=== PATIENT | male | born 1950 | race Caucasian/White ===

== ENCOUNTER 2016-11-29 13:26 | Emergency (ER) | payer MEDICAID, OTHER ==
[~2016-11-29] VITALS: Ht 190.5 cm; Wt 90.7 kg
[~2016-11-29 13:26] MED LIST: ASPI-231 PO; CYCL-181 PO; HYDR-2595 PO; IBUP40DR2; LABE100T PO; LORANTIDINE; LOSA100T27 PO; SIMV-8 PO; TRAM50TA2 PO; ZOLP10TA6 PO
[2016-11-29 13:32] VITALS: BP 162/102
[2016-11-29 14:23] LABS: Basophils # (auto) 0 uL; Basophils % (auto) 0.6 % (0.0-2.0); CONDITION Y; Eosinophils # (auto) 0 uL; Eosinophils % (auto) 0.2 % (0.0-7.0); Hematocrit 38.4 % (41.0-53.0); Hemoglobin 13.1 g/dL (13.5-17.5); Lymphocytes % (auto) 26.2 % (10.0-50.0); Mean Corpuscular Hemoglobin 33.4 pg (28.0-32.0); Mean Corpuscular Volume 98.1 fL (80.0-100.0); Mean Platelet Volume 7.2 fL (7.4-10.4); Monocytes # (auto) 0.5 uL; Monocytes % (auto) 7.3 % (0.0-12.0); Neutrophils # (auto) 4.9 uL; Neutrophils % (auto) 65.7 % (37.0-80.0); Platelet Count (auto) 340 10^3/uL (140-450); Red Cell Distribution Width 14.6 % (11.6-16.0); White Blood Cell 7.5 10^3/uL (4.4-10.8)
[2016-11-29 14:38] LABS: INR 0.97 (0.9-1.15); Partial Thromboplastin Time 30.5 sec (22.64-33.71); Prothrombin Time 10.6 sec (9.37-12.3)
[2016-11-29 14:56] LABS: Potassium 3.7 mmol/L (3.5-5.1); Sodium 136 mmol/L (136-145)
[2016-11-29 14:57] LABS: Alkaline Phosphatase 69 U/L (45-117); Anion Gap 12 (5-15); BUN/Creatinine Ratio 16.4; Blood Urea Nitrogen 19 mg/dL (7-18); Carbon Dioxide 24 mmol/L (21-32); Chloride 100 mmol/L (98-107); GFR African American 81 mL/min; GFR Non-African American 67 mL/min; Glucose 80 mg/dL (74-106)
[2016-11-29 14:58] LABS: Albumin 4.3 g/dL (3.4-5.0); Aspartate Aminotransferase 32 U/L (15-37); Bilirubin, Total 1.1 mg/dL (0.2-1.0); Total Protein 8.2 g/dL (6.4-8.2)
== END 2016-11-29 21:50 | disposition left against medical advice (07) ==
LOC: ER 13:29
DX: R07.89 Other chest pain (principal); R11.10 Vomiting, unspecified; Z53.21 Procedure and treatment not carried out due to patient leaving prior to being seen by health care provider
CPT/HCPCS: 36415; 71020; 80053; 84484; 85025; 85610; 85730; 93005

== ENCOUNTER → 2017-04-06 | Outpatient (CLI) | payer OTHER, MEDICAID ==
[~2017-04-06] VITALS: Ht 190.5 cm; Wt 87.1 kg
== END | disposition home or self-care (01) ==
LOC: Rad HDHVI 08:33
PROVIDERS: ATTEND Internal Medicine Cardiovascular Disease
DX: I34.0 Nonrheumatic mitral (valve) insufficiency (principal); I10 Essential (primary) hypertension; R00.2 Palpitations; R06.02 Shortness of breath; I49.5 Sick sinus syndrome; I95.9 Hypotension, unspecified; Z95.0 Presence of cardiac pacemaker
CPT/HCPCS: 78452; 93017; 93306; 96374; A9500

== ENCOUNTER 2017-07-06 09:52 | Emergency (ER) | payer OTHER, MEDICAID ==
[~2017-07-06] VITALS: Ht 190.5 cm; Wt 88.5 kg
[2017-07-06 10:51] VITALS: BP 121/88
[2017-07-06] MEDS ORDERED: KETOROLAC TROMETH 60MG/2ML VIAL IM ONE (11:30)
== END 2017-07-06 12:39 | disposition home or self-care (01) ==
LOC: ER 09:52
DX: S29.011A Strain of muscle and tendon of front wall of thorax, initial encounter (principal); G89.29 Other chronic pain; M54.5 Low back pain; I12.9 Hypertensive chronic kidney disease with stage 1 through stage 4 chronic kidney disease, or unspecified chronic kidney disease; N18.9 Chronic kidney disease, unspecified; E78.5 Hyperlipidemia, unspecified; X50.9XXA Other and unspecified overexertion or strenuous movements or postures, initial encounter; Y93.89 Activity, other specified; Y92.89 Other specified places as the place of occurrence of the external cause; Y99.8 Other external cause status; Z79.899 Other long term (current) drug therapy; Z79.82 Long term (current) use of aspirin; Z95.0 Presence of cardiac pacemaker
CPT/HCPCS: 71101; 93005; 96372; 99284; J1885

== ENCOUNTER → 2019-09-10 | Outpatient (CLI) | payer OTHER, MEDICAID ==
[~2019-09-10] MED LIST changes: -LABE100T PO; +LABE100T4 PO; +LOSA-39 PO; -LOSA100T27 PO
== END | disposition home or self-care (01) ==
LOC: Rad HDHVI 11:00
PROVIDERS: ATTEND Internal Medicine Cardiovascular Disease
DX: I49.5 Sick sinus syndrome (principal); R00.2 Palpitations; R07.89 Other chest pain; R06.02 Shortness of breath
CPT/HCPCS: 93306

== ENCOUNTER → 2019-09-11 | Outpatient (CLI) | payer OTHER, MEDICAID ==
[~2019-09-11] VITALS: Ht 190.5 cm; Wt 89.4 kg
== END | disposition home or self-care (01) ==
LOC: Rad HDHVI 12:57
PROVIDERS: ATTEND Internal Medicine Cardiovascular Disease
DX: I10 Essential (primary) hypertension (principal); R07.89 Other chest pain; Z95.0 Presence of cardiac pacemaker; E78.00 Pure hypercholesterolemia, unspecified
CPT/HCPCS: 78452; 93017; 96374; A9500

== ENCOUNTER → 2019-09-24 | Outpatient (CLI) | payer OTHER, MEDICAID ==
[~2019-09-24] MED LIST changes: +BENA20TA14 PO; -CYCL-181 PO; -HYDR-2595 PO; -IBUP40DR2; -LABE100T4 PO; +LORA-622 PO; -LORANTIDINE; -LOSA-39 PO; +METH500T22 PO; +METO25TA93 PO; -SIMV-8 PO; -TRAM50TA2 PO
[2019-09-24 09:00] VITALS: BP 112/79
--- NOTE | 2019-09-24 09:00 | NUR ---
CHF PT ARRIVED TO THE [facility] FOR PRE OP EKG, CXR, LABS FOR PMK GEN CHANGE ON 09/27/19. A/O X4
[2019-09-24 09:30] VITALS: BP 108/74
--- NOTE | 2019-09-24 09:30 | NUR ---
Pre-Op Discharge Summary: See e-MAR for any medications given for this visit. Pre-op orders received and carried out per MD of EKG, LABS and chest xrays. Patient given a copy of EKG. HOSPITAL REGISTRATION COMPLETED VIA PHONE. NOTE EKG DONE BY ANGELINA CHURCH
[2019-09-24 11:58] LABS: Eosinophils # (auto) 0.1 10 ^3/uL (0-0.8); Hemoglobin 14.9 g/dL (13.5-17.5); Monocytes # (auto) 0.7 10 ^3/uL (0-1.3); White Blood Cell 6.1 10^3/uL (4.4-10.8)
[2019-09-24 12:00] LABS: Basophils # (auto) 0 10 ^3/uL (0-0.2); Basophils % (auto) 0.7 % (0.0-2.0); Eosinophils % (auto) 2.1 % (0.0-7.0); Hematocrit 44.1 % (41.0-53.0); Lymphocytes # (auto) 1.8 10 ^3/uL (0.4-5.4); Lymphocytes % (auto) 28.9 % (10.0-50.0); Mean Corpuscular Hemoglobin 34.7 pg (28.0-32.0); Mean Corpuscular Hgb Conc. 33.8 g/dL (32.0-36.0); Mean Corpuscular Volume 102.8 fL (80.0-100.0); Monocytes % (auto) 11.7 % (0.0-12.0); Neutrophils # (auto) 3.4 10 ^3/uL (1.6-8.6); Neutrophils % (auto) 56.6 % (37.0-80.0); Nucleated Red Blood Cells % 0.1 %; Platelet Count (auto) 199 10^3/uL (140-450); Red Blood Cells 4.29 10^6/uL (4.5-5.90); Red Cell Distribution Width 14.1 % (11.8-14.3)
[2019-09-24 12:10] LABS: BUN/Creatinine Ratio 14.9; Calcium 8.8 mg/dL (8.5-10.1); INR 1.01 (0.9-1.15); Partial Thromboplastin Time 26.9 sec (23.64-32.05); Potassium 4.9 mmol/L (3.5-5.1)
== END | disposition home or self-care (01) ==
LOC: Rad HDHVI 08:49
PROVIDERS: ATTEND Internal Medicine Cardiovascular Disease
DX: Z01.812 Encounter for preprocedural laboratory examination (principal); I70.0 Atherosclerosis of aorta; I10 Essential (primary) hypertension; I49.5 Sick sinus syndrome; I42.0 Dilated cardiomyopathy; R07.89 Other chest pain; R06.02 Shortness of breath
CPT/HCPCS: 36415; 71046; 80048; 85025; 85610; 85730; 93005; G0463

== ENCOUNTER 2019-09-27 08:03 | Day surgery (SDC) | payer OTHER, MEDICAID ==
[~2019-09-27] VITALS: Ht 188 cm; Wt 90.7 kg
[2019-09-27] MEDS ORDERED: VANCOMYCIN 1GM/250ML 250 ML IV ONE ×2 (09:15→11:05)
[2019-09-27] MEDS ORDERED: fentaNYL CITRATE 100 MCG/2 ML VL ONE (10:49)
[2019-09-27] MEDS ORDERED: MIDAZOLAM HCL 1MG/1ML-2 ML VIAL ONE (10:49)
[2019-09-27] MEDS ORDERED: VANCOMYCIN HCL 1000 MG VL ONE (10:49)
[2019-09-27] MEDS ORDERED: LIDOCAINE 2%HCL (LOCAL ANESTH.) INJ 20ML MDV ONE (11:12)
[2019-09-27] MEDS ORDERED: HYDROcodone-ACET 5/325MG TAB PO PRN (12:30)
== END 2019-09-27 14:09 | disposition home or self-care (01) ==
LOC: CATH 08:03
PROVIDERS: ATTEND Internal Medicine Cardiovascular Disease
DX: Z45.010 Encounter for checking and testing of cardiac pacemaker pulse generator [battery] (principal); I49.5 Sick sinus syndrome; I11.0 Hypertensive heart disease with heart failure; I50.9 Heart failure, unspecified; Z79.82 Long term (current) use of aspirin; Z79.899 Other long term (current) drug therapy
CPT/HCPCS: 33228; C1785; J2250; J3010; J3370; 99152; 99153

== ENCOUNTER → 2020-07-18 | Outpatient (CLI) | payer OTHER, MEDICAID | END | disposition home or self-care (01) | LOC: Rad HDHVI 14:01 | PROVIDERS: ATTEND Internal Medicine Cardiovascular Disease | DX: I49.5 Sick sinus syndrome (principal) | CPT/HCPCS: 93306 ==

== ENCOUNTER → 2020-07-30 | Outpatient (CLI) | payer OTHER, MEDICAID ==
[~2020-07-30] VITALS: Ht 188 cm; Wt 90.7 kg
== END | disposition home or self-care (01) ==
LOC: Rad HDHVI 08:25
PROVIDERS: ATTEND Internal Medicine Cardiovascular Disease
DX: I49.5 Sick sinus syndrome (principal); I10 Essential (primary) hypertension; E78.5 Hyperlipidemia, unspecified; R55 Syncope and collapse; R06.02 Shortness of breath; Z95.0 Presence of cardiac pacemaker
CPT/HCPCS: 78452; 93017; 96374; A9500

== ENCOUNTER → 2021-09-30 | Outpatient (CLI) | payer OTHER, MEDICAID ==
[~2021-09-30] VITALS: Ht 190.5 cm; Wt 87.5 kg
[~2021-09-30] MED LIST changes: -ASPI-231 PO; +ASPI1TAB20 PO
== END | disposition home or self-care (01) ==
LOC: Rad HDHVI 08:16
PROVIDERS: ATTEND Internal Medicine Cardiovascular Disease
DX: I10 Essential (primary) hypertension (principal); R07.9 Chest pain, unspecified; Z95.0 Presence of cardiac pacemaker
CPT/HCPCS: 78452; 93017; 96374; A9500

== ENCOUNTER 2022-03-17 06:50 | Emergency (ER) | payer OTHER, MEDICAID ==
[~2022-03-17] VITALS: Ht 185.4 cm; Wt 91.0 kg
[2022-03-17] MEDS ORDERED: CEFD300C2 PO (08:40)
[2022-03-17] MEDS ORDERED: BACIOIN15 OP (08:40)
[2022-03-17 09:29] VITALS: BP 132/70
== END 2022-03-17 10:12 | disposition home or self-care (01) ==
LOC: ER 06:50
DX: L97.421 Non-pressure chronic ulcer of left heel and midfoot limited to breakdown of skin (principal); G89.4 Chronic pain syndrome; I12.9 Hypertensive chronic kidney disease with stage 1 through stage 4 chronic kidney disease, or unspecified chronic kidney disease; N18.9 Chronic kidney disease, unspecified; E78.5 Hyperlipidemia, unspecified; F12.10 Cannabis abuse, uncomplicated

== ENCOUNTER 2022-04-05 12:16 | Inpatient (IN) | payer OTHER, MEDICAID ==
[~2022-04-05] VITALS: Ht 185.4 cm; Wt 89.7 kg
[~2022-04-05 12:16] MED LIST changes: +BACIOIN15 OP; +CEFD300C2 PO
[2022-04-05] MEDS ORDERED: ASPirin 81 mg TAB PO ONE (12:45)
[2022-04-05 13:05] LABS: Basophils # (auto) 0 10 ^3/uL (0-0.2); Basophils % (auto) 0.3 % (0.0-2.0); Lymphocytes # (auto) 2.4 10 ^3/uL (0.4-5.4); Mean Corpuscular Hgb Conc. 33.7 g/dL (32.0-36.0); Neutrophils # (auto) 2.8 10 ^3/uL (1.6-8.6); Nucleated Red Blood Cells % 0.1 %; White Blood Cell 6.6 10^3/uL (4.4-10.8)
[2022-04-05 13:06] LABS: Eosinophils # (auto) 0.4 10 ^3/uL (0-0.8); Eosinophils % (auto) 6.3 % (0.0-7.0); Hemoglobin 14.5 g/dL (13.5-17.5); Lymphocytes % (auto) 36.1 % (10.0-50.0); Mean Corpuscular Hemoglobin 34.8 pg (28.0-32.0); Mean Corpuscular Volume 103.1 fL (80.0-100.0); Monocytes % (auto) 14.9 % (0.0-12.0); Neutrophils % (auto) 42.4 % (37.0-80.0); Red Blood Cells 4.17 10^6/uL (4.5-5.90); Red Cell Distribution Width 13.2 % (11.8-14.3)
[2022-04-05 13:18] LABS: INR 1.08 (0.9-1.15); Partial Thromboplastin Time 30.5 sec (24.6-33.4)
[2022-04-05 13:23] LABS: Albumin 3.3 g/dL (3.4-5.0); Calcium 9.4 mg/dL (8.5-10.1); Magnesium 2.2 mg/dL (1.6-2.6); Potassium 5.4 mmol/L (3.5-5.1)
[2022-04-05 13:26] LABS: Total Protein 7.9 g/dL (6.4-8.2)
[2022-04-05] MEDS ORDERED: CLINDAMYCIN 600MG IV 50 ML IV ONE (13:30)
[2022-04-05] MEDS ORDERED: PANTOPRAZOLE 40 MG/10 ML VIAL INJ IV ONE (18:00)
[2022-04-05] MEDS ORDERED: HYDROcodone-ACET 5/325MG TAB PO PRN (18:45)
[2022-04-05] MEDS ORDERED: ONDANSETRON HCL 4 MG/2 ML VIAL IV PRN (18:45)
[2022-04-05] MEDS ORDERED: DOCUSATE SOD 100 MG CAP PO PRN (18:45)
[2022-04-05] MEDS ORDERED: NITROGLYCERIN 0.4 MG SL TAB SL PRN (18:45)
[2022-04-05] MEDS ORDERED: MORPHINE SULFATE INJ 2 MG/ml SYRG IV PRN (18:45)
[2022-04-05] MEDS ORDERED: ACETAMINOPHEN 325 MG TAB PO PRN (18:45)
[2022-04-05 19:33] LABS: Cholesterol 168 mg/dL (< 200); Triglycerides 220 mg/dL (< 150)
[2022-04-05 19:36] LABS: HDL Cholesterol 30 mg/dL (40-59); LDL Cholesterol 119 mg/dL (< 100)
[2022-04-06] MEDS: ASCORBIC ACID 500 MG TAB PO SCH ×3 (00:05→21:53)
[2022-04-06] MEDS: CLINDAMYCIN 600MG IV 50 ML IV SCH ×4 (00:05→21:53)
[2022-04-06] MEDS: SODIUM CHLORIDE 0.9% 1,000 ML IV SCH ×3 (00:46→16:31)
[2022-04-06 01:20] LABS: Urine Bacteria FEW /hpf (None Seen); Urine Blood Negative /uL (Negative); Urine Hyaline Cast MANY /lpf (0 - 2); Urine Mucus FEW (None Seen); Urine Specific Gravity 1.022 (1.001-1.035); Urine WBC 3 /hpf (0 - 3)
[2022-04-06 01:27] LABS: Amphetamine Screen, Urine NEGATIVE (NEGATIVE); Barbiturate Scree,Urine NEGATIVE (NEGATIVE); Benzodiazephine Screen, Urine NEGATIVE (NEGATIVE); Cannabinoid Screen, Urine NEGATIVE (NEGATIVE); Cocaine Screen, Urine NEGATIVE (NEGATIVE); Opiate Scree,Urine NEGATIVE (NEGATIVE); Phencyclidine Screen, Urine NEGATIVE (NEGATIVE)
[2022-04-06 06:15] LABS: Basophils # (auto) 0.1 10 ^3/uL (0-0.2); Basophils % (auto) 1.2 % (0.0-2.0); Eosinophils # (auto) 0.3 10 ^3/uL (0-0.8); Eosinophils % (auto) 5.5 % (0.0-7.0); Hematocrit 38.1 % (41.0-53.0); Hemoglobin 12.8 g/dL (13.5-17.5); Lymphocytes # (auto) 2.5 10 ^3/uL (0.4-5.4); Lymphocytes % (auto) 41.3 % (10.0-50.0); Mean Corpuscular Hemoglobin 34.7 pg (28.0-32.0); Mean Corpuscular Hgb Conc. 33.6 g/dL (32.0-36.0); Mean Corpuscular Volume 103.1 fL (80.0-100.0); Monocytes # (auto) 1.1 10 ^3/uL (0-1.3); Monocytes % (auto) 17.9 % (0.0-12.0); Neutrophils # (auto) 2.1 10 ^3/uL (1.6-8.6); Neutrophils % (auto) 34.1 % (37.0-80.0); Nucleated Red Blood Cells % 0.1 %; Red Cell Distribution Width 12.7 % (11.8-14.3); White Blood Cell 6.2 10^3/uL (4.4-10.8)
[2022-04-06 06:31] LABS: Albumin 2.5 g/dL (3.4-5.0); Calcium 8.5 mg/dL (8.5-10.1)
[2022-04-06 06:34] LABS: BUN/Creatinine Ratio 17.1; Total Protein 6.6 g/dL (6.4-8.2)
[2022-04-06 06:59] LABS: Potassium 5.8 mmol/L (3.5-5.1)
[2022-04-06] MEDS ORDERED: SODIUM ZIRCONIUM CYCL 10 GM PAK PO ONE (07:15)
[2022-04-06] MEDS: ASPirin 81 mg TAB PO SCH (09:55)
[2022-04-06] MEDS: ZINC SULFATE 220mg CAP or TAB PO SCH (09:55)
[2022-04-06] MEDS: MULTIPLE VITAMIN TAB PO SCH (09:55)
[2022-04-06] MEDS: PANTOPRAZOLE 40 MG/10 ML VIAL INJ IV SCH (09:56)
[2022-04-06] MEDS ORDERED: ENOXAPARIN SOD 40 MG/0.4 ML SYRINGE SC SCH (10:00)
[2022-04-06] MEDS ORDERED: ALBUTEROL SULF 2.5 MG/0.5ML(0.5%) NEB SOLN NEB ONE (10:45)
[2022-04-06 11:50] LABS: Salicylate < 1.7 mg/dL (2.8-20.0)
[2022-04-06 11:52] LABS: Acetaminophen < 2.0 ug/mL (10-30)
[2022-04-06] MEDS ORDERED: TRIATAB3 PO (12:03)
[2022-04-06] MEDS ORDERED: PERCOT PO (12:03)
[2022-04-06] MEDS ORDERED: ZOLP10TA PO (12:07)
[2022-04-06] MEDS ORDERED: ZINC100T5 PO (12:07)
[2022-04-06 12:39] VITALS: BP 140/76
[2022-04-06 16:46] VITALS: BP 135/91
[2022-04-06] MEDS: ENOXAPARIN SOD 100 MG/1 ML SYRINGE SC SCH (21:55)
[2022-04-06] MEDS ORDERED: ZOLPIDEM TARTRATE 5 MG TAB PO PRN (22:00)
[2022-04-06 22:29] VITALS: BP 130/79
[2022-04-06] MEDS: oxyCODONE ER 10 MG TAB PO SCH (23:25)
[2022-04-07] MEDS: SODIUM CHLORIDE 0.9% 1,000 ML IV SCH ×3 (04:15→17:31)
[2022-04-07 04:45] VITALS: BP 101/69
[2022-04-07] MEDS: CLINDAMYCIN 600MG IV 50 ML IV SCH ×3 (06:03→22:22)
[2022-04-07 06:49] LABS: Basophils # (auto) 0 10 ^3/uL (0-0.2); Basophils % (auto) 0.6 % (0.0-2.0); Eosinophils # (auto) 0.4 10 ^3/uL (0-0.8); Eosinophils % (auto) 5.8 % (0.0-7.0); Hematocrit 35.9 % (41.0-53.0); Hemoglobin 12.3 g/dL (13.5-17.5); Lymphocytes # (auto) 1.9 10 ^3/uL (0.4-5.4); Lymphocytes % (auto) 31.1 % (10.0-50.0); Mean Corpuscular Hemoglobin 34.9 pg (28.0-32.0); Mean Corpuscular Hgb Conc. 34.2 g/dL (32.0-36.0); Mean Corpuscular Volume 101.9 fL (80.0-100.0); Monocytes # (auto) 0.9 10 ^3/uL (0-1.3); Neutrophils % (auto) 48.5 % (37.0-80.0); Nucleated Red Blood Cells % 0.2 %; Red Blood Cells 3.52 10^6/uL (4.5-5.90); Red Cell Distribution Width 12.9 % (11.8-14.3); White Blood Cell 6.3 10^3/uL (4.4-10.8)
[2022-04-07 07:04] LABS: Potassium 4.8 mmol/L (3.5-5.1)
[2022-04-07 07:12] LABS: Albumin 2.4 g/dL (3.4-5.0); BUN/Creatinine Ratio 15.7; Bilirubin, Total 1.9 mg/dL (0.2-1.0); Calcium 8.1 mg/dL (8.5-10.1)
[2022-04-07] MEDS: METOPROLOL SUCCINATE XL 50 MG TAB PO SCH (08:13)
[2022-04-07] MEDS: TRIAMTERENE/HCTZ 37.5/25 MG CAP/TAB PO SCH (08:13)
[2022-04-07] MEDS: MULTIPLE VITAMIN TAB PO SCH (08:42)
[2022-04-07] MEDS: ASCORBIC ACID 500 MG TAB PO SCH ×2 (08:42→22:22)
[2022-04-07] MEDS: ZINC SULFATE 220mg CAP or TAB PO SCH (08:42)
[2022-04-07 08:43] VITALS: BP 93/60
[2022-04-07] MEDS: ASPirin 81 mg TAB PO SCH (08:43)
[2022-04-07] MEDS: PANTOPRAZOLE 40 MG/10 ML VIAL INJ IV SCH (08:43)
[2022-04-07] MEDS: ENOXAPARIN SOD 100 MG/1 ML SYRINGE SC SCH ×2 (08:43→22:24)
[2022-04-07] MEDS: oxyCODONE ER 10 MG TAB PO SCH (08:43)
[2022-04-07] MEDS: DICLOFENAC 1% GEL TOP SCH ×3 (12:05→22:30)
[2022-04-07 12:38] VITALS: BP 101/64
[2022-04-07] MEDS: OXYCODONE W/ ACETAMINOPHEN 5/325MG TABLET PO PRN ×2 (15:24→22:23)
[2022-04-07 16:34] VITALS: BP 106/70
[2022-04-07] MEDS ORDERED: POLYETHYLENE GLYCOL 17 GM PWDR PO ONE (18:00)
[2022-04-07 19:04] LABS: Hepatitis A Ab IgM Negative; Hepatitis B Core IgM Negative; Hepatitis C Antibody Negative (Negative)
[2022-04-07 22:00] VITALS: BP_SYST 109; BP_SYST 113; BP_DIAS 69; BP_DIAS 72
[2022-04-08] MEDS: SODIUM CHLORIDE 0.9% 1,000 ML IV SCH (05:48)
[2022-04-08 06:00] VITALS: BP_SYST 116; BP_SYST 89; BP_DIAS 49; BP_DIAS 74
[2022-04-08] MEDS: CLINDAMYCIN 600MG IV 50 ML IV SCH ×2 (06:16→14:00)
[2022-04-08] MEDS: DICLOFENAC 1% GEL TOP SCH ×2 (06:16→11:42)
[2022-04-08 06:19] VITALS: BP 99/71
[2022-04-08 08:56] VITALS: BP_SYST 100; BP_SYST 116; BP_DIAS 70
[2022-04-08] MEDS: TRIAMTERENE/HCTZ 37.5/25 MG CAP/TAB PO SCH (10:00)
[2022-04-08] MEDS: ZINC SULFATE 220mg CAP or TAB PO SCH (10:01)
[2022-04-08] MEDS: ASCORBIC ACID 500 MG TAB PO SCH (10:01)
[2022-04-08] MEDS: ASPirin 81 mg TAB PO SCH (10:01)
[2022-04-08] MEDS: PANTOPRAZOLE 40 MG/10 ML VIAL INJ IV SCH (10:01)
[2022-04-08] MEDS: MULTIPLE VITAMIN TAB PO SCH (10:01)
[2022-04-08] MEDS: ENOXAPARIN SOD 100 MG/1 ML SYRINGE SC SCH (10:02)
[2022-04-08] MEDS: METOPROLOL SUCCINATE XL 50 MG TAB PO SCH (10:02)
[2022-04-08 12:18] LABS: Potassium 5.1 mmol/L (3.5-5.1)
[2022-04-08 12:19] LABS: Albumin 2.4 g/dL (3.4-5.0); BUN/Creatinine Ratio 13.6; Calcium 8.1 mg/dL (8.5-10.1)
[2022-04-08 12:22] LABS: Bilirubin, Total 0.6 mg/dL (0.2-1.0); Total Protein 6.5 g/dL (6.4-8.2)
[2022-04-08 13:00] VITALS: BP 129/85
[2022-04-08] MEDS ORDERED: APIX5TAB PO (13:21)
[2022-04-08] MEDS ORDERED: APIX5TAB4 PO (13:21)
[2022-04-08] MEDS ORDERED: CEPH-510 PO (13:25)
== END 2022-04-08 16:30 | disposition home or self-care (01) | DRG 603 ==
LOC: ER 12:16 → TELE 18:42 → CENTRAL 04-06 09:22 → TELE-CENTR 04-06 09:27 → CENTRAL 04-07 12:09
PROVIDERS: ADMIT Nurse Practitioner Family; ATTEND Internal Medicine
DX: L03.317 Cellulitis of buttock (principal); E46 Unspecified protein-calorie malnutrition; I82.411 Acute embolism and thrombosis of right femoral vein; L02.31 Cutaneous abscess of buttock; E78.5 Hyperlipidemia, unspecified; E87.5 Hyperkalemia; F17.200 Nicotine dependence, unspecified, uncomplicated; G89.29 Other chronic pain; E87.8 Other disorders of electrolyte and fluid balance, not elsewhere classified; I12.9 Hypertensive chronic kidney disease with stage 1 through stage 4 chronic kidney disease, or unspecified chronic kidney disease; N18.30 Chronic kidney disease, stage 3 unspecified; Z20.822 Contact with and (suspected) exposure to COVID-19; Z95.0 Presence of cardiac pacemaker; Z82.49 Family history of ischemic heart disease and other diseases of the circulatory system; Z68.26 Body mass index [BMI] 26.0-26.9, adult
CPT/HCPCS: 36415; 71046; 76705; 76881; 80053; 80061; 80074; 80307; 80329; 81001; 82140; 83036; 83735; 84132; 84443; 84484; 85025; 85379; 85610; 85730; 87040; 87205; 87426; 93005; 93970; 94640; 96365; 96375; C9113; G0378; J3490

== ENCOUNTER → 2023-02-21 | Outpatient (CLI) | payer OTHER, MEDICAID ==
[~2023-02-21] MED LIST changes: +APIX5TAB PO; +APIX5TAB4 PO; +BENA-36 PO; -BENA20TA14 PO; -CEFD300C2 PO; +CEPH-510 PO; +CLON0.1T PO; +CLOP75TA28 PO; +HYDR-4798 PO; +LIDO5CRE14 EX; -LORA-622 PO; +MELO-335 PO; +METH-1181 PO; -METH500T22 PO; +MULT1TAB82 PO; +TRIATAB3 PO; +ZOLP10TA PO; -ZOLP10TA6 PO
[2023-02-21 11:15] VITALS: BP 102/66; PULSE 80; RESP 18; O2SAT 93
[2023-02-21 11:35] VITALS: BP 100/63; PULSE 73; RESP 18; O2SAT 93
== END | disposition home or self-care (01) ==
LOC: CHF HDHVI 11:06
PROVIDERS: ATTEND Internal Medicine Cardiovascular Disease
DX: I50.43 Acute on chronic combined systolic (congestive) and diastolic (congestive) heart failure (principal); R06.02 Shortness of breath; I20.0 Unstable angina; R09.89 Other specified symptoms and signs involving the circulatory and respiratory systems
CPT/HCPCS: 93005; G0463

== ENCOUNTER 2023-02-24 07:31 | Day surgery (SDC) | payer OTHER, MEDICAID ==
[2023-02-21 14:19] LABS: Basophils # (auto) 0.1 10 ^3/uL (0-0.2); Basophils % (auto) 0.4 % (0.0-2.0); Eosinophils # (auto) 0.1 10 ^3/uL (0-0.8); Lymphocytes # (auto) 1.9 10 ^3/uL (0.4-5.4); Lymphocytes % (auto) 15.9 % (10.0-50.0); Mean Corpuscular Hemoglobin 35.8 pg (28.0-32.0); Mean Corpuscular Hgb Conc. 34.2 g/dL (32.0-36.0); Mean Corpuscular Volume 104.7 fL (80.0-100.0); Monocytes # (auto) 1.5 10 ^3/uL (0-1.3); Neutrophils # (auto) 8.7 10 ^3/uL (1.6-8.6); Neutrophils % (auto) 70.7 % (37.0-80.0); Nucleated Red Blood Cells % 0.1 %; Red Blood Cells 3.92 10^6/uL (4.5-5.90); Red Cell Distribution Width 13.2 % (11.8-14.3); White Blood Cell 12.3 10^3/uL (4.4-10.8)
[2023-02-21 14:27] LABS: INR 1.03 (0.9-1.15); Partial Thromboplastin Time 34.7 SEC (24.5-34.5); Prothrombin Time 10.8 sec (9.3-11.8)
[2023-02-21 14:41] LABS: Chloride 101 mmol/L (98-107); Potassium 4.5 mmol/L (3.5-5.1); Sodium 133 mmol/L (136-145)
[2023-02-21 14:42] LABS: Anion Gap 10 (5-15); Carbon Dioxide 22 mmol/L (20-30)
[2023-02-21 14:43] LABS: Calcium 9.6 mg/dL (8.7-10.4)
[2023-02-21 14:47] LABS: BUN/Creatinine Ratio 14.8 (10.0-20.0); Blood Urea Nitrogen 20 mg/dL (9-23); Glucose 108 mg/dL (74-106)
[~2023-02-24] VITALS: Ht 185.4 cm; Wt 92.5 kg
[2023-02-24] VITALS (8 sets, daily range): BP systolic 123–138; BP diastolic 73–96; PULSE 65–73; RESP 12–20; TEMP 98.1; O2SAT 93–94
[~2023-02-24 07:31] MED LIST changes: -APIX5TAB PO; -APIX5TAB4 PO; -BACIOIN15 OP; -BENA-36 PO; -METO25TA93 PO; -TRIATAB3 PO
[2023-02-24] MEDS ORDERED: IOHEXOL 350 MG/ML 100ML IJ ONE ×2 (08:09→09:28)
[2023-02-24] MEDS ORDERED: fentaNYL CITRATE 100 MCG/2 ML VL ONE (09:27)
[2023-02-24] MEDS ORDERED: ANGIOMAX 250 MG VIAL IV ONE (09:27)
[2023-02-24] MEDS ORDERED: MIDAZOLAM HCL 2MG/2ML 2ml VIAL (1mg/ml) ONE ×2 (09:28→09:50)
[2023-02-24] MEDS ORDERED: LIDOCAINE 2%HCL (LOCAL ANESTH.) INJ 20ML MDV ONE (09:28)
== END 2023-02-24 12:49 | disposition home or self-care (01) ==
LOC: CATH 07:31
PROVIDERS: ATTEND Internal Medicine Cardiovascular Disease
DX: R07.89 Other chest pain (principal); M94.0 Chondrocostal junction syndrome [Tietze]; R94.31 Abnormal electrocardiogram [ECG] [EKG]; I49.5 Sick sinus syndrome; I10 Essential (primary) hypertension; Z95.0 Presence of cardiac pacemaker; Z79.899 Other long term (current) drug therapy; Z79.01 Long term (current) use of anticoagulants; Z98.890 Other specified postprocedural states; I25.2 Old myocardial infarction; Z86.718 Personal history of other venous thrombosis and embolism; F17.220 Nicotine dependence, chewing tobacco, uncomplicated; N28.9 Disorder of kidney and ureter, unspecified
CPT/HCPCS: 36415; 80048; 85025; 85610; 85730; 93458; C1894; J1644; J2250; J3010; Q9967; 99152; 99153

== ENCOUNTER 2023-10-06 09:30 | Inpatient (IN) | payer OTHER, MEDICAID ==
[~2023-10-06] VITALS: Ht 185.4 cm; Wt 90.1 kg
[~2023-10-06 09:30] MED LIST changes: -MELO-335 PO; +MELO15TA29 PO
[2023-10-06 09:46] LABS: Basophils # (auto) 0.1 10 ^3/uL (0-0.2); Eosinophils # (auto) 0.3 10 ^3/uL (0-0.8); Lymphocytes # (auto) 1.9 10 ^3/uL (0.4-5.4); Monocytes # (auto) 1.1 10 ^3/uL (0-1.3); Neutrophils # (auto) 5.9 10 ^3/uL (1.6-8.6); White Blood Cell 9.3 10^3/uL (4.4-10.8)
[2023-10-06 09:48] LABS: Eosinophils % (auto) 3.3 % (0.0-7.0); Hemoglobin 14.8 g/dL (13.5-17.5); Lymphocytes % (auto) 20.3 % (10.0-50.0); Mean Corpuscular Hemoglobin 36.6 pg (28.0-32.0); Mean Corpuscular Hgb Conc. 34.3 g/dL (32.0-36.0); Mean Corpuscular Volume 106.4 fL (80.0-100.0); Monocytes % (auto) 12.1 % (0.0-12.0); Neutrophils % (auto) 63.3 % (37.0-80.0); Red Blood Cells 4.04 10^6/uL (4.5-5.90)
[2023-10-06 10:01] LABS: Alanine Aminotransferase 14 U/L (7-40); Albumin 4.3 g/dL (3.2-4.8); Alkaline Phosphatase 69 U/L (46-116); Anion Gap 8 (5-15); Aspartate Aminotransferase 28 U/L (13-40); BUN/Creatinine Ratio 14.8 (10.0-20.0); Blood Urea Nitrogen 16 mg/dL (9-23); Calcium 9.7 mg/dL (8.5-10.1); Carbon Dioxide 25 mmol/L (20-30); Chloride 101 mmol/L (98-107); Glucose 102 mg/dL (74-106); Sodium 134 mmol/L (136-145)
[2023-10-06 10:02] LABS: Bilirubin, Total 0.5 mg/dL (0.2-1.0); Total Protein 7.9 g/dL (5.7-8.2)
[2023-10-06 10:04] LABS: INR 1.11 (0.9-1.15); Partial Thromboplastin Time 28.5 SEC (24.5-34.5); Prothrombin Time 11.7 sec (9.3-11.8)
[2023-10-06 11:11] LABS: Magnesium 2.1 mg/dL (1.6-2.6)
[2023-10-06] MEDS ORDERED: HYDROcodone-ACET 5/325MG TAB PO PRN (13:15)
[2023-10-06] MEDS ORDERED: NITROGLYCERIN 0.4 MG SL TAB SL PRN (13:15)
[2023-10-06] MEDS ORDERED: MORPHINE SULFATE INJ 2 MG/ml SYRG IV PRN (13:15)
[2023-10-06] MEDS ORDERED: cloNIDine HCL 0.1 MG TAB PO PRN (13:15)
[2023-10-06] MEDS ORDERED: HYDROcodone-ACET 10/325MG TAB PO PRN (13:15)
[2023-10-06] MEDS ORDERED: ACETAMINOPHEN 325 MG TAB PO PRN (13:15)
[2023-10-06] MEDS: HYDROCORTONE 1% TOPICAL CREAM 30 GM TUBE TOP SCH (14:00)
[2023-10-06 14:18] LABS: LDL Cholesterol 126 mg/dL (< 100); Triglycerides 130 mg/dL (< 150)
[2023-10-06 14:19] LABS: HDL Cholesterol 41 mg/dL (40-59)
[2023-10-06 14:20] LABS: Cholesterol 179 mg/dL (< 200)
[2023-10-06] MEDS: METHOCARBAMOL 500 MG TAB PO SCH (14:46)
[2023-10-06 15:44] VITALS: PULSE 74; RESP 16; O2SAT 96
[2023-10-06 15:59] VITALS: BP 166/112; PULSE 71; RESP 16; TEMP 98.1; O2SAT 96
[2023-10-06 16:54] VITALS: BP 148/87; PULSE 95
[2023-10-06] MEDS ORDERED: PATIENTS OWN MEDICATION (Zolpidem Tartrate (Ambien) 1 TAB) PO SCH (18:00)
[2023-10-06] MEDS: diphenhdrAMINE HCL 50 MG/1 ML VL IV PRN (18:29)
[2023-10-06 19:30] VITALS: PULSE 78; RESP 16; O2SAT 98
[2023-10-06 20:00] VITALS: PULSE 81
[2023-10-06 21:00] VITALS: BP 130/88; PULSE 72; RESP 20; TEMP 98.7; O2SAT 92
[2023-10-06] MEDS: ZOLPIDEM TARTRATE 5 MG TAB PO PRN (21:16)
[2023-10-06] MEDS: predniSONE 20 MG TAB PO ONE (21:16)
[2023-10-06] MEDS: OXYCODONE W/ ACETAMINOPHEN 5/325MG TABLET PO PRN (21:17)
[2023-10-07 05:00] VITALS: BP 133/79; PULSE 65; RESP 20; TEMP 97.5; O2SAT 93
[2023-10-07 06:53] LABS: Basophils # (auto) 0 10 ^3/uL (0-0.2); Eosinophils # (auto) 0 10 ^3/uL (0-0.8); Eosinophils % (auto) 0.1 % (0.0-7.0); Hemoglobin 13.7 g/dL (13.5-17.5); Lymphocytes # (auto) 1.1 10 ^3/uL (0.4-5.4); Monocytes # (auto) 0.2 10 ^3/uL (0-1.3)
[2023-10-07 06:56] LABS: Basophils % (auto) 0.6 % (0.0-2.0); Hematocrit 41.8 % (41.0-53.0); Lymphocytes % (auto) 18.4 % (10.0-50.0); Mean Corpuscular Hemoglobin 35.3 pg (28.0-32.0); Mean Corpuscular Hgb Conc. 32.8 g/dL (32.0-36.0); Mean Corpuscular Volume 107.7 fL (80.0-100.0); Monocytes % (auto) 3.7 % (0.0-12.0); Neutrophils # (auto) 4.6 10 ^3/uL (1.6-8.6); Neutrophils % (auto) 77.2 % (37.0-80.0); Red Blood Cells 3.88 10^6/uL (4.5-5.90)
[2023-10-07 07:05] LABS: Alanine Aminotransferase 16 U/L (7-40); Alkaline Phosphatase 63 U/L (46-116); Anion Gap 8 (5-15); Blood Urea Nitrogen 18 mg/dL (9-23); Calcium 9.6 mg/dL (8.7-10.4); Carbon Dioxide 23 mmol/L (20-30); Chloride 101 mmol/L (98-107); Glucose 134 mg/dL (74-106); Potassium 4.1 mmol/L (3.5-5.1); Sodium 132 mmol/L (136-145)
[2023-10-07 07:07] LABS: Albumin 4.1 g/dL (3.2-4.8); Aspartate Aminotransferase 24 U/L (13-40); Bilirubin, Total 0.6 mg/dL (0.2-1.0); Total Protein 7.4 g/dL (5.7-8.2)
[2023-10-07 07:17] LABS: BUN/Creatinine Ratio 18.2 (10.0-20.0)
[2023-10-07 08:00] VITALS: PULSE 74; PULSE 76; RESP 18; O2SAT 98
[2023-10-07 09:00] VITALS: BP 148/85; PULSE 76; RESP 16; TEMP 97.7; O2SAT 95
[2023-10-07] MEDS: MULTIPLE VITAMINS W/ MINERALS TAB PO SCH (09:04)
[2023-10-07] MEDS: predniSONE 20 MG TAB PO SCH (09:05)
[2023-10-07] MEDS: CLOPIDOGREL BISULFATE 75 MG TAB PO SCH (09:05)
[2023-10-07] MEDS: LIDOCAINE 5% TOP SCH (09:05)
[2023-10-07] MEDS: ASPirin-EC 81 mg tab PO SCH (09:05)
[2023-10-07] MEDS ORDERED: CLOB0.055 TOP (10:42)
[2023-10-07 13:00] VITALS: BP 144/83; PULSE 66; RESP 16; TEMP 98.1; O2SAT 95
== END 2023-10-07 15:00 | disposition home or self-care (01) | DRG 305 ==
LOC: ER 09:30 → TELE 13:13 → TELE-WESTW 13:13 → TELE-E-ADS 15:07 → TELE-WESTW 17:49
PROVIDERS: ADMIT Nurse Practitioner Family; ATTEND Internal Medicine Pulmonary Disease
DX: I16.0 Hypertensive urgency (principal); G89.4 Chronic pain syndrome; J44.9 Chronic obstructive pulmonary disease, unspecified; F17.200 Nicotine dependence, unspecified, uncomplicated; E78.5 Hyperlipidemia, unspecified; R21 Rash and other nonspecific skin eruption; Z95.0 Presence of cardiac pacemaker; Z79.2 Long term (current) use of antibiotics; Z79.899 Other long term (current) drug therapy; Z79.82 Long term (current) use of aspirin; Z79.02 Long term (current) use of antithrombotics/antiplatelets; Z82.49 Family history of ischemic heart disease and other diseases of the circulatory system
CPT/HCPCS: 36415; 71045; 80053; 80061; 83735; 83880; 84443; 84484; 85025; 85610; 85730; 93005; 93306; G0378

== ENCOUNTER → 2024-04-02 | Outpatient (CLI) | payer OTHER ==
[~2024-04-02] MED LIST changes: +CLOB0.055 TOP
== END | disposition home or self-care (01) ==
LOC: Rad HDHVI 08:04
PROVIDERS: ATTEND Internal Medicine Cardiovascular Disease
DX: M79.671 Pain in right foot (principal); I73.9 Peripheral vascular disease, unspecified
CPT/HCPCS: 93925

== ENCOUNTER → 2024-09-11 | Outpatient (CLI) | payer OTHER, MEDICAID ==
--- NOTE | 2024-09-12 15:03 | DVHSR ---
APPROVED REPORT EXAM: Two-dimensional and M-mode echocardiogram with Doppler and color Doppler. DIMENSIONS LVDd4.9 (3.8-5.7cm)LA (2D)3.5 (1.9-4.0cm)Aortic Root3.5 (2.0-3.7cm) LVDs3.7 (2.5-4.0cm)LA (MM) (1.9-4.0cm)Aortic Cusp Exc1.9 (1.5-2.0cm) EF (%) 49.2 (55-70%)Rt. Atrium3.9 (1.9-4.0cm)Asc. Aorta3.9 cm IVSd0.9 (0.7-1.1cm)RV (D)3.6 (1.8-2.4cm) PWd0.9 (0.7-1.1cm) Mitral Valve MitralMitral Stenosis E wave0.81m/sMV Mean GR.mmHg A wave0.93m/sMV Peak GR.126mmHg E/A ratio0.92D MVAcm2 DECEL [id number] 1/2 Timems Aortic Valve Aortic ValveAortic Stenosis V10.75m/Nia Mean GR.mmHg Pulmonic Valve V20.74m/s Tricuspid Valve TR Velocity2.78m/s [id number] LEFT VENTRICLE The Ejection Fraction is 45-50%. ATRIA The left atrial size is normal. The right atrium size is normal. MITRAL VALVE Mitral annular calcification is borderline. Mitral regurgitation is mild. PULMONIC VALVE The pulmonic valve is not well visualized. TRICUSPID VALVE The tricuspid valve is grossly normal. There is mild tricuspid regurgitation. AORTIC VALVE The aortic valve opens well. No aortic regurgitation is present. GREAT VESSELS The aortic root is normal size. PERICARDIAL EFFUSION There is no pericardial effusion. Conclusion EF 50% MILD TR MILD MR
== END | disposition home or self-care (01) ==
LOC: Rad HDHVI 08:06
PROVIDERS: ATTEND Internal Medicine Cardiovascular Disease
DX: I08.1 Rheumatic disorders of both mitral and tricuspid valves (principal); R06.02 Shortness of breath
CPT/HCPCS: 93306

== ENCOUNTER → 2024-09-17 | Outpatient (CLI) | payer OTHER, MEDICAID ==
[~2024-09-17] VITALS: Ht 182.9 cm; Wt 81.6 kg
[~2024-09-17] MED LIST changes: +ADENOSINE 69 MG in GIVE UN-DILUTED 0 ML IV ONE; +ADENOSINE 90 MG/30 ML INJ IV ONE
== END | disposition home or self-care (01) ==
LOC: Rad HDHVI 08:41
PROVIDERS: ATTEND Internal Medicine Cardiovascular Disease
DX: I49.1 Atrial premature depolarization (principal); I49.3 Ventricular premature depolarization; R07.89 Other chest pain; I11.0 Hypertensive heart disease with heart failure; I50.23 Acute on chronic systolic (congestive) heart failure; I49.5 Sick sinus syndrome; I73.9 Peripheral vascular disease, unspecified; F10.20 Alcohol dependence, uncomplicated; E78.00 Pure hypercholesterolemia, unspecified; Y90.9 Presence of alcohol in blood, level not specified; Z95.0 Presence of cardiac pacemaker; Z82.49 Family history of ischemic heart disease and other diseases of the circulatory system
CPT/HCPCS: 78452; 93017; A9500; J0153; 93005; 96374; 96375

== ENCOUNTER 2024-10-06 07:22 | Inpatient (IN) | payer OTHER, MEDICAID ==
[~2024-10-06] VITALS: Ht 185.4 cm; Wt 77.8 kg
[~2024-10-06 07:22] MED LIST changes: -ADENOSINE 69 MG in GIVE UN-DILUTED 0 ML IV ONE; -ADENOSINE 90 MG/30 ML INJ IV ONE
--- NOTE | 2024-10-06 08:20 | ED.PDOC ---
History of Present Illness(SKN HPI Comments A 74 YEAR OLD FEMALE PRESENTS TO THE ED WITH COMPLAINT OF BILATERAL LOWER LEG WOUNDS. PATIENT STATES HE HAS HAD WOUNDS ON HIS BILATERAL LOWER LEGS FOR THE PAST 4 DAYS. PATIENT NOTES THEY INITIALLY STARTED BLOOD BLISTERS, BUT CONTINUED TO GET WORSE OVER TIME. PATIENT IS CONCERNED THESE WOUNDS MAY BE INFE CTED. PATIENT NOTES THAT HE WAS ALREADY PRESCRIBED KEFLEX BY HIS PRIMARY CARE PHYSICIAN, BUT NOTES THERE HAS BEEN NO IMPROVEMENT, AND WAS INSTRUCTED BY HIS PRIMARY CARE PHYSICIAN TO COME TO THE ED FOR FURTHER TREATMENT. PATIENT DENIES FEVER, CHILLS, SHORTNESS OF BREATH, CHEST PAIN, ABDOMINAL PAIN, NAUSEA, VOMITING, HEADACHE, OR OTHER COMPLAINTS. NO OTHER SYMPTOMS OR MODIFYING FACTORS AT THIS TIME. PATIENT IS ALERT, ORIENTED X 4, AND HAS STEADY GAIT. Chief Complaint: Wound Check Time Seen by MD: 07:30 Primary Care Provider: JUAN History of Present Illness: Nurses Notes, Medications, Allergies Allergies: Coded Allergies: NO KNOWN ALLERGIES (Unverified , 09/21/19) Home Meds Active Scripts Clobetasol Propionate (Clobetasol Propionate) 0.05 % Cre, 1 APPLIC TOP BID, #15 GRAMS Prov:LIZA UNGER MD 10/07/23 Cephalexin ( Keflex 500) 500 Mg Cap, 1 CAP PO QID for 7 Days, #40 CAP Prov:ROSIE CHERY MD 04/08/22 Reported Medications Hydrocodone-Acetaminophen (Hydrocodone Bitartrate/AC 10-325 mg) 1 Tab Tab, 1 TAB PO Q4HPRN PRN for PAIN SCALE 7 THRU 10, TAB 02/21/23 Multiple Vitamins W/ Minerals (Centrum Men) 1 Tab Tab, 1 TAB PO DAILY, TAB 02/21/23 Clopidogrel Bisulfate (Plavix) 75 Mg Tab, 1 TAB PO DAILY, #90 TAB 1 Refill 02/21/23 Meloxicam (Meloxicam) 15 Mg Tab, 1 TAB PO DAILY for ARTHRITIS, #30 TAB 2 Refills 02/21/23 Lidocaine (Anorectal) (Lidocaine 5%) 5 % Cre, 5 % EX DAILY, CRE 02/21/23 Clonidine Hydrochloride (Clonidine Hcl) 0.1 Mg Tab, 0.1 MG PO BIDPRN PRN for PER BLOOD PRESSURE PROTOCOL, MG 02/21/23 Zolpidem Tartrate (Ambien) 10 Mg Tab, 1 TAB PO QPM, #30 TAB 5 Refills 04/06/22 Methocarbamol (Methocarbamol) 500 Mg Tab, 500 MG PO Q8HR for MUSCLE SPASMS, TAB 09/21/19 Aspirin (Aspir-81) 81 Mg Tab, 1 TAB PO DAILY, #30 TAB 5 Refills 03/04/14 Information Source: Patient Mode of Arrival: Ambulatory Severity: Moderate Timing: Days Duration: Since onset, Days Prehospital treatment: None Location: Leg (BILATERAL LOWER LEGS) Mechanism: Spontaneous Onset Occurence: Indoors Object: None Condition of Object: None Retained Foreign Body: No Wound Type: Papule, Other (BLISTERS) Immunization Status of Animal: NA Tetanus: UTD, Unknown History of: None Associated Signs and Symptoms: Redness, Swelling, Pain Past Medical History PAST MEDICAL HISTORY: CKF, High Lipids, HTN Surgical History: Pacemaker, Denies all surgeries Family History Family History: Reviewed,noncontributory to illness, No family hx of Heart bear, No family hx ofKidney bear Social History Smoker: Chew Alcohol: Occasionally Drugs: Marijuana Lives In: Home Constitutional: denies: chills, diaphoresis, fatigue, fever, malaise, sweats, weakness, others EENTM: denies: blurred vision, double vision, ear bleeding, ear discharge, ear drainage, ear pain, ear ringing, eye pain, eye redness, hearing loss, mouth pain, mouth swelling, nasal discharge, nose bleeding, nose congestion, nose pain, photophobia, tearing, throat pain, throat swelling, voice changes, others Respiratory: denies: cough, hemoptysis, orthopnea, SOB at rest, shortness of breath, SOB with excertion, stridor, wheezing, others Cardiovascular: denies: chest pain, dizzy spells, diaphoresis, Dyspnea on exertion, edema, irregular heart beat, left arm pain, lightheadedness, p alpitations, PND, syncope, others Gastrointestinal: denies: abdomen distended, abdominal pain, blood streaked bowels, constipated, diarrhea, dysphagia, difficulty swallowing, hematemesis, melena, nausea, poor appetite, poor fluid intake, rectal bleeding, rectal pain, vomiting, others Genitourinary: denies: burning, dysuria, flank pain, frequency, hematuria, incontinence, penile discharge, penile sore, pain, testicle pain, testicle swelling, urgency, others Neurological: denies: dizziness, fainting, headache, left sided numbness, left sided weakness, numbness, paresthesia, pre-existing deficit, right sided numbness, right sided weakness, seizure, speech problems, tingling, tremors, weakness, others Musculoskeletal: denies: back pain, gout, joint pain, joint swelling, muscle pain, muscle stiffness, neck pain, others Integumetry: reports: lesions, wounds (WOUNDS OF BILATERAL LOWER LEGS WITH REDNESS, SWELLING, AND DRAINAGE); denies: bruises, change in color, change in hair/nails, dryness, laceration, lumps, rash, others Allergic/Immunocompromised: denies: Difficulty Healing, Frequent Infections, Hives, Itching, others Hematologic/Lymphatic: denies: anemia, blood clots, easy bleeding, easy bruising, swollen glands, others Endocrine: denies: excessive hunger, excessive sweating, excessive thirst, excessive urination, flushing, intolerance to cold, intolerance to heat, unexplained weight gain, unexplained weight loss, others Psychiatric: denies: anxiety, bipolar disorder, depression, hopeless, panic disorder, schizophrenia, sleepless, suicidal, others All Other Systems: Reviewed and Negative Physical Exam General Appearance: No Apparent Distress, Normal HEENT: Normal ENT Inspection, PERRL/EOMI, Pharynx Normal, TMs Normal Neck: Full Range of Motion, Non-Tender, Normal, Normal Inspection Respiratory: Chest Non-Tender, Lungs Clear, No Accessory Muscle Use, No Respiratory Distress, Normal Breath Sounds Cardiovascular: No Edema, No JVD, No Murmur, No Gallop, Normal Peripheral Pulses, Regular Rate/Rhythm Breast Exam: Deferred Gastrointestinal: No Organomegaly, Non Tender, No Pulsatile Mass, Normal Bowel Sounds, Soft Genitalia: Deferred Pelvic: Deferred Rectal: Deferred Extremities: No calf tenderness, Normal capillary refill, Normal range of motion, No pedal edema, Tender (WITH MULTIPLE OPEN WOUNDS ON BILATERAL LOWER LEGS, NO BONY TENDERNESS AND DEFORMITY. ) Musculoskeletal : Apperance: Normal Neurologic: Alert, manager costing II-XII nml as Tested, No Motor Deficits, Normal Affect, Normal Mood, No Sensory Deficits Cerebellar Function: Normal Reflexes: Normal Skin: Dry, Warm, Wounds (MULTIPLE OPEN WOUNDS WITH LOCALIZED REDNESS, SWELLING, CRUSTED, AND DRAINAGE ON BILATERAL LOWER LEGS. +WOUNDS INFECTION. ) Peripheral Pulses: 2+ carotid (R), 2+ carotid (L), 2+ dorsalis pedis (R), 2+ dorsalis pedis (L) Lymphatic: No Adenopathy Was a procedure done? Was a procedure done?: No Differential Diagnosis (INTG) Differential Diagnosis: N/A Differential Diagnosis: Atopic dermatitis, Cellulitis, Contact Dermatitis, Erysipelas, Impetigo, Intertrigo, Other (VENOUS STASIS DERMATITIS) Differential Diagnosis: N/A Abscess: N/A Differential Diagnosis: N/A X-Ray, Labs, Meds, VS Vital Signs Date Time Temp Pulse Resp B/P (MAP) Pulse Ox O2 Delivery O2 Flow Rate FiO2 10/06/24 10:51 97.7 66 16 90/65 (73) 94 97.7 10/06/24 08:03 87 16 98 Room Air 10/06/24 08:03 97.5 87 16 92/62 (72) 98 97.5 10/06/24 07:44 97.5 87 16 92/62 (72) 98 97.5 Lab Test 10/06/24 08:55 Range/Units White Blood Count 11.8 H 4.4-10.8 10^3/uL Red Blood Count 3.79 L 4.5-5.90 10^6/uL Hemoglobin 12.8 L 13.5-17.5 g/dL Hematocrit 38.1 L 41.0-53.0 % Mean Corpuscular Volume 100.5 H 80.0-100.0 fL Mean Corpuscular Hemoglobin 33.8 H 28.0-32.0 pg Mean Corpuscular Hemoglobin Concent 33.6 32.0-36.0 g/dL Red Cell Distribution Width 14.4 H 11.8-14.3 % Platelet Count 429 140-450 10^3/uL Mean Platelet Volume 6.4 L 6.9-10.8 fL Neutrophils (%) (Auto) 76.7 37.0-80.0 % Lymphocytes (%) (Auto) 12.2 10.0-50.0 % Monocytes (%) (Auto) 9.5 0.0-12.0 % Eosinophils (%) (Auto) 0.9 0.0-7.0 % Basophils (%) (Auto) 0.7 0.0-2.0 % Neutrophils # (Auto) 9.1 H 1.6-8.6 10 ^3/uL Lymphocytes # (Auto) 1.4 0.4-5.4 10 ^3/uL Monocytes # (Auto) 1.1 0-1.3 10 ^3/uL Eosinophils # (Auto) 0.1 0-0.8 10 ^3/uL Basophils # (Auto) 0.1 0-0.2 10 ^3/uL Nucleated Red Blood Cells 0.0 % Sodium Level 134 L 136-145 mmol/L Potassium Level 4.0 3.5-5.1 mmol/L Chloride Level 99 98-107 mmol/L Carbon Dioxide Level 27 20-31 mmol/L Anion Gap 8 5-15 Blood Urea Nitrogen 15 9-23 mg/dL Creatinine 0.85 0.700-1.30 mg/dL Glomerular Filtration Rate Calc 92 >90 mL/min BUN/Creatinine Ratio 17.6 10.0-20.0 Serum Glucose 92 74-106 mg/dL Lactic Acid Level 1.5 0.4-2.0 mmol/L Calcium Level 9.3 8.7-10.4 mg/dL Current Medications Medications (Trade) Dose Ordered Sig/Sherie Route Start Time Stop Time Status Last Admin Clindamycin Phosphate 50 ml @ 50 mls/hr ONCE ONCE IV 10/06/24 08:30 10/06/24 09:29 DC 10/06/24 10:36 X-Ray, Labs, Meds, VS Comment EXTERNAL MEDICAL RECORDS REVIEWED: [NONE] INDEPENDENT HISTORIANS: [NONE] SOCIAL DETERMINANTS OF HEALTH: [NONE] LABS ORDERED: CBC, BMP, LACTIC ACID W/REFLEX, WOUND CULTURE, BLOOD CULTURE REVIEWED AND INTERPRETED RESULTS: IMAGING ORDERED: NONE TREATMENTS ORDERED: ROCEPHIN 1 G IV, CLINDAMYCIN 600 MG IV, 0.9 NS 125ML/HOUR PROCEDURES PERFORMED: NONE CRITICAL CARE TIME: NONE I HAVE DISCUSSED THE PATIENT WITH THE ATTENDING PHYSICIAN DR. MCCORMACK AND HE AGREES WITH THE PATIENT'S PLAN OF CARE. UPON MY PHYSICAL EXAMINATION, THE PATIENT HAD MULTIPLE BLISTER WOUNDS NOTED TO HIS BILATERAL LOWER LEGS WITH REDNESS AND DRAINAGE CONSISTENT WITH WOUND INFECTION. DUE TO THE FACT THAT THE PATIENT APPEARS TO HAVE CELLULITIS HIS BILATERAL LOWER EXTREMITIES AND THE FACT THAT HE HAS FAILED OUTPATIENT ANTIBIOTIC TREATMENT, I HAVE DETERMINED THE PATIENT NEEDS TO BE ADMITTED FOR FURTHER TREATMENT EVALUATION. THE ON-CALL HOSPITALIST WILL BE CONTACTED FOR ADMISSION OF THIS PATIENT. Time of 1ST Reevaluation: 10:00 Reevaluation 1ST: Unchanged Patient Education/Counseling: Diagnosis, Treatment Family Education/Counseling: Diagnosis, Treatment Departure 1 Departure Time of Disposition: 10:00 Impression: Primary Impression: Wound infection Additional Impression: Failure of outpatient treatment Disposition: ADMITTED INPATIENT Condition: Serious Critical Care Note Critical Care Time?: No Stability Stability form required: No Unstable for transfer: Requires medication, ED Physician Assesment, Possible rapid decline I personally scribed for DAHIANA KELLER ([email or web address]) on 10/06/24 at 08:20. Electronically submitted by Rubén Marcus ([email or web address]). I personally scribed for DAHIANA KELLER ([email or web address]) on 10/06/24 at 08:21. Electronically submitted by Rubén Marcus ([email or web address]). DAHIANA KELLER October 06, 2024 08:20
[2024-10-06 09:11] LABS: Basophils # (auto) 0.1 10 ^3/uL (0-0.2); Basophils % (auto) 0.7 % (0.0-2.0); Eosinophils # (auto) 0.1 10 ^3/uL (0-0.8); Eosinophils % (auto) 0.9 % (0.0-7.0); Hematocrit 38.1 % (41.0-53.0); Hemoglobin 12.8 g/dL (13.5-17.5); Lymphocytes # (auto) 1.4 10 ^3/uL (0.4-5.4); Lymphocytes % (auto) 12.2 % (10.0-50.0); Mean Corpuscular Hemoglobin 33.8 pg (28.0-32.0); Mean Corpuscular Hgb Conc. 33.6 g/dL (32.0-36.0); Mean Corpuscular Volume 100.5 fL (80.0-100.0); Monocytes # (auto) 1.1 10 ^3/uL (0-1.3); Monocytes % (auto) 9.5 % (0.0-12.0); Neutrophils # (auto) 9.1 10 ^3/uL (1.6-8.6); Neutrophils % (auto) 76.7 % (37.0-80.0); Platelet Count (auto) 429 10^3/uL (140-450); Red Blood Cells 3.79 10^6/uL (4.5-5.90); Red Cell Distribution Width 14.4 % (11.8-14.3); White Blood Cell 11.8 10^3/uL (4.4-10.8)
[2024-10-06 09:21] LABS: Chloride 99 mmol/L (98-107)
[2024-10-06 09:22] LABS: Anion Gap 8 (5-15); Calcium 9.3 mg/dL (8.7-10.4); Carbon Dioxide 27 mmol/L (20-31)
[2024-10-06 09:23] LABS: Sodium 134 mmol/L (136-145)
[2024-10-06 09:27] LABS: BUN/Creatinine Ratio 17.6 (10.0-20.0); Blood Urea Nitrogen 15 mg/dL (9-23); Glucose 92 mg/dL (74-106)
[2024-10-06] MEDS: cefTRIAXone 1GM/50ML D5W 50 ML IV ONE (09:38)
[2024-10-06 10:31] VITALS: PULSE 71; RESP 18; O2SAT 96
[2024-10-06] MEDS: CLINDAMYCIN 600MG IV 50 ML IV ONE (10:36)
[2024-10-06 10:51] VITALS: BP 90/65; PULSE 66; RESP 16; TEMP 97.7; O2SAT 94
[2024-10-06] MEDS ORDERED: ACETAMINOPHEN 325 MG TAB PO PRN (13:15)
[2024-10-06 13:30] VITALS: BP 93/64; PULSE 70; RESP 20; TEMP 97.9; O2SAT 94
--- NOTE | 2024-10-06 13:47 | DVHHP2 ---
History of Present Illness Reason for Visit: Nonhealing bilateral lower extremity wound History of Present Illness This is a 74-year-old female who presents to ED with chief complaint of nonhealing bilateral lower extremity wounds. Patient states he has had these wounds several weeks ago and for the past four days have been progressively getting worse. Patient notes that he was already prescribed Keflex by his primary care physician and has been compliant on taking his medication. In addition he has been receiving wound care to both of his lower extremities. Due to his concern of infected bilateral lower extremity wounds he is here to be treated. The patient will be admitted under hospitalist care to the medical- surgical unit. The patient denies fever, chills, shortness of breath, chest pain, abdominal pain, nausea, vomiting, headache or other complaints. There are no symptoms or modifying factors at this time patient is alert and oriented x4 and has a steady gait. The plan has been discussed with the patient and primary RN in which all questions concerns have been addressed. Cardiovascular: HTN, hyperipidemia Past Surgical History Pacemaker Smoke: No ALCOHOL: occassional Drugs: Marijuana Lives: Alone Domestic Violence: Neg Review of Systems Skin: Lesions, Other (Bilateral lower leg wound) Allergies: Coded Allergies: NO KNOWN ALLERGIES (Unverified , 09/21/19) Medications Current Medications Medications Dose Ordered Sig/Sherie Route Start Time Stop Time Status Last Admin Dose Admin Clindamycin Phosphate 50 ml @ 50 mls/hr Q8HR IV 10/06/24 14:00 Ceftriaxone Sodium 50 ml @ 100 mls/hr DAILY@09 IV 10/07/24 09:00 Sodium Chloride 1,000 ml @ 60 mls/hr [id number] IV 10/06/24 13:15 Ondansetron HCl 4 mg Q4HP PRN IV 10/06/24 13:15 Enoxaparin Sodium 40 mg DAILY SC 10/07/24 10:00 Zinc Sulfate 220 mg DAILY PO 10/07/24 10:00 Ascorbic Acid 500 mg BID PO 10/06/24 22:00 Multivitamins 1 tab DAILY PO 10/07/24 10:00 Acetaminophen 650 mg Q6HP PRN PO 10/06/24 13:15 Exam Vital Signs Vital Signs Date Time Temp Pulse Resp B/P (MAP) Pulse Ox O2 Delivery O2 Flow Rate FiO2 10/06/24 10:51 97.7 66 16 90/65 (73) 94 97.7 5/3/25 08:03 Room Air General Appearance: Alert, Oriented X3, Cooperative, No acute distress HEENT: Atraumatic, PERRLA, Mucous membr. moist/pink Respiratory: Clear to auscultation, Normal air movement Cardiovascular: Normal S1, Normal S2, No murmurs Abdominal: Normal bowel sounds, Soft, No tenderness, No hepatospenomegaly, No masses Extremities: No clubbing, Normal pulses Neuro: Normal gait, Normal speech, Strength at 5/5 X4 ext, Normal tone, Sensation intact, Cranial nerves 3-12 NL Psych/Mental Status: Mental status NL Labs/Xrays Labs Test 10/06/24 08:55 Range/Units White Blood Count 11.8 H 4.4-10.8 10^3/uL Red Blood Count 3.79 L 4.5-5.90 10^6/uL Hemoglobin 12.8 L 13.5-17.5 g/dL Hematocrit 38.1 L 41.0-53.0 % Mean Corpuscular Volume 100.5 H 80.0-100.0 fL Mean Corpuscular Hemoglobin 33.8 H 28.0-32.0 pg Mean Corpuscular Hemoglobin Concent 33.6 32.0-36.0 g/dL Red Cell Distribution Width 14.4 H 11.8-14.3 % Platelet Count 429 140-450 10^3/uL Mean Platelet Volume 6.4 L 6.9-10.8 fL Neutrophils (%) (Auto) 76.7 37.0-80.0 % Lymphocytes (%) (Auto) 12.2 10.0-50.0 % Monocytes (%) (Auto) 9.5 0.0-12.0 % Eosinophils (%) (Auto) 0.9 0.0-7.0 % Basophils (%) (Auto) 0.7 0.0-2.0 % Neutrophils # (Auto) 9.1 H 1.6-8.6 10 ^3/uL Lymphocytes # (Auto) 1.4 0.4-5.4 10 ^3/uL Monocytes # (Auto) 1.1 0-1.3 10 ^3/uL Eosinophils # (Auto) 0.1 0-0.8 10 ^3/uL Basophils # (Auto) 0.1 0-0.2 10 ^3/uL Nucleated Red Blood Cells 0.0 % Sodium Level 134 L 136-145 mmol/L Potassium Level 4.0 3.5-5.1 mmol/L Chloride Level 99 98-107 mmol/L Carbon Dioxide Level 27 20-31 mmol/L Anion Gap 8 5-15 Blood Urea Nitrogen 15 9-23 mg/dL Creatinine 0.85 0.700-1.30 mg/dL Glomerular Filtration Rate Calc 92 >90 mL/min BUN/Creatinine Ratio 17.6 10.0-20.0 Serum Glucose 92 74-106 mg/dL Lactic Acid Level 1.5 0.4-2.0 mmol/L Calcium Level 9.3 8.7-10.4 mg/dL Assessment/Plan Assessment/Plan Nonhealing bilateral lower extremity wound--chief complaint of nonhealing bilateral lower leg wound progressively worse past four days Bilateral lower leg wound started several weeks ago and unknown as to how it developed per patient The patient has been receiving p.o. Keflex antibiotic and wound care at home Admit to medical-surgical unit Reviewed CBC shows leukocytosis Reviewed BMP which is normal Lactic acid 1.5 Wound GS C&S pending Wound consult appreciated Continue multivitamin IV hydration IV antibiotic clindamycin and ceftriaxone started in the ER and we will continue Dressing change per wound consult recommendation Reconcile home meds DVT prophylaxis not indicated patient ambulatory PUD prophylaxis not indicated no history of GERD Labs in a.m. Discussed plan of care with the patient in which all questions concerns have been addressed Plan discussed with: Patient My Orders Orders - MARCUS ISABEL [facility] Procedure Category Date Status Time Clindamycin 600mg Iv PHA 10/06/24 In Process (Cleocin Iv) 14:00 Ceftriaxone 1gm/50ml PHA 10/07/24 In Process D5w (Rocephin) 09:00 * Wound Consult CONS 10/06/24 Transmitted Admit ADMIT 10/06/24 Transmitted 13:07 2 Gm Sodium Diet DIET 10/06/24 Transmitted Lunch Sodium Chloride 0.9% PHA 10/06/24 In Process 13:15 Ondansetron Hcl PHA 10/06/24 In Process (Zofran) 13:15 Enoxaparin Sodium PHA 10/07/24 In Process (Lovenox) 10:00 Zinc Sulfate PHA 10/07/24 In Process 10:00 Ascorbic Acid Tablet PHA 10/06/24 In Process (Vitamin C Tablet) 22:00 Multiple Vitamin PHA 10/07/24 In Process Tablet (Mvi Tab) 10:00 Complete Blood Count LAB 10/07/24 Verified 04:00 Comprehensive LAB 10/07/24 Verified Metabolic Panel 04:00 Condition: Fair RICKY 10/06/24 In Process 13:07 Acetaminophen Tablet PHA 10/06/24 In Process (Tylenol Tablet) 13:15 Bedrest With Bathroom RICKY 10/06/24 In Process Privileg 13:07 Date of Service: October 06, 2024 Billing Provider: MARCUS ISABEL Common Visit Codes: [id number] INP/OBS CARE (HIGH) MARCUS ISABEL October 06, 2024 13:47
[2024-10-06] MEDS: CLINDAMYCIN 600MG IV 50 ML IV SCH (14:00)
[2024-10-06] MEDS ORDERED: FENT12DI TOP (14:01)
[2024-10-06] MEDS ORDERED: HYDR200T36 PO (15:35)
[2024-10-06] MEDS ORDERED: VERI2.5T PO (15:35)
[2024-10-06] MEDS ORDERED: MAGN400T40 PO (15:35)
[2024-10-06] MEDS ORDERED: ZOLP10TA6 PO (15:35)
[2024-10-06] MEDS ORDERED: CEPH500C PO (15:35)
[2024-10-06] MEDS ORDERED: ESOM40CA39 PO (15:35)
[2024-10-06] MEDS ORDERED: OXYC325T14 PO (15:35)
[2024-10-06] MEDS ORDERED: cloNIDine HCL 0.1 MG TAB PO PRN (15:45)
[2024-10-06] MEDS: ACETAMINOPHEN PO PRN (16:22)
[2024-10-06] MEDS: OXYCODONE PO PRN (16:22)
[2024-10-06] MEDS: SODIUM CHLORIDE 0.9% 1,000 ML IV SCH (16:39)
[2024-10-06 17:00] VITALS: BP 124/80; PULSE 74; RESP 18; TEMP 98.1; O2SAT 93
[2024-10-06 19:00] VITALS: PULSE 71; RESP 18; O2SAT 96
[2024-10-06 21:00] VITALS: BP 98/66; PULSE 75; RESP 17; TEMP 98.1; O2SAT 93
[2024-10-06] MEDS: VERICIGUAT 2.5 MG PO SCH (22:00)
[2024-10-06] MEDS: ZOLPIDEM TARTRATE 10 MG PO SCH (22:00)
[2024-10-06] MEDS ORDERED: MAGNESIUM OXIDE 400 MG TAB PO SCH (22:00)
[2024-10-06] MEDS: ASCORBIC ACID 500 MG TAB PO SCH (22:00)
[2024-10-06] MEDS: METHOCARBAMOL 500 MG TAB PO SCH (23:44)
[2024-10-06] MEDS: MELATONIN 5 MG TAB PO ONE (23:45)
[2024-10-07] VITALS (7 sets, daily range): BP systolic 69–127; BP diastolic 61–87; PULSE 65–85; RESP 16–20; TEMP 97.6–98.3; O2SAT 95–98
[2024-10-07 06:09] LABS: Eosinophils # (auto) 0.2 10 ^3/uL (0-0.8); Hematocrit 32.9 % (41.0-53.0); Lymphocytes # (auto) 1.7 10 ^3/uL (0.4-5.4); Mean Corpuscular Hemoglobin 34.4 pg (28.0-32.0); Monocytes % (auto) 12.7 % (0.0-12.0)
[2024-10-07 06:13] LABS: Basophils # (auto) 0 10 ^3/uL (0-0.2); Basophils % (auto) 0.5 % (0.0-2.0); Eosinophils % (auto) 2.6 % (0.0-7.0); Hemoglobin 11.2 g/dL (13.5-17.5); Lymphocytes % (auto) 18.8 % (10.0-50.0); Mean Corpuscular Hgb Conc. 33.9 g/dL (32.0-36.0); Mean Corpuscular Volume 101.5 fL (80.0-100.0); Monocytes # (auto) 1.2 10 ^3/uL (0-1.3); Neutrophils % (auto) 65.4 % (37.0-80.0); Nucleated Red Blood Cells % 0.2 %; Platelet Count (auto) 349 10^3/uL (140-450); Red Blood Cells 3.24 10^6/uL (4.5-5.90); Red Cell Distribution Width 14.7 % (11.8-14.3); White Blood Cell 9.2 10^3/uL (4.4-10.8)
[2024-10-07 06:21] LABS: Alanine Aminotransferase 10 U/L (7-40); Anion Gap 9 (5-15); Aspartate Aminotransferase 23 U/L (13-40); BUN/Creatinine Ratio 21.6 (10.0-20.0); Bilirubin, Total 0.5 mg/dL (0.2-1.0); Blood Urea Nitrogen 16 mg/dL (9-23); Calcium 8.7 mg/dL (8.7-10.4); Carbon Dioxide 24 mmol/L (20-31); Chloride 100 mmol/L (98-107); Glucose 97 mg/dL (74-106); Potassium 4.3 mmol/L (3.5-5.1); Total Protein 6.3 g/dL (5.7-8.2)
[2024-10-07 06:32] LABS: Albumin 2.8 g/dL (3.2-4.8); Alkaline Phosphatase 122 U/L (46-116); Sodium 133 mmol/L (136-145)
[2024-10-07] MEDS: ENOXAPARIN SOD 40 MG/0.4 ML SYRINGE SC SCH (08:51)
[2024-10-07] MEDS: cefTRIAXone 1GM/50ML D5W 50 ML IV SCH (08:52)
[2024-10-07] MEDS: ESOMEPRAZOLE MAGNESIUM 40 MG PO SCH (10:00)
[2024-10-07] MEDS: MULTIPLE VITAMIN TAB PO SCH (12:10)
[2024-10-07] MEDS: MAGNESIUM OXIDE 400 MG TAB PO SCH (12:10)
[2024-10-07] MEDS: hydrOXYchloroQUINE SULFATE 200 MG TAB PO SCH (12:10)
[2024-10-07] MEDS: ZINC SULFATE 220mg CAP or TAB PO SCH (12:10)
--- NOTE | 2024-10-07 13:32 | DVHPN2 ---
Reviewed: Care Plan, H&P, Labs, Medications, Previous Orders, Radiology Changes from previous H/P or p: No Changes Skin: Lesions, Other (Bilateral lower leg wound) Objective Vitals Vital Signs Date Time Temp Pulse Resp B/P (MAP) Pulse Ox O2 Delivery O2 Flow Rate FiO2 10/07/24 09:00 97.6 65 18 69/ 95 97.6 10/07/24 08:00 Room Air* 0 21 Intake/Output Intake and Output 10/07/24 07:00 Intake Total 1100 ml Output Total 0 ml Balance 1100 ml Intake Oral 1000 ml IV Total 100 ml Output Urine Total 0 ml # Voids 1 Medications Current Medications Medications Dose Ordered Sig/Sherie Route Start Time Stop Time Status Last Admin Dose Admin Clindamycin Phosphate 50 ml @ 50 mls/hr Q8HR IV 10/06/24 14:00 10/07/24 07:09 50 MLS/HR Ceftriaxone Sodium 50 ml @ 100 mls/hr DAILY@09 IV 10/07/24 09:00 10/07/24 08:52 100 MLS/HR Sodium Chloride 1,000 ml @ 60 mls/hr [id number] IV 10/06/24 13:15 10/06/24 16:39 60 MLS/HR Ondansetron HCl 4 mg Q4HP PRN IV 10/06/24 13:15 Enoxaparin Sodium 40 mg DAILY SC 10/07/24 10:00 10/07/24 08:51 40 MG Zinc Sulfate 220 mg DAILY PO 10/07/24 10:00 10/07/24 12:10 220 MG Ascorbic Acid 500 mg BID PO 10/06/24 22:00 10/07/24 12:10 500 MG Multivitamins 1 tab DAILY PO 10/07/24 10:00 10/07/24 12:10 1 TAB Acetaminophen 650 mg Q6HP PRN PO 10/06/24 13:15 Hydroxychloroquine Sulfate 200 mg DAILY PO 10/07/24 10:00 10/07/24 12:10 200 MG Methocarbamol 500 mg Q8HR PO 10/06/24 22:00 10/07/24 07:09 500 MG Patient Own Medication 1 cap DAILY PO 10/07/24 10:00 Patient Own Medication 1 patch Q3D TOP 10/06/24 16:15 Patient Own Medication 1 tab Q4H PRN PO 10/06/24 22:00 10/07/24 08:52 1 TAB Patient Own Medication 2.5 mg BID PO 10/06/24 22:00 Patient Own Medication 1 tab HS PO 10/06/24 22:00 Clonidine HCl 0.1 mg BIDPRN PRN PO 10/06/24 17:15 Magnesium Oxide 400 mg BID PO 10/07/24 10:00 10/07/24 12:10 400 MG Laboratory Results Laboratory Tests 10/07/24 05:44 Chemistry Test 10/07/24 05:44 Albumin 2.8 g/dL (3.2-4.8) L Calcium Level 8.7 mg/dL (8.7-10.4) Total Protein 6.3 g/dL (5.7-8.2) LFT Test 10/07/24 05:44 Alanine Aminotransferase (ALT) 10 U/L (7-40) Alkaline Phosphatase 122 U/L (46-116) H Aspartate Amino Transferase (AST) 23 U/L (13-40) Total Bilirubin 0.5 mg/dL (0.2-1.0) Microbiology Microbiology Date/Time Source Procedure Growth Status 10/06/24 08:55 Blood Blood Culture - Preliminary NO GROWTH AFTER 24 HOURS OF INCUBATION. Resulted 10/06/24 08:16 Leg Right Gram Stain Pending Resulted 10/06/24 08:16 Leg Right Wound Culture - Preliminary Resulted Labs and/or images reviewed: Labs reviewed by me, Image(s) reviewed by me Assessment/Plan Assessment/Plan Nonhealing bilateral lower extremity wounds: Wound consult, consult for podiatric Dr. Centeno. Rocephin clindamycin Hypertension Hypercholesterolemia History of pacemaker Moderate malnutrition Time spent 50 minutes Patient is full code Advanced care planning time 20 minutes Plan discussed with: Patient Date of Service: October 07, 2024 Billing Provider: AGUSTIN HART MD Common Visit Codes: [id number] INP/OBS CARE(HIGH) Secondary Visit Codes: [id number] CARE PLAN 30 MINUTES AGUSTIN HART MD October 07, 2024 13:32
[2024-10-07] MEDS: OXYCODONE PO PRN (16:08)
[2024-10-07] MEDS: ACETAMINOPHEN PO PRN (16:08)
[2024-10-08] VITALS (7 sets, daily range): BP systolic 97–124; BP diastolic 65–85; PULSE 67–74; RESP 16–19; TEMP 97.5–99; O2SAT 93–97
--- NOTE | 2024-10-08 11:02 | DVHPN2 ---
Reviewed: Care Plan, H&P, Labs, Medications, Previous Orders, Radiology Changes from previous H/P or p: No Changes Skin: Lesions, Other (Bilateral lower leg wound) Objective Vitals Vital Signs Date Time Temp Pulse Resp B/P (MAP) Pulse Ox O2 Delivery O2 Flow Rate FiO2 10/08/24 09:00 97.9 68 18 97/65 (76) 93 97.9 10/08/24 08:00 Room Air* 0 21 Intake/Output Intake and Output 10/08/24 07:00 Intake Total 2734 ml Output Total 600 ml Balance 2134 ml Intake Oral 1684 ml IV Total 1050 ml Output Urine Total 600 ml # Voids 3 Medications Current Medications Medications Dose Ordered Sig/Sherie Route Start Time Stop Time Status Last Admin Dose Admin Clindamycin Phosphate 50 ml @ 50 mls/hr Q8HR IV 10/06/24 14:00 10/08/24 06:12 50 MLS/HR Ceftriaxone Sodium 50 ml @ 100 mls/hr DAILY@09 IV 10/07/24 09:00 10/08/24 08:38 100 MLS/HR Sodium Chloride 1,000 ml @ 60 mls/hr [id number] IV 10/06/24 13:15 10/07/24 22:33 60 MLS/HR Ondansetron HCl 4 mg Q4HP PRN IV 10/06/24 13:15 Enoxaparin Sodium 40 mg DAILY SC 10/07/24 10:00 10/08/24 08:39 40 MG Zinc Sulfate 220 mg DAILY PO 10/07/24 10:00 10/08/24 08:39 220 MG Ascorbic Acid 500 mg BID PO 10/06/24 22:00 10/08/24 08:39 500 MG Multivitamins 1 tab DAILY PO 10/07/24 10:00 10/08/24 08:39 1 TAB Acetaminophen 650 mg Q6HP PRN PO 10/06/24 13:15 Hydroxychloroquine Sulfate 200 mg DAILY PO 10/07/24 10:00 10/08/24 08:39 200 MG Methocarbamol 500 mg Q8HR PO 10/06/24 22:00 10/08/24 06:15 500 MG Patient Own Medication 1 cap DAILY PO 10/07/24 10:00 Patient Own Medication 1 patch Q3D TOP 10/06/24 16:15 Patient Own Medication 2.5 mg BID PO 10/06/24 22:00 10/08/24 08:40 2.5 MG Patient Own Medication 1 tab HS PO 10/06/24 22:00 10/07/24 22:00 1 TAB Clonidine HCl 0.1 mg BIDPRN PRN PO 10/06/24 17:15 Magnesium Oxide 400 mg BID PO 10/07/24 10:00 10/08/24 08:39 400 MG Patient Own Medication 1 tab Q4H PRN PO 10/07/24 16:00 10/08/24 08:40 1 TAB Laboratory Results Laboratory Tests 10/07/24 05:44 Microbiology Microbiology Date/Time Source Procedure Growth Status 10/06/24 08:55 Blood Blood Culture - Preliminary NO GROWTH AFTER 48 HOURS OF INCUBATION. Resulted 10/06/24 08:16 Leg Right Gram Stain - Final Resulted 10/06/24 08:16 Leg Right Wound Culture - Preliminary Resulted Labs and/or images reviewed: Labs reviewed by me, Image(s) reviewed by me Assessment/Plan Assessment/Plan Nonhealing bilateral lower extremity open wounds: Wound consult, consult for podiatric Dr. Centeno. Rocephin clindamycin; blood cultures negative, wound cultures negative preliminary Hypertension Hypercholesterolemia History of pacemaker Moderate malnutrition Time spent 50 minutes Patient is full code Plan discussed with: Patient My Orders Orders - AGUSTIN HART MD Procedure Category Date Status Time *Podiatry Consult CONS 10/07/24 Transmitted [facility]) 13:29 Cleanse Wound With RICKY 10/07/24 In Process Wound Clean 10:08 Date of Service: October 08, 2024 Billing Provider: AGUSTIN HART MD Common Visit Codes: [id number] INP/OBS CARE(HIGH) AGUSTIN HART MD October 08, 2024 11:01
--- NOTE | 2024-10-08 12:48 | DVHPN2 ---
Progress Note - Dictate Date Seen: October 08, 2024 Medical Necessity Reason Pt with a Central, PICC or Fol: No Subjective PT WITH BILATERAL LE ULCER/ CELLULITIS HX OF SSS S/P DUAL PPI CORONARY ANGIO 2022 NL CORONARIES vital signs Vital Sign Date Time Temp Pulse Resp B/P (MAP) Pulse Ox O2 Delivery O2 Flow Rate FiO2 10/08/24 09:00 97.9 68 18 97/65 (76) 93 97.9 10/08/24 08:00 Room Air* 0 21 Total Intake and Output 10/07/24 10/07/24 10/08/24 15:00 23:00 07:00 Intake Total 430 ml 1454 ml 850 ml Output Total 600 ml Balance 430 ml 1454 ml 250 ml medications Current Medications Medications Dose Ordered Sig/Sherie Route Start Time Stop Time Status Last Admin Dose Admin Clindamycin Phosphate 50 ml @ 50 mls/hr Q8HR IV 10/06/24 14:00 10/08/24 06:12 50 MLS/HR Ceftriaxone Sodium 50 ml @ 100 mls/hr DAILY@09 IV 10/07/24 09:00 10/08/24 08:38 100 MLS/HR Sodium Chloride 1,000 ml @ 60 mls/hr [id number] IV 10/06/24 13:15 10/07/24 22:33 60 MLS/HR Ondansetron HCl 4 mg Q4HP PRN IV 10/06/24 13:15 Enoxaparin Sodium 40 mg DAILY SC 10/07/24 10:00 10/08/24 08:39 40 MG Zinc Sulfate 220 mg DAILY PO 10/07/24 10:00 10/08/24 08:39 220 MG Ascorbic Acid 500 mg BID PO 10/06/24 22:00 10/08/24 08:39 500 MG Multivitamins 1 tab DAILY PO 10/07/24 10:00 10/08/24 08:39 1 TAB Acetaminophen 650 mg Q6HP PRN PO 10/06/24 13:15 Hydroxychloroquine Sulfate 200 mg DAILY PO 10/07/24 10:00 10/08/24 08:39 200 MG Methocarbamol 500 mg Q8HR PO 10/06/24 22:00 10/08/24 06:15 500 MG Patient Own Medication 1 cap DAILY PO 10/07/24 10:00 Patient Own Medication 1 patch Q3D TOP 10/06/24 16:15 Patient Own Medication 2.5 mg BID PO 10/06/24 22:00 10/08/24 08:40 2.5 MG Patient Own Medication 1 tab HS PO 10/06/24 22:00 10/07/24 22:00 1 TAB Clonidine HCl 0.1 mg BIDPRN PRN PO 10/06/24 17:15 Magnesium Oxide 400 mg BID PO 10/07/24 10:00 10/08/24 08:39 400 MG Patient Own Medication 1 tab Q4H PRN PO 10/07/24 16:00 10/08/24 08:40 1 TAB laboratory and microbiology Laboratory Tests 10/07/24 05:44 Test 10/07/24 05:44 Range/Units Serum Glucose 97 74-106 mg/dL Problem List BILATERAL LE ULCER/ CELLULITIS HX OF SSS S/P DUAL PPI CORONARY ANGIO 2022 NL CORONARIES Assessment/Plan ABX LE ARTERIAL DUPLEX Dietary Evaluation Review Recommendations by RD: Increase Calorie Intake Comments: 1) Initiate Pro-Stat @ 1 30 mL qd 2) Continue micronutrient supplementation 3) Initiate Ensure Enlive bid. Encourage optimal PO intake 4) Follow-up with cardiology 5) Continue to monitor I&O, labs, and skin integrity Expected Outcomes/Goals: 1) appetite and labs to improve 2) wound to improve 3) f/u in 3-5 days Plan discussed with: Patient Critical Care Time(min): 35 MICHELLE GILL MD October 08, 2024 12:48
--- NOTE | 2024-10-08 14:30 | DVH ---
Bilateral Lower Extremity Arterial Duplex Date: 10/08/2024 01:58 PM Clinical History: LE ULCERS Comparison: BILAT LOW EXT ART DUPLEX on DOS: 09/16/21 Findings: There are triphasic waveforms in the right SHOE WORKER, SFA, posterior tibial, dorsalis pedis arteries. Bipha sic/ triphasic waveforms in the left SHOE WORKER, SFA, popliteal, dorsalis pedis artery RIGHT: Peak systolic velocities are as follows: SHOE WORKER 103 cm/s Deep femoral 60 cm/s SFA proximal 83 cm/s SFA mid-portion 77 cm/s SFA distal 88 cm/s Popliteal 61 cm/s Posterior tibial 55 cm/s Dorsalis pedis 102 cm/s LEFT: Peak systolic velocities are as follows: SHOE WORKER 77 cm/s Deep femoral 61 cm/s SFA proximal 77 cm/s SFA mid-portion 76 cm/s SFA distal 75 cm/s Popliteal 64 cm/s Posterior tibial nonvisualizedDorsalis pedis 53 cm/s IMPRESSION: 1. The left posterior tibial 2. artery 3. is not visualized secondary to overlying 4. dressings 5. . Otherwise 6. , 7. no evidence 8. for hemodynamically 9. stenosis 10. of the bilateral 11. lower 12. extremities.
--- NOTE | 2024-10-08 15:09 | DVHINCON2 ---
Date Seen: October 08, 2024 Reason for Consultation Bilateral leg wounds History of Present Illness This is a 74-year-old female who presents to ED with chief complaint of nonhealing bilateral lower extremity wounds. Patient states he has had these wounds several weeks ago and for the past four days have been progressively getting worse. Patient notes that he was already prescribed Keflex by his primary care physician and has been compliant on taking his medication. In addition he has been receiving wound care to both of his lower extremities. Due to his concern of infected bilateral lower extremity wounds he is here to be treated. The patient will be admitted under hospitalist care to the medical- surgical unit. The patient denies fever, chills, shortness of breath, chest pain, abdominal pain, nausea, vomiting, headache or other complaints. There are no symptoms or modifying factors at this time patient is alert and oriented x4 and has a steady gait. The plan has been discussed with the patient and primary RN in which all questions concerns have been addressed. Past Medical History See H&P Past Surgical History See H&P Family History: Family history: Cardiovascular disease MOTHER Renal disease MOTHER Allergies: Coded Allergies: NO KNOWN ALLERGIES (Unverified , 09/21/19) Home Meds Reported Medications Zolpidem Tartrate (Zolpidem Tartrate) 10 Mg Tab, 1 TAB PO QPM, #30 TAB 2 Refills 10/06/24 Hydroxychloroquine Sulfate (Hydroxychloroquine Sulfat) 200 Mg Tab, 200 MG PO DAILY for 30 Days, MG 25 Vericiguat (Verquvo) 2.5 Mg Tab, 2.5 MG PO BID, TAB 25 Cephalexin Monohydrate (Cephalexin) 500 Mg Cap, 500 MG PO Q6HR, MG //25 Oxycodone W/ Acetaminophen (Apap/Oxycodone) 1 Tab Tab, 1 TAB PO TID, #90 TAB 25 Magnesium Oxide (MAGNESIUM OXIDE) 400 Mg Tab, 1 TAB PO BID, #60 TAB 5 Refills 10/06/24 Esomeprazole Magnesium Trihydr (Nexium) 40 Mg Cap, 1 CAP PO DAILY, #30 CAP 5 Refills 10/06/24 Fentanyl (Fentanyl) 12 Mcg/Hr Dis, 1 PATCH TOP Q3D 10/06/24 Clonidine Hydrochloride (Clonidine Hcl) 0.1 Mg Tab, 0.1 MG PO BIDPRN PRN for PER BLOOD PRESSURE PROTOCOL, MG 02/21/23 Methocarbamol (Methocarbamol) 500 Mg Tab, 500 MG PO Q8HR for MUSCLE SPASMS, TAB 09/21/19 Current Medications Current Medications Medications (Trade) Dose Ordered Sig/Sherie Route PRN Reason Start Time Stop Time Status Last Admin Patient Own Medication 1 tab Q4H PRN PO PAIN SCALE (4-6) MODERRATE P 10/07/24 16:00 10/08/24 08:40 Vital Signs Vital Signs Date Time Temp Pulse Resp B/P (MAP) Pulse Ox O2 Delivery O2 Flow Rate FiO2 10/08/24 13:00 97.5 71 18 124/85 (98) 96 97.5 10/08/24 08:00 Room Air* 0 21 Physical Exam Dermatological: Skin is dry with mild erythema and some maceration around the wound site No gross deformities noted Mild non-pitting edema present bilaterally Bilateral lower extremity wounds multiple blisters and eschars with large wound on left calf, fibrotic base Vascular: Dorsalis pedis and posterior tibial pulses are 1+ bilaterally Capillary refill is under 2 seconds Skin temperature is warm bilaterally Neurologic: Protective sensation is absent on the plantar forefoot bilaterally Monofilament testing reveals decreased sensation in multiple plantar sites Musculoskeletal: Range of motion at the ankle and MTP joints is within normal limits. Strength is 5/5 in all tested muscle groups. Gait is antalgic due to offloading of the affected limb. Labs/Diagnostic Data Labs Test 10/07/24 05:44 10/06/24 08:55 Range/Units White Blood Count 9.2 4.4-10.8 10^3/uL Red Blood Count 3.24 L 4.5-5.90 10^6/uL Hemoglobin 11.2 L 13.5-17.5 g/dL Hematocrit 32.9 #L 41.0-53.0 % Mean Corpuscular Volume 101.5 H 80.0-100.0 fL Mean Corpuscular Hemoglobin 34.4 H 28.0-32.0 pg Mean Corpuscular Hemoglobin Concent 33.9 32.0-36.0 g/dL Red Cell Distribution Width 14.7 H 11.8-14.3 % Platelet Count 349 140-450 10^3/uL Mean Platelet Volume 6.5 L 6.9-10.8 fL Neutrophils (%) (Auto) 65.4 37.0-80.0 % Lymphocytes (%) (Auto) 18.8 10.0-50.0 % Monocytes (%) (Auto) 12.7 H 0.0-12.0 % Eosinophils (%) (Auto) 2.6 0.0-7.0 % Basophils (%) (Auto) 0.5 0.0-2.0 % Neutrophils # (Auto) 6.0 1.6-8.6 10 ^3/uL Lymphocytes # (Auto) 1.7 0.4-5.4 10 ^3/uL Monocytes # (Auto) 1.2 0-1.3 10 ^3/uL Eosinophils # (Auto) 0.2 0-0.8 10 ^3/uL Basophils # (Auto) 0 0-0.2 10 ^3/uL Nucleated Red Blood Cells 0.2 % Sodium Level 133 L 136-145 mmol/L Potassium Level 4.3 3.5-5.1 mmol/L Chloride Level 100 98-107 mmol/L Carbon Dioxide Level 24 20-31 mmol/L Anion Gap 9 5-15 Blood Urea Nitrogen 16 9-23 mg/dL Creatinine 0.74 0.700-1.30 mg/dL Glomerular Filtration Rate Calc 96 >90 mL/min BUN/Creatinine Ratio 21.6 H 10.0-20.0 Serum Glucose 97 74-106 mg/dL Calcium Level 8.7 8.7-10.4 mg/dL Total Bilirubin 0.5 0.2-1.0 mg/dL Aspartate Amino Transferase (AST) 23 13-40 U/L Alanine Aminotransferase (ALT) 10 7-40 U/L Alkaline Phosphatase 122 H 46-116 U/L Total Protein 6.3 5.7-8.2 g/dL Albumin 2.8 L 3.2-4.8 g/dL Lactic Acid Level 1.5 0.4-2.0 mmol/L Microbiology Date/Time Source Procedure Growth Status 10/06/24 08:55 Blood Blood Culture - Preliminary NO GROWTH AFTER 48 HOURS OF INCUBATION. Resulted 10/06/24 08:16 Leg Right Gram Stain - Final Resulted 10/06/24 08:16 Leg Right Wound Culture - Preliminary Resulted Problems(with codes): (1) Chronic pain syndrome (2) Ischemic ulcer, limited to breakdown of skin (3) Electrolyte imbalance (4) Abscess of right buttock (5) Encounter for wound care (6) ACS (acute coronary syndrome) (7) Wound infection (8) Failure of outpatient treatment (9) Chronic renal failure, stage 3 (moderate) (10) Hyponatremia (11) Atypical chest pain (12) Vomiting in adult patient (13) Hypertension (14) Hyperlipidemia (15) Other chest pain (16) Unspecified septicemia (17) Elevated d-dimer (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, severely decreased glomerular filtration rate (GFR) between 15-29 mL/min/1.73 square meter and albuminuria creatinineratio less than 30 mg/g (19) Anemia (20) Dysphagia (21) Odynophagia (22) Hypotension, iatrogenic (23) Chest pain (24) CHEST PAIN NOS (25) ESOPHAGEAL STRICTURE Plan/Recommendation ASSESSMENT: Patient is a [age] year old seen on the floor for a worsening ulcer PLAN: - The patients chart was reviewed, clinical findings were discussed with the patient, the etiologies of the conditions were discussed in detail, and a treatment plan was agreed to at this time, with both oral and written instructions provided. - reviewed advanced imaging - discussed as long as blood flow is optimized we will be able to heals an outpatient - patient will need close follow up for outpatient wound care - continue dressings would recommend adding Medihoney - continue antibiotics for the cellulitis - follow up on the wound cultures - patient should follow up with me in 1 week after discharge All questions were answered and concerns addressed to the patient's satisfaction. The patient was given the phone number to the clinic and was told how to make contact with the clinic should any concerns or questions arise. Patient understands that if any questions or concerns arise prior to the next appointment, we should be contacted immediately. FOLLOW-UP: Follow up 1 week after discharge Plan discussed with: Patient Date of Service: October 08, 2024 Billing Provider: CLEMENCIA REYES DPM Common Visit Codes: CONSULT ONLY Consultation Codes: [id number] CONSULT <80MIN CLEMENCIA REYES DPM October 08, 2024 15:08
[2024-10-08] MEDS: ONDANSETRON HCL 4 MG/2 ML VIAL IV PRN (21:16)
[2024-10-09] VITALS (7 sets, daily range): BP systolic 97–137; BP diastolic 62–89; PULSE 67–95; RESP 17–19; TEMP 98.1–98.5; O2SAT 92–95
--- NOTE | 2024-10-09 07:26 | DVHPN2 ---
Progress Note - Dictate Date Seen: October 06, 2025 Medical Necessity Reason Pt with a Central, PICC or Fol: No Subjective PT WITH BILATERAL LE ULCER/ CELLULITIS HX OF SSS S/P DUAL PPI CORONARY ANGIO 2022 NL CORONARIES vital signs Vital Sign Date Time Temp Pulse Resp B/P (MAP) Pulse Ox O2 Delivery O2 Flow Rate FiO2 10/09/24 05:00 98.5 73 19 107/62 (77) 92 98.5 10/08/24 20:00 Room Air* 0 21 Total Intake and Output 10/08/24 10/08/24 10/09/24 15:00 23:00 07:00 Intake Total 100 ml 350 ml 575 ml Balance 100 ml 350 ml 575 ml medications Current Medications Medications Dose Ordered Sig/Sherie Route Start Time Stop Time Status Last Admin Dose Admin Clindamycin Phosphate 50 ml @ 50 mls/hr Q8HR IV 10/06/24 14:00 10/09/24 05:57 50 MLS/HR Ceftriaxone Sodium 50 ml @ 100 mls/hr DAILY@09 IV 10/07/24 09:00 10/08/24 08:38 100 MLS/HR Sodium Chloride 1,000 ml @ 60 mls/hr [id number] IV 10/06/24 13:15 10/08/24 15:15 60 MLS/HR Ondansetron HCl 4 mg Q4HP PRN IV 10/06/24 13:15 10/08/24 21:16 4 MG Enoxaparin Sodium 40 mg DAILY SC 10/07/24 10:00 10/08/24 08:39 40 MG Zinc Sulfate 220 mg DAILY PO 10/07/24 10:00 10/08/24 08:39 220 MG Ascorbic Acid 500 mg BID PO 10/06/24 22:00 10/08/24 21:11 500 MG Multivitamins 1 tab DAILY PO 10/07/24 10:00 10/08/24 08:39 1 TAB Acetaminophen 650 mg Q6HP PRN PO 10/06/24 13:15 Hydroxychloroquine Sulfate 200 mg DAILY PO 10/07/24 10:00 10/08/24 08:39 200 MG Methocarbamol 500 mg Q8HR PO 10/06/24 22:00 10/09/24 05:57 500 MG Patient Own Medication 1 cap DAILY PO 10/07/24 10:00 Patient Own Medication 1 patch Q3D TOP 10/06/24 16:15 Patient Own Medication 2.5 mg BID PO 10/06/24 22:00 10/08/24 21:09 2.5 MG Patient Own Medication 1 tab HS PO 10/06/24 22:00 10/08/24 21:10 1 TAB Clonidine HCl 0.1 mg BIDPRN PRN PO 10/06/24 17:15 Magnesium Oxide 400 mg BID PO 10/07/24 10:00 10/08/24 21:10 400 MG Patient Own Medication 1 tab Q4H PRN PO 10/07/24 16:00 10/08/24 21:11 1 TAB laboratory and microbiology Laboratory Tests 10/07/24 05:44 Test 10/07/24 05:44 Range/Units Serum Glucose 97 74-106 mg/dL Problem List BILATERAL LE ULCER/ CELLULITIS HX OF SSS S/P DUAL PPI CORONARY ANGIO 2022 NL CORONARIES Assessment/Plan ABX LE ARTERIAL DUPLEX no flow restrictive lesions noted PT WITH STAPH COLONIZATION 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 Encourage optimal PO intake 4) Follow-up with cardiology 5) Continue to monitor I&O, labs, and skin integrity Expected Outcomes/Goals: 1) appetite and labs to improve 2) wound to improve 3) f/u in 3-5 days Plan discussed with: Patient MICHELLE GILL MD October 09, 2024 07:26
--- NOTE | 2024-10-09 07:28 | DVHPN2 ---
Progress Note - Dictate Date Seen: October 09, 2024 Medical Necessity Reason Pt with a Central, PICC or Fol: No Subjective PT WITH BILATERAL LE ULCER/ CELLULITIS HX OF SSS S/P DUAL PPI CORONARY ANGIO 2022 NL CORONARIES vital signs Vital Sign Date Time Temp Pulse Resp B/P (MAP) Pulse Ox O2 Delivery O2 Flow Rate FiO2 10/09/24 05:00 98.5 73 19 107/62 (77) 92 98.5 10/08/24 20:00 Room Air* 0 21 Total Intake and Output 10/08/24 10/08/24 10/09/24 15:00 23:00 07:00 Intake Total 100 ml 350 ml 575 ml Balance 100 ml 350 ml 575 ml medications Current Medications Medications Dose Ordered Sig/Sherie Route Start Time Stop Time Status Last Admin Dose Admin Clindamycin Phosphate 50 ml @ 50 mls/hr Q8HR IV 10/06/24 14:00 10/09/24 05:57 50 MLS/HR Ceftriaxone Sodium 50 ml @ 100 mls/hr DAILY@09 IV 10/07/24 09:00 10/08/24 08:38 100 MLS/HR Sodium Chloride 1,000 ml @ 60 mls/hr [id number] IV 10/06/24 13:15 10/08/24 15:15 60 MLS/HR Ondansetron HCl 4 mg Q4HP PRN IV 10/06/24 13:15 10/08/24 21:16 4 MG Enoxaparin Sodium 40 mg DAILY SC 10/07/24 10:00 10/08/24 08:39 40 MG Zinc Sulfate 220 mg DAILY PO 10/07/24 10:00 10/08/24 08:39 220 MG Ascorbic Acid 500 mg BID PO 10/06/24 22:00 10/08/24 21:11 500 MG Multivitamins 1 tab DAILY PO 10/07/24 10:00 10/08/24 08:39 1 TAB Acetaminophen 650 mg Q6HP PRN PO 10/06/24 13:15 Hydroxychloroquine Sulfate 200 mg DAILY PO 10/07/24 10:00 10/08/24 08:39 200 MG Methocarbamol 500 mg Q8HR PO 10/06/24 22:00 10/09/24 05:57 500 MG Patient Own Medication 1 cap DAILY PO 10/07/24 10:00 Patient Own Medication 1 patch Q3D TOP 10/06/24 16:15 Patient Own Medication 2.5 mg BID PO 10/06/24 22:00 10/08/24 21:09 2.5 MG Patient Own Medication 1 tab HS PO 10/06/24 22:00 10/08/24 21:10 1 TAB Clonidine HCl 0.1 mg BIDPRN PRN PO 10/06/24 17:15 Magnesium Oxide 400 mg BID PO 10/07/24 10:00 10/08/24 21:10 400 MG Patient Own Medication 1 tab Q4H PRN PO 10/07/24 16:00 10/08/24 21:11 1 TAB laboratory and microbiology Laboratory Tests 10/07/24 05:44 Test 10/07/24 05:44 Range/Units Serum Glucose 97 74-106 mg/dL Problem List BILATERAL LE ULCER/ CELLULITIS HX OF SSS S/P DUAL PPI CORONARY ANGIO 2022 NL CORONARIES Assessment/Plan ABX LE ARTERIAL DUPLEX no flow restrictive lesions noted PT WITH STAPH COLONIZATION RISK ADVISOR IV ABX PT CX NEGATIVE CONT ABX SHORT COURSE STEROID MAYBE BENEFICIAL CONSIDER BX IF NO IMPROVEMENT WITH ABX IMPETIGO VS PEMPHIGUS Dietary Evaluation Review Recommendations by RD: Increase Calorie Intake Comments: 1) Initiate Pro-Stat @ 1 30 mL qd 2) Continue micronutrient supplementation 3) Initiate Ensure Enlive bid. Encourage optimal PO intake 4) Follow-up with cardiology 5) Continue to monitor I&O, labs, and skin integrity Expected Outcomes/Goals: 1) appetite and labs to improve 2) wound to improve 3) f/u in 3-5 days Plan discussed with: Patient MICHELLE GILL MD October 09, 2024 07:28
--- NOTE | 2024-10-09 10:38 | DVHPN2 ---
Reviewed: Care Plan, H&P, Labs, Medications, Previous Orders, Radiology Changes from previous H/P or p: No Changes Skin: Lesions, Other (Bilateral lower leg wound) Objective Vitals Vital Signs Date Time Temp Pulse Resp B/P (MAP) Pulse Ox O2 Delivery O2 Flow Rate FiO2 10/09/24 09:00 98.3 72 19 97/65 (76) 92 98.3 10/09/24 08:00 Room Air* 0 21 Intake/Output Intake and Output 10/09/24 06:59 Intake Total 1025 ml Balance 1025 ml Intake Oral 825 ml IV Total 200 ml # Voids 1 Medications Current Medications Medications Dose Ordered Sig/Sherie Route Start Time Stop Time Status Last Admin Dose Admin Clindamycin Phosphate 50 ml @ 50 mls/hr Q8HR IV 10/06/24 14:00 10/09/24 05:57 50 MLS/HR Ceftriaxone Sodium 50 ml @ 100 mls/hr DAILY@09 IV 10/07/24 09:00 10/09/24 08:17 100 MLS/HR Sodium Chloride 1,000 ml @ 60 mls/hr [id number] IV 10/06/24 13:15 10/08/24 15:15 60 MLS/HR Ondansetron HCl 4 mg Q4HP PRN IV 10/06/24 13:15 10/08/24 21:16 4 MG Enoxaparin Sodium 40 mg DAILY SC 10/07/24 10:00 10/09/24 08:18 40 MG Zinc Sulfate 220 mg DAILY PO 10/07/24 10:00 10/09/24 08:17 220 MG Ascorbic Acid 500 mg BID PO 10/06/24 22:00 10/09/24 08:17 500 MG Multivitamins 1 tab DAILY PO 10/07/24 10:00 10/09/24 08:17 1 TAB Acetaminophen 650 mg Q6HP PRN PO 10/06/24 13:15 Hydroxychloroquine Sulfate 200 mg DAILY PO 10/07/24 10:00 10/09/24 08:17 200 MG Methocarbamol 500 mg Q8HR PO 10/06/24 22:00 10/09/24 05:57 500 MG Patient Own Medication 1 cap DAILY PO 10/07/24 10:00 Patient Own Medication 1 patch Q3D TOP 10/06/24 16:15 Patient Own Medication 2.5 mg BID PO 10/06/24 22:00 10/09/24 08:17 2.5 MG Patient Own Medication 1 tab HS PO 10/06/24 22:00 10/08/24 21:10 1 TAB Clonidine HCl 0.1 mg BIDPRN PRN PO 10/06/24 17:15 Magnesium Oxide 400 mg BID PO 10/07/24 10:00 10/09/24 08:17 400 MG Patient Own Medication 1 tab Q4H PRN PO 10/07/24 16:00 10/09/24 08:18 1 TAB Laboratory Results Laboratory Tests 10/07/24 05:44 Microbiology Microbiology Date/Time Source Procedure Growth Status 10/06/24 08:55 Blood Blood Culture - Preliminary NO GROWTH AFTER 72 HOURS OF INCUBATION. Resulted 10/06/24 08:16 Leg Right Gram Stain - Final Resulted 10/06/24 08:16 Leg Right Wound Culture - Preliminary Resulted Labs and/or images reviewed: Labs reviewed by me, Image(s) reviewed by me Assessment/Plan Assessment/Plan Nonhealing bilateral lower extremity open wounds: Wound consult, consult for podiatric Dr. Centeno. Rocephin clindamycin; blood cultures negative, wound cultures negative, continue IV antibiotics, added prednisone 20 mg p.o. daily Peripheral arterial disease bilateral lower extremities ruled out Hypertension Hypercholesterolemia History of pacemaker: Consult by Dr. Azevedo appreciated Moderate malnutrition Time spent 45 minutes Patient is full code Plan discussed with: Patient My Orders Orders - AGUSTIN HART MD Procedure Category Date Status Time * Cardiology Consult CONS 10/08/24 Transmitted 10:48 Date of Service: October 09, 2024 Billing Provider: AGUSTIN HART MD Common Visit Codes: [id number] INP/OBS CARE(HIGH) AGUSTIN HART MD October 09, 2024 10:38
[2024-10-09] MEDS: predniSONE 20 MG TAB PO ONE (10:54)
[2024-10-10] VITALS (7 sets, daily range): BP systolic 127–158; BP diastolic 82–96; PULSE 65–80; RESP 16–18; TEMP 97.7–98.2; O2SAT 94–96
[2024-10-10] MEDS: predniSONE 20 MG TAB PO SCH (08:49)
--- NOTE | 2024-10-10 09:37 | DVHPN2 ---
Reviewed: Care Plan, H&P, Labs, Medications, Previous Orders, Radiology Changes from previous H/P or p: No Changes Skin: Lesions, Other (Bilateral lower leg wound) Objective Vitals Vital Signs Date Time Temp Pulse Resp B/P (MAP) Pulse Ox O2 Delivery O2 Flow Rate FiO2 10/10/24 05:00 98.2 65 18 135/89 (104) 96 98.2 10/09/24 20:00 Room Air* 0 21 Intake/Output Intake and Output 10/10/24 07:00 Intake Total 3222 ml Output Total 490 ml Balance 2732 ml Intake Oral 2072 ml IV Total 1150 ml Output Urine Total 490 ml # Voids 5 # Bowel Movements 1 Medications Current Medications Medications Dose Ordered Sig/Sherie Route Start Time Stop Time Status Last Admin Dose Admin Clindamycin Phosphate 50 ml @ 50 mls/hr Q8HR IV 10/06/24 14:00 10/10/24 06:19 50 MLS/HR Ceftriaxone Sodium 50 ml @ 100 mls/hr DAILY@09 IV 10/07/24 09:00 10/10/24 08:49 100 MLS/HR Sodium Chloride 1,000 ml @ 60 mls/hr [id number] IV 10/06/24 13:15 10/10/24 00:57 60 MLS/HR Ondansetron HCl 4 mg Q4HP PRN IV 10/06/24 13:15 10/08/24 21:16 4 MG Enoxaparin Sodium 40 mg DAILY SC 10/07/24 10:00 10/10/24 08:51 40 MG Zinc Sulfate 220 mg DAILY PO 10/07/24 10:00 10/10/24 08:49 220 MG Ascorbic Acid 500 mg BID PO 10/06/24 22:00 10/10/24 08:49 500 MG Multivitamins 1 tab DAILY PO 10/07/24 10:00 10/10/24 08:49 1 TAB Acetaminophen 650 mg Q6HP PRN PO 10/06/24 13:15 Hydroxychloroquine Sulfate 200 mg DAILY PO 10/07/24 10:00 10/10/24 08:50 200 MG Methocarbamol 500 mg Q8HR PO 10/06/24 22:00 10/10/24 06:19 500 MG Patient Own Medication 1 cap DAILY PO 10/07/24 10:00 Patient Own Medication 1 patch Q3D TOP 10/06/24 16:15 Patient Own Medication 2.5 mg BID PO 10/06/24 22:00 10/09/24 08:17 2.5 MG Patient Own Medication 1 tab HS PO 10/06/24 22:00 10/09/24 21:39 1 TAB Clonidine HCl 0.1 mg BIDPRN PRN PO 10/06/24 17:15 Magnesium Oxide 400 mg BID PO 10/07/24 10:00 10/10/24 08:50 400 MG Patient Own Medication 1 tab Q4H PRN PO 10/07/24 16:00 10/10/24 06:19 1 TAB Prednisone 20 mg DAILY PO 10/10/24 10:00 10/10/24 08:49 20 MG Laboratory Results Laboratory Tests 10/07/24 05:44 Microbiology Microbiology Date/Time Source Procedure Growth Status 10/06/24 08:55 Blood Blood Culture - Preliminary NO GROWTH AFTER 72 HOURS OF INCUBATION. Resulted 10/06/24 08:16 Leg Right Gram Stain - Final Resulted 10/06/24 08:16 Leg Right Wound Culture - Preliminary Resulted Labs and/or images reviewed: Labs reviewed by me, Image(s) reviewed by me Assessment/Plan Assessment/Plan Nonhealing bilateral lower extremity open wounds: Wound consult, consult for podiatric Dr. Centeno appreciated. Continue Rocephin clindamycin; blood cultures negative, wound cultures negative, , added prednisone 20 mg p.o. daily Peripheral arterial disease bilateral lower extremities ruled out Hypertension Hypercholesterolemia ? Pacemaker site infection: Patient today says that he fell two months ago, consult for Moderate malnutrition Time spent 45 minutes Patient is full code Plan discussed with: Patient My Orders Orders - AGUSTIN HART MD Procedure Category Date Status Time Prednisone Tablet PHA 10/10/24 In Process 10:00 Date of Service: October 10, 2024 Billing Provider: AGUSTIN HART MD Common Visit Codes: [id number] INP/OBS CARE(HIGH) AGUSTIN HART MD October 10, 2024 09:37
--- NOTE | 2024-10-10 13:35 | DVHPN2 ---
Progress Note - Dictate Date Seen: October 07, 2024 Medical Necessity Reason Pt with a Central, PICC or Fol: No Subjective PT WITH BILATERAL LE ULCER/ CELLULITIS HX OF SSS S/P DUAL PPI CORONARY ANGIO 2022 NL CORONARIES vital signs Vital Sign Date Time Temp Pulse Resp B/P (MAP) Pulse Ox O2 Delivery O2 Flow Rate FiO2 10/10/24 09:00 97.7 78 16 132/83 (99) 95 97.7 10/10/24 08:00 Room Air* 0 21 Total Intake and Output 10/09/24 10/09/24 10/10/24 15:00 23:00 07:00 Intake Total 100 ml 1250 ml 1872 ml Output Total 190 ml 300 ml Balance 100 ml 1060 ml 1572 ml medications Current Medications Medications Dose Ordered Sig/Sherie Route Start Time Stop Time Status Last Admin Dose Admin Clindamycin Phosphate 50 ml @ 50 mls/hr Q8HR IV 10/06/24 14:00 10/10/24 06:19 50 MLS/HR Ceftriaxone Sodium 50 ml @ 100 mls/hr DAILY@09 IV 10/07/24 09:00 10/10/24 08:49 100 MLS/HR Sodium Chloride 1,000 ml @ 60 mls/hr [id number] IV 10/06/24 13:15 10/10/24 00:57 60 MLS/HR Ondansetron HCl 4 mg Q4HP PRN IV 10/06/24 13:15 10/08/24 21:16 4 MG Enoxaparin Sodium 40 mg DAILY SC 10/07/24 10:00 10/10/24 08:51 40 MG Zinc Sulfate 220 mg DAILY PO 10/07/24 10:00 10/10/24 08:49 220 MG Ascorbic Acid 500 mg BID PO 10/06/24 22:00 10/10/24 08:49 500 MG Multivitamins 1 tab DAILY PO 10/07/24 10:00 10/10/24 08:49 1 TAB Acetaminophen 650 mg Q6HP PRN PO 10/06/24 13:15 Hydroxychloroquine Sulfate 200 mg DAILY PO 10/07/24 10:00 10/10/24 08:50 200 MG Methocarbamol 500 mg Q8HR PO 10/06/24 22:00 10/10/24 06:19 500 MG Patient Own Medication 1 cap DAILY PO 10/07/24 10:00 Patient Own Medication 1 patch Q3D TOP 10/06/24 16:15 Patient Own Medication 2.5 mg BID PO 10/06/24 22:00 10/09/24 08:17 2.5 MG Patient Own Medication 1 tab HS PO 10/06/24 22:00 10/09/24 21:39 1 TAB Clonidine HCl 0.1 mg BIDPRN PRN PO 10/06/24 17:15 Magnesium Oxide 400 mg BID PO 10/07/24 10:00 10/10/24 08:50 400 MG Patient Own Medication 1 tab Q4H PRN PO 10/07/24 16:00 10/10/24 06:19 1 TAB Prednisone 20 mg DAILY PO 10/10/24 10:00 10/10/24 08:49 20 MG laboratory and microbiology Laboratory Tests 10/07/24 05:44 Test 10/07/24 05:44 Range/Units Serum Glucose 97 74-106 mg/dL Problem List BILATERAL LE ULCER/ CELLULITIS HX OF SSS S/P DUAL PPI CORONARY ANGIO 2022 NL CORONARIES Assessment/Plan ABX LE ARTERIAL DUPLEX no flow restrictive lesions noted PT WITH STAPH COLONIZATION RESIDENTIAL IV ABX PT CX NEGATIVE CONT ABX SHORT COURSE STEROID MAYBE BENEFICIAL CONSIDER BX IF NO IMPROVEMENT WITH ABX IMPETIGO VS PEMPHIGUS Dietary Evaluation Review Recommendations by RD: Increase Calorie Intake Comments: 1) Initiate Pro-Stat @ 1 30 mL qd 2) Continue micronutrient supplementation 3) Initiate Ensure Enlive bid. Encourage optimal PO intake 4) Follow-up with cardiology 5) Continue to monitor I&O, labs, and skin integrity Expected Outcomes/Goals: 1) appetite and labs to improve 2) wound to improve 3) f/u in 3-5 days Plan discussed with: Patient MICHELLE GILL MD October 10, 2024 13:35
--- NOTE | 2024-10-10 13:37 | DVHPN2 ---
Progress Note - Dictate Date Seen: October 10, 2024 Medical Necessity Reason Pt with a Central, PICC or Fol: No Subjective PT WITH BILATERAL LE ULCER/ CELLULITIS HX OF SSS S/P DUAL PPI CORONARY ANGIO 2022 NL CORONARIES vital signs Vital Sign Date Time Temp Pulse Resp B/P (MAP) Pulse Ox O2 Delivery O2 Flow Rate FiO2 10/10/24 09:00 97.7 78 16 132/83 (99) 95 97.7 10/10/24 08:00 Room Air* 0 21 Total Intake and Output 10/09/24 10/09/24 10/10/24 15:00 23:00 07:00 Intake Total 100 ml 1250 ml 1872 ml Output Total 190 ml 300 ml Balance 100 ml 1060 ml 1572 ml medications Current Medications Medications Dose Ordered Sig/Sherie Route Start Time Stop Time Status Last Admin Dose Admin Clindamycin Phosphate 50 ml @ 50 mls/hr Q8HR IV 10/06/24 14:00 10/10/24 06:19 50 MLS/HR Ceftriaxone Sodium 50 ml @ 100 mls/hr DAILY@09 IV 10/07/24 09:00 10/10/24 08:49 100 MLS/HR Sodium Chloride 1,000 ml @ 60 mls/hr [id number] IV 10/06/24 13:15 10/10/24 00:57 60 MLS/HR Ondansetron HCl 4 mg Q4HP PRN IV 10/06/24 13:15 10/08/24 21:16 4 MG Enoxaparin Sodium 40 mg DAILY SC 10/07/24 10:00 10/10/24 08:51 40 MG Zinc Sulfate 220 mg DAILY PO 10/07/24 10:00 10/10/24 08:49 220 MG Ascorbic Acid 500 mg BID PO 10/06/24 22:00 10/10/24 08:49 500 MG Multivitamins 1 tab DAILY PO 10/07/24 10:00 10/10/24 08:49 1 TAB Acetaminophen 650 mg Q6HP PRN PO 10/06/24 13:15 Hydroxychloroquine Sulfate 200 mg DAILY PO 10/07/24 10:00 10/10/24 08:50 200 MG Methocarbamol 500 mg Q8HR PO 10/06/24 22:00 10/10/24 06:19 500 MG Patient Own Medication 1 cap DAILY PO 10/07/24 10:00 Patient Own Medication 1 patch Q3D TOP 10/06/24 16:15 Patient Own Medication 2.5 mg BID PO 10/06/24 22:00 10/09/24 08:17 2.5 MG Patient Own Medication 1 tab HS PO 10/06/24 22:00 10/09/24 21:39 1 TAB Clonidine HCl 0.1 mg BIDPRN PRN PO 10/06/24 17:15 Magnesium Oxide 400 mg BID PO 10/07/24 10:00 10/10/24 08:50 400 MG Patient Own Medication 1 tab Q4H PRN PO 10/07/24 16:00 10/10/24 06:19 1 TAB Prednisone 20 mg DAILY PO 10/10/24 10:00 10/10/24 08:49 20 MG laboratory and microbiology Laboratory Tests 10/07/24 05:44 Test 10/07/24 05:44 Range/Units Serum Glucose 97 74-106 mg/dL Problem List BILATERAL LE ULCER/ CELLULITIS HX OF SSS S/P DUAL PPI CORONARY ANGIO 2022 NL CORONARIES Assessment/Plan ABX LE ARTERIAL DUPLEX no flow restrictive lesions noted PT WITH STAPH COLONIZATION USP IV ABX PT CX NEGATIVE CONT ABX SHORT COURSE STEROID MAYBE BENEFICIAL CONSIDER BX IF NO IMPROVEMENT WITH ABX IMPETIGO VS PEMPHIGUS ? PACEMAKER EROSION SECONDARY TO TRAUMA/ FALL 2 MONTHS AGO Dietary Evaluation Review Recommendations by RD: Increase Calorie Intake Comments: 1) Initiate Pro-Stat @ 1 30 mL qd 2) Continue micronutrient supplementation 3) Initiate Ensure Enlive bid. Encourage optimal PO intake 4) Follow-up with cardiology 5) Continue to monitor I&O, labs, and skin integrity Expected Outcomes/Goals: 1) appetite and labs to improve 2) wound to improve 3) f/u in 3-5 days Plan discussed with: Patient MICHELLE GILL MD October 10, 2024 13:37
[2024-10-11] VITALS (8 sets, daily range): BP systolic 116–151; BP diastolic 75–92; PULSE 57–80; RESP 16–18; TEMP 97.6–98.3; O2SAT 91–96
--- NOTE | 2024-10-11 10:21 | DVHPN2 ---
Reviewed: Care Plan, H&P, Labs, Medications, Previous Orders, Radiology Changes from previous H/P or p: No Changes Skin: Lesions, Other (Bilateral lower leg wound) Objective Vitals Vital Signs Date Time Temp Pulse Resp B/P (MAP) Pulse Ox O2 Delivery O2 Flow Rate FiO2 10/11/24 09:00 98.2 68 17 116/75 (89) 96 98.2 10/11/24 08:00 Room Air* 0 21 Intake/Output Intake and Output 10/11/24 07:00 Intake Total 2579 ml Output Total 500 ml Balance 2079 ml Intake Oral 2429 ml IV Total 150 ml Output Urine Total 500 ml # Voids 7 Medications Current Medications Medications Dose Ordered Sig/Sherie Route Start Time Stop Time Status Last Admin Dose Admin Clindamycin Phosphate 50 ml @ 50 mls/hr Q8HR IV 10/06/24 14:00 10/11/24 06:06 50 MLS/HR Ceftriaxone Sodium 50 ml @ 100 mls/hr DAILY@09 IV 10/07/24 09:00 10/11/24 08:41 100 MLS/HR Sodium Chloride 1,000 ml @ 60 mls/hr [id number] IV 10/06/24 13:15 10/10/24 21:22 60 MLS/HR Ondansetron HCl 4 mg Q4HP PRN IV 10/06/24 13:15 10/08/24 21:16 4 MG Enoxaparin Sodium 40 mg DAILY SC 10/07/24 10:00 10/11/24 08:38 40 MG Zinc Sulfate 220 mg DAILY PO 10/07/24 10:00 10/11/24 08:38 220 MG Ascorbic Acid 500 mg BID PO 10/06/24 22:00 10/11/24 08:37 500 MG Multivitamins 1 tab DAILY PO 10/07/24 10:00 10/11/24 08:38 1 TAB Acetaminophen 650 mg Q6HP PRN PO 10/06/24 13:15 Hydroxychloroquine Sulfate 200 mg DAILY PO 10/07/24 10:00 10/11/24 08:38 200 MG Methocarbamol 500 mg Q8HR PO 10/06/24 22:00 10/11/24 06:04 500 MG Patient Own Medication 1 cap DAILY PO 10/07/24 10:00 10/11/24 08:41 1 CAP Patient Own Medication 1 patch Q3D TOP 10/06/24 16:15 Patient Own Medication 2.5 mg BID PO 10/06/24 22:00 10/09/24 08:17 2.5 MG Patient Own Medication 1 tab HS PO 10/06/24 22:00 10/11/24 04:29 1 TAB Clonidine HCl 0.1 mg BIDPRN PRN PO 10/06/24 17:15 Magnesium Oxide 400 mg BID PO 10/07/24 10:00 10/11/24 08:38 400 MG Patient Own Medication 1 tab Q4H PRN PO 10/07/24 16:00 10/11/24 06:05 1 TAB Prednisone 20 mg DAILY PO 10/10/24 10:00 10/11/24 08:38 20 MG Laboratory Results Laboratory Tests 10/07/24 05:44 Microbiology Microbiology Date/Time Source Procedure Growth Status 10/06/24 08:55 Blood Blood Culture - Final NO GROWTH AFTER 5 DAYS OF INCUBATION. Complete 10/06/24 08:16 Leg Right Gram Stain - Final Resulted 10/06/24 08:16 Leg Right Wound Culture - Preliminary Resulted Labs and/or images reviewed: Labs reviewed by me, Image(s) reviewed by me Assessment/Plan Assessment/Plan Nonhealing bilateral lower extremity open wounds: Wound consult, consult for podiatric Dr. Centeno appreciated. Continue IV Rocephin clindamycin; blood cultures negative, wound cultures negative, , added prednisone 20 mg p.o. daily Peripheral arterial disease bilateral lower extremities ruled out by negative arterial ultrasound Hypertension Hypercholesterolemia ? Pacemaker site infection: Patient today says that he fell two months ago, consult for Moderate malnutrition Time spent 45 minutes Patient is full code Plan discussed with: Patient Date of Service: October 11, 2024 Billing Provider: AGUSTIN HART MD Common Visit Codes: [id number] INP/OBS CARE(HIGH) AGUSTIN HART MD October 11, 2024 10:20
[2024-10-12 05:20] VITALS: BP 162/94; PULSE 83; RESP 18; TEMP 98.2; O2SAT 97
[2024-10-12] MEDS: cloNIDine HCL 0.1 MG TAB PO PRN (05:25)
[2024-10-12 08:00] VITALS: PULSE 84; RESP 18; O2SAT 96
--- NOTE | 2024-10-12 08:25 | DVHPN2 ---
Progress Note - Dictate Date Seen: October 11, 2024 Medical Necessity Reason Pt with a Central, PICC or Fol: No Subjective PT WITH BILATERAL LE ULCER/ CELLULITIS HX OF SSS S/P DUAL PPI CORONARY ANGIO 2022 NL CORONARIES vital signs Vital Sign Date Time Temp Pulse Resp B/P (MAP) Pulse Ox O2 Delivery O2 Flow Rate FiO2 10/12/24 06:25 100/65 10/12/24 05:20 98.2 83 18 97 98.2 10/11/24 20:00 Room Air* 0 21 Total Intake and Output 10/11/24 10/11/24 10/12/24 15:00 23:00 07:00 Intake Total 800 ml 580 ml Balance 800 ml 580 ml medications Current Medications Medications Dose Ordered Sig/Sherie Route Start Time Stop Time Status Last Admin Dose Admin Clindamycin Phosphate 50 ml @ 50 mls/hr Q8HR IV 10/06/24 14:00 10/12/24 05:25 50 MLS/HR Ceftriaxone Sodium 50 ml @ 100 mls/hr DAILY@09 IV 10/07/24 09:00 10/11/24 08:41 100 MLS/HR Sodium Chloride 1,000 ml @ 60 mls/hr [id number] IV 10/06/24 13:15 10/10/24 21:22 60 MLS/HR Ondansetron HCl 4 mg Q4HP PRN IV 10/06/24 13:15 10/12/24 05:41 4 MG Enoxaparin Sodium 40 mg DAILY SC 10/07/24 10:00 10/11/24 08:38 40 MG Zinc Sulfate 220 mg DAILY PO 10/07/24 10:00 10/11/24 08:38 220 MG Ascorbic Acid 500 mg BID PO 10/06/24 22:00 10/11/24 21:25 500 MG Multivitamins 1 tab DAILY PO 10/07/24 10:00 10/11/24 08:38 1 TAB Acetaminophen 650 mg Q6HP PRN PO 10/06/24 13:15 Hydroxychloroquine Sulfate 200 mg DAILY PO 10/07/24 10:00 10/11/24 08:38 200 MG Methocarbamol 500 mg Q8HR PO 10/06/24 22:00 10/12/24 05:25 500 MG Patient Own Medication 1 cap DAILY PO 10/07/24 10:00 10/11/24 08:41 1 CAP Patient Own Medication 1 patch Q3D TOP 10/06/24 16:15 Patient Own Medication 2.5 mg BID PO 10/06/24 22:00 10/09/24 08:17 2.5 MG Patient Own Medication 1 tab HS PO 10/06/24 22:00 10/11/24 21:26 1 TAB Clonidine HCl 0.1 mg BIDPRN PRN PO 10/06/24 17:15 10/12/24 05:25 0.1 MG Magnesium Oxide 400 mg BID PO 10/07/24 10:00 10/11/24 21:25 400 MG Patient Own Medication 1 tab Q4H PRN PO 10/07/24 16:00 10/11/24 06:05 1 TAB Prednisone 20 mg DAILY PO 10/10/24 10:00 10/11/24 08:38 20 MG laboratory and microbiology Laboratory Tests 10/07/24 05:44 Test 10/07/24 05:44 Range/Units Serum Glucose 97 74-106 mg/dL Problem List BILATERAL LE ULCER/ CELLULITIS HX OF SSS S/P DUAL PPI CORONARY ANGIO 2022 NL CORONARIES Assessment/Plan ABX LE ARTERIAL DUPLEX no flow restrictive lesions noted PT WITH STAPH COLONIZATION RETIREMENT IV ABX PT CX NEGATIVE CONT ABX SHORT COURSE STEROID MAYBE BENEFICIAL CONSIDER BX IF NO IMPROVEMENT WITH ABX IMPETIGO VS PEMPHIGUS ? PACEMAKER EROSION SECONDARY TO TRAUMA/ FALL 2 MONTHS AGO Dietary Evaluation Review Recommendations by RD: Increase Calorie Intake Comments: 1) Initiate Pro-Stat @ 1 30 mL qd 2) Continue micronutrient supplementation 3) Initiate Ensure Enlive bid. Encourage optimal PO intake 4) Follow-up with cardiology 5) Continue to monitor I&O, labs, and skin integrity Expected Outcomes/Goals: 1) appetite and labs to improve 2) wound to improve 3) f/u in 3-5 days Plan discussed with: Patient MICHELLE GILL MD October 12, 2024 08:25
[2024-10-12 08:53] VITALS: BP 134/93; PULSE 84; RESP 18; TEMP 98.1; O2SAT 97
--- NOTE | 2024-10-12 10:33 | DVHPN2 ---
Reviewed: Care Plan, H&P, Labs, Medications, Previous Orders, Radiology Changes from previous H/P or p: No Changes Skin: Lesions, Other (Bilateral lower leg wound) Objective Vitals Vital Signs Date Time Temp Pulse Resp B/P (MAP) Pulse Ox O2 Delivery O2 Flow Rate FiO2 10/12/24 08:53 98.1 84 18 134/93 (107) 97 98.1 10/12/24 08:00 Room Air* 0 21 Intake/Output Intake and Output 10/12/24 07:00 Intake Total 1380 ml Balance 1380 ml Intake Oral 1380 ml # Voids 10 # Bowel Movements 3 Medications Current Medications Medications Dose Ordered Sig/Sherie Route Start Time Stop Time Status Last Admin Dose Admin Clindamycin Phosphate 50 ml @ 50 mls/hr Q8HR IV 10/06/24 14:00 10/12/24 05:25 50 MLS/HR Ceftriaxone Sodium 50 ml @ 100 mls/hr DAILY@09 IV 10/07/24 09:00 10/12/24 09:22 100 MLS/HR Sodium Chloride 1,000 ml @ 60 mls/hr [id number] IV 10/06/24 13:15 10/10/24 21:22 60 MLS/HR Ondansetron HCl 4 mg Q4HP PRN IV 10/06/24 13:15 10/12/24 05:41 4 MG Enoxaparin Sodium 40 mg DAILY SC 10/07/24 10:00 10/12/24 09:22 40 MG Zinc Sulfate 220 mg DAILY PO 10/07/24 10:00 10/12/24 09:21 220 MG Ascorbic Acid 500 mg BID PO 10/06/24 22:00 10/12/24 09:21 500 MG Multivitamins 1 tab DAILY PO 10/07/24 10:00 10/12/24 09:21 1 TAB Acetaminophen 650 mg Q6HP PRN PO 10/06/24 13:15 Hydroxychloroquine Sulfate 200 mg DAILY PO 10/07/24 10:00 10/12/24 09:21 200 MG Methocarbamol 500 mg Q8HR PO 10/06/24 22:00 10/12/24 05:25 500 MG Patient Own Medication 1 cap DAILY PO 10/07/24 10:00 10/12/24 09:21 1 CAP Patient Own Medication 1 patch Q3D TOP 10/06/24 16:15 Patient Own Medication 2.5 mg BID PO 10/06/24 22:00 10/12/24 09:21 2.5 MG Patient Own Medication 1 tab HS PO 10/06/24 22:00 10/11/24 21:26 1 TAB Clonidine HCl 0.1 mg BIDPRN PRN PO 10/06/24 17:15 10/12/24 05:25 0.1 MG Magnesium Oxide 400 mg BID PO 10/07/24 10:00 10/12/24 09:21 400 MG Patient Own Medication 1 tab Q4H PRN PO 10/07/24 16:00 10/11/24 06:05 1 TAB Prednisone 20 mg DAILY PO 10/10/24 10:00 10/12/24 09:21 20 MG Laboratory Results Laboratory Tests 10/07/24 05:44 Microbiology Microbiology Date/Time Source Procedure Growth Status 10/06/24 08:55 Blood Blood Culture - Final NO GROWTH AFTER 5 DAYS OF INCUBATION. Complete 10/06/24 08:16 Leg Right Gram Stain - Final Complete 10/06/24 08:16 Leg Right Wound Culture - Final Complete Labs and/or images reviewed: Labs reviewed by me, Image(s) reviewed by me Assessment/Plan Assessment/Plan Nonhealing bilateral lower extremity open wounds: Wound consult, consult for podiatric Dr. Centeno appreciated. Continue IV Rocephin clindamycin; blood cultures negative, wound cultures negative, , added prednisone 20 mg p.o. daily Peripheral arterial disease ruled out Hypertension Hypercholesterolemia Pacemaker site infection: Dr. Azevedo advised four weeks IV antibiotics before changing the pacemaker Moderate malnutrition Time spent 45 minutes Patient is full code [facility] for 4 weeks of IV clindamycin and IV Rocephin Plan is acceptable to the patient Midline ordered Plan discussed with: Patient My Orders Orders - AGUSTIN HART MD Procedure Category Date Status Time Covid19 Antigen [facility] 10/12/24 Logged Date of Service: October 12, 2024 Billing Provider: AGUSTIN HART MD Common Visit Codes: [id number] INP/OBS CARE(HIGH) AGUSTIN HART MD October 12, 2024 10:33
--- NOTE | 2024-10-12 10:42 | DVHDS2 ---
Discharge Summary Date of Admission October 06, 2024 at 12:07 Date of Discharge: October 12, 2024 Admitting Diagnosis Chronic nonhealing bilateral leg wounds Wounds: Chronic nonhealing bilateral leg wound Labs/Diagnostic Data: Laboratory Results Test 10/07/24 05:44 10/06/24 08:55 White Blood Count 9.2 10^3/uL (4.4-10.8) Red Blood Count 3.24 10^6/uL (4.5-5.90) Hemoglobin 11.2 g/dL (13.5-17.5) Hematocrit 32.9 % (41.0-53.0) Mean Corpuscular Volume 101.5 fL (80.0-100.0) Mean Corpuscular Hemoglobin 34.4 pg (28.0-32.0) Mean Corpuscular Hemoglobin Concent 33.9 g/dL (32.0-36.0) Red Cell Distribution Width 14.7 % (11.8-14.3) Platelet Count 349 10^3/uL (140-450) Mean Platelet Volume 6.5 fL (6.9-10.8) Neutrophils (%) (Auto) 65.4 % (37.0-80.0) Lymphocytes (%) (Auto) 18.8 % (10.0-50.0) Monocytes (%) (Auto) 12.7 % (0.0-12.0) Eosinophils (%) (Auto) 2.6 % (0.0-7.0) Basophils (%) (Auto) 0.5 % (0.0-2.0) Neutrophils # (Auto) 6.0 10 ^3/uL (1.6-8.6) Lymphocytes # (Auto) 1.7 10 ^3/uL (0.4-5.4) Monocytes # (Auto) 1.2 10 ^3/uL (0-1.3) Eosinophils # (Auto) 0.2 10 ^3/uL (0-0.8) Basophils # (Auto) 0 10 ^3/uL (0-0.2) Nucleated Red Blood Cells 0.2 % Sodium Level 133 mmol/L (136-145) Potassium Level 4.3 mmol/L (3.5-5.1) Chloride Level 100 mmol/L (98-107) Carbon Dioxide Level 24 mmol/L (20-31) Anion Gap 9 (5-15) Blood Urea Nitrogen 16 mg/dL (9-23) Creatinine 0.74 mg/dL (0.700-1.30) Glomerular Filtration Rate Calc 96 mL/min (>90) BUN/Creatinine Ratio 21.6 (10.0-20.0) Serum Glucose 97 mg/dL (74-106) Calcium Level 8.7 mg/dL (8.7-10.4) Total Bilirubin 0.5 mg/dL (0.2-1.0) Aspartate Amino Transferase (AST) 23 U/L (13-40) Alanine Aminotransferase (ALT) 10 U/L (7-40) Alkaline Phosphatase 122 U/L (46-116) Total Protein 6.3 g/dL (5.7-8.2) Albumin 2.8 g/dL (3.2-4.8) Lactic Acid Level 1.5 mmol/L (0.4-2.0) Other Laboratory Tests 10/07/24 05:44 Brief Hx & Hospital Course: 74-year-old male with a history of hypertension hypercholesterolemia status post pacemaker came in for chronic nonhealing bilateral leg wounds for the last two months. Patient has open wounds on bilateral lower leg started on Rocephin and clindamycin blood cultures came negative wound cultures came negative patient also fell two months ago and possibly infected pacemaker site seen by Cardiology Dr. Cornelius advised IV antibiotics for four weeks prior to reinsertion of the new pacemaker. [facility] for 4 weeks for his open nonhealing bilateral leg wounds. Consults/Reason for consult Consult by Cardiology Dr. Azevedo Podiatric Dr. Centeno Operations or Procedures Arterial ultrasound Condition at Discharge: Fair Final Diagnosis/Problems List Nonhealing bilateral lower extremity open wounds: Wound consult, consult for podiatric Dr. Centeno appreciated. Continue IV Rocephin clindamycin; blood cultures negative, wound cultures negative, , added prednisone 20 mg p.o. daily Peripheral arterial disease ruled out Hypertension Hypercholesterolemia Pacemaker site infection: Dr. Azevedo advised four weeks IV antibiotics before changing the pacemaker Moderate malnutrition Discharge Disposition: [facility] Facility Discharge Instruct/Medications Diet: Cardiac 2g Na,low cholest Activity: Light activity Follow Up/Referral: [facility] Medications: Rocephin 1 g IV daily for four weeks Clindamycin 300 mg IV q.8 hours for four weeks Both for open leg wounds and for infected pacemaker site 35 (Time taken for discharge summary 35 minutes) Discharge Statement: "Patient was advised to return to the ER or call 911 if any headaches, dizziness, shortness of breath, chest pain, abdominal pain, bleeding, fevers, or worsening of medical condition. Patient was counseled about treatment plan, medications, possible side effects, patientverbalized understanding. All questions were answered to the best of my ability. This discharge took greater then 30 minutes in planning, reviewing documentation, counseling the patient, and discussing with other team members." ASSESSMENT ASSESSMENT Hospital Course Minimal improvement Assessment Nonhealing bilateral lower extremity open wounds: Wound consult, consult for podiatric Dr. Centeno appreciated. Continue IV Rocephin clindamycin; blood cultures negative, wound cultures negative, , added prednisone 20 mg p.o. daily Peripheral arterial disease ruled out Hypertension Hypercholesterolemia Pacemaker site infection: Dr. Azevedo advised four weeks IV antibiotics before changing the pacemaker Moderate malnutrition Date of Service: October 12, 2024 Billing Provider: AGUSTIN HART MD Common Visit Codes: [id number] DISCH DAY >30min AGUSTIN HART MD October 12, 2024 10:42
[2024-10-12 13:00] VITALS: BP 123/83; PULSE 77; RESP 17; TEMP 98.2; O2SAT 96
[2024-10-12 17:04] VITALS: BP 122/84; PULSE 66; RESP 16; TEMP 98; O2SAT 95
[2024-10-12 21:00] VITALS: BP 128/69; PULSE 65; RESP 18; TEMP 97.8; O2SAT 94
[2024-10-13 05:00] VITALS: BP 118/85; PULSE 70; RESP 17; TEMP 97.8; O2SAT 93
[2024-10-13 07:27] LABS: COVID19 ANTIGEN SOFIA FIA NEGATIVE (NEGATIVE)
--- NOTE | 2024-10-13 08:27 | DVHPN2 ---
Reviewed: Care Plan, H&P, Labs, Medications, Previous Orders, Radiology Changes from previous H/P or p: No Changes Skin: Lesions, Other (Bilateral lower leg wound) Objective Vitals Vital Signs Date Time Temp Pulse Resp B/P (MAP) Pulse Ox O2 Delivery O2 Flow Rate FiO2 10/13/24 05:00 97.8 70 17 118/85 (96) 93 97.8 10/12/24 20:00 Room Air* 0 21 Intake/Output Intake and Output 10/13/24 07:00 Intake Total 2700 ml Output Total 600 ml Balance 2100 ml Intake Oral 1550 ml IV Total 1150 ml Output Urine Total 600 ml # Voids 9 # Bowel Movements 2 Medications Current Medications Medications Dose Ordered Sig/Sherie Route Start Time Stop Time Status Last Admin Dose Admin Clindamycin Phosphate 50 ml @ 50 mls/hr Q8HR IV 10/06/24 14:00 10/13/24 06:26 50 MLS/HR Ceftriaxone Sodium 50 ml @ 100 mls/hr DAILY@09 IV 10/07/24 09:00 10/12/24 09:22 100 MLS/HR Sodium Chloride 1,000 ml @ 60 mls/hr [id number] IV 10/06/24 13:15 10/13/24 06:58 60 MLS/HR Ondansetron HCl 4 mg Q4HP PRN IV 10/06/24 13:15 10/12/24 05:41 4 MG Enoxaparin Sodium 40 mg DAILY SC 10/07/24 10:00 10/12/24 09:22 40 MG Zinc Sulfate 220 mg DAILY PO 10/07/24 10:00 10/12/24 09:21 220 MG Ascorbic Acid 500 mg BID PO 10/06/24 22:00 10/12/24 21:31 500 MG Multivitamins 1 tab DAILY PO 10/07/24 10:00 10/12/24 09:21 1 TAB Acetaminophen 650 mg Q6HP PRN PO 10/06/24 13:15 Hydroxychloroquine Sulfate 200 mg DAILY PO 10/07/24 10:00 10/12/24 09:21 200 MG Methocarbamol 500 mg Q8HR PO 10/06/24 22:00 10/13/24 06:24 500 MG Patient Own Medication 1 cap DAILY PO 10/07/24 10:00 10/12/24 09:21 1 CAP Patient Own Medication 1 patch Q3D TOP 10/06/24 16:15 Patient Own Medication 2.5 mg BID PO 10/06/24 22:00 10/12/24 21:32 2.5 MG Patient Own Medication 1 tab HS PO 10/06/24 22:00 10/12/24 21:48 1 TAB Clonidine HCl 0.1 mg BIDPRN PRN PO 10/06/24 17:15 10/12/24 05:25 0.1 MG Magnesium Oxide 400 mg BID PO 10/07/24 10:00 10/12/24 21:31 400 MG Patient Own Medication 1 tab Q4H PRN PO 10/07/24 16:00 10/11/24 06:05 1 TAB Prednisone 20 mg DAILY PO 10/10/24 10:00 10/12/24 09:21 20 MG Laboratory Results Laboratory Tests 10/07/24 05:44 Microbiology Microbiology Date/Time Source Procedure Growth Status 10/06/24 08:55 Blood Blood Culture - Final NO GROWTH AFTER 5 DAYS OF INCUBATION. Complete 10/06/24 08:16 Leg Right Gram Stain - Final Complete 10/06/24 08:16 Leg Right Wound Culture - Final Complete Labs and/or images reviewed: Labs reviewed by me, Image(s) reviewed by me Assessment/Plan Assessment/Plan Nonhealing bilateral lower extremity open wounds: Wound consult, consult for podiatric Dr. Centeno appreciated. Continue IV Rocephin clindamycin; blood cultures negative, wound cultures negative, , added prednisone 20 mg p.o. daily Peripheral arterial disease ruled out Hypertension Hypercholesterolemia Pacemaker site infection: Dr. Azevedo advised four weeks IV antibiotics before changing the pacemaker Moderate malnutrition Patient awaiting transfer to [facility] Plan discussed with: Patient My Orders Orders - AGUSTIN HART MD Procedure Category Date Status Time * Cdl Instructor CONS 10/12/24 Transmitted Consult Discharge DISCHARGE 10/12/24 Transmitted 10:34 Insert Midline ORDERS 10/12/24 Transmitted 10:36 Pt Request For Service PT 10/12/24 Logged 10:37 Date of Service: October 13, 2024 Billing Provider: AGUSTIN HART MD Common Visit Codes: [id number] INP/OBS CARE(HIGH) AGUSTIN HART MD October 13, 2024 08:27
[2024-10-13 08:37] VITALS: BP 111/87; PULSE 75; RESP 17; TEMP 97.9; O2SAT 95
[2024-10-13 13:00] VITALS: BP 132/84; PULSE 68; RESP 17; TEMP 98.2; O2SAT 96
[2024-10-13] MEDS ORDERED: FOLIC ACID 1 MG, MULTIPLE VITAMIN 10 ML, MAGNESIUM SULF SDV 50% 8 MEQ, THIAMINE INJ 100... INJ SCH (18:00)
== END 2024-10-13 14:30 | DRG 605 ==
LOC: ER 07:22 → OVERFLOW 12:07 → EAST 18:14
PROVIDERS: ADMIT Family Medicine; ATTEND Family Medicine
PROC: 05HB33Z Insertion of Infusion Device into Right Basilic Vein, Percutaneous Approach (ICD-10-PCS; principal; 2024-10-12)
PROC: B54MZZA Ultrasonography of Right Upper Extremity Veins, Guidance (ICD-10-PCS; 2024-10-12)
DX: S81.802A Unspecified open wound, left lower leg, initial encounter (principal); L97.919 Non-pressure chronic ulcer of unspecified part of right lower leg with unspecified severity; E44.0 Moderate protein-calorie malnutrition; L10.9 Pemphigus, unspecified; L97.929 Non-pressure chronic ulcer of unspecified part of left lower leg with unspecified severity; T82.7XXA Infection and inflammatory reaction due to other cardiac and vascular devices, implants and grafts, initial encounter; E78.00 Pure hypercholesterolemia, unspecified; I10 Essential (primary) hypertension; Z95.0 Presence of cardiac pacemaker; L01.00 Impetigo, unspecified; Z20.822 Contact with and (suspected) exposure to COVID-19; F17.200 Nicotine dependence, unspecified, uncomplicated; Y83.8 Other surgical procedures as the cause of abnormal reaction of the patient, or of later complication, without mention of misadventure at the time of the procedure; S81.801A Unspecified open wound, right lower leg, initial encounter; W18.39XA Other fall on same level, initial encounter; Z79.2 Long term (current) use of antibiotics; Z79.891 Long term (current) use of opiate analgesic; Z79.1 Long term (current) use of non-steroidal anti-inflammatories (NSAID); Z79.899 Other long term (current) drug therapy; Z82.49 Family history of ischemic heart disease and other diseases of the circulatory system; Z68.22 Body mass index [BMI] 22.0-22.9, adult; Y92.89 Other specified places as the place of occurrence of the external cause; Y93.89 Activity, other specified; Y99.8 Other external cause status; Z79.82 Long term (current) use of aspirin
CPT/HCPCS: 36415; 80048; 80053; 83605; 85025; 87040; 87205; 87426; 93925; 97110; 97116; 97530; G0378; J2405; J3490

== ENCOUNTER 2024-11-03 11:56 | Inpatient (IN) | payer OTHER, MEDICAID ==
[~2024-11-03] VITALS: Ht 188 cm; Wt 78.6 kg
[~2024-11-03 11:56] MED LIST changes: -ASPI1TAB20 PO; -CEPH-510 PO; +CEPH500C PO; -CLOB0.055 TOP; -CLOP75TA28 PO; +ESOM40CA39 PO; +FENT12DI TOP; -HYDR-4798 PO; +HYDR200T36 PO; -LIDO5CRE14 EX; +MAGN400T40 PO; -MELO15TA29 PO; -MULT1TAB82 PO; +OXYC325T14 PO; +VERI2.5T PO; -ZOLP10TA PO; +ZOLP10TA6 PO
--- NOTE | 2024-11-03 13:08 | ED.PDOC ---
Foreign Body HPI Comments 74y M who presents to the ED for chief complaint of foreign body. EMS states pt is from [facility] and has noted pacemaker out of chest for the past 2 days. Pt otherwise has noted dressing applied with bleeding controlled. Pt has noted R arm PICC in place for tx of bilateral cellulitis to lower extremities. Pt otherwise denies any other symptoms. Pt is followed by Dr. Ding for pacemaker. 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 Allergies: Coded Allergies: NO KNOWN ALLERGIES (Unverified , 09/21/19) Home Meds Reported Medications Zolpidem Tartrate (Zolpidem Tartrate) 10 Mg Tab, 1 TAB PO QPM, #30 TAB 2 Refills 10/06/24 Hydroxychloroquine Sulfate (Hydroxychloroquine Sulfat) 200 Mg Tab, 200 MG PO DAILY for 30 Days, MG 10/06/24 Vericiguat (Verquvo) 2.5 Mg Tab, 2.5 MG PO BID, TAB 10/06/24 Cephalexin Monohydrate (Cephalexin) 500 Mg Cap, 500 MG PO Q6HR, MG 10/06/24 Oxycodone W/ Acetaminophen (Apap/Oxycodone) 1 Tab Tab, 1 TAB PO TID, #90 TAB 10/06/24 Magnesium Oxide (MAGNESIUM OXIDE) 400 Mg Tab, 1 TAB PO BID, #60 TAB 5 Refills 10/06/24 Esomeprazole Magnesium Trihydr (Nexium) 40 Mg Cap, 1 CAP PO DAILY, #30 CAP 5 Refills 10/06/24 Fentanyl (Fentanyl) 12 Mcg/Hr Dis, 1 PATCH TOP Q3D 10/06/24 Clonidine Hydrochloride (Clonidine Hcl) 0.1 Mg Tab, 0.1 MG PO BIDPRN PRN for PER BLOOD PRESSURE PROTOCOL, MG 02/21/23 Methocarbamol (Methocarbamol) 500 Mg Tab, 500 MG PO Q8HR for MUSCLE SPASMS, TAB 09/21/19 Information Source: Patient, Emergency Med Personnel Mode of Arrival: EMS Brought in by: EMS Past Medical History PAST MEDICAL HISTORY: CKF, High Lipids, HTN Surgical History: Pacemaker, Denies all surgeries Family History Family History: Reviewed,noncontributory to illness, No family hx of Heart bear, No family hx ofKidney bear Social History Smoker: Chew Alcohol: Occasionally Drugs: Marijuana Lives In: Home Constitutional: denies: chills, diaphoresis, fatigue, fever, malaise, sweats, weakness, others EENTM: denies: blurred vision, double vision, ear bleeding, ear discharge, ear drainage, ear pain, ear ringing, eye pain, eye redness, hearing loss, mouth pain, mouth swelling, nasal discharge, nose bleeding, nose congestion, nose pain, photophobia, tearing, throat pain, throat swelling, voice changes, others Respiratory: denies: cough, hemoptysis, orthopnea, SOB at rest, shortness of breath, SOB with excertion, stridor, wheezing, others Cardiovascular: denies: chest pain, dizzy spells, diaphoresis, Dyspnea on exertion, edema, irregular heart beat, left arm pain, lightheadedness, palpitations, PND, syncope, others Gastrointestinal: denies: abdomen distended, abdominal pain, blood streaked bowels, constipated, diarrhea, dysphagia, difficulty swallowing, hematemesis, melena, nausea, poor appetite, poor fluid intake, rectal bleeding, rectal pain, vomiting, others Genitourinary: denies: burning, dysuria, flank pain, frequency, hematuria, incontinence, penile discharge, penile sore, pain, testicle pain, testicle swelling, urgency, others Neurological: denies: dizziness, fainting, headache, left sided numbness, left sided weakness, numbness, paresthesia, pre-existing deficit, right sided numbness, right sided weakness, seizure, speech problems, tingling, tremors, weakness, others Musculoskeletal: denies: back pain, gout, joint pain, joint swelling, muscle pain, muscle stiffness, neck pain, others Integumetry: denies: bruises, change in color, change in hair/nails, dryness, laceration, lesions, lumps, rash, wounds, others Allergic/Immunocompromised: denies: Difficulty Healing, Frequent Infections, Hi ves, Itching, others Hematologic/Lymphatic: denies: anemia, blood clots, easy bleeding, easy bruising, swollen glands, others Endocrine: denies: excessive hunger, excessive sweating, excessive thirst, excessive urination, flushing, intolerance to cold, intolerance to heat, unexplained weight gain, unexplained weight loss, others Psychiatric: denies: anxiety, bipolar disorder, depression, hopeless, panic disorder, schizophrenia, sleepless, suicidal, others All Other Systems: Reviewed and Negative Physical Exam General Appearance: No Apparent Distress, Normal HEENT: Normal ENT Inspection, Pharynx Normal, TMs Normal Neck: Full Range of Motion, Non-Tender, Normal, Normal Inspection Respiratory: Chest Non-Tender, Lungs Clear, No Accessory Muscle Use, No Respiratory Distress, Normal Breath Sounds Cardiovascular: Other (pacemaker protruding out of chest wall) Breast Exam: Deferred Gastrointestinal: No Organomegaly, Non Tender, No Pulsatile Mass, Normal Bowel Sounds, Soft Genitalia: Deferred Pelvic: Deferred Rectal: Deferred Extremities: No calf tenderness, Normal capillary refill, Normal inspection, Normal range of motion, Non-tender, No pedal edema Musculoskeletal : Apperance: Normal Neurologic: Alert, 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 Was a procedure done?: No FB Differential Dx Differential Diagnosis: Foreign Body Other Differential Diagnosis cellulitis, pacer malfunction, pacer enucleated, pacer dislodge, pacer infection X-Ray, Labs, Meds, VS Vital Signs Date Time Temp Pulse Resp B/P (MAP) Pulse Ox O2 Delivery O2 Flow Rate FiO2 11/03/24 16:40 65 14 114/67 (83) 95 11/03/24 15:00 65 21 106/67 (80) 94 11/03/24 14:41 98.7 65 13 113/76 (88) 98 98.7 11/03/24 13:44 Room Air* 0 21 11/03/24 12:46 98.8 84 18 118/74 (89) 98 98.8 Lab Test 11/03/24 13:49 Range/Units White Blood Count 9.0 4.4-10.8 10^3/uL Red Blood Count 3.62 L 4.5-5.90 10^6/uL Hemoglobin 11.9 L 13.5-17.5 g/dL Hematocrit 35.4 L 41.0-53.0 % Mean Corpuscular Volume 98.0 80.0-100.0 fL Mean Corpuscular Hemoglobin 33.0 H 28.0-32.0 pg Mean Corpuscular Hemoglobin Concent 33.7 32.0-36.0 g/dL Red Cell Distribution Width 13.7 11.8-14.3 % Platelet Count 313 140-450 10^3/uL Mean Platelet Volume 6.5 L 6.9-10.8 fL Neutrophils (%) (Auto) 85.5 H 37.0-80.0 % Lymphocytes (%) (Auto) 8.2 L 10.0-50.0 % Monocytes (%) (Auto) 5.7 0.0-12.0 % Eosinophils (%) (Auto) 0.2 0.0-7.0 % Basophils (%) (Auto) 0.4 0.0-2.0 % Neutrophils # (Auto) 7.7 1.6-8.6 10 ^3/uL Lymphocytes # (Auto) 0.7 0.4-5.4 10 ^3/uL Monocytes # (Auto) 0.5 0-1.3 10 ^3/uL Eosinophils # (Auto) 0 0-0.8 10 ^3/uL Basophils # (Auto) 0 0-0.2 10 ^3/uL Nucleated Red Blood Cells 0.0 % Sodium Level 131 L 136-145 mmol/L Potassium Level 4.1 3.5-5.1 mmol/L Chloride Level 99 98-107 mmol/L Carbon Dioxide Level 26 20-31 mmol/L Anion Gap 6 5-15 Blood Urea Nitrogen 16 9-23 mg/dL Creatinine 0.87 0.700-1.30 mg/dL Glomerular Filtration Rate Calc 91 >90 mL/min BUN/Creatinine Ratio 18.4 10.0-20.0 Serum Glucose 116 H 74-106 mg/dL Calcium Level 9.5 8.7-10.4 mg/dL Current Medications Medications (Trade) Dose Ordered Sig/Sherie Route Start Time Stop Time Status Last Admin Clindamycin Phosphate 50 ml @ 50 mls/hr Q8HR IV 11/03/24 15:15 11/03/24 15:[address] [address] Ph: [phone] DIAGNOSTIC IMAGING Diagnostic Imaging Report : [id number] Signed PATIENT: POWER GUERRERO ACCT: [id number] UNIT: [id number] : 1950 LOC: ER ROOM / BED: / AGE / SEX: 74 / M ADM STATUS: REG ER SERVICE 1341 ORDERING PHYSICIAN: SELINA MCCORMACK MD PROCEDURE(s): CXRP - CHEST PORTABLE REASON: pacer dislodged ORDER NUMBER(s): [id number], ACCESSION NUMBER(s): [id number] CHEST RADIOGRAPH Indication: pacer dislodged Technique: Single frontal view of the chest was obtained Comparison: XY CHEST PORTABLE on DOS: 10/06/23, EKG on DOS: 04/06/22, EKG on DOS: 04/05/22 FINDINGS: Lines and Tubes: Dual-chamber pacemaker in place with pulse generator over the left chest. Lungs: No focal consolidation. Pleura: No effusion. No pneumothorax. Cardiomediastinal contours: Unremarkable Bones: No acute osseous abnormality. IMPRESSION: 1. No acute cardiopulmonary disease. 2. No change from 10/06/2023. ATED BY: JAYSHREE LINARES Jr., DO DICTATED DATE/TIME: 11/03/24 141 SIGNED BY: JAYSHREE LINARES Jr., SIGNED DATE/TIME: 11/03/241409 CC: Time of 1ST Reevaluation: 13:30 Reevaluation 1ST: Unchanged Patient Education/Counseling: Diagnosis, Treatment Family Education/Counseling: No Family Present Additional Information pt's pacer is completely outside the pocket, but so far, leads appear intact and there are no infections. pt will need to be admitted to have thew pacer reinserted by cardiology Departure 1 Departure Time of Disposition: 18:07 Impression: Primary Impression: Dislodgement of ventricular electrode lead of cardiac pacemaker Disposition: ADMITTED INPATIENT Admit to: Tele Condition: Serious Discharged With: Self Critical Care Note Critical Care Time?: Yes (55 min-critical care time only) Critical care comment: Due to concerns for patients condition deteriorating, the care required my highest level of attention and readiness to intervene. I assessed the patient, reviewed the medical records, ordered the appropriate tests and treatments, then reassessed for results and responsiveness. I communicated with medical personnel and consultants and formulated a plan of care. Total critical care time excludes any procedures Stability Stability form required: No Heart Score Heart Score: Heart Score Response (Comments) Value History N/A 0 EKG N/A 0 Age N/A 0 Risk Factors N/A 0 Troponin N/A 0 Total 0 I personally scribed for SELINA MCCORMACK MD ([facility]) on 11/03/24 at 13:08. Electronically submitted by Tamara Powell ([facility] I personally scribed for SELINA MCCORMACK MD ([facility]) on 11/03/24 at 13:11. Electronically submitted by Tamara Powell ([facility]). I personally scribed for SELINA MCCORMACK MD ([facility]) on 11/03/24 at 16:34. Electronically submitted by Tamara Powell ([facility]). SELINA MCCORMACK MD November 03, 2024 13:08
[2024-11-03 14:09] LABS: Basophils # (auto) 0 10 ^3/uL (0-0.2); Basophils % (auto) 0.4 % (0.0-2.0); Eosinophils # (auto) 0 10 ^3/uL (0-0.8); Eosinophils % (auto) 0.2 % (0.0-7.0); Hematocrit 35.4 % (41.0-53.0); Hemoglobin 11.9 g/dL (13.5-17.5); Lymphocytes # (auto) 0.7 10 ^3/uL (0.4-5.4); Lymphocytes % (auto) 8.2 % (10.0-50.0); Mean Corpuscular Hgb Conc. 33.7 g/dL (32.0-36.0); Monocytes # (auto) 0.5 10 ^3/uL (0-1.3); Monocytes % (auto) 5.7 % (0.0-12.0); Neutrophils # (auto) 7.7 10 ^3/uL (1.6-8.6); Neutrophils % (auto) 85.5 % (37.0-80.0); Platelet Count (auto) 313 10^3/uL (140-450); Red Blood Cells 3.62 10^6/uL (4.5-5.90); Red Cell Distribution Width 13.7 % (11.8-14.3)
--- NOTE | 2024-11-03 14:13 | DVH ---
CHEST RADIOGRAPH Indication: pacer dislodged Technique: Single frontal view of the chest was obtained Comparison: XY CHEST PORTABLE on DOS: 10/06/23, EKG on DOS: 04/06/22, EKG on DOS: 04/05/22 FINDINGS: Lines and Tubes: Dual-chamber pacemaker in place with pulse generator over the left chest. Lungs: No focal consolidation. Pleura: No effusion. No pneumothorax. Cardiomediastinal contours: Unremarkable Bones: No acute osseous abnormality. IMPRESSION: 1. No acute cardiopulmonary disease. 2. No change from 10/06/2023.
[2024-11-03 14:19] LABS: Chloride 99 mmol/L (98-107); Potassium 4.1 mmol/L (3.5-5.1)
[2024-11-03 14:20] LABS: Anion Gap 6 (5-15); Calcium 9.5 mg/dL (8.7-10.4); Carbon Dioxide 26 mmol/L (20-31)
[2024-11-03 14:22] LABS: Sodium 131 mmol/L (136-145)
[2024-11-03 14:25] LABS: BUN/Creatinine Ratio 18.4 (10.0-20.0); Blood Urea Nitrogen 16 mg/dL (9-23)
[2024-11-03 14:30] LABS: Glucose 116 mg/dL (74-106)
[2024-11-03] MEDS: CLINDAMYCIN 600MG IV 50 ML IV SCH (15:40)
[2024-11-03] MEDS: cefTRIAXone 1GM/50ML D5W 50 ML IV ONE (18:40)
[2024-11-03 19:20] VITALS: PULSE 65; RESP 20; O2SAT 98
[2024-11-03] MEDS ORDERED: DOCUSATE SOD 100 MG CAP PO PRN (19:45)
[2024-11-03] MEDS ORDERED: ACETAMINOPHEN 325 MG TAB PO PRN (19:45)
[2024-11-03] MEDS ORDERED: hydrALAZINE HCL 20 MG/ML VL IV PRN (19:45)
[2024-11-03] MEDS: SODIUM CHLORIDE 0.9% 1,000 ML IV SCH (19:59)
[2024-11-03] MEDS: ATORVASTATIN 20 MG TAB PO SCH (21:40)
[2024-11-03] MEDS ORDERED: MORPHINE SULFATE INJ 2 MG/ml SYRG IV PRN (22:00)
[2024-11-03] MEDS ORDERED: NITROGLYCERIN 0.4 MG SL TAB SL PRN (22:00)
--- NOTE | 2024-11-03 22:23 | DVHHP2 ---
History of Present Illness Reason for Visit: Pacemaker dislodged History of Present Illness The patient is a 74-year-old male with past medical history of CKF, hyperlipidemia, and hypertension who presented to [facility] ED with complaint of dislodged pacemaker. [facility] and has noted pacemaker out of chest for the past 2 days. Patient is followed by Dr. Azevedo for pacemaker. Patient was seen and evaluated in the ED, laboratory data shows WBC 9.0, hemoglobin 11.9, hematocrit 35.4, platelets 313, sodium 131, potassium 4.1, BUN 16, creatinine 0.87, glucose 116, blood pressure 148/86, heart rate 65, temperature 99.0 F, O2 saturation 98% on room air. Chest x-ray show no acute cardiopulmonary disease. On my assessment, patient denied chest pain, no headache, no dizziness, no diaphoresis, no shortness of breaths, no nausea, no vomiting, no fever, no chills. Patient was admitted for further evaluation and medical management. Past Medical History CKF, High Lipids, HTN Past Surgical History Pacemaker Family History Reviewed, noncontributory to the management of this case. Past Social History The patient lives at home, chew tobacco, drinks alcohol occasionally, uses marijuana. Review of Systems Constitutional: Yes: Weakness; No: Fever, Chills, Sweats, Malaise, Other Eyes: No: Pain, Vision change, Conjunctivae inflammation, Eyelid inflammation, Other, Redness ENT: No: Ear pain, Ear discharge, Nose pain, Nose discharge, Nose congestion, Mouth pain, Mouth swelling, Throat pain, Throat swelling, Other Respiratory: No: Cough, Dry, Shortness of breath, SOB with excertion, Wheezing, Hemoptysis, Pleuritic Pain, Sputum, Wheezing, Other Cardiovascular: No: Chest Pain, Palpitations, Orthopnea, Paroxysmal Noc. Dyspnea, Edema, Lt Headedness, Other Gastrointestinal: No: Nausea, Vomiting, Abdominal Pain, Diarrhea, Constipation, Melena, Hematochezia, Other Genitourinary: No Dysuria, No Frequency, No Incontinence, No Hematuria, No Retention, No Other Musculoskeletal: other (R arm PICC); No: neck pain, shoulder pain, arm pain, back pain, hand pain, leg pain, foot pain Skin: Other (Cellulitis of bilateral lower extremity); No: Rash, Lesions, Jaundice, Bruising Neurological: No: Weakness, Numbness, Incoordination, Change in speech, Confusion, Seizures, Other Allergies: Coded Allergies: NO KNOWN ALLERGIES (Unverified , 09/21/19) Medications Current Medications Medications Dose Ordered Sig/Sherie Route Start Time Stop Time Status Last Admin Dose Admin Clindamycin Phosphate 50 ml @ 50 mls/hr Q8HR IV 11/03/24 15:15 11/03/24 21:40 50 MLS/HR Sodium Chloride 1,000 ml @ 60 mls/hr [id number] IV 11/03/24 19:45 11/03/24 19:59 60 MLS/HR Acetaminophen/ Hydrocodone Bitart 1 tab Q4HP PRN PO 11/03/24 19:45 Ondansetron HCl 4 mg Q4HP PRN IV 11/03/24 19:45 Docusate Sodium 100 mg BIDPRN PRN PO 11/03/24 19:45 Acetaminophen 650 mg Q6HP PRN PO 11/03/24 19:45 Hydralazine HCl 10 mg Q6HP PRN IV 11/03/24 19:45 Atorvastatin Calcium 20 mg HS PO 11/03/24 22:00 11/03/24 21:40 20 MG Exam Vital Signs Vital Signs Date Time Temp Pulse Resp B/P (MAP) Pulse Ox O2 Delivery O2 Flow Rate FiO2 11/03/24 22:00 98.3 65 16 110/88 (95) 95 98.3 11/03/24 19:20 Room Air* 0 21 General Appearance: Alert, Oriented X3, Cooperative, No acute distress HEENT: Atraumatic, PERRLA, EOMI, Mucous membr. moist/pink Respiratory: Clear to auscultation, Normal air movement Cardiovascular: Regular rate, Normal S1, Normal S2, No murmurs Abdominal: Normal bowel sounds, Soft, No tenderness, No hepatospenomegaly, No masses Extremities: No clubbing, No cyanosis, No edema, Normal pulses, No tenderness/swelling Skin: No rashes, No breakdown, No significant lesion Neuro: Normal speech, Normal tone, Sensation intact, Cranial nerves 3-12 NL, Reflexes 2+, Other (Generalized weakness) Psych/Mental Status: Mental status NL, Mood NL Labs/Xrays Labs Test 11/03/24 13:49 Range/Units White Blood Count 9.0 4.4-10.8 10^3/uL Red Blood Count 3.62 L 4.5-5.90 10^6/uL Hemoglobin 11.9 L 13.5-17.5 g/dL Hematocrit 35.4 L 41.0-53.0 % Mean Corpuscular Volume 98.0 80.0-100.0 fL Mean Corpuscular Hemoglobin 33.0 H 28.0-32.0 pg Mean Corpuscular Hemoglobin Concent 33.7 32.0-36.0 g/dL Red Cell Distribution Width 13.7 11.8-14.3 % Platelet Count 313 140-450 10^3/uL Mean Platelet Volume 6.5 L 6.9-10.8 fL Neutrophils (%) (Auto) 85.5 H 37.0-80.0 % Lymphocytes (%) (Auto) 8.2 L 10.0-50.0 % Monocytes (%) (Auto) 5.7 0.0-12.0 % Eosinophils (%) (Auto) 0.2 0.0-7.0 % Basophils (%) (Auto) 0.4 0.0-2.0 % Neutrophils # (Auto) 7.7 1.6-8.6 10 ^3/uL Lymphocytes # (Auto) 0.7 0.4-5.4 10 ^3/uL Monocytes # (Auto) 0.5 0-1.3 10 ^3/uL Eosinophils # (Auto) 0 0-0.8 10 ^3/uL Basophils # (Auto) 0 0-0.2 10 ^3/uL Nucleated Red Blood Cells 0.0 % Sodium Level 131 L 136-145 mmol/L Potassium Level 4.1 3.5-5.1 mmol/L Chloride Level 99 98-107 mmol/L Carbon Dioxide Level 26 20-31 mmol/L Anion Gap 6 5-15 Blood Urea Nitrogen 16 9-23 mg/dL Creatinine 0.87 0.700-1.30 mg/dL Glomerular Filtration Rate Calc 91 >90 mL/min BUN/Creatinine Ratio 18.4 10.0-20.0 Serum Glucose 116 H 74-106 mg/dL Calcium Level 9.5 8.7-10.4 mg/dL PATIENT: JUAN CARLOSNAIPOWER Marrufo ACCT: [id number] UNIT: [id number] : 1950 LOC: ER ROOM / BED: / AGE / SEX: 74 / M ADM STATUS: REG ER SERVICE 1341 ORDERING PHYSICIAN: SELINA MCCORMACK MD PROCEDURE(s): CXRP - CHEST PORTABLE REASON: pacer dislodged ORDER NUMBER(s): [id number], ACCESSION NUMBER(s): [id number] CHEST RADIOGRAPH Indication: pacer dislodged Technique: Single frontal view of the chest was obtained Comparison: XY CHEST PORTABLE on DOS: 10/06/23, EKG on DOS: 04/06/22, EKG on DOS: 04/05/22 FINDINGS: Lines and Tubes: Dual-chamber pacemaker in place with pulse generator over the left chest. Lungs: No focal consolidation. Pleura: No effusion. No pneumothorax. Cardiomediastinal contours: Unremarkable Bones: No acute osseous abnormality. IMPRESSION: 1. No acute cardiopulmonary disease. 2. No change from 10/06/2023. Assessment/Plan Assessment/Plan Generalized weakness Hyponatremia Dislodgement of ventricular electrode lead of cardiac pacemaker Plan 1. Admit to telemetry unit 2. Breathing treatment 3. Pain control management 4. Management of fluids and electrolytes 5. Consultation for cardiology 6. Diagnostic tests chest x-ray 7. DVT prophylaxis-on aspirin 8. Repeat labs CBC, CMP in a.m. 9. Continue with current medical management 10. Treatment plan discussed with patient and RN. Patient verbalized understanding. Plan discussed with: Patient, Other (RN) My Orders Orders - JUDITH MCDANIELS DNP Procedure Category Date Status Time Allergies RICKY 11/03/24 In Process 19:44 Code Status CODE 11/03/24 Transmitted 19:44 Sodium Chloride 0.9% PHA 11/03/24 In Process 19:45 Oxygen Per Hour RT 11/03/24 Transmitted 19:44 Hydrocodone-Acet PHA 11/03/24 In Process 5/325mg Tab ([place] 19:45 Ondansetron Hcl PHA 11/03/24 In Process (Zofran) 19:45 Docusate Sodium PHA 11/03/24 In Process Capsule (Colace 19:45 Complete Blood Count LAB 11/04/24 Verified 04:00 Comprehensive LAB 11/04/24 Verified Metabolic Panel 04:00 Cardiac DIET 11/04/24 Transmitted Diet-2gna,Lofat,Lochol Breakfast Condition: Serious RICKY 11/03/24 In Process 19:44 Acetaminophen Tablet [facility] 11/03/24 In Process (Tylenol Tablet) 19:45 Bedrest With Bathroom [facility] 11/03/24 In Process Privileg 19:44 Sequential [facility] 11/03/24 In Process Compression Device Hydralazine Injection [facility] 11/03/24 In Process (Apresoline Inject 19:45 Atorvastatin (Lipitor) [facility] 11/03/24 In Process 22:00 Problem List: (1) Generalized weakness (2) Hyponatremia (3) Dislodgement of ventricular electrode lead of cardiac pacemaker Date of Service: November 03, 2024 Billing Provider: JUDITH MCDANIELS DNP Common Visit Codes: [id number] INP/OBS CARE (HIGH) JUDITH MCDANIELS DNP November 03, 2024 22:23
[2024-11-04] VITALS (9 sets, daily range): BP systolic 104–130; BP diastolic 75–91; PULSE 65–91; RESP 18; TEMP 97.4–98.5; O2SAT 94–97
[2024-11-04 07:19] LABS: Basophils # (auto) 0 10 ^3/uL (0-0.2); Basophils % (auto) 0.3 % (0.0-2.0); Eosinophils # (auto) 0.1 10 ^3/uL (0-0.8); Eosinophils % (auto) 1.2 % (0.0-7.0); Hematocrit 34.2 % (41.0-53.0); Hemoglobin 11.8 g/dL (13.5-17.5); Lymphocytes # (auto) 2.8 10 ^3/uL (0.4-5.4); Lymphocytes % (auto) 26.9 % (10.0-50.0); Mean Corpuscular Hemoglobin 33.7 pg (28.0-32.0); Mean Corpuscular Hgb Conc. 34.6 g/dL (32.0-36.0); Mean Corpuscular Volume 97.4 fL (80.0-100.0); Monocytes % (auto) 9.8 % (0.0-12.0); Neutrophils # (auto) 6.4 10 ^3/uL (1.6-8.6); Neutrophils % (auto) 61.8 % (37.0-80.0); Nucleated Red Blood Cells % 0.1 %; Platelet Count (auto) 289 10^3/uL (140-450); Red Blood Cells 3.51 10^6/uL (4.5-5.90); Red Cell Distribution Width 13.9 % (11.8-14.3); White Blood Cell 10.4 10^3/uL (4.4-10.8)
[2024-11-04 07:31] LABS: Alanine Aminotransferase 21 U/L (7-40); Alkaline Phosphatase 52 U/L (46-116); Anion Gap 6 (5-15); BUN/Creatinine Ratio 18.5 (10.0-20.0); Blood Urea Nitrogen 15 mg/dL (9-23); Calcium 9.4 mg/dL (8.7-10.4); Carbon Dioxide 26 mmol/L (20-31); Chloride 103 mmol/L (98-107); Glucose 82 mg/dL (74-106); Potassium 4.1 mmol/L (3.5-5.1)
[2024-11-04 07:32] LABS: Total Protein 6.5 g/dL (5.7-8.2)
[2024-11-04 07:33] LABS: Albumin 3.4 g/dL (3.2-4.8); Aspartate Aminotransferase 18 U/L (13-40)
[2024-11-04 07:39] LABS: Bilirubin, Total 0.3 mg/dL (0.2-1.0); Sodium 135 mmol/L (136-145)
[2024-11-04] MEDS: HYDROcodone-ACET 5/325MG TAB PO PRN (11:18)
--- NOTE | 2024-11-04 13:58 | DVHPN2 ---
Reviewed: Care Plan, H&P, Labs, Medications, Previous Orders, Radiology Changes from previous H/P or p: No Changes Eyes: No Pain, No Vision change, No Conjunctivae inflammation, No Eyelid inflammation, No Other, No Redness ENT: No Ear pain, No Ear discharge, No Nose pain, No Nose discharge, No Nose congestion, No Mouth pain, No Mouth swelling, No Throat pain, No Throat swelling, No Other Cardiovascular: No Chest Pain, No Palpitations, No Orthopnea, No Paroxysmal Noc. Dyspnea, No Edema, No Lt Headedness, No Other Respiratory: No Cough, No Dry, No Shortness of breath, No SOB with excertion, No Wheezing, No Hemoptysis, No Pleuritic Pain, No Sputum, No Other Gastrointestinal: No Nausea, No Vomiting, No Abdominal Pain, No Diarrhea, No Constipation, No Melena, No Hematochezia, No Other Genitourinary: No Dysuria, No Frequency, No Incontinence, No Hematuria, No Retention, No Other Musculoskeletal: other (R arm PICC); No neck pain, No shoulder pain, No arm pain, No back pain, No hand pain, No leg pain, No foot pain Skin: No Rash, No Lesions, No Jaundice, No Bruising; Other (Cellulitis of bilateral lower extremity) Objective Vitals Vital Signs Date Time Temp Pulse Resp B/P (MAP) Pulse Ox O2 Delivery O2 Flow Rate FiO2 11/04/24 09:14 97.4 65 18 130/91 (104) 95 97.4 11/04/24 01:33 Room Air* 0 21 Intake/Output Intake and Output 11/04/24 07:00 Intake Total 340 ml Balance 340 ml Intake Oral 0 ml IV Total 340 ml Medications Current Medications Medications Dose Ordered Sig/Sherie Route Start Time Stop Time Status Last Admin Dose Admin Clindamycin Phosphate 50 ml @ 50 mls/hr Q8HR IV 11/03/24 15:15 11/04/24 06:23 50 MLS/HR Sodium Chloride 1,000 ml @ 60 mls/hr [id number] IV 11/03/24 19:45 11/03/24 19:59 60 MLS/HR Ondansetron HCl 4 mg Q4HP PRN IV 11/03/24 19:45 Docusate Sodium 100 mg BIDPRN PRN PO 11/03/24 19:45 Acetaminophen 650 mg Q6HP PRN PO 11/03/24 19:45 Hydralazine HCl 10 mg Q6HP PRN IV 11/03/24 19:45 Atorvastatin Calcium 20 mg HS PO 11/03/24 22:00 11/03/24 21:40 20 MG Nitroglycerin 0.4 mg Q5MINP PRN SL 11/03/24 22:00 Morphine Sulfate 2 mg Q30M PRN IV 11/03/24 22:00 Oxycodone/ Acetaminophen 2 tab Q8HPRN PRN PO 11/04/24 13:45 UNV Laboratory Results Laboratory Tests 11/04/24 06:14 Chemistry Test 11/04/24 06:14 Albumin 3.4 g/dL (3.2-4.8) Calcium Level 9.4 mg/dL (8.7-10.4) Total Protein 6.5 g/dL (5.7-8.2) LFT Test 11/04/24 06:14 Alanine Aminotransferase (ALT) 21 U/L (7-40) Alkaline Phosphatase 52 U/L (46-116) Aspartate Amino Transferase (AST) 18 U/L (13-40) Total Bilirubin 0.3 mg/dL (0.2-1.0) Labs and/or images reviewed: Labs reviewed by me, Image(s) reviewed by me Assessment/Plan Assessment/Plan Discharged pacemaker: Consult for Pacemaker site infection: Continue IV antibiotics Nonhealing bilateral lower extremity open wounds: Continue Rocephin and clindamycin oxycodone Hypertension Hypercholesterolemia Peripheral arterial disease ruled out Plan discussed with: Patient My Orders Orders - AGUSTIN HART MD Procedure Category Date Status Time Oxycodone W/ Acet PHA 11/04/24 Logged 5/325mg Tab (Percocet 13:45 Date of Service: Nov 04, 2024 Billing Provider: AGUSTIN HART MD Common Visit Codes: [id number] INP/OBS CARE(HIGH) AGUSTIN HART MD Nov 04, 2024 13:58
[2024-11-04] MEDS: cefTRIAXone 1GM/50ML D5W 50 ML IV ONE (16:58)
[2024-11-04] MEDS: OXYCODONE W/ ACETAMINOPHEN 5/325MG TABLET PO PRN (16:59)
[2024-11-04] MEDS: ZOLPIDEM TARTRATE 5 MG TAB PO ONE (22:06)
[2024-11-05] VITALS (7 sets, daily range): BP systolic 100–126; BP diastolic 64–84; PULSE 61–74; RESP 14–18; TEMP 97–99; O2SAT 95–96
[2024-11-05] MEDS: cefTRIAXone 1GM/50ML D5W 50 ML IV SCH (08:43)
--- NOTE | 2024-11-05 11:24 | DVHPN2 ---
Reviewed: Care Plan, H&P, Labs, Medications, Previous Orders, Radiology Changes from previous H/P or p: No Changes Eyes: No Pain, No Vision change, No Conjunctivae inflammation, No Eyelid inflammation, No Other, No Redness ENT: No Ear pain, No Ear discharge, No Nose pain, No Nose discharge, No Nose congestion, No Mouth pain, No Mouth swelling, No Throat pain, No Throat swelling, No Other Cardiovascular: No Chest Pain, No Palpitations, No Orthopnea, No Paroxysmal Noc. Dyspnea, No Edema, No Lt Headedness, No Other Respiratory: No Cough, No Dry, No Shortness of breath, No SOB with excertion, No Wheezing, No Hemoptysis, No Pleuritic Pain, No Sputum, No Other Gastrointestinal: No Nausea, No Vomiting, No Abdominal Pain, No Diarrhea, No Constipation, No Melena, No Hematochezia, No Other Genitourinary: No Dysuria, No Frequency, No Incontinence, No Hematuria, No Retention, No Other Musculoskeletal: other (R arm PICC); No neck pain, No shoulder pain, No arm pain, No back pain, No hand pain, No leg pain, No foot pain Skin: No Rash, No Lesions, No Jaundice, No Bruising; Other (Cellulitis of bilateral lower extremity) Objective Vitals Vital Signs Date Time Temp Pulse Resp B/P (MAP) Pulse Ox O2 Delivery O2 Flow Rate FiO2 11/05/24 08:30 97.0 65 16 100/64 (76) 96 97.0 11/04/24 20:00 Room Air* 0 21 Intake/Output Intake and Output 11/05/24 07:00 Intake Total 1200 ml Output Total 290 ml Balance 910 ml Intake Oral 100 ml IV Total 1100 ml Output Urine Total 290 ml # Voids 5 # Bowel Movements 1 Medications Current Medications Medications Dose Ordered Sig/Sherie Route Start Time Stop Time Status Last Admin Dose Admin Clindamycin Phosphate 50 ml @ 50 mls/hr Q8HR IV 11/03/24 15:15 11/05/24 05:26 50 MLS/HR Sodium Chloride 1,000 ml @ 60 mls/hr [id number] IV 11/03/24 19:45 11/05/24 05:05 60 MLS/HR Ondansetron HCl 4 mg Q4HP PRN IV 11/03/24 19:45 Docusate Sodium 100 mg BIDPRN PRN PO 11/03/24 19:45 Acetaminophen 650 mg Q6HP PRN PO 11/03/24 19:45 Hydralazine HCl 10 mg Q6HP PRN IV 11/03/24 19:45 Atorvastatin Calcium 20 mg HS PO 11/03/24 22:00 11/04/24 22:06 20 MG Nitroglycerin 0.4 mg Q5MINP PRN SL 11/03/24 22:00 Morphine Sulfate 2 mg Q30M PRN IV 11/03/24 22:00 Oxycodone/ Acetaminophen 2 tab Q8HPRN PRN PO 11/04/24 13:45 11/05/24 05:25 2 TAB Ceftriaxone Sodium 50 ml @ 100 mls/hr DAILY@09 IV 11/05/24 09:00 11/05/24 08:43 100 MLS/HR Laboratory Results Laboratory Tests 11/04/24 06:14 Microbiology Microbiology Date/Time Source Procedure Growth Status 11/04/24 06:00 Nose MRSA Screen - Final Complete Labs and/or images reviewed: Labs reviewed by me, Image(s) reviewed by me Assessment/Plan Assessment/Plan Dislodged pacemaker: Consult for appreciated Pacemaker site infection: Continue IV antibiotics Nonhealing bilateral lower extremity open wounds: Continue Rocephin and clindamycin oxycodone Hypertension Hypercholesterolemia Peripheral arterial disease ruled out Plan discussed with: Patient My Orders Orders - AGUSTIN HART MD Procedure Category Date Status Time Oxycodone W/ Acet PHA 11/04/24 In Process 5/325mg Tab (Percocet 13:45 Ceftriaxone 1gm/50ml PHA 11/05/24 In Process D5w (Rocephin) 09:00 * Cardiology Consult CONS 11/04/24 Transmitted 13:59 Date of Service: Nov 05, 2024 Billing Provider: AGUSTIN HART MD Common Visit Codes: [id number] INP/OBS CARE(HIGH) AGUSTIN HART MD Nov 05, 2024 11:23
[2024-11-05] MEDS: ONDANSETRON HCL 4 MG/2 ML VIAL IV PRN (13:41)
--- NOTE | 2024-11-05 14:06 | DVHPN2 ---
Progress Note - Dictate Date Seen: Nov 04, 2024 Medical Necessity Reason Pt with a Central, PICC or Fol: No Subjective PT WITH SICK SINUS S/P PPI 5 YEARS AGO NOW WITH EROSION OF PACEMAKER SITE vital signs Vital Sign Date Time Temp Pulse Resp B/P (MAP) Pulse Ox O2 Delivery O2 Flow Rate FiO2 11/05/24 08:30 97.0 65 16 100/64 (76) 96 97.0 11/04/24 20:00 Room Air* 0 21 Total Intake and Output 11/04/24 11/04/24 11/05/24 15:00 23:00 07:00 Intake Total 1200 ml Output Total 290 ml Balance 910 ml medications Current Medications Medications Dose Ordered Sig/Sherie Route Start Time Stop Time Status Last Admin Dose Admin Clindamycin Phosphate 50 ml @ 50 mls/hr Q8HR IV 11/03/24 15:15 11/05/24 13:42 50 MLS/HR Sodium Chloride 1,000 ml @ 60 mls/hr [id number] IV 11/03/24 19:45 11/05/24 05:05 60 MLS/HR Ondansetron HCl 4 mg Q4HP PRN IV 11/03/24 19:45 11/05/24 13:41 4 MG Docusate Sodium 100 mg BIDPRN PRN PO 11/03/24 19:45 Acetaminophen 650 mg Q6HP PRN PO 11/03/24 19:45 Hydralazine HCl 10 mg Q6HP PRN IV 11/03/24 19:45 Atorvastatin Calcium 20 mg HS PO 11/03/24 22:00 11/04/24 22:06 20 MG Nitroglycerin 0.4 mg Q5MINP PRN SL 11/03/24 22:00 Morphine Sulfate 2 mg Q30M PRN IV 11/03/24 22:00 Oxycodone/ Acetaminophen 2 tab Q8HPRN PRN PO 11/04/24 13:45 11/05/24 13:41 2 TAB Ceftriaxone Sodium 50 ml @ 100 mls/hr DAILY@09 IV 11/05/24 09:00 11/05/24 08:43 100 MLS/HR laboratory and microbiology Laboratory Tests 11/04/24 06:14 Test 11/04/24 06:14 Range/Units Serum Glucose 82 74-106 mg/dL Problem List SICK SINUS S/P PPI 5 YEARS AGO NOW WITH EROSION OF PACEMAKER SITE Assessment/Plan EXPLANTPPI ABX Plan discussed with: Patient MICHELLE GILL MD Nov 05, 2024 14:06
[2024-11-05 23:35] LABS: INR 1.08 (0.9-1.15); Partial Thromboplastin Time 26.2 SEC (24.5-34.5); Prothrombin Time 11.4 sec (9.3-11.8)
[2024-11-06] VITALS (11 sets, daily range): BP systolic 94–126; BP diastolic 64–82; PULSE 55–73; RESP 17–20; TEMP 97.6–99.5; O2SAT 92–97
--- NOTE | 2024-11-06 07:04 | DVH ---
INDICATION: procedure TECHNIQUE: Frontal view of the chest. COMPARISON: XY CHEST PORTABLE on DOS: 11/03/24, XY CHEST PORTABLE on DOS: 10/06/23, EKG on DOS: 04/06/22, EKG on DOS: 04/05/22, EKG on DOS: 04/05/22 FINDINGS: . The heart and mediastinal contours are grossly unremarkable. There is no evidence of pleural disea se. The lungs are clear. The bony structures of the chest are intact without fracture. IMPRESSION: 1. No evidence of acute disease.
--- NOTE | 2024-11-06 08:10 | ECG ---
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
[2024-11-06] MEDS: fentaNYL CITRATE 100 MCG/2 ML VL ONE (08:27)
[2024-11-06] MEDS: VANCOMYCIN 1GM/200ML PM 200 ML IV ONE (08:27)
[2024-11-06] MEDS: MIDAZOLAM HCL 2MG/2ML 2ml VIAL (1mg/ml) ONE (08:27)
[2024-11-06] MEDS: VANCOMYCIN HCL 1000 MG VL ONE (08:27)
[2024-11-06] MEDS: LIDOCAINE 2%HCL (LOCAL ANESTH.) INJ 20ML MDV ONE (08:27)
[2024-11-06] MEDS: ceFAZolin 1GM VL ONE (10:28)
--- NOTE | 2024-11-06 10:49 | DVHPN2 ---
Reviewed: Care Plan, H&P, Labs, Medications, Previous Orders, Radiology Changes from previous H/P or p: No Changes Eyes: No Pain, No Vision change, No Conjunctivae inflammation, No Eyelid inflammation, No Other, No Redness ENT: No Ear pain, No Ear discharge, No Nose pain, No Nose discharge, No Nose congestion, No Mouth pain, No Mouth swelling, No Throat pain, No Throat swelling, No Other Cardiovascular: No Chest Pain, No Palpitations, No Orthopnea, No Paroxysmal Noc. Dyspnea, No Edema, No Lt Headedness, No Other Respiratory: No Cough, No Dry, No Shortness of breath, No SOB with excertion, No Wheezing, No Hemoptysis, No Pleuritic Pain, No Sputum, No Other Gastrointestinal: No Nausea, No Vomiting, No Abdominal Pain, No Diarrhea, No Constipation, No Melena, No Hematochezia, No Other Genitourinary: No Dysuria, No Frequency, No Incontinence, No Hematuria, No Retention, No Other Musculoskeletal: other (R arm PICC); No neck pain, No shoulder pain, No arm pain, No back pain, No hand pain, No leg pain, No foot pain Skin: No Rash, No Lesions, No Jaundice, No Bruising; Other (Cellulitis of bilateral lower extremity) Objective Vitals Vital Signs Date Time Temp Pulse Resp B/P (MAP) Pulse Ox O2 Delivery O2 Flow Rate FiO2 11/06/24 08:27 116/70 11/06/24 05:00 97.6 65 18 94 97.6 11/05/24 20:00 Room Air* 0 21 Intake/Output Intake and Output 11/06/24 07:00 Intake Total 1700 ml Output Total 350 ml Balance 1350 ml Intake Oral 900 ml IV Total 800 ml Output Urine Total 350 ml # Voids 6 Medications Current Medications Medications Dose Ordered Sig/Sherie Route Start Time Stop Time Status Last Admin Dose Admin Clindamycin Phosphate 50 ml @ 50 mls/hr Q8HR IV 11/03/24 15:15 11/06/24 05:51 50 MLS/HR Sodium Chloride 1,000 ml @ 60 mls/hr [id number] IV 11/03/24 19:45 11/05/24 05:05 60 MLS/HR Ondansetron HCl 4 mg Q4HP PRN IV 11/03/24 19:45 11/05/24 21:37 4 MG Docusate Sodium 100 mg BIDPRN PRN PO 11/03/24 19:45 Acetaminophen 650 mg Q6HP PRN PO 11/03/24 19:45 Hydralazine HCl 10 mg Q6HP PRN IV 11/03/24 19:45 Atorvastatin Calcium 20 mg HS PO 11/03/24 22:00 11/05/24 21:41 20 MG Nitroglycerin 0.4 mg Q5MINP PRN SL 11/03/24 22:00 Morphine Sulfate 2 mg Q30M PRN IV 11/03/24 22:00 Oxycodone/ Acetaminophen 2 tab Q8HPRN PRN PO 11/04/24 13:45 11/05/24 21:42 2 TAB Ceftriaxone Sodium 50 ml @ 100 mls/hr DAILY@09 IV 11/05/24 09:00 11/05/24 08:43 100 MLS/HR Laboratory Results Laboratory Tests 11/04/24 06:14 Coagulation Test 11/05/24 23:07 Prothrombin Time 11.4 sec (9.3-11.8) Prothrombin Time INR 1.08 (0.9-1.15) Activated Partial Thromboplast Time 26.2 SEC (24.5-34.5) Microbiology Microbiology Date/Time Source Procedure Growth Status 11/04/24 06:00 Nose MRSA Screen - Final Complete Assessment/Plan Assessment/Plan Dislodged pacemaker: Patient getting replacement of pacemaker by Dr. Azevedo today Pacemaker site infection: Continue IV antibiotics Nonhealing bilateral lower extremity open wounds: Continue Rocephin and clindamycin oxycodone Hypertension Hypercholesterolemia Peripheral arterial disease ruled out Plan discussed with: Patient My Orders Orders - AGUSTIN HART MD Procedure Category Date Status Time Wound Culture W/ Gs POP 11/05/24 In Process 15:33 Wound Culture W/ Gs POP 11/05/24 In Process 15:33 Cleanse Wound With RICKY 11/05/24 In Process Wound Clean 10:44 * Dietary Consult CONS 11/05/24 Transmitted 15:33 Date of Service: Nov 06, 2024 Billing Provider: AGUSTIN HART MD Common Visit Codes: [id number] INP/OBS CARE(HIGH) AGUSTIN HART MD Nov 06, 2024 10:49
[2024-11-07 05:00] VITALS: BP 104/71; PULSE 74; RESP 18; TEMP 98.6; O2SAT 98
[2024-11-07 08:00] VITALS: PULSE 75
[2024-11-07 08:46] VITALS: BP 106/73; PULSE 76; RESP 19; TEMP 97.9; O2SAT 96
--- NOTE | 2024-11-07 09:41 | DVHPN2 ---
Reviewed: Care Plan, H&P, Labs, Medications, Previous Orders, Radiology Changes from previous H/P or p: No Changes Eyes: No Pain, No Vision change, No Conjunctivae inflammation, No Eyelid inflammation, No Other, No Redness ENT: No Ear pain, No Ear discharge, No Nose pain, No Nose discharge, No Nose congestion, No Mouth pain, No Mouth swelling, No Throat pain, No Throat swelling, No Other Cardiovascular: No Chest Pain, No Palpitations, No Orthopnea, No Paroxysmal Noc. Dyspnea, No Edema, No Lt Headedness, No Other Respiratory: No Cough, No Dry, No Shortness of breath, No SOB with excertion, No Wheezing, No Hemoptysis, No Pleuritic Pain, No Sputum, No Other Gastrointestinal: No Nausea, No Vomiting, No Abdominal Pain, No Diarrhea, No Constipation, No Melena, No Hematochezia, No Other Genitourinary: No Dysuria, No Frequency, No Incontinence, No Hematuria, No Retention, No Other Musculoskeletal: other (R arm PICC); No neck pain, No shoulder pain, No arm pain, No back pain, No hand pain, No leg pain, No foot pain Skin: No Rash, No Lesions, No Jaundice, No Bruising; Other (Cellulitis of bilateral lower extremity) Objective Vitals Vital Signs Date Time Temp Pulse Resp B/P (MAP) Pulse Ox O2 Delivery O2 Flow Rate FiO2 11/07/24 08:46 97.9 76 19 106/73 (84) 96 97.9 11/07/24 08:18 Room Air* 0 21 Intake/Output Intake and Output 11/07/24 07:00 Intake Total 1300 ml Balance 1300 ml Intake Oral 1150 ml IV Total 150 ml # Voids 6 Medications Current Medications Medications Dose Ordered Sig/Sherie Route Start Time Stop Time Status Last Admin Dose Admin Clindamycin Phosphate 50 ml @ 50 mls/hr Q8HR IV 11/03/24 15:15 11/07/24 05:25 50 MLS/HR Sodium Chloride 1,000 ml @ 60 mls/hr [id number] IV 11/03/24 19:45 11/07/24 08:54 60 MLS/HR Ondansetron HCl 4 mg Q4HP PRN IV 11/03/24 19:45 11/06/24 20:29 4 MG Docusate Sodium 100 mg BIDPRN PRN PO 11/03/24 19:45 Acetaminophen 650 mg Q6HP PRN PO 11/03/24 19:45 Hydralazine HCl 10 mg Q6HP PRN IV 11/03/24 19:45 Atorvastatin Calcium 20 mg HS PO 11/03/24 22:00 11/06/24 21:23 20 MG Nitroglycerin 0.4 mg Q5MINP PRN SL 11/03/24 22:00 Morphine Sulfate 2 mg Q30M PRN IV 11/03/24 22:00 Oxycodone/ Acetaminophen 2 tab Q8HPRN PRN PO 11/04/24 13:45 11/07/24 05:25 2 TAB Ceftriaxone Sodium 50 ml @ 100 mls/hr DAILY@09 IV 11/05/24 09:00 11/07/24 08:54 100 MLS/HR Laboratory Results Laboratory Tests 11/04/24 06:14 Microbiology Microbiology Date/Time Source Procedure Growth Status 11/05/24 18:00 Leg Right Gram Stain - Final Resulted 11/05/24 18:00 Leg Right Wound Culture - Preliminary Resulted Labs and/or images reviewed: Labs reviewed by me, Image(s) reviewed by me Assessment/Plan Assessment/Plan Dislodged pacemaker: Status post removal of pacemaker by with stapling of the wound, advised two more weeks of IV antibiotics and then new pacemaker will be inserted Pacemaker site infection: Continue IV antibiotics Nonhealing bilateral lower extremity open wounds: Continue Rocephin and clindamycin oxycodone Hypertension Hypercholesterolemia Peripheral arterial disease ruled out Plan discussed with: Patient Date of Service: Nov 07, 2024 Billing Provider: AGUSTIN HART MD Common Visit Codes: [id number] INP/OBS CARE(HIGH) AGUSTIN HART MD Nov 07, 2024 09:41
--- NOTE | 2024-11-07 09:45 | DVHDS2 ---
Discharge Summary Date of Admission November 03, 2024 at 21:59 Date of Discharge: Nov 07, 2024 Admitting Diagnosis Dislodgement of pacemaker Wounds: Pacemaker site infection Labs/Diagnostic Data: Laboratory Results Test 11/05/24 23:07 11/04/24 06:14 Prothrombin Time 11.4 sec (9.3-11.8) Prothrombin Time INR 1.08 (0.9-1.15) Activated Partial Thromboplast Time 26.2 SEC (24.5-34.5) White Blood Count 10.4 10^3/uL (4.4-10.8) Red Blood Count 3.51 10^6/uL (4.5-5.90) Hemoglobin 11.8 g/dL (13.5-17.5) Hematocrit 34.2 % (41.0-53.0) Mean Corpuscular Volume 97.4 fL (80.0-100.0) Mean Corpuscular Hemoglobin 33.7 pg (28.0-32.0) Mean Corpuscular Hemoglobin Concent 34.6 g/dL (32.0-36.0) Red Cell Distribution Width 13.9 % (11.8-14.3) Platelet Count 289 10^3/uL (140-450) Mean Platelet Volume 6.7 fL (6.9-10.8) Neutrophils (%) (Auto) 61.8 % (37.0-80.0) Lymphocytes (%) (Auto) 26.9 % (10.0-50.0) Monocytes (%) (Auto) 9.8 % (0.0-12.0) Eosinophils (%) (Auto) 1.2 % (0.0-7.0) Basophils (%) (Auto) 0.3 % (0.0-2.0) Neutrophils # (Auto) 6.4 10 ^3/uL (1.6-8.6) Lymphocytes # (Auto) 2.8 10 ^3/uL (0.4-5.4) Monocytes # (Auto) 1.0 10 ^3/uL (0-1.3) Eosinophils # (Auto) 0.1 10 ^3/uL (0-0.8) Basophils # (Auto) 0 10 ^3/uL (0-0.2) Nucleated Red Blood Cells 0.1 % Sodium Level 135 mmol/L (136-145) Potassium Level 4.1 mmol/L (3.5-5.1) Chloride Level 103 mmol/L (98-107) Carbon Dioxide Level 26 mmol/L (20-31) Anion Gap 6 (5-15) Blood Urea Nitrogen 15 mg/dL (9-23) Creatinine 0.81 mg/dL (0.700-1.30) Glomerular Filtration Rate Calc 93 mL/min (>90) BUN/Creatinine Ratio 18.5 (10.0-20.0) Serum Glucose 82 mg/dL (74-106) Calcium Level 9.4 mg/dL (8.7-10.4) Total Bilirubin 0.3 mg/dL (0.2-1.0) Aspartate Amino Transferase (AST) 18 U/L (13-40) Alanine Aminotransferase (ALT) 21 U/L (7-40) Alkaline Phosphatase 52 U/L (46-116) Total Protein 6.5 g/dL (5.7-8.2) Albumin 3.4 g/dL (3.2-4.8) Other Laboratory Tests 11/04/24 06:14 Brief Hx & Hospital Course: 64-year-old male with a IV Rocephin clindamycin in [place] [facility] acute for bilateral leg cellulitis admitted to the hospital as the pacemaker got dislodged and the pacemaker site got infected. Seen by Dr. Azevedo who removed the pacemaker and advised to more weeks of IV antibiotics at the half-way [place] and returned to the hospital for placement of new pacemaker. Discharged . Consults/Reason for consult Cardiology Dr. Azevedo Operations or Procedures Removal of pacemaker Condition at Discharge: Fair Final Diagnosis/Problems List Dislodged pacemaker: Status post removal of pacemaker by with stapling of the wound, advised two more weeks of IV antibiotics and then new pacemaker will be inserted Pacemaker site infection: Continue IV antibiotics Nonhealing bilateral lower extremity open wounds: Continue Rocephin and clindamycin oxycodone Hypertension Hypercholesterolemia Peripheral arterial disease ruled out Discharge Disposition: Senior Living Facility Discharge Instruct/Medications Diet: Cardiac 2g Na,low cholest Activity: Light activity Medications: Rocephin 1 g IV daily for two weeks Clindamycin 300 mg IV q.8 hours for two weeks 35 (Time taken for discharge summary 35 minutes) Discharge Statement: "Patient was advised to return to the ER or call 911 if any headaches, dizziness, shortness of breath, chest pain, abdominal pain, bleeding, fevers, or worsening of medical condition. Patient was counseled about treatment plan, medications, possible side effects, patientverbalized understanding. All questions were answered to the best of my ability. This discharge took greater then 30 minutes in planning, reviewing documentation, counseling the patient, and discussing with other team members." ASSESSMENT ASSESSMENT Hospital Course Uneventful Assessment Dislodged pacemaker: Status post removal of pacemaker by with stapling of the wound, advised two more weeks of IV antibiotics and then new pacemaker will be inserted Pacemaker site infection: Continue IV antibiotics Nonhealing bilateral lower extremity open wounds: Continue Rocephin and clindamycin oxycodone Hypertension Hypercholesterolemia Peripheral arterial disease ruled out Date of Service: Nov 07, 2024 Billing Provider: AGUSTIN HART MD Common Visit Codes: [id number] DISCH DAY >30min AGUSTIN HART MD Nov 07, 2024 09:45
--- NOTE | 2024-11-07 12:47 | DVHPN2 ---
Progress Note - Dictate Date Seen: Nov 06, 2024 Medical Necessity Reason Pt with a Central, PICC or Fol: No Subjective PT WITH SICK SINUS S/P PPI 5 YEARS AGO NOW WITH EROSION OF PACEMAKER SITE vital signs Vital Sign Date Time Temp Pulse Resp B/P (MAP) Pulse Ox O2 Delivery O2 Flow Rate FiO2 11/07/24 08:46 97.9 76 19 106/73 (84) 96 97.9 11/07/24 08:18 Room Air* 0 21 Total Intake and Output 11/06/24 11/06/24 11/07/24 15:00 23:00 07:00 Intake Total 50 ml 750 ml 500 ml Balance 50 ml 750 ml 500 ml medications Current Medications Medications Dose Ordered Sig/Sherie Route Start Time Stop Time Status Last Admin Dose Admin Clindamycin Phosphate 50 ml @ 50 mls/hr Q8HR IV 11/03/24 15:15 11/07/24 05:25 50 MLS/HR Sodium Chloride 1,000 ml @ 60 mls/hr [id number] IV 11/03/24 19:45 11/07/24 08:54 60 MLS/HR Ondansetron HCl 4 mg Q4HP PRN IV 11/03/24 19:45 11/06/24 20:29 4 MG Docusate Sodium 100 mg BIDPRN PRN PO 11/03/24 19:45 Acetaminophen 650 mg Q6HP PRN PO 11/03/24 19:45 Hydralazine HCl 10 mg Q6HP PRN IV 11/03/24 19:45 Atorvastatin Calcium 20 mg HS PO 11/03/24 22:00 11/06/24 21:23 20 MG Nitroglycerin 0.4 mg Q5MINP PRN SL 11/03/24 22:00 Morphine Sulfate 2 mg Q30M PRN IV 11/03/24 22:00 Oxycodone/ Acetaminophen 2 tab Q8HPRN PRN PO 11/04/24 13:45 11/07/24 05:25 2 TAB Ceftriaxone Sodium 50 ml @ 100 mls/hr DAILY@09 IV 11/05/24 09:00 11/07/24 08:54 100 MLS/HR laboratory and microbiology Laboratory Tests 11/04/24 06:14 Test 11/04/24 06:14 Range/Units Serum Glucose 82 74-106 mg/dL Problem List SICK SINUS S/P PPI 5 YEARS AGO NOW WITH EROSION OF PACEMAKER SITE Assessment/Plan EXPLANTPPI ABX S/P EXPLANTATION OF PPI BUT LEADS STILL EMBEDDED NEEDS EXTRACTION AT A LATER DATE CONT ABX X 14DAYS CAN BE CHANGED TO [facility] IN AM AND DC TO [facility] IN 1 WEEK Dietary Evaluation Review Comments: 1. Increase dietary protein, 2. Check Lipid profile, consider weaning-off lipitor. 3. Try Ethan BID for promote healing Expected Outcomes/Goals: Controlled blood sugar, healed wounds, maintain body weight Plan discussed with: Patient MICHELLE GILL MD Nov 07, 2024 12:47
--- NOTE | 2024-11-07 12:48 | DVHPN2 ---
Progress Note - Dictate Date Seen: Nov 07, 2024 Medical Necessity Reason Pt with a Central, PICC or Fol: No Subjective PT WITH SICK SINUS S/P PPI 5 YEARS AGO NOW WITH EROSION OF PACEMAKER SITE vital signs Vital Sign Date Time Temp Pulse Resp B/P (MAP) Pulse Ox O2 Delivery O2 Flow Rate FiO2 11/07/24 08:46 97.9 76 19 106/73 (84) 96 97.9 11/07/24 08:18 Room Air* 0 21 Total Intake and Output 11/06/24 11/06/24 11/07/24 15:00 23:00 07:00 Intake Total 50 ml 750 ml 500 ml Balance 50 ml 750 ml 500 ml medications Current Medications Medications Dose Ordered Sig/Sherie Route Start Time Stop Time Status Last Admin Dose Admin Clindamycin Phosphate 50 ml @ 50 mls/hr Q8HR IV 11/03/24 15:15 11/07/24 05:25 50 MLS/HR Sodium Chloride 1,000 ml @ 60 mls/hr [id number] IV 11/03/24 19:45 11/07/24 08:54 60 MLS/HR Ondansetron HCl 4 mg Q4HP PRN IV 11/03/24 19:45 11/06/24 20:29 4 MG Docusate Sodium 100 mg BIDPRN PRN PO 11/03/24 19:45 Acetaminophen 650 mg Q6HP PRN PO 11/03/24 19:45 Hydralazine HCl 10 mg Q6HP PRN IV 11/03/24 19:45 Atorvastatin Calcium 20 mg HS PO 11/03/24 22:00 11/06/24 21:23 20 MG Nitroglycerin 0.4 mg Q5MINP PRN SL 11/03/24 22:00 Morphine Sulfate 2 mg Q30M PRN IV 11/03/24 22:00 Oxycodone/ Acetaminophen 2 tab Q8HPRN PRN PO 11/04/24 13:45 11/07/24 05:25 2 TAB Ceftriaxone Sodium 50 ml @ 100 mls/hr DAILY@09 IV 11/05/24 09:00 11/07/24 08:54 100 MLS/HR laboratory and microbiology Laboratory Tests 11/04/24 06:14 Test 11/04/24 06:14 Range/Units Serum Glucose 82 74-106 mg/dL Problem List SICK SINUS S/P PPI 5 YEARS AGO NOW WITH EROSION OF PACEMAKER SITE Assessment/Plan EXPLANTPPI ABX S/P EXPLANTATION OF PPI BUT LEADS STILL EMBEDDED NEEDS EXTRACTION AT A LATER DATE CONT ABX X 14DAYS CAN BE CHANGED TO ORAL AUGMENTIN IN AM AND DC TO LONG-TERM FOLLOWUP IN 1 WEEK Dietary Evaluation Review Comments: 1. Increase dietary protein, 2. Check Lipid profile, consider weaning-off lipitor. 3. Try Ethan BID for promote healing Expected Outcomes/Goals: Controlled blood sugar, healed wounds, maintain body weight Plan discussed with: Patient MICHELLE GILL MD Nov 07, 2024 12:47
[2024-11-07 13:00] VITALS: BP 82/56; PULSE 65; RESP 19; TEMP 98.1; O2SAT 94
--- NOTE | 2024-11-08 07:03 | ECG ---
[facility] Test Date: 2024-11-03 Test Time: 12:02:13 Pat Name: POWER GUERRERO Department: ED Room: 0245T B Gender: M Social Director: ANDERSON : 1950 Requested By: SELINA MCCORMACK Order Number: [id number] Reading MD: Hardik Joel Measurements Intervals [place] Rate: 74 P: 13 CA: 159 QRS: -18 QRSD: 96 T: 54 QT: 375 QTc: 416 Interpretive Statements Sinus rhythm Borderline left axis deviation Low voltage, precordial leads Electronically Signed On 11-08-2024 9:33:19 PDT by Hardik Joel Please click the below link to view image of tracing.
--- NOTE | 2024-11-16 12:34 | DVHOP ---
DATE OF SURGERY: 11/07/2024 PROCEDURE TO BE PERFORMED: Extraction of dual chamber permanent pacemaker. INDICATIONS: The patient with history of sick sinus syndrome status post permanent pacemaker implantation. Now, with erosion of his pacemaker. The pacemaker was implanted some 5 years ago. Now, all of a sudden, there is an erosion of his pacemaker. Recent check on the pacemaker did not show any erosion. Now, it appears also there is an erosion through the skin tissue, not at the incision site, even though the patient denies playing with the pacemaker site. At this time, it appears to be infected. Therefore, IV antibiotics have been initiated and we will maintain him on IV antibiotics for a duration of 2 weeks. We will not be able to extract the pacemaker leads because of the chronicity of the leads. We will remove the pacemaker device and will debride the wound. Antibiotic solution will be initiated. Antibiotics will be implanted into the wound site and the leads will be capped and the pocket will be closed with surgical clips and most likely needs extraction of the lead at a tertiary care facility. DESCRIPTION OF PROCEDURE: The patient was prepped and draped in sterile condition. 1% Xylocaine used to anesthetize the pacemaker site. The patient was given conscious sedation prior to the initiation of procedure. Then, using a 10-blade, linear incision was made. Using blunt dissection and electrocautery, the entire pacemaker was then dissected. Pacemaker site was then dissected, debrided, removing all scar tissue as well as necrotic tissue. The device was removed. The leads were capped with antibiotic solution in the cap and they were secured to the chest wall. The pocket was then irrigated with vancomycin saline solution. The pacemaker site was also cleaned with ChloraPrep as well as powder Ancef antibiotics was installed into the pocket site. The pocket was then closed loosely with surgical clips. CONCLUSION: The patient had successful extraction of dual chamber permanent pacemaker. We were not able to extract the leads because of chronicity of the implant. We will schedule the patient to be having a laser guided extraction of the lead at a later date at a tertiary care facility. Clinically, the patient is stable following the procedure. The patient will be maintained on IV antibiotics. Roberto Carlos Arizmendi MD SA/JER/DARIO TID: [id number] RECEIPT: [id number]
== END 2024-11-07 15:48 | DRG 260 ==
LOC: EDBD 11:56 → ER 12:02 → OVERFLOW 21:59 → TELE-EAST 23:54
PROVIDERS: ADMIT Family Medicine; ATTEND Family Medicine
PROC: 0JPT0PZ Removal of Cardiac Rhythm Related Device from Trunk Subcutaneous Tissue and Fascia, Open Approach (ICD-10-PCS; principal; 2024-11-07)
DX: T82.120A Displacement of cardiac electrode, initial encounter (principal); L89.893 Pressure ulcer of other site, stage 3; E87.1 Hypo-osmolality and hyponatremia; L03.115 Cellulitis of right lower limb; L03.116 Cellulitis of left lower limb; T82.7XXA Infection and inflammatory reaction due to other cardiac and vascular devices, implants and grafts, initial encounter; E78.00 Pure hypercholesterolemia, unspecified; F17.200 Nicotine dependence, unspecified, uncomplicated; I10 Essential (primary) hypertension; S81.802A Unspecified open wound, left lower leg, initial encounter; S81.801A Unspecified open wound, right lower leg, initial encounter; Z95.0 Presence of cardiac pacemaker; Z79.899 Other long term (current) drug therapy; X58.XXXA Exposure to other specified factors, initial encounter; Y93.89 Activity, other specified; Y92.89 Other specified places as the place of occurrence of the external cause; Y99.8 Other external cause status; Y84.8 Other medical procedures as the cause of abnormal reaction of the patient, or of later complication, without mention of misadventure at the time of the procedure
CPT/HCPCS: 33233; 36415; 71045; 80048; 80053; 85025; 85610; 85730; 86850; 86900; 86901; 87077; 87081; 87186; 87205; 93005; 99153; 99291; G0378; J0690; J2250; J2405; J3490

== ENCOUNTER 2025-01-04 06:35 | Inpatient (IN) | payer OTHER, MEDICAID ==
[~2025-01-04] VITALS: Ht 185.4 cm; Wt 81.8 kg
--- NOTE | 2025-01-04 07:06 | ED.PDOC ---
History of Present Illness HPI Comments A 74 YEAR OLD MALE PRESENTS TO THE ED WITH COMPLAINT OF WOUND RECHECK. PATIENT STATES HIS PACEMAKER FELL OUT OF HIS LEFT UPPER CHEST WALL 1.5 MONTHS AGO AND WILL HAVE SURGERY SCHEDULED TO REPLACE THIS PACEMAKER BY DR. MARTINEZ WITHIN THE NEXT 1 MONTH. PATIENT REPORTS HIS LEFT UPPER CHEST WALL WOUND REGION IS NOW RED AND HAS PUS DRAINING FROM THE PACEMAKER SITE FOR THE PAST 2 WEEKS. PATIENT NOTES HE WAS INSTRUCTED TO COME TO THE ED BY DR. MARTINEZ TO HAVE THIS INFECTION CLEARED UP BEFORE THEY CAN SCHEDULE HIS SURGERY TO REPLACE HIS PACEMAKER. PATIENT DENIES FEVER, CHILLS, SHORTNESS OF BREATH, CHEST PAIN, ABDOMINAL PAIN, NAUSEA, VOMITING, HEADACHE, OR OTHER COMPLAINTS. NO OTHER SYMPTOMS OR MODIFYING FACTORS AT THIS TIME. PATIENT IS ALERT, ORIENTED X 4, AND HAS STEADY GAIT. Chief Complaint: Wound Check Time Seen by MD: 06:44 Primary Care Provider: JUAN Reviewed Notes: Nurses Notes, Medications, Allergies Allergies: Coded Allergies: NO KNOWN ALLERGIES (Unverified , 09/21/19) Home Meds Reported Medications Zolpidem Tartrate (Zolpidem Tartrate) 10 Mg Tab, 1 TAB PO QPM, #30 TAB 2 Refills 10/06/24 Hydroxychloroquine Sulfate (Hydroxychloroquine Sulfat) 200 Mg Tab, 200 MG PO SHEFALI LY for 30 Days, MG 25 Vericiguat (Verquvo) 2.5 Mg Tab, 2.5 MG PO BID, TAB 10/06/24 Cephalexin Monohydrate (Cephalexin) 500 Mg Cap, 500 MG PO Q6HR, MG 25 Oxycodone W/ Acetaminophen (Apap/Oxycodone) 1 Tab Tab, 1 TAB PO TID, #90 TAB 10/06/24 Magnesium Oxide (MAGNESIUM OXIDE) 400 Mg Tab, 1 TAB PO BID, #60 TAB 5 Refills 10/06/24 Esomeprazole Magnesium Trihydr (Nexium) 40 Mg Cap, 1 CAP PO DAILY, #30 CAP 5 Refills 10/06/24 Fentanyl (Fentanyl) 12 Mcg/Hr Dis, 1 PATCH TOP Q3D 10/06/24 Clonidine Hydrochloride (Clonidine Hcl) 0.1 Mg Tab, 0.1 MG PO BIDPRN PRN for PER BLOOD PRESSURE PROTOCOL, MG 02/21/23 Methocarbamol (Methocarbamol) 500 Mg Tab, 500 MG PO Q8HR for MUSCLE SPASMS, TAB 4/17/20 Information Source: Patient Mode of Arrival: Ambulatory Severity: Moderate Timing: Weeks Duration: Since onset Prehospital treatment: None Medication Refill: For: Other (WOUND RECHECK) Past Medical History PAST MEDICAL HISTORY: CKF, High Lipids, HTN Surgical History: Pacemaker Family History Family History: Reviewed,noncontributory to illness, No family hx of Heart bear, No family hx ofKidney bear Social History Smoker: Chew Alcohol: Occasionally Drugs: Marijuana Lives In: Home Constitutional: denies: chills, diaphoresis, fatigue, fever, malaise, sweats, weakness, others EENTM: denies: blurred vision, double vision, ear bleeding, ear discharge, ear drainage, ear pain, ear ringing, eye pain, eye redness, hearing loss, mouth pain, mouth swelling, nasal discharge, nose bleeding, nose congestion, nose pain, photophobia, tearing, throat pain, throat swelling, voice changes, others Respiratory: denies: cough, hemoptysis, orthopnea, SOB at rest, shortness of breath, SOB with excertion, stridor, wheezing, others Cardiovascular: denies: chest pain, dizzy spells, diaphoresis, Dyspnea on exertion, edema, irregular heart beat, left arm pain, lightheadedness, palpitations, PND, syncope, others Gastrointestinal: denies: abdomen distended, abdominal pain, blood streaked bowels, constipated, diarrhea, dysphagia, difficulty swallowing, hematemesis, melena, nausea, poor appetite, poor fluid intake, rectal bleeding, rectal pain, vomiting, others Genitourinary: denies: burning, dysuria, flank pain, frequency, hematuria, incontinence, penile discharge, penile sore, pain, testicle pain, testicle swelling, urgency, others Neurological: denies: dizziness, fainting, headache, left sided numbness, left sided weakness, numbness, paresthesia, pre-existing deficit, right sided numbness, right sided weakness, seizure, speech problems, tingling, tremors, weakness, others Musculoskeletal: denies: back pain, gout, joint pain, joint swelling, muscle pain, muscle stiffness, neck pain, others Integumetry: reports: lesions, wounds (PACEMAKER WOUND OF LEFT UPPER CHEST WALL WITH REDNESS AND PUS DRAINAGE.); denies: bruises, change in color, change in hair/nails, dryness, laceration, lumps, rash, others Allergic/Immunocompromised: denies: Difficulty Healing, Frequent Infections, Hives, Itching, others Hematologic/Lymphatic: denies: anemia, blood clots, easy bleeding, easy bruising, swollen glands, others Endocrine: denies: excessive hunger, excessive sweating, excessive thirst, excessive urination, flushing, intolerance to cold, intolerance to heat, unexplained weight gain, unexplained weight loss, others Psychiatric: denies: anxiety, bipolar disorder, depression, hopeless, panic disorder, schizophrenia, sleepless, suicidal, others All Other Systems: Reviewed and Negative Physical Exam General Appearance: No Apparent Distress, Normal HEENT: Normal ENT Inspection, PERRL/EOMI, Pharynx Normal, TMs Normal Neck: Full Range of Motion, Non-Tender, Normal, Normal Inspection Respiratory: Chest Non-Tender, Lungs Clear, No Accessory Muscle Use, No Respiratory Distress, Normal Breath Sounds Cardiovascular: No Edema, No JVD, No Murmur, No Gallop, Normal Peripheral Pulses, Regular Rate/Rhythm Breast Exam: Deferred Gastrointestinal: No Organomegaly, Non Tender, No Pulsatile Mass, Normal Bowel Sounds, Soft Genitalia: Deferred Pelvic: Deferred Rectal: Deferred Extremities: No calf tenderness, Normal capillary refill, Normal inspection, Normal range of motion, Non-tender, No pedal edema Musculoskeletal : Apperance: Normal 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 ) Peripheral Pulses: 2+ carotid (R), 2+ carotid (L) Lymphatic: No Adenopathy Was a procedure done? Was a procedure done?: No Differential Dx Considerations may include: WOUND RECHECKED, WOUND INFECTION, CELLULITIS, PACEMAKER WOUND INFECTION X-Ray, Labs, Meds, VS Vital Signs Date Time Temp Pulse Resp B/P (MAP) Pulse Ox O2 Delivery O2 Flow Rate FiO2 01/04/25 07:26 98.1 77 15 113/75 (88) 94 98.1 01/04/25 07:26 77 15 94 Room Air 01/04/25 06:37 97.7 82 16 128/91 96 97.7 Lab Test 01/04/25 07:23 Range/Units White Blood Count 11.8 H 4.4-10.8 10^3/uL Red Blood Count 4.13 L 4.5-5.90 10^6/uL Hemoglobin 13.7 13.5-17.5 g/dL Hematocrit 40.5 L 41.0-53.0 % Mean Corpuscular Volume 98.0 80.0-100.0 fL Mean Corpuscular Hemoglobin 33.1 H 28.0-32.0 pg Mean Corpuscular Hemoglobin Concent 33.7 32.0-36.0 g/dL Red Cell Distribution Width 17.0 H 11.8-14.3 % Platelet Count 383 140-450 10^3/uL Mean Platelet Volume 6.6 L 6.9-10.8 fL Neutrophils (%) (Auto) 63.3 37.0-80.0 % Lymphocytes (%) (Auto) 27.8 10.0-50.0 % Monocytes (%) (Auto) 7.9 0.0-12.0 % Eosinophils (%) (Auto) 0.4 0.0-7.0 % Basophils (%) (Auto) 0.6 0.0-2.0 % Neutrophils # (Auto) 7.5 1.6-8.6 10 ^3/uL Lymphocytes # (Auto) 3.3 0.4-5.4 10 ^3/uL Monocytes # (Auto) 0.9 0-1.3 10 ^3/uL Eosinophils # (Auto) 0 0-0.8 10 ^3/uL Basophils # (Auto) 0.1 0-0.2 10 ^3/uL Nucleated Red Blood Cells 0.0 % Sodium Level 142 136-145 mmol/L Potassium Level 3.7 3.5-5.1 mmol/L Chloride Level 104 98-107 mmol/L Carbon Dioxide Level 25 20-31 mmol/L Anion Gap 13 5-15 Blood Urea Nitrogen 11 9-23 mg/dL Creatinine 1.05 0.700-1.30 mg/dL Glomerular Filtration Rate Calc 75 >90 mL/min BUN/Creatinine Ratio 10.5 10.0-20.0 Serum Glucose 76 74-106 mg/dL Lactic Acid Level 3.6 *H 0.4-2.0 mmol/L Calcium Level 10.0 8.7-10.4 mg/dL XY CHEST TWO VIEWS ROUTINE CLINICAL HISTORY: LEFT UPPER CHEST WALL INFECTION, PACEMAKER REGION COMPARISON: XY CHEST PORTABLE on DOS: 11/06/24, XY CHEST PORTABLE on DOS: 11/03/24, XY CHEST PORTABLE on DOS: 10/06/23, CHEST TWO VIEWS ROUTINE on DOS: 04/05/22, CXR2 on DOS: 04/05/22 TECHNIQUE: Frontal and lateral view of the chest was obtained FINDINGS: Lines and Tubes: None Lungs: No focal consolidation. Pleura: No effusion. No pneumothorax. Cardiomediastinal contours: Unremarkable Bones: No acute osseous abnormality. IMPRESSION: No acute cardiopulmonary disease. ATED BY: ANUJ AGUILAR MD DICTATED DATE/TIME: 01/04/25815 SIGNED BY: ANUJ AGUILAR MD SIGNED DATE/TIME: 01/04/25815 CC: X-Ray, Labs, Meds, VS Comment EXTERNAL MEDICAL RECORDS REVIEWED: [NONE] INDEPENDENT HISTORIANS: [NONE] SOCIAL DETERMINANTS OF HEALTH: [NONE] LABS ORDERED: CBC, BMP, LACTIC ACID W/REFLEX, WOUND CULTURE, BLOOD CULTURE REVIEWED AND INTERPRETED RESULTS: LACTIC ACID 3.6 IMAGING ORDERED: XR CHEST: NO ACUTE FINDING. TREATMENTS ORDERED: NS 1L IV, VANCOMYCIN 1G IV, ROCEPHIN 1G IV, PATIENT'S WOUND ON HIS LEFT UPPER CHEST WALL WAS CLEANED WITH NORMAL SALINE AND THEN NIMA ON THE AREA WERE REMOVED. WOUND CULTURE WAS OBTAINED. PATIENT TOLERATED WELL. PROCEDURES PERFORMED: NONE CRITICAL CARE TIME: NONE I HAVE DISCUSSED THE PATIENT WITH THE ATTENDING PHYSICIAN DR. LEON AND HE AGR EES WITH THE PATIENT'S PLAN OF CARE. UPON MY PHYSICAL EXAMINATION, THE PATIENT HAD REDNESS AND ACTIVE PUS DRAINAGE TO HIS PACEMAKER WOUND SITE, NIMA WERE NOTED TO THE AREA, FINDINGS ARE CONSISTENT WITH WOUND INFECTION. DUE TO THE PATIENT HAVING AN ELEVATED LACTIC ACID OF 3.6 AND HIS PACEMAKER WOUND SITE BEING INFECTED, I HAVE DETERMINED THE PATIENT NEEDS TO BE ADMITTED FOR FURTHER TREATMENT AND EVALUATION. THE ON-CALL HOSPITALIST WILL BE CONTACTED FOR ADMISSION OF THIS PATIENT. Images Reviewed?: Images reviewed and evaluated by me Time of 1ST Reevaluation: 08:50 Reevaluation 1ST: Unchanged Patient Education/Counseling: Diagnosis, Treatment Family Education/Counseling: Diagnosis, Treatment SEPSIS Sepsis Screen Date sepsis recognized/suspect: Jan 04, 2025 Time Sepsis recognized/suspect: 0640 Recent Procedure: No On Antibiotic Therapy: Yes Respiratory Rate >20: No Heart Rate >90: No Temp<36 C (96.8 F) or >38.3 C: No SBP <90 or MAP <65 mmHG: No New Acute Mental Status Change: No Is the patient on CPAP, BIPAP,: No Physician Orders Wound Culture W/ Gs (01/04/25 07:14) Blood Culture (01/04/25 07:14) Chest Two Views Routine (01/04/25 07:19) Heplock Iv (01/04/25 ) Sodium Chloride 0.9% (01/04/25 08:15) Vital Signs Date Time Temp Pulse Resp B/P (MAP) Pulse Ox O2 Delivery O2 Flow Rate FiO2 01/04/25 07:26 98.1 77 15 113/75 (88) 94 98.1 01/04/25 07:26 77 15 94 Room Air 01/04/25 06:37 97.7 82 16 128/91 96 97.7 Laboratory Tests Test 01/04/25 07:23 Lactic Acid Level 3.6 mmol/L (0.4-2.0) *H White Blood Count 11.8 10^3/uL (4.4-10.8) H Departure 1 Departure Time of Disposition: 08:50 Impression: Primary Impression: Wound infection Disposition: 09 ADMITTED INPATIENT Condition: Serious Critical Care Note Critical Care Time?: No Stability Stability form required: Yes Unstable for transfer: Requires medication, ED Physician Assesment, Possible rapid decline I personally scribed for DAHIANA KELLER ([email or web address]) on 01/04/25 at 07:06. Electronically submitted by Rubén Marcus ([employer]). I personally scribed for DAHIANA KELLER ([email or web address]) on 01/04/25 at 08:26. Electronically submitted by Rubén Marcus ([employer]). I personally scribed for DAHIANA KELLER ([email or web address]) on 01/04/25 at 08:41. Electronically submitted by Rubén Marcus ([employer]). I personally scribed for DAHIANA KELLER ([email or web address]) on 01/04/25 at 08:42. Electronically submitted by Rubén Marcus ([email or web address]). DAHIANA KELLER Jan 04, 2025 07:06
[2025-01-04 07:51] LABS: Hematocrit 40.5 % (41.0-53.0); Hemoglobin 13.7 g/dL (13.5-17.5); Mean Corpuscular Hemoglobin 33.1 pg (28.0-32.0); Mean Corpuscular Volume 98.0 fL (80.0-100.0); Nucleated Red Blood Cells % 0.0 %
[2025-01-04 07:58] LABS: Chloride 104 mmol/L (98-107); Potassium 3.7 mmol/L (3.5-5.1); Sodium 142 mmol/L (136-145)
[2025-01-04 07:59] LABS: Anion Gap 13 (5-15); Calcium 10.0 mg/dL (8.7-10.4); Carbon Dioxide 25 mmol/L (20-31)
[2025-01-04 08:04] LABS: BUN/Creatinine Ratio 10.5 (10.0-20.0); Blood Urea Nitrogen 11 mg/dL (9-23); Glucose 76 mg/dL (74-106)
[2025-01-04 08:10] LABS: Lactic Acid w/Reflex 3.6 mmol/L (0.4-2.0)
--- NOTE | 2025-01-04 08:19 | DVH ---
XY CHEST TWO VIEWS ROUTINE CLINICAL HISTORY: LEFT UPPER CHEST WALL INFECTION, PACEMAKER REGION COMPARISON: XY CHEST PORTABLE on DOS: 11/06/24, XY CHEST PORTABLE on DOS: 11/03/24, XY CHEST PORTABLE on DOS: 10/06/23, CHEST TWO VIEWS ROUTINE on DOS: 04/05/22, CXR2 on DOS: 04/05/22 TECHNIQUE: Frontal and lateral view of the chest was obtained FINDINGS: Lines and Tubes: None Lungs: No focal consolidation. Pleura: No effusion. No pneumothorax. Cardiomediastinal contours: Unremarkable Bones: No acute osseous abnormality. IMPRESSION: No acute cardiopulmonary disease.
[2025-01-04 09:22] VITALS: PULSE 91; RESP 22; O2SAT 97
[2025-01-04] MEDS: cefTRIAXone 1GM/50ML D5W 50 ML IV ONE (09:22)
[2025-01-04] MEDS: VANCOMYCIN 1GM/200ML PM 200 ML IV ONE (09:23)
[2025-01-04] MEDS: SODIUM CHLORIDE 0.9% 1,000 ML IV ONE (09:24)
[2025-01-04] MEDS ORDERED: VANCOMYCIN PER PHARMACY 0 MG IV SCH (11:30)
[2025-01-04] MEDS ORDERED: MORPHINE SULFATE INJ 2 MG/ml SYRG IV PRN (11:30)
[2025-01-04] MEDS ORDERED: NITROGLYCERIN 0.4 MG SL TAB SL PRN (11:30)
[2025-01-04] MEDS: PANTOPRAZOLE 40 MG TAB PO ONE (11:30)
--- NOTE | 2025-01-04 11:36 | DVHHP2 ---
HUAN SAWYER RESIDENT 01/04/25 1136: History of Present Illness History of Present Illness The patient needs 74-year-old male with past medical history of sick sinus syndrome status post pacemaker, chronic pain syndrome, hypertension presented to the hospital with a chief complaint of pacemaker insertion site infection, weight pus coming out, associated with fever. As per patient he had a long history of having pacemaker initially put on 17 years ago, replaced under approximately 8 years ago, however the patient had explantation of pacemaker 1 year ago, continued to have recurrent infection, while hospitalized for the same 1-1/2 month ago, given antibiotics and sent home with oral antibiotics. As per patient plan was extraction of lead at [place], however ended up in the hospital given patient had fever, chills, pus coming out from pacemaker insertion site. The patient denying any other complaint at this point including chest pain, shortness of breath, muscular weakness, sensory deficit, irregular bowel bladder, any other new complaints.+ Past medical history: Hypertension, sick sinus syndrome status post pacemaker, chronic pain, hyperlipidemia Past surgical history: Pacemaker Personal history: Lives with friend, history of use of marijuana and drinks alcohol occasionally, no other recreational drug use. Allergy: None Review of Systems Constitutional: No: Fever, Chills, Sweats, Weakness, Malaise, Other Eyes: No: Pain, Vision change, Conjunctivae inflammation, Eyelid inflammation, Other, Redness ENT: No: Ear pain, Ear discharge, Nose pain, Nose discharge, Nose congestion, Mouth pain, Mouth swelling, Throat pain, Throat swelling, Other Respiratory: No: Cough, Dry, Shortness of breath, SOB with excertion, Wheezing, Hemoptysis, Pleuritic Pain, Sputum, Wheezing, Other Cardiovascular: Chest Pain (Pacemaker incision site discomfort, pus coming out) Gastrointestinal: No: Nausea, Vomiting, Abdominal Pain, Diarrhea, Constipation, Melena, Hematochezia, Other Genitourinary: No Dysuria, No Frequency, No Incontinence, No Hematuria, No Retention, No Other Musculoskeletal: No: other, neck pain, shoulder pain, arm pain, back pain, hand pain, leg pain, foot pain Skin: No: Rash, Lesions, Jaundice, Bruising, Other Neurological: No: Weakness, Numbness, Incoordination, Change in speech, Confusion, Seizures, Other Allergies: Coded Allergies: NO KNOWN ALLERGIES (Unverified , 09/21/19) Exam Vital Signs Vital Signs Date Time Temp Pulse Resp B/P (MAP) Pulse Ox O2 Delivery O2 Flow Rate FiO2 01/04/25 09:22 91 22 97 Room Air* 0 21 01/04/25 07:26 98.1 113/75 (88) 98.1 Exam Pacemaker insertion site wound, fluctuating skin, pus coming out, erythematous base, no presence of granulation tissue. General Appearance: Alert, Oriented X3 HEENT: Atraumatic, PERRLA Respiratory: Clear to auscultation, Normal air movement Cardiovascular: Regular rate, Normal S1, No murmurs Abdominal: Normal bowel sounds, Soft, No tenderness Extremities: No clubbing, No cyanosis, Other (Multiple erythematous) Neuro: Normal gait, Normal speech Psych/Mental Status: Mental status NL, Mood NL Labs/Xrays Labs Test 01/04/25 09:26 01/04/25 07:23 Range/Units Lactic Acid Level 3.5 *H 0.4-2.0 mmol/L White Blood Count 11.8 H 4.4-10.8 10^3/uL Red Blood Count 4.13 L 4.5-5.90 10^6/uL Hemoglobin 13.7 13.5-17.5 g/dL Hematocrit 40.5 L 41.0-53.0 % Mean Corpuscular Volume 98.0 80.0-100.0 fL Mean Corpuscular Hemoglobin 33.1 H 28.0-32.0 pg Mean Corpuscular Hemoglobin Concent 33.7 32.0-36.0 g/dL Red Cell Distribution Width 17.0 H 11.8-14.3 % Platelet Count 383 140-450 10^3/uL Mean Platelet Volume 6.6 L 6.9-10.8 fL Neutrophils (%) (Auto) 63.3 37.0-80.0 % Lymphocytes (%) (Auto) 27.8 10.0-50.0 % Monocytes (%) (Auto) 7.9 0.0-12.0 % Eosinophils (%) (Auto) 0.4 0.0-7.0 % Basophils (%) (Auto) 0.6 0.0-2.0 % Neutrophils # (Auto) 7.5 1.6-8.6 10 ^3/uL Lymphocytes # (Auto) 3.3 0.4-5.4 10 ^3/uL Monocytes # (Auto) 0.9 0-1.3 10 ^3/uL Eosinophils # (Auto) 0 0-0.8 10 ^3/uL Basophils # (Auto) 0.1 0-0.2 10 ^3/uL Nucleated Red Blood Cells 0.0 % Sodium Level 142 136-145 mmol/L Potassium Level 3.7 3.5-5.1 mmol/L Chloride Level 104 98-107 mmol/L Carbon Dioxide Level 25 20-31 mmol/L Anion Gap 13 5-15 Blood Urea Nitrogen 11 9-23 mg/dL Creatinine 1.05 0.700-1.30 mg/dL Glomerular Filtration Rate Calc 75 >90 mL/min BUN/Creatinine Ratio 10.5 10.0-20.0 Serum Glucose 76 74-106 mg/dL Calcium Level 10.0 8.7-10.4 mg/dL SEPSIS Sepsis Screen Date sepsis recognized/suspect: Jan 04, 2025 Time Sepsis recognized/suspect: 639 Recent Procedure: No On Antibiotic Therapy: Yes Respiratory Rate >20: No Heart Rate >90: No Temp<36 C (96.8 F) or >38.3 C: No SBP <90 or MAP <65 mmHG: No New Acute Mental Status Change: No Is the patient on CPAP, BIPAP,: No Physician Orders Wound Culture W/ Gs (01/04/25 07:14) Blood Culture (01/04/25 07:14) Chest Two Views Routine (01/04/25 07:19) Heplock Iv (01/04/25 ) Admit (01/04/25 11:27) Nitroglycerin Sublingual (Ntrostat Subli (01/04/25 11:30) Morphine Sulfate Injection (01/04/25 11:30) Oxygen By Nasal Cannula (01/04/25 11:27) Stat Ekg For Chest Pain (01/04/25 11:27) Notify Md Of Changes From Base (01/04/25 11:27) Code Enforcement Officer For 24 Hours (01/04/25 11:27) Emergency Dysrhythmia Protocol (01/04/25 11:27) Rhythm Strips Once Every Shift (01/04/25 11:27) Ct Angio Chest Contrast (01/04/25 11:27) Ceftriaxone 2gm/50ml D5w (Rocephin 2gm/5 (01/05/25 10:00) Vancomycin Per Pharmacy (01/04/25 11:30) * Wound Consult (01/04/25 ) * Cardiology Consult (01/04/25 11:27) Pantoprazole Tablet (Protonix Tablet) (01/04/25 11:30) Pantoprazole Tablet (Protonix Tablet) (01/05/25 06:00) Cardiac Diet-2gna,Lofat,Lochol (01/04/25 Lunch) NS (01/04/25 11:45) Vital Signs Date Time Temp Pulse Resp B/P (MAP) Pulse Ox O2 Delivery O2 Flow Rate FiO2 01/04/25 09:22 91 22 97 Room Air* 0 21 01/04/25 07:26 98.1 77 15 113/75 (88) 94 98.1 01/04/25 07:26 77 15 94 Room Air 01/04/25 06:37 97.7 82 16 128/91 96 97.7 Laboratory Tests Test 01/04/25 07:23 01/04/25 09:26 Lactic Acid Level 3.6 mmol/L (0.4-2.0) *H 3.5 mmol/L (0.4-2.0) *H White Blood Count 11.8 10^3/uL (4.4-10.8) H Medications Medications Dose Ordered Sig/Sherie Route Start Time Stop Time Status Last Admin Dose Admin Ceftriaxone Sodium 50 ml @ 100 mls/hr ONCE ONCE IV 01/04/25 07:45 01/04/25 08:14 DC 01/04/25 09:22 100 MLS/HR Sodium Chloride 1,000 ml @ 1,000 mls/hr Q1H ONCE IV 01/04/25 08:15 01/04/25 09:14 DC 01/04/25 09:24 1,000 MLS/HR Vancomycin HCl 200 ml @ 200 mls/hr ONCE ONCE IV 01/04/25 07:45 01/04/25 08:44 DC 01/04/25 09:23 200 MLS/HR Assessment/Plan Assessment/Plan Sepsis due to Infected pacemaker insertion site Status post pacemaker explantation approximately 1 year ago Sick sinus syndrome Lower extremity cellulitis with open wounds Hypertension Hyperlipidemia Lactic acidosis GERD Chronic back pain Plan/recommendation -IV antibiotic with ceftriaxone and vancomycin -IV hydration with normal saline 100 mL/hour, normal BNP, chest x-ray clear, no signs of heart failure or congestion. -wound consult -cardiology consultation has been done, possible Dr. sullivan will do debridement of insertion site on Tuesday -as per patient : plan was extraction of lead at [place] -CT chest with contrast: No abscess -Protonix 40 mg p.o. daily -enoxaparin 30 mg subcu daily Goals of care disoriented and 24 mm, full code status. Plan discussed with Dr. Tyler Plan discussed with: Patient, Other (RN) My Orders Orders - HUAN SAWYER RESIDENT Procedure Category Date Status Time Admit ADMIT 01/04/25 Transmitted 11:27 Nitroglycerin [facility] 01/04/25 Logged Sublingual (Ntrostat 11:30 Morphine Sulfate [facility] 01/04/25 Logged Injection 11:30 Oxygen By Nasal RT 01/04/25 Transmitted Cannula 11:27 Stat Ekg For Chest [facility] 01/04/25 In Process Pain 11:27 Notify Of Changes [facility] 01/04/25 In Process From Base 11:27 Code Enforcement Officer For [facility] 01/04/25 In Process 24 Hours 11:27 Emergency Dysrhythmia [facility] 01/04/25 In Process Protocol 11:27 Rhythm Strips Once [facility] 01/04/25 In Process Every Shift 11:[address] 01/04/25 Logged Contrast 11:27 Ceftriaxone 2gm/50ml [facility] 01/05/25 Logged D5w (Rocephin 2gm/5 10:00 Vancomycin Per PHA 01/04/25 Logged Pharmacy 11:30 * Wound Consult CONS 01/04/25 Transmitted * Cardiology Consult CONS 01/04/25 Transmitted 11:27 Pantoprazole Tablet [facility] 01/04/25 Logged (Protonix Tablet) 11:30 Pantoprazole Tablet PHA 01/05/25 Logged (Protonix Tablet) 06:00 Cardiac DIET 01/04/25 Transmitted Diet-2gna,Lofat,Lochol Lunch NS PHA 01/04/25 Verified 11:45 Date of Service: Jan 04, 2025 Billing Provider: ANNIA TYLER MD Common Visit Codes: [id number] INP/OBS CARE (HIGH) ANNIA TYLER MD 01/05/252130: Review of Systems Allergies: Coded Allergies: NO KNOWN ALLERGIES (Unverified , 09/21/19) Date of Service: Jan 04, 2025 Billing Provider: ANNIA TYLER MD Common Visit Codes: [id number] INP/OBS CARE (HIGH) Secondary Visit Codes: [id number] CARE PLAN 30 MINUTES DAVIDHUAN LIRA RESIDENT Jan 04, 2025 11:36 ANNIA TYLER MD Jan 05, 2025 21:31
[2025-01-04] MEDS: SODIUM CHLORIDE 0.9% 1,000 ML IV SCH ×2 (12:45→15:15)
[2025-01-04 13:48] LABS: INR 1.13 (0.9-1.15); Partial Thromboplastin Time 27.6 SEC (24.5-34.5); Prothrombin Time 11.8 sec (9.3-11.8)
[2025-01-04 13:52] LABS: Urine Budding Yeast OCCASIONAL /hpf (None Seen); Urine Protein, UAD 1+ (Negative)
[2025-01-04 13:59] LABS: Amphetamine Screen, Urine Neg (NEGATIVE); Cannabinoid Screen, Urine Pos (NEGATIVE); Opiate Scree,Urine Neg (NEGATIVE)
[2025-01-04 14:01] LABS: Barbiturate Scree,Urine Neg (NEGATIVE); Benzodiazephine Screen, Urine Neg (NEGATIVE); Cocaine Screen, Urine Neg (NEGATIVE); Phencyclidine Screen, Urine Neg (NEGATIVE)
[2025-01-04] MEDS: IOHEXOL 300 MG/ML 100ML BOTTLE IJ ONE (14:11)
--- NOTE | 2025-01-04 14:20 | DVH ---
Procedure: CT CHEST WITH CONTRAST Reason for study/Clinical History: ABSCESS Comparison Study: XY CHEST TWO VIEWS ROUTINE on DOS: 01/04/25, XY CHEST PORTABLE on DOS: 11/06/24, XY RK ST PORTABLE on DOS: 11/03/24, XY CHEST PORTABLE on DOS: 10/06/23, CHEST TWO VIEWS ROUTINE on DOS: Exam Date: 01/04/2025 01:44 PM Radiation Dose Information: CT Dose: CTDI volume is 13.54 mGy. Dose-length product is 532.03 mGy*cm TECHNIQUE: After the uneventful administration of intravenous contrast intravenously, CT imaging was performed through the chest. Coronal and sagittal reformations were performed by the technologist. FINDINGS: Lower Neck: Visualized portions of the thyroid gland are unremarkable. Aorta and Vasculature: Normal caliber of thoracic aorta. Lymph Nodes: No enlarged intrathoracic lymph nodes. Mediastinum: Cardiomegaly. Coronary artery calcifications. Vascular calcifications of the aorta. Left chest pacemaker. Lungs: No focal consolidation, pleural effusion or significant pneumothorax. No suspicious pulmonary nodule or mass. Musculoskeletal: No acute osseous abnormality. Chronic appearing right rib fractures. Upper abdomen: Hepatic steatosis.. IMPRESSION: No evidence of acute intrathoracic abnormality identified.
--- NOTE | 2025-01-04 15:13 | DVHPN2 ---
Progress Note - Dictate Date Seen: Jan 04, 2025 Medical Necessity Reason Pt with a Central, PICC or Fol: No Subjective EROSION OF PACEMAKER SITE S/P EXPLANTATION OF PACEMAKER AWAITING LEAD EXTRACTION AT [facility] SICK SINUS S/P PPI 5 YEARS AGO NOW WITH EROSION OF PACEMAKER SITE vital signs Vital Sign Date Time Temp Pulse Resp B/P (MAP) Pulse Ox O2 Delivery O2 Flow Rate FiO2 01/04/25 09:22 91 22 97 Room Air* 0 21 01/04/25 07:26 98.1 113/75 (88) 98.1 medications Current Medications Medications Dose Ordered Sig/Sherie Route Start Time Stop Time Status Last Admin Dose Admin Nitroglycerin 0.4 mg Q5MINP PRN SL 01/04/25 11:30 Morphine Sulfate 2 mg Q30M PRN IV 01/04/25 11:30 Ceftriaxone Sodium/Dextrose 50 ml @ 50 mls/hr DAILY IV 01/05/25 10:00 Vancomycin HCl 0 ml @ 0 mls/hr UD IV 01/04/25 11:30 UNV Pantoprazole Sodium 40 mg DAILY@0600 PO 01/05/25 06:00 Sodium Chloride 1,000 ml @ 75 mls/hr [id number] IV 01/04/25 11:45 01/04/25 12:45 75 MLS/HR laboratory and microbiology Laboratory Tests 01/04/25 07:23 Test 01/04/25 07:23 Range/Units Serum Glucose 76 74-106 mg/dL Problem List INFECTED PACEMAKER SITE S/P DEVICE EXPLANTATION NEEDS LEAD EXTRACTION SSS Assessment/Plan ABX WILL DEBRIDE SITE ON TUESDAY Plan discussed with: Patient MICHELLE GILL MD Jan 04, 2025 15:13
[2025-01-04 16:42] LABS: Lactic Acid w/Reflex 2.1 mmol/L (0.4-2.0)
[2025-01-04] MEDS ORDERED: MELO15TA29 PO (18:33)
[2025-01-04] MEDS ORDERED: AUG875T PO (18:33)
[2025-01-04] MEDS ORDERED: OXYC325T14 PO (18:33)
[2025-01-04] MEDS ORDERED: ASCO100076 PO (18:33)
[2025-01-04] MEDS ORDERED: DIPH50TA9 PO ×2 (18:33)
[2025-01-04] MEDS ORDERED: CLON0.1T PO (18:36)
[2025-01-04 21:00] VITALS: BP 118/74; PULSE 64; RESP 17; TEMP 98.9; O2SAT 94
[2025-01-04] MEDS: VANCOMYCIN 750mg/150ml 150 ML IV SCH (21:27)
[2025-01-05] VITALS (10 sets, daily range): BP systolic 102–151; BP diastolic 76–111; PULSE 59–88; RESP 16–18; TEMP 97.4–98.4; O2SAT 92–97
[2025-01-05] MEDS: PANTOPRAZOLE 40 MG TAB PO SCH (06:24)
[2025-01-05] MEDS: ENOXAPARIN SOD 30 MG/0.3 ML SYRINGE IV ONE (06:25)
[2025-01-05] MEDS: ENOXAPARIN SOD 30 MG/0.3 ML SYRINGE SC SCH (09:49)
[2025-01-05] MEDS: cefTRIAXone 2GM/50ML D5W 50 ML IV SCH (09:54)
[2025-01-05 10:59] LABS: Hematocrit 37.3 % (41.0-53.0); Hemoglobin 12.7 g/dL (13.5-17.5); Mean Corpuscular Hemoglobin 33.4 pg (28.0-32.0); Mean Corpuscular Volume 98.1 fL (80.0-100.0); Nucleated Red Blood Cells % 0.0 %
--- NOTE | 2025-01-05 13:35 | DVHPN2 ---
Subjective denies any pain now/states sees pain managemwnt for 14 years and on fentanyl ptch at 12.5 mg and percoct prn thru pain management physicis dr.sarah shasha tian awaiting pacemaker site surgery/debridement on tuesday by cardiology/pacemaker has been there for 18 yrs/last change 7 years back Changes from previous H/P or p: No Changes Eyes: No Pain, No Vision change, No Conjunctivae inflammation, No Eyelid inflammation, No Other, No Redness ENT: No Ear pain, No Ear discharge, No Nose pain, No Nose discharge, No Nose congestion, No Mouth pain, No Mouth swelling, No Throat pain, No Throat swelling, No Other Cardiovascular: Chest Pain (Pacemaker incision site discomfort, pus coming out) Respiratory: No Cough, No Dry, No Shortness of breath, No SOB with excertion, No Wheezing, No Hemoptysis, No Pleuritic Pain, No Sputum, No Other Gastrointestinal: No Nausea, No Vomiting, No Abdominal Pain, No Diarrhea, No Constipation, No Melena, No Hematochezia, No Other Genitourinary: No Dysuria, No Frequency, No Incontinence, No Hematuria, No Retention, No Other Musculoskeletal: No other, No neck pain, No shoulder pain, No arm pain, No back pain, No hand pain, No leg pain, No foot pain Skin: No Rash, No Lesions, No Jaundice, No Bruising, No Other Objective Vitals Vital Signs Date Time Temp Pulse Resp B/P (MAP) Pulse Ox O2 Delivery O2 Flow Rate FiO2 01/05/25 09:00 97.8 88 18 147/111 (123) 96 97.8 01/05/25 08:23 Room Air* 0 21 Intake/Output Intake and Output 01/05/25 07:00 Intake Total 2450 ml Balance 2450 ml Intake Oral 100 ml IV Total 2350 ml # Voids 1 # Bowel Movements 1 General Appearance: Alert, Oriented X3, Cooperative Lungs: Clear to auscultation Cardiovascular: Regular rate, Normal S1, Normal S2 Abdomen: Normal bowel sounds, Soft, No tenderness, No hepatospenomegaly Musculoskeletal: Normal sensory function, Normal motor function Neuro: Normal gait, Normal speech, Strength at 5/5 X4 ext, Normal tone, S ensation intact, Cranial nerves 3-12 NL Psych/Mental Status: Mental status NL Medications Current Medications Medications Dose Ordered Sig/Sherie Route Start Time Stop Time Status Last Admin Dose Admin Nitroglycerin 0.4 mg Q5MINP PRN SL 01/04/25 11:30 Morphine Sulfate 2 mg Q30M PRN IV 01/04/25 11:30 Ceftriaxone Sodium/Dextrose 50 ml @ 50 mls/hr DAILY IV 01/05/25 10:00 01/05/25 09:54 50 MLS/HR Vancomycin HCl 0 ml @ 0 mls/hr UD IV 01/04/25 11:30 Pantoprazole Sodium 40 mg DAILY@0600 PO 01/05/25 06:00 01/05/25 06:24 40 MG Sodium Chloride 1,000 ml @ 100 mls/hr Q10H IV 01/04/25 15:15 01/05/25 06:24 100 MLS/HR Vancomycin HCl 150 ml @ 150 mls/hr Q12H IV 01/04/25 22:00 01/05/25 11:12 150 MLS/HR Enoxaparin Sodium 30 mg DAILY SC 01/05/25 10:00 Laboratory Results Laboratory Tests 01/04/25 07:23 01/05/25 10:19 Urinalysis Test 01/04/25 13:00 Urine Color Yellow (Yellow) Urine Clarity Clear (Clear) Urine pH 5.5 (5.0-9.0) Urine Specific [place] 1.027 (1.001-1.035) Urine Protein 1+ (Negative) H Urine Ketones 1+ (Negative) H Urine Blood Negative /uL (Negative) Urine Nitrite Negative (Negative) Urine Bilirubin Negative (Negative) Urine Urobilinogen Normal mg/dL (Negative) Urine Leukocyte Esterase Negative /uL (Negative) Urine RBC 11 /hpf (0 - 3) Urine Microscopic WBC 2 /HPF (0-3) Urine Squamous Epithelial Cells Few /hpf (<5) Urine Bacteria None seen /hpf (None Seen) Urine Mucus Few (None Seen) Urine Yeast (Budding) Occasional /hpf (None Urine Glucose Normal mg/dL (Normal) Microbiology Microbiology Date/Time Source Procedure Growth Status 01/04/25 07:23 Blood Blood Culture - Preliminary NO GROWTH AFTER 24 HOURS OF INCUBATION. Resulted 01/04/25 07:06 Shoulder Gram Stain - Final Resulted 01/04/25 07:06 Shoulder Wound Culture - Preliminary Resulted Labs and/or images reviewed: Labs reviewed by me, Image(s) reviewed by me Assessment/Plan Assessment/Plan pacemaker site erosison- for debridement here and removal of pac[facility]/ chronic narcotic dependence chronic back pain Plan discussed with: Patient, Other Date of Service: Jan 05, 2025 Billing Provider: DWAINE MCCALL MD Common Visit Codes: [id number] INP/OBS CARE(MOD) DWAINE MCCALL MD Jan 05, 2025 13:35
[2025-01-05] MEDS: OXYCODONE W/ ACETAMINOPHEN 5/325MG TABLET PO PRN (15:02)
[2025-01-06] MEDS ORDERED: ZOLPIDEM TARTRATE 5 MG TAB PO PRN
[2025-01-06 07:22] LABS: Hematocrit 38.1 % (41.0-53.0); Hemoglobin 13.1 g/dL (13.5-17.5); Mean Corpuscular Hemoglobin 33.5 pg (28.0-32.0); Mean Corpuscular Volume 97.6 fL (80.0-100.0); Nucleated Red Blood Cells % 0.0 %
[2025-01-06 08:00] VITALS: PULSE 83; RESP 16
[2025-01-06 09:00] VITALS: BP_SYST 112; BP_SYST 118; BP_DIAS 58; BP_DIAS 72; PULSE 76; PULSE 97; RESP 20; TEMP 97.3; TEMP 97.8; O2SAT 97; O2SAT 99
[2025-01-06 13:00] VITALS: BP 134/94; PULSE 87; RESP 20; TEMP 96.4; O2SAT 97
[2025-01-06 17:00] VITALS: BP 114/78; PULSE 83; RESP 20; TEMP 99.8; O2SAT 97
--- NOTE | 2025-01-06 17:36 | DVHPN2 ---
Subjective denies any pain now/states sees pain managemwnt for 14 years and on fentanyl ptch at 12.5 mg and percoct prn thru pain management physicis dr.sarah shasha tian awaiting pacemaker site surgery/debridement on tuesday by cardiology/pacemaker has been there for 18 yrs/last change 7 years back requesting to talk to nut roaster about his procedure in am-call placed Changes from previous H/P or p: No Changes Eyes: No Pain, No Vision change, No Conjunctivae inflammation, No Eyelid inflammation, No Other, No Redness ENT: No Ear pain, No Ear discharge, No Nose pain, No Nose discharge, No Nose congestion, No Mouth pain, No Mouth swelling, No Throat pain, No Throat swelling, No Other Cardiovascular: Chest Pain (Pacemaker incision site discomfort, pus coming out) Respiratory: No Cough, No Dry, No Shortness of breath, No SOB with excertion, No Wheezing, No Hemoptysis, No Pleuritic Pain, No Sputum, No Other Gastrointestinal: No Nausea, No Vomiting, No Abdominal Pain, No Diarrhea, No Constipation, No Melena, No Hematochezia, No Other Genitourinary: No Dysuria, No Frequency, No Incontinence, No Hematuria, No Retention, No Other Musculoskeletal: No other, No neck pain, No shoulder pain, No arm pain, No back pain, No hand pain, No leg pain, No foot pain Skin: No Rash, No Lesions, No Jaundice, No Bruising, No Other Objective Vitals Vital Signs Date Time Temp Pulse Resp B/P (MAP) Pulse Ox O2 Delivery O2 Flow Rate FiO2 01/06/25 17:00 99.8 83 20 114/78 (90) 97 99.8 01/06/25 08:00 Room Air* 0 21 Intake/Output Intake and Output 01/06/25 07:00 Intake Total 1200 ml Output Total 600 ml Balance 600 ml Intake Oral 900 ml IV Total 300 ml Output Urine Total 600 ml # Voids 1 # Bowel Movements 1 General Appearance: Alert, Oriented X3, Cooperative Lungs: Clear to auscultation Cardiovascular: Regular rate, Normal S1, Normal S2 Abdomen: Normal bowel sounds, Soft, No tenderness, No hepatospenomegaly Musculoskeletal: Normal sensory function, Normal motor function Neuro: Normal gait, Normal speech, Strength at 5/5 X4 ext, Normal tone, S ensation intact, Cranial nerves 3-12 NL Psych/Mental Status: Mental status NL Medications Current Medications Medications Dose Ordered Sig/Sherie Route Start Time Stop Time Status Last Admin Dose Admin Ceftriaxone Sodium/Dextrose 50 ml @ 50 mls/hr DAILY IV 01/05/25 10:00 01/06/25 09:38 50 MLS/HR Vancomycin HCl 0 ml @ 0 mls/hr UD IV 01/04/25 11:30 Pantoprazole Sodium 40 mg DAILY@0600 PO 01/05/25 06:00 01/06/25 05:34 40 MG Vancomycin HCl 150 ml @ 150 mls/hr Q12H IV 01/04/25 22:00 01/06/25 10:46 150 MLS/HR Enoxaparin Sodium 30 mg DAILY SC 01/05/25 10:00 Oxycodone/ Acetaminophen 1 tab Q6HP PRN PO 01/05/25 13:30 01/06/25 13:18 1 TAB Zolpidem Tartrate 10 mg HSPRN PRN PO 01/06/25 00:00 Patient Own Medication 1 QWEEKLY PO 01/06/25 17:30 UNV Laboratory Results Laboratory Tests 01/04/25 07:23 01/06/25 06:22 Urinalysis Test 01/04/25 13:00 Urine Color Yellow (Yellow) Urine Clarity Clear (Clear) Urine pH 5.5 (5.0-9.0) Urine Specific [place] 1.027 (1.001-1.035) Urine Protein 1+ (Negative) H Urine Ketones 1+ (Negative) H Urine Blood Negative /uL (Negative) Urine Nitrite Negative (Negative) Urine Bilirubin Negative (Negative) Urine Urobilinogen Normal mg/dL (Negative) Urine Leukocyte Esterase Negative /uL (Negative) Urine RBC 11 /hpf (0 - 3) Urine Microscopic WBC 2 /HPF (0-3) Urine Squamous Epithelial Cells Few /hpf (<5) Urine Bacteria None seen /hpf (None Seen) Urine Mucus Few (None Seen) Urine Yeast (Budding) Occasional /hpf (None Urine Glucose Normal mg/dL (Normal) Microbiology Microbiology Date/Time Source Procedure Growth Status 01/04/25 07:23 Blood Blood Culture - Preliminary NO GROWTH AFTER 48 HOURS OF INCUBATION. Resulted 01/04/25 07:06 Shoulder Gram Stain - Final Resulted 01/04/25 07:06 Shoulder Wound Culture - Preliminary Resulted Labs and/or images reviewed: Labs reviewed by me, Image(s) reviewed by me Assessment/Plan Assessment/Plan pacemaker site erosion- for debridement here by cardiology in am and removal of pacemaker wires later this month at [facility]/ and replacement chronic narcotic dependence- chronic back pain healing lacerations legs -states from his dog/bumping chronic insomnia Plan discussed with: Patient, Other My Orders Orders - DWAINE MCCALL MD Procedure Category Date Status Time Patients Own PHA 01/06/25 Logged Medication 17:30 Date of Service: Jan 06, 2025 Billing Provider: DWAINE MCCALL MD Common Visit Codes: [id number] INP/OBS CARE(MOD) DWAINE MCCALL MD Jan 06, 2025 17:36
[2025-01-06 21:00] VITALS: BP 108/76; PULSE 85; RESP 16; TEMP 98.1; O2SAT 94
[2025-01-06] MEDS: ZOLPIDEM TARTRATE 5 MG TAB PO PRN (22:23)
[2025-01-07] VITALS (9 sets, daily range): BP systolic 98–145; BP diastolic 63–92; PULSE 70–82; RESP 16–20; TEMP 98–98.9; O2SAT 91–95
[2025-01-07 07:42] LABS: Hematocrit 39.8 % (41.0-53.0); Hemoglobin 13.5 g/dL (13.5-17.5); Mean Corpuscular Hemoglobin 33.3 pg (28.0-32.0); Mean Corpuscular Volume 98.1 fL (80.0-100.0); Nucleated Red Blood Cells % 0.1 %
[2025-01-07 07:52] LABS: INR 1.13 (0.9-1.15); Prothrombin Time 11.8 sec (9.3-11.8)
[2025-01-07 07:53] LABS: Calcium 8.9 mg/dL (8.7-10.4); Chloride 100 mmol/L (98-107); Potassium 4.1 mmol/L (3.5-5.1)
[2025-01-07 07:54] LABS: Anion Gap 11 (5-15); Carbon Dioxide 24 mmol/L (20-31)
[2025-01-07 07:56] LABS: Sodium 135 mmol/L (136-145)
[2025-01-07 07:59] LABS: BUN/Creatinine Ratio 15.3 (10.0-20.0); Blood Urea Nitrogen 13 mg/dL (9-23); Glucose 88 mg/dL (74-106)
[2025-01-07] MEDS: VANCOMYCIN 750MG KIT 100 ML IV SCH (11:10)
--- NOTE | 2025-01-07 13:10 | DVHPN2 ---
Progress Note - Dictate Date Seen: Jan 06, 2025 Medical Necessity Reason Pt with a Central, PICC or Fol: No Subjective EROSION OF PACEMAKER SITE S/P EXPLANTATION OF PACEMAKER AWAITING LEAD EXTRACTION AT [facility] SICK SINUS S/P PPI 5 YEARS AGO NOW WITH EROSION OF PACEMAKER SITE vital signs Vital Sign Date Time Temp Pulse Resp B/P (MAP) Pulse Ox O2 Delivery O2 Flow Rate FiO2 01/07/25 09:00 98.1 78 16 117/78 (91) 91 98.1 01/07/25 07:50 Room Air* 0 21 Total Intake and Output 01/06/25 01/06/25 01/07/25 15:00 23:00 07:00 Intake Total 300 ml 800 ml 945 ml Output Total 900 ml Balance 300 ml 800 ml 45 ml medications Current Medications Medications Dose Ordered Sig/Sherie Route Start Time Stop Time Status Last Admin Dose Admin Ceftriaxone Sodium/Dextrose 50 ml @ 50 mls/hr DAILY IV 01/05/25 10:00 01/07/25 08:46 50 MLS/HR Vancomycin HCl 0 ml @ 0 mls/hr UD IV 01/04/25 11:30 Pantoprazole Sodium 40 mg DAILY@0600 PO 01/05/25 06:00 01/06/25 05:34 40 MG Enoxaparin Sodium 30 mg DAILY SC 01/05/25 10:00 Oxycodone/ Acetaminophen 1 tab Q6HP PRN PO 01/05/25 13:30 01/07/25 10:04 1 TAB Patient Own Medication 1 Q72H TOP 01/06/25 18:00 Zolpidem Tartrate 5 mg HSPRN PRN PO 01/06/25 22:00 01/06/25 22:23 5 MG Vancomycin HCl 100 ml @ 100 mls/hr Q12H IV 01/07/25 10:08 01/07/25 11:10 100 MLS/HR laboratory and microbiology Laboratory Tests 01/07/25 07:01 Test 01/07/25 07:01 Range/Units Serum Glucose 88 74-106 mg/dL Problem List INFECTED PACEMAKER SITE S/P DEVICE EXPLANTATION NEEDS LEAD EXTRACTION SSS Assessment/Plan ABX WILL DEBRIDE SITE ON TUESDAY Dietary Evaluation Review Recommendations by RD: Protein Supplementation Comments: 1) Initiate Ensure High Protein qd. Encourage optimal PO intake 2) Initiate MVI @ 1 tb qd 3) Initiate Vitamin C @ 500 mg bid and zinc sulfate @ 220 mg qd for 7 days 4) Follow-up with cardiology 5) Continue to monitor I&O, labs, and skin integrity Expected Outcomes/Goals: 1) appetite and labs to improve 2) wounds to improve 2) f/u in 3-5 days Plan discussed with: Patient MICHELLE GILL MD Jan 07, 2025 13:10
--- NOTE | 2025-01-07 13:11 | DVHPN2 ---
Progress Note - Dictate Date Seen: Jan 07, 2025 Medical Necessity Reason Pt with a Central, PICC or Fol: No Subjective EROSION OF PACEMAKER SITE S/P EXPLANTATION OF PACEMAKER AWAITING LEAD EXTRACTION AT [facility] SICK SINUS S/P PPI 5 YEARS AGO NOW WITH EROSION OF PACEMAKER SITE vital signs Vital Sign Date Time Temp Pulse Resp B/P (MAP) Pulse Ox O2 Delivery O2 Flow Rate FiO2 01/07/25 09:00 98.1 78 16 117/78 (91) 91 98.1 01/07/25 07:50 Room Air* 0 21 Total Intake and Output 01/06/25 01/06/25 01/07/25 15:00 23:00 07:00 Intake Total 300 ml 800 ml 945 ml Output Total 900 ml Balance 300 ml 800 ml 45 ml medications Current Medications Medications Dose Ordered Sig/Sherie Route Start Time Stop Time Status Last Admin Dose Admin Ceftriaxone Sodium/Dextrose 50 ml @ 50 mls/hr DAILY IV 01/05/25 10:00 01/07/25 08:46 50 MLS/HR Vancomycin HCl 0 ml @ 0 mls/hr UD IV 01/04/25 11:30 Pantoprazole Sodium 40 mg DAILY@0600 PO 01/05/25 06:00 01/06/25 05:34 40 MG Enoxaparin Sodium 30 mg DAILY SC 01/05/25 10:00 Oxycodone/ Acetaminophen 1 tab Q6HP PRN PO 01/05/25 13:30 01/07/25 10:04 1 TAB Patient Own Medication 1 Q72H TOP 01/06/25 18:00 Zolpidem Tartrate 5 mg HSPRN PRN PO 01/06/25 22:00 01/06/25 22:23 5 MG Vancomycin HCl 100 ml @ 100 mls/hr Q12H IV 01/07/25 10:08 01/07/25 11:10 100 MLS/HR laboratory and microbiology Laboratory Tests 01/07/25 07:01 Test 01/07/25 07:01 Range/Units Serum Glucose 88 74-106 mg/dL Problem List INFECTED PACEMAKER SITE S/P DEVICE EXPLANTATION NEEDS LEAD EXTRACTION SSS Assessment/Plan ABX WILL DEBRIDE SITE ON TUESDAY Dietary Evaluation Review Recommendations by RD: Protein Supplementation Comments: 1) Initiate Ensure High Protein qd. Encourage optimal PO intake 2) Initiate MVI @ 1 tb qd 3) Initiate Vitamin C @ 500 mg bid and zinc sulfate @ 220 mg qd for 7 days 4) Follow-up with cardiology 5) Continue to monitor I&O, labs, and skin integrity Expected Outcomes/Goals: 1) appetite and labs to improve 2) wounds to improve 2) f/u in 3-5 days Plan discussed with: Patient MICHELLE GILL MD Jan 07, 2025 13:10
--- NOTE | 2025-01-07 17:34 | DVHPN2 ---
Subjective Patient denies any symptoms Reviewed: Care Plan, H&P, Labs, Medications, Previous Orders Changes from previous H/P or p: No Changes General: Per HPI Eyes: No Pain, No Vision change, No Conjunctivae inflammation, No Eyelid inflammation, No Other, No Redness ENT: No Ear pain, No Ear discharge, No Nose pain, No Nose discharge, No Nose congestion, No Mouth pain, No Mouth swelling, No Throat pain, No Throat swelling, No Other Cardiovascular: Chest Pain (Pacemaker incision site discomfort, pus coming out) Respiratory: No Cough, No Dry, No Shortness of breath, No SOB with excertion, No Wheezing, No Hemoptysis, No Pleuritic Pain, No Sputum, No Other Gastrointestinal: No Nausea, No Vomiting, No Abdominal Pain, No Diarrhea, No Constipation, No Melena, No Hematochezia, No Other Genitourinary: No Dysuria, No Frequency, No Incontinence, No Hematuria, No Retention, No Other Musculoskeletal: No other, No neck pain, No shoulder pain, No arm pain, No back pain, No hand pain, No leg pain, No foot pain Skin: No Rash, No Lesions, No Jaundice, No Bruising, No Other Objective Vitals Vital Signs Date Time Temp Pulse Resp B/P (MAP) Pulse Ox O2 Delivery O2 Flow Rate FiO2 01/07/25 16:58 98.3 70 16 145/92 (109) 94 98.3 01/07/25 07:50 Room Air* 0 21 Intake/Output Intake and Output 01/07/25 07:00 Intake Total 2045 ml Output Total 900 ml Balance 1145 ml Intake Oral 1845 ml IV Total 200 ml Output Urine Total 900 ml # Voids 4 General Appearance: Alert, Oriented X3, Cooperative Lungs: Clear to auscultation Cardiovascular: Regular rate, Normal S1, Normal S2 Abdomen: Normal bowel sounds, Soft, No tenderness, No hepatospenomegaly Musculoskeletal: Normal sensory function, Normal motor function Neuro: Normal gait, Normal speech, Strength at 5/5 X4 ext, Normal tone, S ensation intact, Cranial nerves 3-12 NL Skin: Wounds (See nurse notes and pictures) Psych/Mental Status: Mental status NL Medications Current Medications Medications Dose Ordered Sig/Sherie Route Start Time Stop Time Status Last Admin Dose Admin Ceftriaxone Sodium/Dextrose 50 ml @ 50 mls/hr DAILY IV 01/05/25 10:00 01/07/25 08:46 50 MLS/HR Vancomycin HCl 0 ml @ 0 mls/hr UD IV 01/04/25 11:30 Pantoprazole Sodium 40 mg DAILY@0600 PO 01/05/25 06:00 01/06/25 05:34 40 MG Enoxaparin Sodium 30 mg DAILY SC 01/05/25 10:00 Oxycodone/ Acetaminophen 1 tab Q6HP PRN PO 01/05/25 13:30 01/07/25 10:04 1 TAB Patient Own Medication 1 Q72H TOP 01/06/25 18:00 Zolpidem Tartrate 5 mg HSPRN PRN PO 01/06/25 22:00 01/06/25 22:23 5 MG Vancomycin HCl 100 ml @ 100 mls/hr Q12H IV 01/07/25 10:08 01/07/25 11:10 100 MLS/HR Laboratory Results Laboratory Tests 01/07/25 07:01 Chemistry Test 01/07/25 07:01 Calcium Level 8.9 mg/dL (8.7-10.4) Coagulation Test 01/07/25 07:01 Prothrombin Time 11.8 sec (9.3-11.8) Prothrombin Time INR 1.13 (0.9-1.15) Urinalysis Test 01/04/25 13:00 Urine Color Yellow (Yellow) Urine Clarity Clear (Clear) Urine pH 5.5 (5.0-9.0) Urine Specific [place] 1.027 (1.001-1.035) Urine Protein 1+ (Negative) H Urine Ketones 1+ (Negative) H Urine Blood Negative /uL (Negative) Urine Nitrite Negative (Negative) Urine Bilirubin Negative (Negative) Urine Urobilinogen Normal mg/dL (Negative) Urine Leukocyte Esterase Negative /uL (Negative) Urine RBC 11 /hpf (0 - 3) Urine Microscopic WBC 2 /HPF (0-3) Urine Squamous Epithelial Cells Few /hpf (<5) Urine Bacteria None seen /hpf (None Seen) Urine Mucus Few (None Seen) Urine Yeast (Budding) Occasional /hpf (None Urine Glucose Normal mg/dL (Normal) Microbiology Microbiology Date/Time Source Procedure Growth Status 01/04/25 07:23 Blood Blood Culture - Preliminary NO GROWTH AFTER 72 HOURS OF INCUBATION. Resulted 01/04/25 07:06 Shoulder Gram Stain - Final Resulted 01/04/25 07:06 Shoulder Wound Culture - Preliminary Resulted Labs and/or images reviewed: Labs reviewed by me, Image(s) reviewed by me Assessment/Plan Assessment/Plan Impression: -sepsis secondary to infected previous pacemaker insertion site -sick sinus syndrome -chronic pain syndrome with chronic opiate use -primary hypertension -dyslipidemia Plan: -cardiology consultation: Plans for wound debridement tomorrow -continue pain management -stop anticoagulation -antihypertensives -continue antibiotic therapy with Rocephin and vancomycin -reassess for discharge once cleared by Cardiology. Total time spent with patient discussing and formulating plan of care: 35 minutes. This medical document was created using an electronic medical record system with [employer] dictation system. Although this document has been carefully reviewed, there may still be some phonetic and typographical errors. These areas are purely typographical due to imperfections of the software programs, and do not reflect any compromise in the patient's medical care. Plan discussed with: Patient, Other (RN) My Orders Orders - LARA BENDER NP Procedure Category Date Status Time Npo After Midnight RICKY 01/07/25 Verified 17:30 Npo (Nothing By DIET 01/08/25 Verified Mouth) Diet Breakfast Date of Service: Jan 07, 2025 Billing Provider: LARA BENDER NP Common Visit Codes: [id number] INP/OBS CARE(HIGH) LARA BENDER NP Jan 07, 2025 17:34
[2025-01-08] VITALS (10 sets, daily range): BP systolic 91–129; BP diastolic 58–91; PULSE 65–84; RESP 11–20; TEMP 96.4–98.3; O2SAT 91–98
--- NOTE | 2025-01-08 12:50 | DVHPN2 ---
Progress Note - Dictate Date Seen: Jan 08, 2025 Medical Necessity Reason Pt with a Central, PICC or Fol: No Subjective EROSION OF PACEMAKER SITE S/P EXPLANTATION OF PACEMAKER AWAITING LEAD EXTRACTION AT [facility] SICK SINUS S/P PPI 5 YEARS AGO NOW WITH EROSION OF PACEMAKER SITE vital signs Vital Sign Date Time Temp Pulse Resp B/P (MAP) Pulse Ox O2 Delivery O2 Flow Rate FiO2 01/08/25 12:41 98.1 74 18 129/91 (104) 96 98.1 01/08/25 08:15 Room Air* 0 21 Total Intake and Output 01/07/25 01/07/25 01/08/25 15:00 23:00 07:00 Intake Total 150 ml 1000 ml 300 ml Balance 150 ml 1000 ml 300 ml medications Current Medications Medications Dose Ordered Sig/Sherie Route Start Time Stop Time Status Last Admin Dose Admin Ceftriaxone Sodium/Dextrose 50 ml @ 50 mls/hr DAILY IV 01/05/25 10:00 01/08/25 10:27 50 MLS/HR Vancomycin HCl 0 ml @ 0 mls/hr UD IV 01/04/25 11:30 Pantoprazole Sodium 40 mg DAILY@0600 PO 01/05/25 06:00 01/06/25 05:34 40 MG Oxycodone/ Acetaminophen 1 tab Q6HP PRN PO 01/05/25 13:30 01/08/25 09:08 1 TAB Patient Own Medication 1 Q72H TOP 01/06/25 18:00 Zolpidem Tartrate 5 mg HSPRN PRN PO 01/06/25 22:00 01/07/25 21:45 5 MG Vancomycin HCl 250 ml @ 200 mls/hr DAILY@2200 IV 01/08/25 22:00 laboratory and microbiology Laboratory Tests 01/08/25 04:52 01/07/25 07:01 Test 01/07/25 07:01 Range/Units Serum Glucose 88 74-106 mg/dL Problem List INFECTED PACEMAKER SITE S/P DEVICE EXPLANTATION NEEDS LEAD EXTRACTION SSS Assessment/Plan ABX S/P DEBRIDEMENT Dietary Evaluation Review Recommendations by RD: Protein Supplementation Comments: 1) Initiate Ensure High Protein qd. Encourage optimal PO intake 2) Initiate MVI @ 1 tb qd 3) Initiate Vitamin C @ 500 mg bid and zinc sulfate @ 220 mg qd for 7 days 4) Follow-up with cardiology 5) Continue to monitor I&O, labs, and skin integrity Expected Outcomes/Goals: 1) appetite and labs to improve 2) wounds to improve 2) f/u in 3-5 days Plan discussed with: Patient MICHELLE GILL MD Jan 08, 2025 12:50
[2025-01-08] MEDS: VANCOMYCIN HCL 1000 MG VL ONE (12:59)
[2025-01-08] MEDS: LIDOCAINE 2%HCL (LOCAL ANESTH.) INJ 20ML MDV ONE (13:00)
[2025-01-08] MEDS: VANCOMYCIN 1GM/200ML PM 0 ML IV ONE (13:00)
[2025-01-08] MEDS: fentaNYL CITRATE 100 MCG/2 ML VL ONE (13:08)
[2025-01-08] MEDS: MIDAZOLAM HCL 2MG/2ML 2ml VIAL (1mg/ml) ONE (13:08)
[2025-01-08] MEDS: ceFAZolin 1GM/50ML 50 ML IV ONE ×2 (13:19→13:25)
[2025-01-08] MEDS: cefTRIAXone 1GM/50ML D5W 50 ML IV ONE (13:56)
--- NOTE | 2025-01-08 14:10 | DVHOP ---
DATE OF SURGERY: 01/08/2025 INDICATIONS: The patient with infected pacemaker pocket. The device was removed several months ago. He is waiting for the extraction of the leads. Now there is continuing infection. The wound dehisced. The patient has pus coming out. Purulent discharge. The patient is now to undergo re-debridement of the pocket site in preparation for lead extraction in the near future. DESCRIPTION OF PROCEDURE: The patient was prepped and draped in sterile condition. 1% Xylocaine used to anesthetize the left subclavicular region. The patient was given conscious sedation. Using electrocautery, pocket was then dissected out. All the adhesions were removed. We dissected out. The pocket was then irrigated using vancomycin saline solution followed by ChloraPrep, followed by Rocephin powder was instilled into the pocket. The pocket was loosely closed using 2-0 silk interrupted sutures. There were no complications. The patient tolerated the procedure well. CONCLUSION: The patient had successful debridement without any complication of the infected pacemaker pocket. Roberto Carlos Arizmendi MD SA/ROBERT TID: [id number] RECEIPT: [id number]
[2025-01-08] MEDS ORDERED: BACDST PO (14:45)
--- NOTE | 2025-01-08 15:04 | DVHDS2 ---
Discharge Summary Date of Admission Jan 04, 2025 at 11:27 Date of Discharge: Jan 08, 2025 Admitting Diagnosis Sepsis secondary to infected pacemaker pocket Labs/Diagnostic Data: Laboratory Results Test 01/08/25 04:52 01/07/25 20:49 01/07/25 07:01 01/05/25 10:19 Creatinine 0.92 mg/dL (0.700-1.30) Glomerular Filtration Rate Calc 88 mL/min (>90) Vancomycin Level Trough 17.6 ug/mL (5-10) White Blood Count 11.9 10^3/uL (4.4-10.8) Red Blood Count 4.06 10^6/uL (4.5-5.90) Hemoglobin 13.5 g/dL (13.5-17.5) Hematocrit 39.8 % (41.0-53.0) Mean Corpuscular Volume 98.1 fL (80.0-100.0) Mean Corpuscular Hemoglobin 33.3 pg (28.0-32.0) Mean Corpuscular Hemoglobin Concent 34.0 g/dL (32.0-36.0) Red Cell Distribution Width 17.4 % (11.8-14.3) Platelet Count 224 10^3/uL (140-450) Mean Platelet Volume 7.3 fL (6.9-10.8) Neutrophils (%) (Auto) 66.1 % (37.0-80.0) Lymphocytes (%) (Auto) 18.9 % (10.0-50.0) Monocytes (%) (Auto) 13.0 % (0.0-12.0) Eosinophils (%) (Auto) 1.2 % (0.0-7.0) Basophils (%) (Auto) 0.8 % (0.0-2.0) Neutrophils # (Auto) 7.9 10 ^3/uL (1.6-8.6) Lymphocytes # (Auto) 2.3 10 ^3/uL (0.4-5.4) Monocytes # (Auto) 1.5 10 ^3/uL (0-1.3) Eosinophils # (Auto) 0.1 10 ^3/uL (0-0.8) Basophils # (Auto) 0.1 10 ^3/uL (0-0.2) Nucleated Red Blood Cells 0.1 % Prothrombin Time 11.8 sec (9.3-11.8) Prothrombin Time INR 1.13 (0.9-1.15) Sodium Level 135 mmol/L (136-145) Potassium Level 4.1 mmol/L (3.5-5.1) Chloride Level 100 mmol/L (98-107) Carbon Dioxide Level 24 mmol/L (20-31) Anion Gap 11 (5-15) Blood Urea Nitrogen 13 mg/dL (9-23) BUN/Creatinine Ratio 15.3 (10.0-20.0) Serum Glucose 88 mg/dL (74-106) Calcium Level 8.9 mg/dL (8.7-10.4) Lactic Acid Level 1.5 mmol/L (0.4-2.0) Test 01/04/25 13:16 01/04/25 13:00 01/04/25 07:23 Activated Partial Thromboplast Time 27.6 SEC (24.5-34.5) Urine Color Yellow (Yellow) Urine Clarity Clear (Clear) Urine pH 5.5 (5.0-9.0) Urine Specific [place] 1.027 (1.001-1.035) Urine Protein 1+ (Negative) Urine Ketones 1+ (Negative) Urine Blood Negative /uL (Negative) Urine Nitrite Negative (Negative) Urine Bilirubin Negative (Negative) Urine Urobilinogen Normal mg/dL (Negative) Urine Leukocyte Esterase Negative /uL (Negative) Urine RBC 11 /hpf (0 - 3) Urine Microscopic WBC 2 /HPF (0-3) Urine Squamous Epithelial Cells Few /hpf (<5) Urine Bacteria None seen /hpf (None Seen) Urine Mucus Few (None Seen) Urine Yeast (Budding) Occasional /hpf (None Urine Glucose Normal mg/dL (Normal) Urine Opiates Screen Neg (NEGATIVE) Urine Fentanyl Screen Pos (NEGATIVE) Urine Barbiturates Screen Neg (NEGATIVE) Urine Phencyclidine Screen Neg (NEGATIVE) Urine Amphetamines Screen Neg (NEGATIVE) Urine Benzodiazepines Screen Neg (NEGATIVE) Urine Cocaine Screen Neg (NEGATIVE) Urine Cannabinoids Screen Pos (NEGATIVE) Hemoglobin A1c 4.8 % A1C (<5.7) B-Type Natriuretic Peptide 42.09 pg/mL (0-100) Thyroid Stimulating Hormone (TSH) 3.43 uIU/mL (0.55-4.78) Other Laboratory Tests 01/08/25 04:52 01/07/25 07:01 Brief Hx & Hospital Course: History of Present Illness The patient needs 74-year-old male with past medical history of sick sinus syndrome status post pacemaker, chronic pain syndrome, hypertension presented to the hospital with a chief complaint of pacemaker insertion site infection, weight pus coming out, associated with fever. As per patient he had a long history of having pacemaker initially put on 17 years ago, replaced under approximately 8 years ago, however the patient had explantation of pacemaker 1 year ago, continued to have recurrent infection, while hospitalized for the same 1-1/2 month ago, given antibiotics and sent home with oral antibiotics. As per patient plan was extraction of lead at [facility], however ended up in the hospital given patient had fever, chills, pus coming out from pacemaker insertion site. The patient denying any other complaint at this point including chest pain, shortness of breath, muscular weakness, sensory deficit, irregular bowel bladder, any other new complaints. Course of hospitalization: Patient was started on IV Rocephin and vancomycin. Cardiology consultation was obtained, for which patient underwent I and D of pacemaker pocket today. Wound culture positive for coagulase negative Streptococcus. Patient will be discharged home and continued on antibiotic therapy with Bactrim DS one tab b.i.d. for seven days. He is instructed to follow up with Dr. Azevedo, as well as store deli manager at [facility] for pacemaker lead extraction. Patient will continue all previous home medications. All questions answered. Physical examination General: Alert and Oriented x3. No acute distress. Well-nourished. Eyes: EOMI. Anicteric. HENT: Moist mucous membranes. Lungs: Clear to auscultation bilaterally. No accessory muscle use. Cardiovascular: Regular rate and rhythm. No murmur. No JVD. Abdomen: Soft, non-tender and non-distended. No palpable masses. Extremities: No edema. Non-tender. Skin: No rashes or lesions. Warm. Neurologic: No focal neurological deficits. CN II-XII grossly intact, but not individually tested. Psychiatric: Cooperative. Appropriate mood and affect. Total time spent with patient discussing and formulating plan of care: 35 minutes. This medical document was created using an electronic medical record system with [employer] dictation system. Although this document has been carefully reviewed, there may still be some phonetic and typographical errors. These areas are purely typographical due to imperfections of the software programs, and do not reflect any compromise in the patient's medical care. Condition at Discharge: Fair Final Diagnosis/Problems List Infected Pacemaker pocket Secondary diagnosis: -sick sinus syndrome -chronic pain syndrome with chronic opiate use -primary hypertension -dyslipidemia Discharge Disposition: Home Discharge Instruct/Medications Diet: Cardiac 2g Na,low cholest Activity: No Restrictions, As Tolerated Follow Up/Referral: Receiving two weeks Admitting established appointment with [facility] for reestablishing appointment for removal on pacemaker leads Medications: Bactrim DS one tablet b.i.d. x7 days Continue all previous home medications Scheduled Amoxicillin & Pot Clavulanate (Augmentin Tablet), 875 MG PO Q12HR, (Reported) Cephalexin Monohydrate (Cephalexin), 500 MG PO Q6HR, (Reported) Clonidine Hydrochloride (Clonidine Hcl), 1 TAB PO QPM, (Reported) Diphenhydramine Hcl (Diphenhydramine Hcl), 1 TAB PO QPM, (Reported) Diphenhydramine Hcl (Diphenhydramine Hcl), 25 MG PO PRN, (Reported) Esomeprazole Magnesium Trihydr (Nexium), 1 CAP PO DAILY, (Reported) Fentanyl (Fentanyl), 1 PATCH TOP Q3D, (Reported) Hydroxychloroquine Sulfate (Hydroxychloroquine Sulfat), 200 MG PO DAILY, (Reported) Magnesium Oxide (Magnesium Oxide), 1 TAB PO BID, (Reported) Meloxicam (Meloxicam), 1 TAB PO DAILY, (Reported) Methocarbamol (Methocarbamol), 500 MG PO Q8HR, (Reported) Oxycodone W/ Acetaminophen (Apap/Oxycodone), 1 TAB PO TID, (Reported) Oxycodone W/ Acetaminophen (Apap/Oxycodone), 1 TAB PO PRN, (Reported) Sulfamethoxazole W/Trimethopri (Bactrim Ds Tablet), 1 TAB PO BID Vericiguat (Verquvo), 2.5 MG PO BID, (Reported) Zolpidem Tartrate (Zolpidem Tartrate), 1 TAB PO QPM, (Reported) Scheduled PRN Clonidine Hydrochloride (Clonidine Hcl), 0.1 MG PO BIDPRN PRN for PER BLOOD PRESSURE PROTOCOL, (Reported) Miscellaneous Medications Ascorbic Acid (Vitamin C), 1,000 MG PO, (Reported) 36 Discharge Statement: "Patient was advised to return to the ER or call 911 if any headaches, dizziness, shortness of breath, chest pain, abdominal pain, bleeding, fevers, or worsening of medical condition. Patient was counseled about treatment plan, medications, possible side effects, patientverbalized understanding. All questions were answered to the best of my ability. This discharge took greater then 30 minutes in planning, reviewing documentation, counseling the patient, and discussing with other team members." ASSESSMENT ASSESSMENT Assessment Infected Pacemaker pocket Date of Service: Jan 08, 2025 Billing Provider: LARA BENDER NP Common Visit Codes: [id number] DISCH DAY >30min LARA BENDER NP Jan 08, 2025 15:04
[2025-01-08] MEDS ORDERED: VANCOMYCIN 1.25GM/250ML 250 ML IV SCH (22:00)
--- NOTE | 2025-01-22 10:12 | DVHPN2 ---
Progress Note - Dictate Date Seen: Jan 05, 2025 Medical Necessity Reason Pt with a Central, PICC or Fol: No Subjective EROSION OF PACEMAKER SITE S/P EXPLANTATION OF PACEMAKER AWAITING LEAD EXTRACTION AT [facility] SICK SINUS S/P PPI 5 YEARS AGO NOW WITH EROSION OF PACEMAKER SITE laboratory and microbiology Laboratory Tests 01/08/25 04:52 01/07/25 07:01 Test 01/07/25 07:01 Range/Units Serum Glucose 88 74-106 mg/dL Problem List INFECTED PACEMAKER SITE S/P DEVICE EXPLANTATION NEEDS LEAD EXTRACTION SSS Assessment/Plan ABX S/P DEBRIDEMENT Dietary Evaluation Review Recommendations by RD: Protein Supplementation Comments: 1) Initiate Ensure High Protein qd. Encourage optimal PO intake 2) Initiate MVI @ 1 tb qd 3) Initiate Vitamin C @ 500 mg bid and zinc sulfate @ 220 mg qd for 7 days 4) Follow-up with cardiology 5) Continue to monitor I&O, labs, and skin integrity Expected Outcomes/Goals: 1) appetite and labs to improve 2) wounds to improve 2) f/u in 3-5 days Plan discussed with: Patient MICHELLE GILL MD Jan 22, 2025 10:12
== END 2025-01-08 18:00 | disposition home or self-care (01) | DRG 863 ==
LOC: ER 06:35 → OVERFLOW 11:27 → TELE-WESTW 01-05 02:34
PROVIDERS: ADMIT Nurse Practitioner Acute Care; ATTEND Nurse Practitioner Acute Care
PROC: 0HD5XZZ Extraction of Chest Skin, External Approach (ICD-10-PCS; principal; 2025-01-08)
DX: T81.41XA Infection following a procedure, superficial incisional surgical site, initial encounter (principal); E87.20 Acidosis, unspecified; F11.20 Opioid dependence, uncomplicated; L03.119 Cellulitis of unspecified part of limb; K21.9 Gastro-esophageal reflux disease without esophagitis; I49.5 Sick sinus syndrome; G89.4 Chronic pain syndrome; I10 Essential (primary) hypertension; L08.89 Other specified local infections of the skin and subcutaneous tissue; E78.5 Hyperlipidemia, unspecified; F17.200 Nicotine dependence, unspecified, uncomplicated; Z95.0 Presence of cardiac pacemaker; Z79.2 Long term (current) use of antibiotics
CPT/HCPCS: 11042; 36415; 71046; 71260; 80048; 80202; 80307; 81001; 82565; 83036; 83605; 83880; 84443; 85025; 85610; 85730; 87040; 87205; 96365; 99152; G0378; J2250

== ENCOUNTER 2025-03-08 16:13 | Inpatient (IN) | payer MEDICARE, MEDICAID ==
[~2025-03-08] VITALS: Ht 188 cm; Wt 79.4 kg
[~2025-03-08 16:13] MED LIST changes: +ASCO100076 PO; +AUG875T PO; +BACDST PO; +DIPH50TA9 PO; +MELO15TA29 PO
[2025-03-08 16:30] VITALS: PULSE 125; RESP 21; O2SAT 96
[2025-03-08] MEDS: HYDROmorphone HCL 2 MG/ML VL/or syr IV ONE (16:45)
[2025-03-08 17:33] LABS: Hematocrit 26.4 % (41.0-53.0); Hemoglobin 8.6 g/dL (13.5-17.5); Mean Corpuscular Hemoglobin 32.6 pg (28.0-32.0); Mean Corpuscular Volume 100.2 fL (80.0-100.0); Nucleated Red Blood Cells % 0.0 %
[2025-03-08 17:40] LABS: Chloride 106 mmol/L (98-107); Potassium 4.9 mmol/L (3.5-5.1); Sodium 138 mmol/L (136-145)
[2025-03-08 17:41] LABS: Anion Gap 12 (5-15); Calcium 8.5 mg/dL (8.7-10.4); Carbon Dioxide 20 mmol/L (20-31)
[2025-03-08 17:46] LABS: BUN/Creatinine Ratio 35.6 (10.0-20.0)
[2025-03-08 17:48] LABS: Blood Urea Nitrogen 37 mg/dL (9-23); Glucose 106 mg/dL (74-106); INR 1.25 (0.9-1.15); Partial Thromboplastin Time 27.2 SEC (24.5-34.5); Prothrombin Time 13.0 sec (9.3-11.8)
--- NOTE | 2025-03-08 18:11 | ECG ---
[facility] Test Date: 2025-03-08 Test Time: 16:13:18 Pat Name: POWER GUERRERO Department: [facility] ED Room: 0247T Gender: M [employer] Supervisor: EMELI : [id number] Requested By: YAMILE MAZARIEGOS Order Number: [id number] Reading MD: Hardik Joel Measurements Intervals [place] Rate: 120 P: 21 MD: 151 QRS: 8 QRSD: 88 T: 87 QT: 368 QTc: 520 Interpretive Statements Sinus tachycardia Abnormal R-wave progression, early transition Borderline T abnormalities, lateral leads Prolonged QT interval Baseline wander in lead(s) V4 Electronically Signed On 03-16-2025 20:10:27 PDT by Hardik Joel Please click the below link to view image of tracing.
[2025-03-08] MEDS: SODIUM CHLORIDE 0.9% 1,000 ML IV ONE (18:15)
[2025-03-08] MEDS: IOHEXOL 300 MG/ML 100ML BOTTLE IJ ONE (18:36)
--- NOTE | 2025-03-08 19:06 | DVH ---
Exam: CT CT CHEST/AB/PL W CON- IV ONLY History: Rectal bleed and hemoptysis COMPARISON: CT CHEST WITH CONTRAST on DOS: 01/04/25, XY CHEST TWO VIEWS ROUTINE on DOS: 01/04/25, XY CHES T PORTABLE on DOS: 11/06/24, XY CHEST PORTABLE on DOS: 11/03/24, XY CHEST PORTABLE on DOS: 10/06/23 Technique: Multidetector spiral CT of the abdomen and pelvis was performed from lung bases to pubic s ymphysis. Intravenous contrast was administered during this examination. Portal venous imaging was obtained. Axial, coronal and sagittal multiplanar reformats were performed by the technologist on a separate workstation. Radiation Dose : 1. Abdomen/Pelvis: CTDIvol 14.4 mGy, DLP 1007 mGy*cm. CONTRAST: Type of contrast: Omnipaque 300 Contrast injected: 100 ml Findings: Lung Bases: No acute or significant lung base finding. Normal heart size. No pleural or pericardial effusion. Liver: The liver is normal in size. No focal lesions. Normal hepatic vascular enhancement. Gallbladder and Biliary Tree: Unremarkable Spleen: Unremarkable Pancreas: The pancreas is normal in appearance without focal lesions or abnormal enhancement. Adrenal Glands: Unremarkable Kidneys: Atrophic bilateral kidneys. No hydronephrosis. Bladder: Unremarkable Bowel: The stomach is grossly normal in appearance. Concentric wall thickening throughout the colon i s suggestive of infectious / inflammatory colitis. The appendix is not visualized; however, no secon pau findings of acute appendicitis identified. Ascites: Absent Lymphadenopathy: No mesenteric, retroperitoneal or periportal lymphadenopathy. Abdominal Wall and Mesentery: Unremarkable. Vasculature: The visualized abdominal aorta is normal in size and caliber. Abdominal and pelvic vess els demonstrate normal enhancement. Pelvic Organs: Unremarkable Musculoskeletal: No aggressive focal bony lesions, acute fractures or dislocation. Chronic compressio n deformity of the T12 vertebral body. Chronic healed fracture deformity of the sternum. IMPRESSION: 1. Concentric wall thickening throughout the colon is suggestive of infectious / inflammatory colitis . Radiation optimization: All CT scans at this facility use at least one of these dose optimization leah hniques: automated exposure control mA and/or kV adjustment per patient size (includes targeted exam s where dose is matched to clinical indication) or iterative reconstruction.
[2025-03-08 19:26] VITALS: PULSE 112; RESP 18; O2SAT 97
[2025-03-08 19:30] LABS: Lactic Acid w/Reflex 3.0 mmol/L (0.4-2.0)
--- NOTE | 2025-03-08 20:04 | ED.PDOC ---
GI ASSESSMENT HPI Comments 74-year-old male who presents to the ED via EMS with chief complaint of GI bleeding. Patient states that he has been having GI bleeding with associated vomit that is been red and black with the associated dark stool for the past 2 days. Patient has been having loose black stools with the associated weakness and shortness of breath. Patient states he has a history of gastric ulcer in the past but has not seen a specialist for it yet. Patient otherwise had pacemaker placed 1 month prior at [place]. Patient had the ED otherwise appears weak and pale in complexion. Patient in the ED has noted heart rate of 118 with otherwise stable vitals including blood pressure 106/63 respiratory rate 20 temperature 99.1 F and O2 saturation of 99% on room air. Patient denies any other symptoms at this time. Chief Complaint: GI Bleed Time Seen by MD: 20:02 Primary Care Provider: JUAN Reviewed Notes: Nurses Notes, Nc Manager Notes, Medications, Allergies Allergies: Coded Allergies: NO KNOWN ALLERGIES (Unverified , 09/21/19) Home Meds Active Scripts Sulfamethoxazole W/Trimethopri (Bactrim Ds Tablet) 1 Tab Tb, 1 TAB PO BID for 7 Days, #14 TAB Prov:LARA BENDER AUTO ENGINE MECHANIC 01/08/25 Reported Medications Clonidine Hydrochloride (Clonidine Hcl) 0.1 Mg Tab, 1 TAB PO QPM, #30 TAB 2 Refills 01/04/25 Oxycodone W/ Acetaminophen (Apap/Oxycodone) 1 Tab Tab, 1 TAB PO PRN, #90 TAB 01/04/25 Meloxicam (Meloxicam) 15 Mg Tab, 1 TAB PO DAILY, #30 TAB 2 Refills 01/04/25 Ascorbic Acid (Vitamin C) 1,000 Mg Tab, 1000 MG PO, TAB 01/04/25 Diphenhydramine Hcl (Diphenhydramine Hcl) 50 Mg Tab, 25 MG PO PRN, TAB 01/04/25 Diphenhydramine Hcl (Diphenhydramine Hcl) 50 Mg Tab, 1 TAB PO QPM, #30 TAB 01/04/25 Amoxicillin & Pot Clavulanate (AUGMENTIN TABLET) 875 Mg Tb, 875 MG PO Q12HR, TAB 01/04/25 Zolpidem Tartrate (Zolpidem Tartrate) 10 Mg Tab, 1 TAB PO QPM, #30 TAB 2 Refills 10/06/24 Hydroxychloroquine Sulfate (Hydroxychloroquine Sulfat) 200 Mg Tab, 200 MG PO DAILY for 30 Days, MG 10/06/24 Vericiguat (Verquvo) 2.5 Mg Tab, 2.5 MG PO BID, TAB 10/06/24 Cephalexin Monohydrate (Cephalexin) 500 Mg Cap, 500 MG PO Q6HR, MG 10/06/24 Oxycodone W/ Acetaminophen (Apap/Oxycodone) 1 Tab Tab, 1 TAB PO TID, #90 TAB 10/06/24 Magnesium Oxide (MAGNESIUM OXIDE) 400 Mg Tab, 1 TAB PO BID, #60 TAB 5 Refills 10/06/24 Esomeprazole Magnesium Trihydr (Nexium) 40 Mg Cap, 1 CAP PO DAILY, #30 CAP 5 Refills 10/06/24 Fentanyl (Fentanyl) 12 Mcg/Hr Dis, 1 PATCH TOP Q3D 10/06/24 Clonidine Hydrochloride (Clonidine Hcl) 0.1 Mg Tab, 0.1 MG PO BIDPRN PRN for PER BLOOD PRESSURE PROTOCOL, MG 02/21/23 Methocarbamol (Methocarbamol) 500 Mg Tab, 500 MG PO Q8HR for MUSCLE SPASMS, TAB 09/21/19 Information Source: Patient, Emergency Med Personnel Mode of Arrival: EMS Timing: Days Duration: Since onset Prehospital treatment: Antenna Engineer Quality: Cramping Stool: Black Severity: Moderate Recent: None Recent Hx of: None Pain Location: Diffuse, Epigastric Associated sign and symptoms: Hematemesis, Melena Past Medical History PAST MEDICAL HISTORY: CKF, High Lipids, HTN Surgical History: Pacemaker Family History Family History: Reviewed,noncontributory to illness, No family hx of Heart bear, No family hx ofKidney bear Social History Smoker: Chew Alcohol: Occasionally Drugs: Marijuana Lives In: Home Constitutional: reports: weakness; denies: chills, diaphoresis, fatigue, fever, malaise, sweats, others EENTM: denies: blurred vision, double vision, ear bleeding, ear discharge, ear drainage, ear pain, ear ringing, eye pain, eye redness, hearing loss, mouth pain, mouth swelling, nasal discharge, nose bleeding, nose congestion, nose pain, photophobia, tearing, throat pain, throat swelling, voice changes, others Respiratory: denies: cough, hemoptysis, orthopnea, SOB at rest, shortness of breath, SOB with excertion, stridor, wheezing, others Cardiovascular: denies: chest pain, dizzy spells, diaphoresis, Dyspnea on exertion, edema, irregular heart beat, left arm pain, lightheadedness, palpitations, PND, syncope, others Gastrointestinal: reports: abdominal pain, hematemesis, melena; denies: abdomen distended, blood streaked bowels, constipated, diarrhea, dysphagia, difficulty swallowing, nausea, poor appetite, poor fluid intake, rectal bleeding, rectal pain, vomiting, others Genitourinary: denies: burning, dysuria, flank pain, frequency, hematuria, incontinence, penile discharge, penile sore, pain, testicle pain, testicle swelling, urgency, others Neurological: denies: dizziness, fainting, headache, left sided numbness, left sided weakness, numbness, paresthesia, pre-existing deficit, right sided numbness, right sided weakness, seizure, speech problems, tingling, tremors, weakness, others Musculoskeletal: denies: back pain, gout, joint pain, joint swelling, muscle pain, muscle stiffness, neck pain, others Integumetry: denies: bruises, change in color, change in hair/nails, dryness, laceration, lesions, lumps, rash, wounds, others Allergic/Immunocompromised: denies: Difficulty Healing, Frequent Infections, Hives, Itching, others Hematologic/Lymphatic: denies: anemia, blood clots, easy bleeding, easy bruising, swollen glands, others Endocrine: denies: excessive hunger, excessive sweating, excessive thirst, excessive urination, flushing, intolerance to cold, intolerance to heat, unexplained weight gain, unexplained weight loss, others Psychiatric: denies: anxiety, bipolar disorder, depression, hopeless, panic di sorder, schizophrenia, sleepless, suicidal, others All Other Systems: Reviewed and Negative Physical Exam General Appearance: Moderate Distress (Patient is a [id number] distress at time of evaluation. Patient appears to be in poor overall health.), Normal HEENT: Normal ENT Inspection, Pharynx Normal, TMs Normal Neck: Full Range of Motion, Non-Tender, Normal, Normal Inspection Respiratory: Chest Non-Tender, Lungs Clear, No Accessory Muscle Use, No Respiratory Distress, Normal Breath Sounds Cardiovascular: No Edema, No JVD, No Murmur, No Gallop, Normal Peripheral Pulses, Regular Rate/Rhythm Breast Exam: Deferred Gastrointestinal: Other (Diffuse epigastric tenderness to palpation that is nonspecific. No pulsatile masses. No signs of trauma.) Genitalia: Deferred Pelvic: Deferred Rectal: Deferred Extremities: No calf tenderness, Normal capillary refill, No pedal edema Neurologic: Alert Cerebellar Function: NOT DONE Reflexes: NOT DONE Skin: Dry, Normal Color, Warm Lymphatic: No Adenopathy Was a procedure done? Was a procedure done?: No GI differential Dx Differential Diagnosis: Constipation, Gastroenteritis, GI hemorrhage, Inflammatory BD, Ischemic Bowel, Dehydration, Esophageal Varicies, Stress Ulcer Other Differential Diagnosis colitis, GI bleed, X-Ray, Labs, Meds, VS Vital Signs Date Time Temp Pulse Resp B/P (MAP) Pulse Ox O2 Delivery O2 Flow Rate FiO2 03/08/25 21:13 95 92/60 (71) 03/08/25 20:56 98.1 85 18 100/66 (77) 99 98.1 03/08/25 19:33 94 90/64 (73) 03/08/25 19:26 112 18 97 Room Air* 0 21 03/08/25 19:26 98.1 112 20 93/65 (74) 97 98.1 03/08/25 18:30 109 16 104/69 (81) 97 03/08/25 18:00 116 03/08/25 16:30 125 21 96 Room Air* 0 21 03/08/25 16:30 98.1 125 21 91/60 (70) 96 98.1 03/08/25 16:20 99.1 118 20 106/63 99 99.1 03/08/25 16:13 120 Lab Test 03/08/25 20:39 03/08/25 18:50 03/08/25 18:37 03/08/25 17:23 Range/Units Lactic Acid Level 2.2 *H 3.0 *H 0.4-2.0 mmol/L Troponin I High Sensitivity 3 L 3 L 3 L </=54 ng/L White Blood Count 13.6 H 4.4-10.8 10^3/uL Red Blood Count 2.63 L 4.5-5.90 10^6/uL Hemoglobin 8.6 L 13.5-17.5 g/dL Hematocrit 26.4 L 41.0-53.0 % Mean Corpuscular Volume 100.2 H 80.0-100.0 fL Mean Corpuscular Hemoglobin 32.6 H 28.0-32.0 pg Mean Corpuscular Hemoglobin Concent 32.5 32.0-36.0 g/dL Red Cell Distribution Width 15.9 H 11.8-14.3 % Platelet Count 315 140-450 10^3/uL Mean Platelet Volume 7.0 6.9-10.8 fL Neutrophils (%) (Auto) 78.7 37.0-80.0 % Lymphocytes (%) (Auto) 13.4 10.0-50.0 % Monocytes (%) (Auto) 7.5 0.0-12.0 % Eosinophils (%) (Auto) 0.0 0.0-7.0 % Basophils (%) (Auto) 0.4 0.0-2.0 % Neutrophils # (Auto) 10.7 H 1.6-8.6 10 ^3/uL Lymphocytes # (Auto) 1.8 0.4-5.4 10 ^3/uL Monocytes # (Auto) 1.0 0-1.3 10 ^3/uL Eosinophils # (Auto) 0 0-0.8 10 ^3/uL Basophils # (Auto) 0.1 0-0.2 10 ^3/uL Nucleated Red Blood Cells 0.0 % Prothrombin Time 13.0 H 9.3-11.8 sec Prothrombin Time INR 1.25 H 0.9-1.15 Activated Partial Thromboplast Time 27.2 24.5-34.5 SEC Sodium Level 138 136-145 mmol/L Potassium Level 4.9 3.5-5.1 mmol/L Chloride Level 106 98-107 mmol/L Carbon Dioxide Level 20 20-31 mmol/L Anion Gap 12 5-15 Blood Urea Nitrogen 37 H 9-23 mg/dL Creatinine 1.04 0.700-1.30 mg/dL Glomerular Filtration Rate Calc 76 >90 mL/min BUN/Creatinine Ratio 35.6 H 10.0-20.0 Serum Glucose 106 74-106 mg/dL Calcium Level 8.5 L 8.7-10.4 mg/dL B-Type Natriuretic Peptide 34.23 0-100 pg/mL Test 03/08/25 16:49 Range/Units POC Glucose 114 H 70-106 mg/dl Current Medications Medications (Trade) Dose Ordered Sig/Sherie Route Start Time Stop Time Status Last Admin Sodium Chloride 1,000 ml @ 200 mls/hr Q5H ONCE IV 03/08/25 18:15 03/08/25 23:14 03/08/25 18:[address] [address] Ph: [phone] DIAGNOSTIC IMAGING Diagnostic Imaging Report : [id number] Signed PATIENT: POWER GUERRERO ACCT: [id number] UNIT: [id number] : 1950 LOC: ER ROOM / BED: / AGE / SEX: 74 / M ADM STATUS: REG ER SERVICE 164 ORDERING PHYSICIAN: YAMILE MAZARIEGOS PAC PROCEDURE(s): CAPIV - CT CHEST/AB/PL W CON- IV ONLY REASON: Rectal bleed and hemoptysis ORDER NUMBER(s): [id number], ACCESSION NUMBER(s): [id number] Exam: CT CT CHEST/AB/PL W CON- IV ONLY History: Rectal bleed and hemoptysis COMPARISON: CT CHEST WITH CONTRAST on DOS: 01/04/25, XY CHEST TWO VIEWS ROUTINE on DOS: 01/04/25, XY CHEST PORTABLE on DOS: 11/06/24, XY CHEST PORTABLE on DOS: 11/03/24, XY CHEST PORTABLE on DOS: 10/06/23 Technique: Multidetector spiral CT of the abdomen and pelvis was performed from lung bases to pubic symphysis. Intravenous contrast was administered during this examination. Portal venous imaging was obtained. Axial, coronal and sagittal multiplanar reformats were performed by the technologist on a separate workstation. Radiation Dose : 1. Abdomen/Pelvis: CTDIvol 14.4 mGy, DLP 1007 mGy*cm. CONTRAST: Type of contrast: Omnipaque 300 Contrast injected: 100 ml Findings: Lung Bases: No acute or significant lung base finding. Normal heart size. No pleural or pericardial effusion. Liver: The liver is normal in size. No focal lesions. Normal hepatic vascular enhancement. Gallbladder and Biliary Tree: Unremarkable Spleen: Unremarkable Pancreas: The pancreas is normal in appearance without focal lesions or abnormal enhancement. Adrenal Glands: Unremarkable Kidneys: Atrophic bilateral kidneys. No hydronephrosis. Bladder: Unremarkable Bowel: The stomach is grossly normal in appearance. Concentric wall thickening throughout the colon is suggestive of infectious / inflammatory colitis. The appendix is not visualized; however, no secondary findings of acute appendicitis identified. Ascites: Absent Lymphadenopathy: No mesenteric, retroperitoneal or periportal lymphadenopathy. Abdominal Wall and Mesentery: Unremarkable. Vasculature: The visualized abdominal aorta is normal in size and caliber. Abdominal and pelvic vessels demonstrate normal enhancement. Pelvic Organs: Unremarkable Musculoskeletal: No aggressive focal bony lesions, acute fractures or dislocation. Chronic compression deformity of the T12 vertebral body. Chronic healed fracture deformity of the sternum. IMPRESSION: 1. Concentric wall thickening throughout the colon is suggestive of infectious / inflammatory colitis. Radiation optimization: All CT scans at this facility use at least one of these dose optimization techniques: automated exposure control mA and/or kV adjustment per patient size (includes targeted exams where dose is matched to clinical indication) or iterative reconstruction. ATED BY: CLARICE QUINTEROS MD DICTATED DATE/TIME: 03/08/251903 SIGNED BY: CLARICE QUINTEROS MD SIGNED DATE/TIME: 03/08/251903 CC: X-Ray, Labs, Meds, VS Comment All studies performed in the ED were evaluated by me personally. Patient's serum laboratories revealed a concerning anemia as well as an elevated lactic acid and leukocytosis. CT with contrast of the chest, abdomen and pelvis revealed what appears to be inflammatory colitis. EKG revealed a sinus tachycardia with a rate of 120. Abnormal R-wave progression and early transition was noted. Borderline T-wave abnormalities in lateral leads as well as prolonged QT interval and baseline wander in lead V4 was noted. RI interval of 151 and QT interval of 368. Patient will be admitted for management of his GI bleed concerns as well as possible cardiac evaluation. Time of 1ST Reevaluation: 21:24 Reevaluation 1ST: Improved Consultation: PCP, Cardiology, GI Patient Education/Counseling: Diagnosis, Treatment Family Education/Counseling: Diagnosis, Treatment, No Family Present SEPSIS Sepsis Screen Date sepsis recognized/suspect: Mar 08, 2025 Time Sepsis recognized/suspect: 1930 Recent Procedure: No On Antibiotic Therapy: No Respiratory Rate >20: No Heart Rate >90: Yes Temp<36 C (96.8 F) or >38.3 C: No SBP <90 or MAP <65 mmHG: Yes New Acute Mental Status Change: No Is the patient on CPAP, BIPAP,: No Physician Orders Urinalysis (03/08/25 16:41) Heplock Iv (03/08/25 ) Ct Chest/Ab/Pl W Con- Iv Only (03/08/25 16:41) Sodium Chloride 0.9% (03/08/25 18:15) Blood Culture (03/08/25 18:30) Vital Signs Date Time Temp Pulse Resp B/P (MAP) Pulse Ox O2 Delivery O2 Flow Rate FiO2 03/08/25 21:13 95 92/60 (71) 03/08/25 20:56 98.1 85 18 100/66 (77) 99 98.1 03/08/25 19:33 94 90/64 (73) 03/08/25 19:26 112 18 97 Room Air* 0 21 03/08/25 19:26 98.1 112 20 93/65 (74) 97 98.1 03/08/25 18:30 109 16 104/69 (81) 97 03/08/25 18:00 116 03/08/25 16:30 125 21 96 Room Air* 0 21 03/08/25 16:30 98.1 125 21 91/60 (70) 96 98.1 03/08/25 16:20 99.1 118 20 106/63 99 99.1 03/08/25 16:13 120 Laboratory Tests Test 03/08/25 17:23 03/08/25 18:50 03/08/25 20:39 White Blood Count 13.6 10^3/uL (4.4-10.8) H Lactic Acid Level 3.0 mmol/L (0.4-2.0) *H 2.2 mmol/L (0.4-2.0) *H Medications Medications Dose Ordered Sig/Sherie Route Start Time Stop Time Status Last Admin Dose Admin Sodium Chloride 1,000 ml @ 200 mls/hr Q5H ONCE IV 03/08/25 18:15 03/08/25 23:14 03/08/25 18:15 Departure 1 Departure Time of Disposition: 21:25 Impression: Primary Impression: Colitis Additional Impressions: Anemia Leukocytosis Elevated lactic acid level Disposition: ADMITTED INPATIENT Condition: Fair Discharged With: Self Critical Care Note Critical Care Time?: No Stability Stability form required: No Heart Score Heart Score: Heart Score Response (Comments) Value History N/A 0 EKG N/A 0 Age N/A 0 Risk Factors N/A 0 Troponin N/A 0 Total 0 I personally scribed for YAMILE MAZARIEGOS PAC ([email or web address]) on 03/08/25 at 20:04. Electronically submitted by Tamara Powell (DA). YAMILE MAZARIEGOS PAC Mar 08, 2025 20:04
--- NOTE | 2025-03-08 22:04 | DVHHPRES ---
History of Present Illness Resident Creating Document: JOSE RIVERA RESIDENT History of Present Illness This is a 74-year-old male with past medical history of sick sinus syndrome with leadless pacemaker who previously had a permanent pacemaker which got infected and completed removal on 01/2025, hypertension, hyperlipidemia, gastritis with gastric ulcer, rheumatoid arthritis presented to the ER with chief complain of diarrhea with black stools since last 2 days. Patient reported having diarrhea for the last 2 days, stools are described as watery, black colored, no blood seen. Patient also reported vomiting that is been red and black. Patient states he has a history of gastric ulcer in the past but has not seen a specialist for it yet. He was hospitalized 1 month back at [place] for infected pacemaker pocket. Previous hospitalization: In January 2025 for Infected pacemaker pocket with removal of permanent pacemaker and placement of leadless pacemaker (micra) PMHx: Sick sinus syndrome with leadless pacemaker, permanent pacemaker removed on 01/2025, hypertension, hyperlipidemia, gastritis with gastric ulcer. Patient is on wound VAC of pacemaker pocket site PSHx: Pacemaker placement (initially permanent pacemaker and posterior leadless pacemaker) Social history: Uses occasional marijuana. Denies smoking, alcohol Home medication: Fentanyl patch, zolpidem, magnesium oxide, hydroxychloroquine, methocarbamol, meloxicam, omeprazole, oxycodone, clonidine Allergic history: No known allergies Patient was examined at bedside today. Vitals show tachycardia, tachypnea on arrival, patient is admitted for further evaluation and management. Review of Systems Review of Systems ROS: Constitutional: Chills HEENT: Denies changes in vision and hearing. Respiratory: Denies shortness of breath and cough Cardiovascular: Denies chest discomfort or palpitations GI: Diarrhea with black watery stools and vomiting : Denies dysuria and urinary frequency. Musculoskeletal: Denies myalgias and joint pain Skin: Denies rash and pruritus. Neurological: Denies dizziness, headache, vision or hearing problems Allergies: Coded Allergies: NO KNOWN ALLERGIES (Unverified , 09/21/19) Exam Vital Signs Vital Signs Date Time Temp Pulse Resp B/P (MAP) Pulse Ox O2 Delivery O2 Flow Rate FiO2 03/08/25 21:13 95 92/60 (71) 03/08/25 20:56 98.1 18 99 98.1 03/08/25 19:26 Room Air* 0 21 Exam General: Patient appears weak and cachectic, pale. Patient alert and oriented in person, place and time. Patient following commands. HEENT: Normocephalic, atraumatic, moist mucous membranes, pale conjunctivae Respiratory/pulmonary: Clear lungs bilaterally, vesicular murmurs present in nabil ost all lung sosa, no associated crackles or wheezes. Presents wound VAC on left hemithorax in pacemaker pocket site. Cardiovascular: Normal heart sounds S1 and S2 with no associated murmurs Abdomen: Abdomen nondistended, there is no pain to palpation in any of the abdominal quadrants, no palpable masses. Extremities: Bilateral braswell wounds, healing with scabbing Peripheral Pulses: 3+ Radial (R). 3+ Radial (L). 3+ Dorsalis pedis (R). 3+ Dorsalis pedis(L) Skin: No rashes or pruritus, there is no sacral edema present at this time. Neurological: Intact cranial nerves with no focal neurologic deficits Labs/Xrays Labs Test 03/08/25 21:49 03/08/25 20:39 03/08/25 17:23 03/08/25 16:49 Range/Units Lactic Acid Level 2.2 *H 0.4-2.0 mmol/L Troponin I High Sensitivity 3 L </=54 ng/L White Blood Count 13.6 H 4.4-10.8 10^3/uL Red Blood Count 2.63 L 4.5-5.90 10^6/uL Hemoglobin 8.6 L 13.5-17.5 g/dL Hematocrit 26.4 L 41.0-53.0 % Mean Corpuscular Volume 100.2 H 80.0-100.0 fL Mean Corpuscular Hemoglobin 32.6 H 28.0-32.0 pg Mean Corpuscular Hemoglobin Concent 32.5 32.0-36.0 g/dL Red Cell Distribution Width 15.9 H 11.8-14.3 % Platelet Count 315 140-450 10^3/uL Mean Platelet Volume 7.0 6.9-10.8 fL Neutrophils (%) (Auto) 78.7 37.0-80.0 % Lymphocytes (%) (Auto) 13.4 10.0-50.0 % Monocytes (%) (Auto) 7.5 0.0-12.0 % Eosinophils (%) (Auto) 0.0 0.0-7.0 % Basophils (%) (Auto) 0.4 0.0-2.0 % Neutrophils # (Auto) 10.7 H 1.6-8.6 10 ^3/uL Lymphocytes # (Auto) 1.8 0.4-5.4 10 ^3/uL Monocytes # (Auto) 1.0 0-1.3 10 ^3/uL Eosinophils # (Auto) 0 0-0.8 10 ^3/uL Basophils # (Auto) 0.1 0-0.2 10 ^3/uL Nucleated Red Blood Cells 0.0 % Prothrombin Time 13.0 H 9.3-11.8 sec Prothrombin Time INR 1.25 H 0.9-1.15 Activated Partial Thromboplast Time 27.2 24.5-34.5 SEC Sodium Level 138 136-145 mmol/L Potassium Level 4.9 3.5-5.1 mmol/L Chloride Level 106 98-107 mmol/L Carbon Dioxide Level 20 20-31 mmol/L Anion Gap 12 5-15 Blood Urea Nitrogen 37 H 9-23 mg/dL Creatinine 1.04 0.700-1.30 mg/dL Glomerular Filtration Rate Calc 76 >90 mL/min BUN/Creatinine Ratio 35.6 H 10.0-20.0 Serum Glucose 106 74-106 mg/dL Calcium Level 8.5 L 8.7-10.4 mg/dL B-Type Natriuretic Peptide 34.23 0-100 pg/mL POC Glucose 114 H 70-106 mg/dl SEPSIS Sepsis Screen Date sepsis recognized/suspect: Mar 08, 2025 Time Sepsis recognized/suspect: 1930 Recent Procedure: No On Antibiotic Therapy: No Respiratory Rate >20: No Heart Rate >90: Yes Temp<36 C (96.8 F) or >38.3 C: No SBP <90 or MAP <65 mmHG: Yes New Acute Mental Status Change: No Is the patient on CPAP, BIPAP,: No Physician Orders Urinalysis (03/08/25 16:41) Heplock Iv (03/08/25 ) Ct Chest/Ab/Pl W Con- Iv Only (03/08/25 16:41) Sodium Chloride 0.9% (03/08/25 18:15) Blood Culture (03/08/25 18:30) Metronidazole 500mg/100ml (Flagyl 500mg/ (03/08/25 21:30) Vital Signs Date Time Temp Pulse Resp B/P (MAP) Pulse Ox O2 Delivery O2 Flow Rate FiO2 03/08/25 21:13 95 92/60 (71) 03/08/25 20:56 98.1 85 18 100/66 (77) 99 98.1 03/08/25 19:33 94 90/64 (73) 03/08/25 19:26 112 18 97 Room Air* 0 21 03/08/25 19:26 98.1 112 20 93/65 (74) 97 98.1 03/08/25 18:30 109 16 104/69 (81) 97 03/08/25 18:00 116 03/08/25 16:30 125 21 96 Room Air* 0 21 03/08/25 16:30 98.1 125 21 91/60 (70) 96 98.1 03/08/25 16:20 99.1 118 20 106/63 99 99.1 03/08/25 16:13 120 Laboratory Tests Test 03/08/25 17:23 03/08/25 18:50 03/08/25 20:39 White Blood Count 13.6 10^3/uL (4.4-10.8) H Lactic Acid Level 3.0 mmol/L (0.4-2.0) *H 2.2 mmol/L (0.4-2.0) *H Medications Medications Dose Ordered Sig/Sherie Route Start Time Stop Time Status Last Admin Dose Admin Metronidazole 100 ml @ 100 mls/hr ONCE ONCE IV 03/08/25 21:30 03/08/25 22:29 03/08/25 21:29 100 MLS/HR Sodium Chloride 1,000 ml @ 200 mls/hr Q5H ONCE IV 03/08/25 18:15 03/08/25 23:14 03/08/25 18:15 200 MLS/HR Assessment/Plan Assessment/Plan Mixed shock (hypovolemic and septic) Severe Sepsis likely due to infectious colitis Lactic acidosis, leukocytosis Blood culture, stool culture, SOB, C diff ordered IV ceftriaxone, metronidazole IV fluid bolus and maintenance with normal saline If patient does not respond to IV boluses and PRBCs, we will initiate norepinephrine. Patient admitted to [facility] Active upper GI bleed History of Gastritis with gastric ulcer Severe anemia due to acute blood loss Hemoglobin went down from 8.6 to 6.4; monitor H&H, BMP To Packed RBC ordered GI consulted On Protonix and octreotide drip NPO for bowel rest Inserted central line for volume resuscitation Hypocalcemia Sick sinus syndrome with leadless pacemaker History of infected pacemaker pocket Continue monitoring on telemetry Currently patient has VAC in surgical site. Monitor Patient was on IV antibiotics for six weeks, until two weeks before his admission. Chronic back pain on pain management Rheumatoid arthritis IV morphine, Dilaudid, lidocaine patch; Switch to [place], methocarbamol when the patient can tolerate oral Discontinue hydroxychloroquine DIET: NPO DVT PROPHYLAXIS: Sequential compression device GI PROPHYLAXIS: Protonix drip CODE STATUS: Goals of care discussed with patient at bedside for more than 36 minutes. Full code, next of kin sister DISPOSITION: [facility] Patient's status and plan discussed with the patient. Case discussed with Dr. Johnson Critical care time spent including discussion with nursing and family, excluding procedure: 78 minutes Plan discussed with: Patient, Other (Nurses) Date of Service: Mar 08, 2025 Billing Provider: SARAH BENITES MD Common Visit Codes: [id number] INP/OBS CARE (HIGH) Secondary Visit Codes: [id number] CARE PLAN 30 MINUTES JOSE RIVERA RESIDENT Mar 08, 2025 22:04 STORMY HUSAIN RESIDENT Mar 09, 2025 01:04
[2025-03-08 22:17] LABS: Urine Protein, UAD Negative (Negative)
[2025-03-08] MEDS ORDERED: HYDROcodone-ACET 5/325MG TAB PO PRN (22:30)
[2025-03-08] MEDS ORDERED: ONDANSETRON HCL 4 MG/2 ML VIAL IV PRN (22:30)
[2025-03-08] MEDS ORDERED: MORPHINE SULFATE INJ 2 MG/ml SYRG IV PRN (22:30)
[2025-03-08] MEDS ORDERED: METHOCARBAMOL 500 MG TAB PO PRN (22:45)
[2025-03-08 22:48] LABS: Opiate Scree,Urine Neg (NEGATIVE)
[2025-03-08 22:49] LABS: Alkaline Phosphatase 66 U/L (46-116); Bilirubin, Direct 0.1 mg/dL (<0.3); Cholesterol 87 mg/dL (< 200); Magnesium 1.7 mg/dL (1.6-2.6); Triglycerides 96 mg/dL (< 150)
[2025-03-08 22:50] LABS: Bilirubin, Total 0.3 mg/dL (0.2-1.0)
[2025-03-08] MEDS: SODIUM CHLORIDE 0.9% 500 ML IV ONE (22:57)
[2025-03-08 23:01] LABS: Amphetamine Screen, Urine Neg (NEGATIVE); Barbiturate Scree,Urine Neg (NEGATIVE); Benzodiazephine Screen, Urine Neg (NEGATIVE); Cannabinoid Screen, Urine Pos (NEGATIVE); Cocaine Screen, Urine Neg (NEGATIVE); Phencyclidine Screen, Urine Neg (NEGATIVE)
[2025-03-08 23:02] LABS: Alanine Aminotransferase < 9 U/L (7-40); Albumin 2.5 g/dL (3.2-4.8); HDL Cholesterol 24 mg/dL (40-59); Total Protein 4.9 g/dL (5.7-8.2)
[2025-03-08] MEDS: PANTOPRAZOLE 40 MG/10 ML VIAL INJ IV ONE (23:07)
[2025-03-08] MEDS ORDERED: HYDROmorphone HCL 2 MG/ML VL/or syr IV PRN (23:15)
[2025-03-08] MEDS: LIDOCAINE 5% TOPICAL PATCH TOP ONE (23:23)
[2025-03-08 23:24] LABS: Hematocrit 19.2 % (41.0-53.0)
[2025-03-08 23:25] LABS: Hemoglobin 6.4 g/dL (13.5-17.5)
[2025-03-08 23:59] LABS: Lipase 19 U/L (12-53)
[2025-03-09] VITALS (34 sets, daily range): BP systolic 80–116; BP diastolic 34–78; PULSE 82–117; RESP 13–28; TEMP 98.1–98.8; O2SAT 92–100
[2025-03-09] MEDS: HYDROmorphone HCL 2 MG/ML VL/or syr IV ONE
[2025-03-09] MEDS: SODIUM CHLORIDE 0.9% 1,000 ML IV ONE (00:26)
--- NOTE | 2025-03-09 00:33 | DVHNC2 ---
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: Other (Resident) Indication: Hypotension, Volume resuscitation Room prepared for procedure: Yes Dry Cleaning Checker performed hand hygien: Yes Maximal sterile barrier precau: Mask/Eye shield, Sterile gown, Cap, Sterlie gloves, Large sterlie drape Skin Preparation: Chlorhexidine gluconate Skin preparation completely dr: Yes Insertion site: Right, Internal jugular Central line catheter type: Baf-kakyhuvi-ene dialysis Number of lumens: 3 Central line exchanged over a: No Antiseptic ointment applied to: Yes Post Assessment: Chest X-Ray, Proper placement Informed consent obtained: Yes Risks/benefits/alt described: Yes Notes Central line placement was performed under ultrasound guidance, procedure supervised by Dr. Leon Date of Service: Mar 09, 2025 Billing Provider: NAYLA LEON MD Common Visit Codes: PROCEDURE ONLY Procedure Codes: [id number] NON-TUNNEL CV CATH JOSE RIVERA RESIDENT Mar 09, 2025 00:33 STORMY HUSAIN RESIDENT Mar 09, 2025 00:55
[2025-03-09 00:40] LABS: Ferritin 40.7 ng/mL (22-322)
[2025-03-09 00:57] LABS: Iron 40.0 ug/dL (65-175)
--- NOTE | 2025-03-09 01:00 | DVH ---
CHEST RADIOGRAPH Indication: central line placement verification Technique: 1 view Comparison: XY CHEST PORTABLE on DOS: 11/06/24, XY CHEST PORTABLE on DOS: 11/03/24, XY CHEST PORTABLE on DOS: 10/06/23, EKG on DOS: 04/06/22, EKG on DOS: 04/05/22 FINDINGS: Lines and Tubes: Intervally removed cardiac leads. Right IJ catheter terminates over the mid SVC. Lungs/Pleura: The left hemidiaphragm is not visualized, with evidence of infrahilar and midlung atele ctasis. No other significant pulmonary opacity. No large pleural effusion or pneumothorax. Cardiomediastinum: Obscured. No obvious cardiomegaly. Other: No acute osseous abnormality. IMPRESSION: 1. Adequately positioned right IJ catheter. 2. Left basilar atelectasis without evidence of infectious consolidation or pleural effusion.
[2025-03-09 01:09] LABS: Total Iron Binding Capacity 196.0 ug/dL (250-425)
[2025-03-09] MEDS: PANTOPRAZOLE 80 MG in SODIUM CHL 0.9% 100 ML IV ONE (01:15)
[2025-03-09] MEDS: SODIUM CHLORIDE 0.9% 1,000 ML IV SCH (01:51)
[2025-03-09] MEDS: PANTOPRAZOLE 40mg/50ML NS AE 50 ML IV SCH (01:52)
[2025-03-09] MEDS: PANTOPRAZOLE 40 MG/10 ML VIAL INJ IV ONE (02:09)
[2025-03-09] MEDS: OCTREOTIDE ACETATE 100 MCG/ML VL ONE (02:09)
[2025-03-09] MEDS: OCTREOTIDE ACETATE 100 MCG in SODIUM CHL 0.9% 50 ML IV ONE (02:10)
[2025-03-09] MEDS: OCTREOTIDE ACETATE 500 MCG in SODIUM CHL 0.9% 99 ML IV SCH (02:43)
[2025-03-09] MEDS ORDERED: SUCRALFATE 1 GM/10 ML ORAL SUSP GT SCH (06:00)
[2025-03-09] MEDS ORDERED: MORPHINE SULFATE 4 MG/ML SYR/VIAL IV PRN (08:30)
[2025-03-09 09:09] LABS: Nucleated Red Blood Cells % 0.1 %
[2025-03-09 09:12] LABS: Hematocrit 23.9 % (41.0-53.0); Hemoglobin 8.1 g/dL (13.5-17.5); Mean Corpuscular Hemoglobin 31.7 pg (28.0-32.0); Mean Corpuscular Volume 93.5 fL (80.0-100.0)
[2025-03-09 09:32] LABS: Alkaline Phosphatase 61 U/L (46-116); Anion Gap 12 (5-15); BUN/Creatinine Ratio 47.0 (10.0-20.0); Bilirubin, Total 1.1 mg/dL (0.2-1.0); Potassium 4.5 mmol/L (3.5-5.1); Sodium 142 mmol/L (136-145)
[2025-03-09 09:34] LABS: Alanine Aminotransferase < 9 U/L (7-40); Albumin 2.4 g/dL (3.2-4.8); Blood Urea Nitrogen 39 mg/dL (9-23); Calcium 7.2 mg/dL (8.7-10.4); Carbon Dioxide 17 mmol/L (20-31); Chloride 113 mmol/L (98-107); Glucose 121 mg/dL (74-106); Total Protein 4.7 g/dL (5.7-8.2)
[2025-03-09] MEDS ORDERED: PANTOPRAZOLE 40 MG/10 ML VIAL INJ IV SCH (10:00)
[2025-03-09 12:43] LABS: Hemoglobin 7.9 g/dL (13.5-17.5)
[2025-03-09 12:45] LABS: Hematocrit 23.7 % (41.0-53.0)
[2025-03-09] MEDS: FENTANYL 12 MCG/HR TOP SCH (16:00)
--- NOTE | 2025-03-09 17:54 | DVHPNRES ---
Progress Note Date Seen: Mar 09, 2025 Resident Creating Document: NEDA VEGAS RESIDENT Has the PT tested + for MRSA If YES, has PT been informed?: No Medical Necessity Reason Pt with a Central, PICC or Fol: No Subjective Review of Systems The patient is a 74-year-old male with a history of sick sinus syndrome (s/p permanent pacemaker infection ? leadless Micra placement), hypertension, hyperlipidemia, rheumatoid arthritis, gastritis with prior gastric ulcer, and a recent hospitalization in January 2025 for pacemaker pocket infection managed with wound-vac therapy and IV antibiotics for 6 weeks. He presented to the ED with 2 days of black watery diarrhea (melena), intermittent vomiting of dark red-black material, and diffuse abdominal cramping. No hematemesis or bright red bleeding noted today. Today, he reports less frequent bowel movements (one large dark stool overnight) and mild abdominal bloating. He denies dizziness, chest pain, or shortness of breath.?Oxygen saturation is 90% on room air, and he remains hemodynamically stable. He received 2 units PRBC for hemoglobin 6.4 g/dL, now improved to 8.17.9 g/dL post-transfusion.?Ongoing IV PPI and octreotide drips are continued. Stool occult blood remains positive, and CT abdomen/pelvis shows concentric colonic wall thickening consistent with infectious/inflammatory colitis. Patient remains NPO, on IV Ceftriaxone and Metronidazole for suspected infectious colitis and sepsis coverage.Wound-vac remains over the left chest wall; no new drainage or erythema. Review of Systems * Constitutional: Fatigue, weakness. No fever or chills. * GI: Ongoing melena, prior vomiting resolved, mild cramping, no hematemesis today. * CV: No chest pain, orthopnea, or palpitations. * Resp: Mild dyspnea on exertion, no cough. * : Normal urine output. * Skin: Left chest wound-vac site clean and intact. * Neuro: Alert and oriented 3, no focal deficits. Objective vital signs Vital Sign Date Time Temp Pulse Resp B/P (MAP) Pulse Ox O2 Delivery O2 Flow Rate FiO2 03/09/25 16:00 83 03/09/25 16:00 21 108/64 (79) 94 03/09/25 12:00 98.4 98.4 03/09/25 08:00 Nasal Cannula* 2 28 Total Intake and Output 03/08/25 03/08/25 03/09/25 15:00 23:00 07:00 Intake Total 1984 ml Output Total 250 ml Balance 1734 ml medications Current Medications Medications Dose Ordered Sig/Sherie Route Start Time Stop Time Status Last Admin Dose Admin Ceftriaxone Sodium 50 ml @ 100 mls/hr DAILY@2100 IV 03/09/25 21:00 Metronidazole 100 ml @ 100 mls/hr Q8HR IV 03/09/25 06:00 03/09/25 14:27 100 MLS/HR Sodium Chloride 1,000 ml @ 125 mls/hr Q8H IV 03/08/25 22:30 03/09/25 09:58 125 MLS/HR Lidocaine 1 patch DAILY@2100 TOP 03/09/25 21:00 Octreotide Acetate 500 mcg/ Sodium Chloride 100 ml @ 10 mls/hr Q10H IV 03/09/25 01:15 03/09/25 02:43 10 MLS/HR Pantoprazole Sodium 50 ml @ 10 mls/hr Q5H IV 03/09/25 01:15 03/09/25 14:55 10 MLS/HR Morphine Sulfate 2 mg Q4HPRN PRN IV 03/09/25 08:30 Patient Own Medication 1 patch Q3D TOP 03/09/25 16:00 Examination General Pale, alert, not in acute distress Vitals BP 111/77 mmHg, HR 86 bpm, RR 20, Temp afebrile, SpO? 90 % RA HEENT Pale conjunctiva, anicteric sclera Neck Supple, no JVD Cardiac Regular rhythm, no murmur; pacemaker site clean under wound-vac Lungs Clear to auscultation bilaterally Abdomen Mild distension, LLQ > RLQ tenderness, bowel sounds present Skin/Wound Left chest wound-vac intact, no purulence/erythema Extremities No edema, warm Neuro AO3, no focal deficits laboratory and microbiology Laboratory Tests 03/09/25 12:25 03/09/25 08:55 Test 03/09/25 08:55 Range/Units Serum Glucose 121 H 74-106 mg/dL Microbiology Date/Time Source Procedure Growth Status 03/09/25 01:00 Nose MRSA Screen - Final Complete Problem List/Assessment/Plan Problem List/Assessment/Plan Assessment Severe sepsis with septic shock * Etiology: Infectious colitis + GI blood loss * Supporting: Elevated WBC, CRP, lactic acid, hypotensive episodes corrected with IVF/PRBCs. 1. Severe Sepsis likely due to Infectious/Inflammatory Colitis * CT evidence of diffuse colonic wall thickening, lactic acidosis, leukocytosis. * Continue antibiotics (Ceftriaxone + Metronidazole). 2. Gastrointestinal hemorrhage, unspecified site./Active Upper GI Bleed with Melena (Rule Out Peptic Ulcer Re-bleed) * Evidence: Melena, Hgb drop 8.6 ? 6.4 g/dL, stool occult positive, BUN?, gastritis history. * Rule out: Peptic ulcer vs erosive gastritis vs MalloryWeiss tear vs colitis-related bleed. 3. Severe Anemia due to Acute Blood Loss on Chronic Disease * Post-transfusion Hgb > 7 g/dL goal. Sick Sinus Syndrome s/p Leadless Micra Pacemaker * Stable rhythm, no arrhythmia. Continue telemetry. 1. History of Infected Pacemaker Pocket on Wound-Vac * Continue wound-vac therapy, monitor for recurrence of infection. * Wound care following. 2. Rheumatoid Arthritis / Chronic Pain Syndrome * Resume methocarbamol, discontinue hydroxychloroquine (risk of GI upset). * Pain control with lidocaine patch, IV morphine PRN. 3. Electrolyte / Metabolic Abnormalities * Hypocalcemia (Ca 7.2 ?), mild metabolic acidosis, elevated ammonia. * Replete calcium IV if symptomatic, monitor ammonia; lactulose PRN for >60 mol/L. 4. Prolonged QT Interval Monitor on telemetry, maintain K > 4, Mg > 2; avoid QT-prolonging drugs. 5. Hypertension / Hyperlipidemia (Chronic) * Hold antihypertensives for now given GI bleed risk; resume when stable. Plan (System-Jeff) Gastrointestinal * Continue IV Protonix 40 mg q5h and Octreotide infusion 50 mcg/hr. * NPO for bowel rest, advance to clear liquids once stable. * GI consult for possible EGD after stabilization. * Monitor stool output and color every shift. * Serial H&H q6h, transfuse to maintain Hgb > 7 g/dL. * Avoid NSAIDs / anticoagulants. Infectious Disease / Sepsis * Continue Ceftriaxone + Metronidazole IV. * Follow up on stool cultures, blood cultures, and C. diff testing. * Lactic acid q12h, monitor for sepsis resolution. Cardiovascular * Telemetry monitoring for arrhythmia/QT prolongation. * Hold beta-blockers / clonidine while hypotension risk persists. * Maintain MAP > 65 mmHg with IVF, PRN norepinephrine if hypotension recurs. Hematology * Transfuse PRBC as needed (Hgb < 7 g/dL or symptomatic). * Start IV iron (Venofer) after stabilization. * Recheck CBC q6h ? q12h once stable. Renal / Metabolic * NS @ 125 mL/hr for gentle hydration. * Monitor I&O (goal net even). * Monitor BUN/Cr, electrolytes q12h. Neurology / Hepatic * Monitor ammonia, initiate lactulose 20 g PO/NG BID PRN if > 60 mol/L or AMS. Pulmonary * Maintain SpO? > 92%, O? 2 L NC PRN. * Encourage incentive spirometry q2h. Pain / Musculoskeletal * IV morphine 2 mg q4h PRN severe pain. * Lidocaine patch daily. * Plan to transition to oral [place] once tolerating diet. Prophylaxis * DVT: Sequential Compression Devices (SCDs) only hold pharmacologic DVT prophylaxis. * GI: Protonix drip. * Falls: Standard fall precautions. Case discussed in detail with the attending physician, including the clinical presentation, diagnostic workup, and comprehensive management plan. The patient was present for the discussion and demonstrated understanding of his condition and the proposed plan. Critical Care Time: >45 minutes spent in direct evaluation, review of imaging/labs, resuscitation management, and coordination with nursing, wound care, Plan discussed with: Patient My Orders My Orders Orders - NEDA VEGAS RESIDENT Procedure Category Date Status Time Hemoglobin & LAB 03/09/25 Logged Hematocrit 18:00 Hemoglobin & LAB 03/10/25 Verified Hematocrit 00:00 Hemoglobin & LAB 03/10/25 Verified Hematocrit 06:00 Hemoglobin & LAB 03/10/25 Verified Hematocrit 12:00 Hemoglobin & LAB 03/10/25 Verified Hematocrit 18:00 Hemoglobin & LAB 03/11/25 Verified Hematocrit 00:00 Complete Blood Count LAB 03/10/25 Verified 04:00 Comprehensive LAB 03/10/25 Verified Metabolic Panel 04:00 Date of Service: Mar 09, 2025 Billing Provider: JUAN OKEEFE DO Common Visit Codes: [id number] INP/OBS CARE(HIGH) NEDA VEGAS RESIDENT Mar 09, 2025 17:54 JUAN OKEEFE DO Mar 12, 2025 00:05
[2025-03-09 18:20] LABS: Hematocrit 22.6 % (41.0-53.0); Hemoglobin 7.7 g/dL (13.5-17.5)
[2025-03-09] MEDS: LIDOCAINE 5% TOPICAL PATCH TOP SCH (22:02)
[2025-03-10] VITALS (26 sets, daily range): BP systolic 94–138; BP diastolic 61–89; PULSE 76–101; RESP 12–26; TEMP 98–98.7; O2SAT 87–99
[2025-03-10 00:46] LABS: Hematocrit 21.5 % (41.0-53.0); Hemoglobin 7.1 g/dL (13.5-17.5)
[2025-03-10 06:01] LABS: Hematocrit 20.4 % (41.0-53.0); Mean Corpuscular Hemoglobin 32.7 pg (28.0-32.0); Mean Corpuscular Volume 95.3 fL (80.0-100.0); Nucleated Red Blood Cells % 0.0 %
[2025-03-10 06:03] LABS: Hemoglobin 7.0 g/dL (13.5-17.5)
[2025-03-10 06:15] LABS: Alkaline Phosphatase 57 U/L (46-116); Anion Gap 12 (5-15); BUN/Creatinine Ratio 35.1 (10.0-20.0); Glucose 91 mg/dL (74-106); Potassium 3.9 mmol/L (3.5-5.1); Sodium 143 mmol/L (136-145)
[2025-03-10 06:16] LABS: Alanine Aminotransferase < 9 U/L (7-40); Albumin 2.3 g/dL (3.2-4.8); Bilirubin, Total 0.4 mg/dL (0.2-1.0); Blood Urea Nitrogen 27 mg/dL (9-23); Calcium 7.2 mg/dL (8.7-10.4); Carbon Dioxide 17 mmol/L (20-31); Chloride 114 mmol/L (98-107); Total Protein 4.6 g/dL (5.7-8.2)
[2025-03-10 12:24] LABS: Hematocrit 25.5 % (41.0-53.0); Hemoglobin 8.5 g/dL (13.5-17.5)
[2025-03-10] MEDS ORDERED: LORATADINE 10 MG TAB PO PRN (18:00)
[2025-03-10] MEDS ORDERED: LORATADINE 10 MG TAB PO SCH (18:00)
[2025-03-10 18:06] LABS: Hematocrit 25.0 % (41.0-53.0); Hemoglobin 8.4 g/dL (13.5-17.5)
--- NOTE | 2025-03-10 20:34 | DVHINCON2 ---
Date of service: Mar 10, 2025 Reason for Consultation Melena History of Present Illness Per HPI - "74-year-old male with past medical history of sick sinus syndrome with leadless pacemaker who previously had a permanent pacemaker which got infected and completed removal on 01/2025, hypertension, hyperlipidemia, gastritis with gastric ulcer, rheumatoid arthritis presented to the ER with chief complain of diarrhea with black stools since last 2 days. Patient reported having diarrhea for the last 2 days, stools are described as watery, black colored, no blood seen. Patient also reported vomiting that is been red and black. Patient states he has a history of gastric ulcer in the past but has not seen a specialist for it yet. He was hospitalized 1 month back at [facility] for infected pacemaker pocket. " He reports having melena and hematemesis prior to admission. Per RN, has melena today. Denies any blood thinner intake. Denies abd pain. Has Fentanyl patch for chronic back pain. He had EGD and colo 6-8 months ago. Per pt, colo was normal and EGD showed gastric ulcer Past Medical History Reviewed Past Surgical History Reviewed Family History: FH: kidney failure Family history: Cardiovascular disease MOTHER Renal disease G8 MOTHER, MOTHER Secondary malignant neoplasm of lung Allergies: Coded Allergies: NO KNOWN ALLERGIES (Unverified , 09/21/19) Home Meds Active Scripts Sulfamethoxazole W/Trimethopri (Bactrim Ds Tablet) 1 Tab Tb, 1 TAB PO BID for 7 Days, #14 TAB Prov:LARA BENDER APPLICATIONS SUPPORT ANALYST 01/08/25 Reported Medications Clonidine Hydrochloride (Clonidine Hcl) 0.1 Mg Tab, 1 TAB PO QPM, #30 TAB 2 Refills 01/04/25 Oxycodone W/ Acetaminophen (Apap/Oxycodone) 1 Tab Tab, 1 TAB PO PRN, #90 TAB 01/04/25 Meloxicam (Meloxicam) 15 Mg Tab, 1 TAB PO DAILY, #30 TAB 2 Refills 01/04/25 Ascorbic Acid (Vitamin C) 1,000 Mg Tab, 1000 MG PO, TAB 01/04/25 Diphenhydramine Hcl (Diphenhydramine Hcl) 50 Mg Tab, 25 MG PO PRN, TAB 01/04/25 Diphenhydramine Hcl (Diphenhydramine Hcl) 50 Mg Tab, 1 TAB PO QPM, #30 TAB 01/04/25 Amoxicillin & Pot Clavulanate (AUGMENTIN TABLET) 875 Mg Tb, 875 MG PO Q12HR, TAB 01/04/25 Zolpidem Tartrate (Zolpidem Tartrate) 10 Mg Tab, 1 TAB PO QPM, #30 TAB 2 Refills 10/06/24 Hydroxychloroquine Sulfate (Hydroxychloroquine Sulfat) 200 Mg Tab, 200 MG PO DAILY for 30 Days, MG 10/06/24 Vericiguat (Verquvo) 2.5 Mg Tab, 2.5 MG PO BID, TAB 10/06/24 Cephalexin Monohydrate (Cephalexin) 500 Mg Cap, 500 MG PO Q6HR, MG 10/06/24 Oxycodone W/ Acetaminophen (Apap/Oxycodone) 1 Tab Tab, 1 TAB PO TID, #90 TAB 10/06/24 Magnesium Oxide (MAGNESIUM OXIDE) 400 Mg Tab, 1 TAB PO BID, #60 TAB 5 Refills 10/06/24 Esomeprazole Magnesium Trihydr (Nexium) 40 Mg Cap, 1 CAP PO DAILY, #30 CAP 5 Refills 10/06/24 Fentanyl (Fentanyl) 12 Mcg/Hr Dis, 1 PATCH TOP Q3D 10/06/24 Clonidine Hydrochloride (Clonidine Hcl) 0.1 Mg Tab, 0.1 MG PO BIDPRN PRN for PER BLOOD PRESSURE PROTOCOL, MG 02/21/23 Methocarbamol (Methocarbamol) 500 Mg Tab, 500 MG PO Q8HR for MUSCLE SPASMS, TAB 09/21/19 Current Medications Current Medications Medications (Trade) Dose Ordered Sig/Sherie Route PRN Reason Start Time Stop Time Status Last Admin Ceftriaxone Sodium 50 ml @ 100 mls/hr DAILY@2100 IV 03/09/25 21:00 03/09/25 21:09 Lidocaine (Lidoderm 5% Topical Patch) 1 patch DAILY@2100 TOP 03/09/25 21:00 03/09/25 22:02 Oxycodone/ Acetaminophen (Percocet 5/ 325MG Tablet) 2 tab Q6HP PRN PO MODERATE PAIN (4-6 PAIN SCALE) 03/10/25 15:30 Loratadine (Claritin Tablet) 10 mg PRN PO 03/10/25 18:00 03/10/25 17:57 DC Loratadine (Claritin Tablet) 10 mg PRN PRN PO 03/10/25 18:00 03/10/25 17:59 DC Loratadine (Claritin Tablet) 10 mg DAILYPRN PRN PO 03/10/25 18:00 Review of Systems 14 point ROS negative except mentioned above Vital Signs Vital Signs Date Time Temp Pulse Resp B/P (MAP) Pulse Ox O2 Delivery O2 Flow Rate FiO2 03/10/25 16:00 98.7 90 17 133/88 (103) 93 98.7 03/10/25 08:00 Room Air* 0 21 Physical Exam GE: in no acute distress CVS: S1S2+ Lungs: clear Abdomen: soft, nondistended, nontender, BS+ Labs/Diagnostic Data Labs Test 03/10/25 17:50 03/10/25 04:17 03/09/25 00:45 03/08/25 23:09 Range/Units Hemoglobin 8.4 L 13.5-17.5 g/dL Hematocrit 25.0 L 41.0-53.0 % White Blood Count 8.0 4.4-10.8 10^3/uL Red Blood Count 2.14 L 4.5-5.90 10^6/uL Mean Corpuscular Volume 95.3 80.0-100.0 fL Mean Corpuscular Hemoglobin 32.7 H 28.0-32.0 pg Mean Corpuscular Hemoglobin Concent 34.3 32.0-36.0 g/dL Red Cell Distribution Width 17.0 H 11.8-14.3 % Platelet Count 163 140-450 10^3/uL Mean Platelet Volume 7.5 6.9-10.8 fL Neutrophils (%) (Auto) 69.2 37.0-80.0 % Lymphocytes (%) (Auto) 18.4 10.0-50.0 % Monocytes (%) (Auto) 9.8 0.0-12.0 % Eosinophils (%) (Auto) 2.2 0.0-7.0 % Basophils (%) (Auto) 0.4 0.0-2.0 % Neutrophils # (Auto) 5.5 1.6-8.6 10 ^3/uL Lymphocytes # (Auto) 1.5 0.4-5.4 10 ^3/uL Monocytes # (Auto) 0.8 0-1.3 10 ^3/uL Eosinophils # (Auto) 0.2 0-0.8 10 ^3/uL Basophils # (Auto) 0 0-0.2 10 ^3/uL Nucleated Red Blood Cells 0.0 % Sodium Level 143 136-145 mmol/L Potassium Level 3.9 3.5-5.1 mmol/L Chloride Level 114 H 98-107 mmol/L Carbon Dioxide Level 17 L 20-31 mmol/L Anion Gap 12 5-15 Blood Urea Nitrogen 27 #H 9-23 mg/dL Creatinine 0.77 0.700-1.30 mg/dL Glomerular Filtration Rate Calc 95 >90 mL/min BUN/Creatinine Ratio 35.1 H 10.0-20.0 Serum Glucose 91 74-106 mg/dL Calcium Level 7.2 L 8.7-10.4 mg/dL Total Bilirubin 0.4 0.2-1.0 mg/dL Aspartate Amino Transferase (AST) 21 13-40 U/L Alanine Aminotransferase (ALT) < 9 7-40 U/L Alkaline Phosphatase 57 46-116 U/L Total Protein 4.6 L 5.7-8.2 g/dL Albumin 2.3 L 3.2-4.8 g/dL Fibrinogen 188 177-375 mg/dL Plasma/Serum Blood Alcohol < 3.0 <10 mg/dL Test 03/08/25 22:56 03/08/25 22:15 03/08/25 21:49 03/08/25 20:39 Range/Units Stool Occult Blood Positive Negative Stool Occult Blood Sample #3 Negative Phosphorus Level 3.5 2.4-5.1 mg/dL Magnesium Level 1.7 1.6-2.6 mg/dL Iron Level 40 L 65-175 ug/dL Total Iron Binding Capacity 196 L 250-425 ug/dL Percent Iron Saturation 20.4 20-55 % Ferritin 40.7 22-322 ng/mL Direct Bilirubin 0.1 <0.3 mg/dL Ammonia 46 H 11-32 umol/L Lactate Dehydrogenase 107 L 120-246 U/L C-Reactive Protein High Sensitivity 1.70 H <1.0 mg/dL Triglycerides Level 96 < 150 mg/dL Cholesterol Level 87 < 200 mg/dL LDL Cholesterol 47 < 100 mg/dL HDL Cholesterol 24 L 40-59 mg/dL Lipase 19 12-53 U/L Vitamin B12 Level 333 211-911 pg/mL Vitamin D 25-Hydroxy 66.0 30.0-100 ng/mL Thyroid Stimulating Hormone (TSH) 2.22 0.55-4.78 uIU/mL Urine Color Light-yellow Yellow Urine Clarity Clear Clear Urine pH 5.5 5.0-9.0 Urine Specific [place] 1.048 H 1.001-1.035 Urine Protein Negative Negative Urine Ketones Negative Negative Urine Blood Negative Negative /uL Urine Nitrite Negative Negative Urine Bilirubin Negative Negative Urine Urobilinogen Normal Negative mg/dL Urine Leukocyte Esterase Negative Negative /uL Urine RBC 1 0 - 3 /hpf Urine Microscopic WBC < 1 0-3 /HPF Urine Squamous Epithelial Cells Few <5 /hpf Urine Bacteria None seen None Seen /hpf Urine Glucose Normal Normal mg/dL Urine Opiates Screen Neg NEGATIVE Urine Fentanyl Screen Pos NEGATIVE Urine Barbiturates Screen Neg NEGATIVE Urine Phencyclidine Screen Neg NEGATIVE Urine Amphetamines Screen Neg NEGATIVE Urine Benzodiazepines Screen Neg NEGATIVE Urine Cocaine Screen Neg NEGATIVE Urine Cannabinoids Screen Pos NEGATIVE Lactic Acid Level 2.2 *H 0.4-2.0 mmol/L Troponin I High Sensitivity 3 L </=54 ng/L Test 03/08/25 17:23 03/08/25 16:49 Range/Units Reticulocyte Count (auto) 2.94 H 0.5-1.5 % Prothrombin Time 13.0 H 9.3-11.8 sec Prothrombin Time INR 1.25 H 0.9-1.15 Activated Partial Thromboplast Time 27.2 24.5-34.5 SEC B-Type Natriuretic Peptide 34.23 0-100 pg/mL POC Glucose 114 H 70-106 mg/dl Microbiology Date/Time Source Procedure Growth Status 03/09/25 01:00 Nose MRSA Screen - Final Complete 03/08/25 22:56 Stool Stool Culture - Preliminary Resulted 03/08/25 22:56 Stool Shiga Toxin I & II Pending Resulted 03/08/25 18:50 Blood Blood Culture - Preliminary NO GROWTH AFTER 48 HOURS OF INCUBATION. Resulted 03/08/25 13:45 Voided Urine Urine Culture - Preliminary Resulted Assessment #Melena, hematemesis. Hx of PUD #Iron deficiency anemia #Diarrhea #Colon wall thickening on CTAP , infectious #s/p PPM -Negative C diff -Monitor Hb, keep >8 -PPI drip. dc octreotide drip, no biochemical or radiologic evidence of cirrhosis -Cardiology eval recommended -Plan EGD with MAC, timing per Dr Boss. Procedure details, benefits and risks explained in detail -Care plan discussed with pt and RN bedside in detail Thank you for the consult. Plan discussed with: Patient, Other BREE FISHER MD Mar 10, 2025 20:34
[2025-03-10] MEDS: LORATADINE 10 MG TAB PO PRN (21:23)
[2025-03-10] MEDS: OXYCODONE W/ ACETAMINOPHEN 5/325MG TABLET PO PRN (21:23)
[2025-03-11] VITALS (29 sets, daily range): BP systolic 87–135; BP diastolic 53–88; PULSE 63–86; RESP 13–37; TEMP 97.8–98.6; O2SAT 82–98
[2025-03-11 00:45] LABS: Hematocrit 24.3 % (41.0-53.0); Hemoglobin 8.3 g/dL (13.5-17.5)
[2025-03-11 06:31] LABS: Hemoglobin 8.1 g/dL (13.5-17.5)
[2025-03-11 06:33] LABS: Hematocrit 23.9 % (41.0-53.0); Mean Corpuscular Hemoglobin 31.7 pg (28.0-32.0); Mean Corpuscular Volume 92.8 fL (80.0-100.0); Nucleated Red Blood Cells % 0.0 %
--- NOTE | 2025-03-11 10:02 | ECG ---
[facility] Test Date: 2025-03-11 Test Time: 09:56:50 Pat Name: POWER GUERRERO Department: Room: 0247T Gender: M Traffic Maintenance Officer: MARYAM : 1950 Requested By: NEDA VEGAS Order Number: [id number] Reading MD: Hardik Joel Measurements Intervals [place] Rate: 72 P: -18 TN: 144 QRS: -10 QRSD: 105 T: 37 QT: 426 QTc: 467 Interpretive Statements Sinus rhythm Low voltage, precordial leads Abnormal R-wave progression, early transition Baseline wander in lead(s) V3 Electronically Signed On 03-16-2025 19:36:22 PDT by Hardik Joel Please click the below link to view image of tracing.
[2025-03-11] MEDS: AZITHROMYCIN 500MG/ 250ML 250 ML IV SCH (11:18)
[2025-03-11] MEDS: HYDROmorphone HCL 2 MG/ML VL/or syr IV PRN (11:23)
[2025-03-11] MEDS ORDERED: ONDANSETRON HCL 4 MG/2 ML VIAL IV PRN (12:00)
--- NOTE | 2025-03-11 12:14 | DVHINCON2 ---
Date Seen: Mar 11, 2025 Referring Physician MD Kimberly Reason for Consultation Cardiac risk stratification for EGD History of Present Illness This is a pleasant 74-year-old man who presented to the emergency room via EMS with a chief complaint of GI bleed. The patient complains of melena and black tarry stools for two days prior to arrival. Cardiology consulted for cardiac risk stratification for upper endoscopy. Denies the use of DOAC therapy or antiplatelet therapy at home. Denies chest pain, SOB, palpitations, diaphoresis, dizziness, or syncopal events. Denies exertional angina or dyspnea on exertion. States he has able to ambulate without restrictions including METS >5. Of note, the patient underwent a cardiac catheterization without catheter based intervention given coronary anatomy within normal limits on 03/24/2023. Significant medical history includes sick sinus syndrome status post implantation of dual-chamber pacemaker (Shawn, 08/12/2010) status post replacement of a Shawn dual-chamber permanent pacemaker ([employer], 09/28/2019) status post extraction of permanent dual-chamber pacemaker secondary to erosion (12/03/2024) status post debridement of infected pacemaker pocket (01/28/2025) status post micra leadless pacemaker implantation with wound VAC of pacemaker pocket site ([employer] at [facility], 01/2025), hypertension, dyslipidemia, gastritis with gastric ulcer, and chronic pain syndrome. Past Medical History Past medical history reviewed. No other significant than mentioned above. Past Surgical History Past surgical history reviewed. No other significant than mentioned above. Family History: FH: kidney failure Family history: Cardiovascular disease MOTHER Renal disease G8 MOTHER, MOTHER Secondary malignant neoplasm of lung Family History Family history reviewed. Social History Admits to occasional cannabinoid use. Denies any use of alcohol or tobacco. Allergies: Coded Allergies: NO KNOWN ALLERGIES (Unverified , 09/21/19) Home Meds Active Scripts Sulfamethoxazole W/Trimethopri (Bactrim Ds Tablet) 1 Tab Tb, 1 TAB PO BID for 7 Days, #14 TAB Prov:LARA BENDER DAIRY MANAGER 01/08/25 Reported Medications Clonidine Hydrochloride (Clonidine Hcl) 0.1 Mg Tab, 1 TAB PO QPM, #30 TAB 2 Refills 01/04/25 Oxycodone W/ Acetaminophen (Apap/Oxycodone) 1 Tab Tab, 1 TAB PO PRN, #90 TAB 01/04/25 Meloxicam (Meloxicam) 15 Mg Tab, 1 TAB PO DAILY, #30 TAB 2 Refills 01/04/25 Ascorbic Acid (Vitamin C) 1,000 Mg Tab, 1000 MG PO, TAB 01/04/25 Diphenhydramine Hcl (Diphenhydramine Hcl) 50 Mg Tab, 25 MG PO PRN, TAB 01/04/25 Diphenhydramine Hcl (Diphenhydramine Hcl) 50 Mg Tab, 1 TAB PO QPM, #30 TAB 01/04/25 Amoxicillin & Pot Clavulanate (AUGMENTIN TABLET) 875 Mg Tb, 875 MG PO Q12HR, TAB 01/04/25 Zolpidem Tartrate (Zolpidem Tartrate) 10 Mg Tab, 1 TAB PO QPM, #30 TAB 2 Refills 10/06/24 Hydroxychloroquine Sulfate (Hydroxychloroquine Sulfat) 200 Mg Tab, 200 MG PO DAILY for 30 Days, MG 10/06/24 Vericiguat (Verquvo) 2.5 Mg Tab, 2.5 MG PO BID, TAB 10/06/24 Cephalexin Monohydrate (Cephalexin) 500 Mg Cap, 500 MG PO Q6HR, MG 10/06/24 Oxycodone W/ Acetaminophen (Apap/Oxycodone) 1 Tab Tab, 1 TAB PO TID, #90 TAB 10/06/24 Magnesium Oxide (MAGNESIUM OXIDE) 400 Mg Tab, 1 TAB PO BID, #60 TAB 5 Refills 10/06/24 Esomeprazole Magnesium Trihydr (Nexium) 40 Mg Cap, 1 CAP PO DAILY, #30 CAP 5 Refills 10/06/24 Fentanyl (Fentanyl) 12 Mcg/Hr Dis, 1 PATCH TOP Q3D 10/06/24 Clonidine Hydrochloride (Clonidine Hcl) 0.1 Mg Tab, 0.1 MG PO BIDPRN PRN for PER BLOOD PRESSURE PROTOCOL, MG 02/21/23 Methocarbamol (Methocarbamol) 500 Mg Tab, 500 MG PO Q8HR for MUSCLE SPASMS, TAB 09/21/19 Home Meds Home medications reviewed. Current Medications Current Medications Medications (Trade) Dose Ordered Sig/Sherie Route PRN Reason Start Time Stop Time Status Last Admin Oxycodone/ Acetaminophen (Percocet 5/ 325MG Tablet) 2 tab Q6HP PRN PO MODERATE PAIN (4-6 PAIN SCALE) 10/5/25 15:30 Loratadine (Claritin Tablet) 10 mg PRN PO 03/10/25 18:00 03/10/25 17:57 DC Loratadine (Claritin Tablet) 10 mg PRN PRN PO 03/10/25 18:00 03/10/25 17:59 DC Loratadine (Claritin Tablet) 10 mg DAILYPRN PRN PO 03/10/25 18:00 Hydromorphone HCl (Dilaudid Injection) 0.25 mg Q4HPRN PRN IV MODERATE PAIN (4-6 PAIN SCALE) 03/10/25 21:45 03/11/25 11:23 Diphenhydramine HCl (Benadryl Injection) 25 mg Q4HP PRN IV FOR ITCHING 03/10/25 21:45 Azithromycin 250 ml @ 125 mls/hr DAILY IV 03/11/25 10:00 03/11/25 11:18 Ondansetron HCl (Zofran) 4 mg Q6HPRN PRN IV NAUSEA / VOMITING 03/11/25 12:00 Review of Systems Constitutional: No symptom reported Ears, Nose, & Throat: No symptom reported Eyes: No symptom reported Neurological: No symptoms reported Pulmonary/Respiratory: No symptom reported Cardiovascular: No symptom reported Gastrointestinal: Upper and lower GI bleed Genitourinary: No symptom reported Musculoskeletal: No symptom reported Skin: No symptom reported Psychiatric: No symptom reported Endocrine: No symptom reported Hemotologic/Lymphatic: No symptom reported Vital Signs Vital Signs Date Time Temp Pulse Resp B/P (MAP) Pulse Ox O2 Delivery O2 Flow Rate FiO2 03/11/25 11:23 74 22 127/83 03/11/25 06:00 98.6 98 98.6 03/10/25 20:00 Room Air* 0 21 Physical Exam General Appearance: Cooperative. Well developed. Well nourished. In no acute distress Head Exam: Normal inspection Neck Exam: Normal inspection. Non-tender. Normal alignment Pulmonary/Respiratory: Clear bilateral breath sounds Cardiovascular/Chest: Regular rate and rhythm. S1, S2. Sinus rhythm. No murmurs. No JVD. Peripheral Pulses: 2+ Radial (R). 2+ Radial (L). 2+ Pedal (R). 2+ Pedal (L) Abdominal Exam: Normal bowel sounds. Ankle Exam: Negative ankle edema Lower extremities: Negative lower extremity edema Neuro/Mental Status: A&O x4. Coherent Thoughts/Psych: Normal thought pattern. Appropriate mood and affect. Good judgement and insight Appearance: In no acute distress Skin Exam: Generalized pale color. Wound dressings to bilateral lower extremities (see wound care pictures) Labs/Diagnostic Data Labs Test 03/11/25 06:25 03/10/25 04:17 03/09/25 00:45 03/08/25 23:09 Range/Units White Blood Count 6.8 4.4-10.8 10^3/uL Red Blood Count 2.57 L 4.5-5.90 10^6/uL Hemoglobin 8.1 L 13.5-17.5 g/dL Hematocrit 23.9 L 41.0-53.0 % Mean Corpuscular Volume 92.8 80.0-100.0 fL Mean Corpuscular Hemoglobin 31.7 28.0-32.0 pg Mean Corpuscular Hemoglobin Concent 34.1 32.0-36.0 g/dL Red Cell Distribution Width 17.3 H 11.8-14.3 % Platelet Count 157 140-450 10^3/uL Mean Platelet Volume 7.5 6.9-10.8 fL Neutrophils (%) (Auto) 60.8 37.0-80.0 % Lymphocytes (%) (Auto) 23.0 10.0-50.0 % Monocytes (%) (Auto) 11.2 0.0-12.0 % Eosinophils (%) (Auto) 4.0 0.0-7.0 % Basophils (%) (Auto) 1.0 0.0-2.0 % Neutrophils # (Auto) 4.2 1.6-8.6 10 ^3/uL Lymphocytes # (Auto) 1.6 0.4-5.4 10 ^3/uL Monocytes # (Auto) 0.8 0-1.3 10 ^3/uL Eosinophils # (Auto) 0.3 0-0.8 10 ^3/uL Basophils # (Auto) 0.1 0-0.2 10 ^3/uL Nucleated Red Blood Cells 0.0 % Sodium Level 143 136-145 mmol/L Potassium Level 3.9 3.5-5.1 mmol/L Chloride Level 114 H 98-107 mmol/L Carbon Dioxide Level 17 L 20-31 mmol/L Anion Gap 12 5-15 Blood Urea Nitrogen 27 #H 9-23 mg/dL Creatinine 0.77 0.700-1.30 mg/dL Glomerular Filtration Rate Calc 95 >90 mL/min BUN/Creatinine Ratio 35.1 H 10.0-20.0 Serum Glucose 91 74-106 mg/dL Calcium Level 7.2 L 8.7-10.4 mg/dL Total Bilirubin 0.4 0.2-1.0 mg/dL Aspartate Amino Transferase (AST) 21 13-40 U/L Alanine Aminotransferase (ALT) < 9 7-40 U/L Alkaline Phosphatase 57 46-116 U/L Total Protein 4.6 L 5.7-8.2 g/dL Albumin 2.3 L 3.2-4.8 g/dL Fibrinogen 188 177-375 mg/dL Plasma/Serum Blood Alcohol < 3.0 <10 mg/dL Test 03/08/25 22:56 03/08/25 22:15 03/08/25 21:49 03/08/25 20:39 Range/Units Stool Occult Blood Positive Negative Stool Occult Blood Sample #3 Negative Phosphorus Level 3.5 2.4-5.1 mg/dL Magnesium Level 1.7 1.6-2.6 mg/dL Iron Level 40 L 65-175 ug/dL Total Iron Binding Capacity 196 L 250-425 ug/dL Percent Iron Saturation 20.4 20-55 % Ferritin 40.7 22-322 ng/mL Direct Bilirubin 0.1 <0.3 mg/dL Ammonia 46 H 11-32 umol/L Lactate Dehydrogenase 107 L 120-246 U/L C-Reactive Protein High Sensitivity 1.70 H <1.0 mg/dL Triglycerides Level 96 < 150 mg/dL Cholesterol Level 87 < 200 mg/dL LDL Cholesterol 47 < 100 mg/dL HDL Cholesterol 24 L 40-59 mg/dL Lipase 19 12-53 U/L Vitamin B12 Level 333 211-911 pg/mL Vitamin D 25-Hydroxy 66.0 30.0-100 ng/mL Folic Acid 11.48 >5.38 ng/mL Thyroid Stimulating Hormone (TSH) 2.22 0.55-4.78 uIU/mL Urine Color Light-yellow Yellow Urine Clarity Clear Clear Urine pH 5.5 5.0-9.0 Urine Specific [place] 1.048 H 1.001-1.035 Urine Protein Negative Negative Urine Ketones Negative Negative Urine Blood Negative Negative /uL Urine Nitrite Negative Negative Urine Bilirubin Negative Negative Urine Urobilinogen Normal Negative mg/dL Urine Leukocyte Esterase Negative Negative /uL Urine RBC 1 0 - 3 /hpf Urine Microscopic WBC < 1 0-3 /HPF Urine Squamous Epithelial Cells Few <5 /hpf Urine Bacteria None seen None Seen /hpf Urine Glucose Normal Normal mg/dL Urine Opiates Screen Neg NEGATIVE Urine Fentanyl Screen Pos NEGATIVE Urine Barbiturates Screen Neg NEGATIVE Urine Phencyclidine Screen Neg NEGATIVE Urine Amphetamines Screen Neg NEGATIVE Urine Benzodiazepines Screen Neg NEGATIVE Urine Cocaine Screen Neg NEGATIVE Urine Cannabinoids Screen Pos NEGATIVE Lactic Acid Level 2.2 *H 0.4-2.0 mmol/L Troponin I High Sensitivity 3 L </=54 ng/L Test 03/08/25 17:23 03/08/25 16:49 Range/Units Reticulocyte Count (auto) 2.94 H 0.5-1.5 % Prothrombin Time 13.0 H 9.3-11.8 sec Prothrombin Time INR 1.25 H 0.9-1.15 Activated Partial Thromboplast Time 27.2 24.5-34.5 SEC B-Type Natriuretic Peptide 34.23 0-100 pg/mL POC Glucose 114 H 70-106 mg/dl Microbiology Date/Time Source Procedure Growth Status 03/09/25 01:00 Nose MRSA Screen - Final Complete 03/08/25 22:56 Stool Stool Culture - Preliminary Resulted 03/08/25 22:56 Stool Shiga Toxin I & II - Final Resulted 03/08/25 18:50 Blood Blood Culture - Preliminary NO GROWTH AFTER 48 HOURS OF INCUBATION. Resulted 03/08/25 13:45 Voided Urine Urine Culture - Preliminary Resulted Assessment Preprocedural cardiovascular examination Severe anemia secondary to GI bleed Presence of micra leadless pacemaker ([employer], 01/2025) Hypertension Dyslipidemia Chronic pain syndrome Plan/Recommendation (Dr. Joyner) Recent transthoracic echocardiogram revealed an EF of 50%. Revised cardiac risk index (Uche criteria): 0 points, 0.5% risk of , [place] or cardiac arrest. Patient has no underlying history of congestive heart failure, coronary artery disease, and has an optimal functional capacity. Per Cardiology standpoint, the patient is at an acceptable-risk for moderate-risk GI procedures. There is no additional cardiac workup indicated prior to surgery. Thank you for allowing us to care for this patient. Please call with any questions or concerns. This medical document was created using an electronic medical record system with voice recognition software and computerized dictation system. Although this document has been carefully reviewed, there might still be some phonetic and typographical errors. Occasional wrong-word or ``sound-alike substitutions may have occurred due to the inherent limitations of voice recognition software. These areas are purely typographical due to imperfections of the software programs and do not reflect any compromise in the patient's medical care. Please read the chart carefully and recognize, using context, where these substitutions have occurred. Plan discussed with: Patient, Other NYHA Physical activity limitations: NA Date of Service: Mar 11, 2025 Billing Provider: JAY VILLANUEVA Cardiology Common Codes: [id number] INP/OBS CARE (High) JAY VILLANUEVA Mar 11, 2025 12:14
--- NOTE | 2025-03-11 13:11 | DVHPN2 ---
Subjective Patient denies abdominal pain. Patient has loose stool, mostly black in color with slight red blood. Patient's stool is positive for Campylobacter antigen No nausea or vomiting Status post EGD and colonoscopy 6-8 months ago at [facility] diagnosed with PUD and hiatal hernia Patient has been cleared by Cardiology for GI procedures at acceptable risk for moderate risk Changes from previous H/P or p: No Changes Objective Vitals Vital Signs Date Time Temp Pulse Resp B/P (MAP) Pulse Ox O2 Delivery O2 Flow Rate FiO2 03/11/25 11:23 74 22 127/83 03/11/25 06:00 98.6 98 98.6 03/10/25 20:00 Room Air* 0 21 Intake/Output Intake and Output 03/11/25 07:00 Intake Total 5020 ml Output Total 2075 ml Balance 2945 ml Intake Oral 720 ml IV Total 3700 ml Blood Product 300 ml Other 300 ml Output Urine Total 2075 ml General Appearance: Alert, Oriented X3, Cooperative, No acute distress, mild distress, moderate distress, severe distress, Other Lungs: Clear to auscultation, Normal air movement, Other Cardiovascular: Regular rate, Normal S1, Normal S2, No murmurs, Gallops, Rubs, Other Abdomen: Normal bowel sounds, Soft, No tenderness, No hepatospenomegaly, No masses, Other Medications Current Medications Medications Dose Ordered Sig/Sherie Route Start Time Stop Time Status Last Admin Dose Admin Metronidazole 100 ml @ 100 mls/hr Q8HR IV 03/09/25 06:00 03/11/25 06:05 100 MLS/HR Lidocaine 1 patch DAILY@2100 TOP 03/09/25 21:00 03/10/25 21:06 1 PATCH Pantoprazole Sodium 50 ml @ 10 mls/hr Q5H IV 03/09/25 01:15 03/11/25 04:06 10 MLS/HR Morphine Sulfate 2 mg Q4HPRN PRN IV 03/09/25 08:30 Patient Own Medication 1 patch Q3D TOP 03/09/25 16:00 03/10/25 13:10 1 PATCH Oxycodone/ Acetaminophen 2 tab Q6HP PRN PO 03/10/25 15:30 Loratadine 10 mg DAILYPRN PRN PO 03/10/25 18:00 Hydromorphone HCl 0.25 mg Q4HPRN PRN IV 03/10/25 21:45 03/11/25 11:23 0.25 MG Diphenhydramine HCl 25 mg Q4HP PRN IV 03/10/25 21:45 Azithromycin 250 ml @ 125 mls/hr DAILY IV 03/11/25 10:00 03/11/25 11:18 125 MLS/HR Ondansetron HCl 4 mg Q6HPRN PRN IV 03/11/25 12:00 Laboratory Results Laboratory Tests 03/10/25 04:17 03/11/25 06:25 Urinalysis Test 03/08/25 21:49 Urine Color Light-yellow (Yellow) Urine Clarity Clear (Clear) Urine pH 5.5 (5.0-9.0) Urine Specific [place] 1.048 (1.001-1.035) Urine Protein Negative (Negative) Urine Ketones Negative (Negative) Urine Blood Negative /uL (Negative) Urine Nitrite Negative (Negative) Urine Bilirubin Negative (Negative) Urine Urobilinogen Normal mg/dL (Negative) Urine Leukocyte Esterase Negative /uL (Negative) Urine RBC 1 /hpf (0 - 3) Urine Microscopic WBC < 1 /HPF (0-3) Urine Squamous Epithelial Cells Few /hpf (<5) Urine Bacteria None seen /hpf (None Seen) Urine Glucose Normal mg/dL (Normal) Microbiology Microbiology Date/Time Source Procedure Growth Status 03/09/25 01:00 Nose MRSA Screen - Final Complete 03/08/25 22:56 Stool Stool Culture - Preliminary Resulted 03/08/25 22:56 Stool Shiga Toxin I & II - Final Resulted 03/08/25 18:50 Blood Blood Culture - Preliminary NO GROWTH AFTER 48 HOURS OF INCUBATION. Resulted 03/08/25 13:45 Voided Urine Urine Culture - Final Complete Labs and/or images reviewed: Labs reviewed by me, Image(s) reviewed by me Assessment/Plan Assessment/Plan #Melena, hematemesis. Hx of PUD #Iron deficiency anemia #Diarrhea #Colon wall thickening on CTAP , infectious #s/p PPM Plan Discussed with Dr. Boss Scheduled for EGD tomorrow 03/12/2025. Discussed risks, benefits and alternatives of procedure and sedation patient understands and agrees Continue antibiotics Plan discussed with: Patient, Other (RN) My Orders Orders - PILI HART Procedure Category Date Status Time Ondansetron Hcl PHA 03/11/25 In Process (Zofran) 12:00 Date of Service: Mar 11, 2025 Billing Provider: PILI HART Common Visit Codes: [id number] INP/OBS CARE(HIGH) PILI HART Mar 11, 2025 13:11
[2025-03-11] MEDS: diphenhdrAMINE HCL 50 MG/1 ML VL IV PRN (14:40)
[2025-03-11] MEDS: SODIUM CHLORIDE 0.9% 1,000 ML IV SCH (15:00)
--- NOTE | 2025-03-11 15:05 | DVHPNRES ---
Progress Note Date Seen: Mar 11, 2025 Resident Creating Document: NEDA VEGAS RESIDENT Has the PT tested + for MRSA If YES, has PT been informed?: No Medical Necessity Reason Pt with a Central, PICC or Fol: No Subjective Review of Systems This is a 74-year-old male with history of sick sinus syndrome (s/p leadless Micra pacemaker following prior pacemaker pocket infection), hypertension, hyperlipidemia, rheumatoid arthritis, gastritis with prior gastric ulcer, and a recent hospitalization (January 2025) for infected pacemaker pocket on wound-vac therapy. He was admitted for melena and diarrhea for 2 days, initially found to have infectious/inflammatory colitis and upper GI bleed.?Today, the patient reports mild improvement in abdominal cramping and no further vomiting or hematemesis. He continues to have dark stools, though frequency is reduced. No dizziness, syncope, or shortness of breath. Stool culture returned positive for Campylobacter antigen, and he was started on azithromycin IV daily. C. difficile test negative.?Octreotide drip discontinued; continues on PPI drip (pantoprazole). Cardiology cleared the patient for EGD scheduled for March [address] Boss.?Recent RENU showed EF 50 %; Revised Cardiac Risk Index = 0.5 % (low risk). No CHF or CAD, and the patient has good functional capacity. He remains hemodynamically stable, NPO, on room air with O? sat 95 %. Pain well controlled on fentanyl patch, morphine PRN, and Percocet. Hemoglobin stable at 8.1 g/dL (yesterday 8.3).?WBC 6.8 K/L, platelets 157 K.?Electrolytes: Cl 114 ?, CO? 17 ? (mild metabolic acidosis), BUN 27 ?, Cr 0.77 (GFR 95), BUN/Cr ratio 35.1.?Vital signs: BP 121/66, HR 81, RR 30 ?, Temp afebrile, SpO? 95 % RA. Review of Systems * Constitutional: No fever or chills. Mild fatigue. * HEENT: No visual change or sore throat. * CV: No chest pain, palpitations, orthopnea, or PND. * Resp: Mild tachypnea, no cough or sputum. * GI: Dark stools, mild abdominal discomfort, no hematemesis or vomiting today. * : Adequate urine output. * Neuro: Alert, oriented 3. No focal deficit. * MSK: Chronic back pain controlled. * Skin: Left chest wound-vac site clean, no erythema or drainage. Objective vital signs Vital Sign Date Time Temp Pulse Resp B/P (MAP) Pulse Ox O2 Delivery O2 Flow Rate FiO2 03/11/25 13:15 81 30 121/66 (84) 94 03/11/25 12:00 97.8 97.8 03/11/25 08:00 Room Air* 0 21 Total Intake and Output 03/10/25 03/10/25 03/11/25 15:00 23:00 07:00 Intake Total 1760 ml 2180 ml 1080 ml Output Total 1125 ml 950 ml Balance 1760 ml 1055 ml 130 ml medications Current Medications Medications Dose Ordered Sig/Sherie Route Start Time Stop Time Status Last Admin Dose Admin Metronidazole 100 ml @ 100 mls/hr Q8HR IV 03/09/25 06:00 03/11/25 14:39 100 MLS/HR Lidocaine 1 patch DAILY@2100 TOP 03/09/25 21:00 03/10/25 21:06 1 PATCH Pantoprazole Sodium 50 ml @ 10 mls/hr Q5H IV 03/09/25 01:15 03/11/25 13:19 10 MLS/HR Morphine Sulfate 2 mg Q4HPRN PRN IV 03/09/25 08:30 Patient Own Medication 1 patch Q3D TOP 03/09/25 16:00 03/10/25 13:10 1 PATCH Oxycodone/ Acetaminophen 2 tab Q6HP PRN PO 03/10/25 15:30 Loratadine 10 mg DAILYPRN PRN PO 03/10/25 18:00 Hydromorphone HCl 0.25 mg Q4HPRN PRN IV 03/10/25 21:45 03/11/25 11:23 0.25 MG Diphenhydramine HCl 25 mg Q4HP PRN IV 03/10/25 21:45 03/11/25 14:40 25 MG Azithromycin 250 ml @ 125 mls/hr DAILY IV 03/11/25 10:00 03/11/25 11:18 125 MLS/HR Ondansetron HCl 4 mg Q6HPRN PRN IV 03/11/25 12:00 Sodium Chloride 1,000 ml @ 75 mls/hr [id number] IV 03/11/25 15:00 UNV Examination General Awake, alert, oriented, no acute distress Vitals BP 121/66 mmHg HR 81 bpm RR 30 ? Temp afebrile SpO? 95 % RA HEENT Pale conjunctiva, no icterus Neck Supple, no JVD CV Regular rate/rhythm, no murmur; pacemaker site clean under wound-vac Lungs Clear to auscultation bilaterally Abdomen Mild distension, soft, non-tender, no guarding or rebound, normal bowel sounds Extremities No edema, good pulses Neuro AO3, no focal deficit Skin/Wound Left chest wound-vac intact, no erythema or discharge laboratory and microbiology Laboratory Tests 03/11/25 06:25 03/10/25 04:17 Test 03/10/25 04:17 Range/Units Serum Glucose 91 74-106 mg/dL Microbiology Date/Time Source Procedure Growth Status 03/09/25 01:00 Nose MRSA Screen - Final Complete 03/08/25 22:56 Stool Stool Culture - Preliminary Resulted 03/08/25 22:56 Stool Shiga Toxin I & II - Final Resulted 03/08/25 18:50 Blood Blood Culture - Preliminary NO GROWTH AFTER 48 HOURS OF INCUBATION. Resulted 03/08/25 13:45 Voided Urine Urine Culture - Final Complete Problem List/Assessment/Plan Problem List/Assessment/Plan Assessment Acute Upper GI Bleed (Melena) /Gastrointestinal hemorrhage, site unspecified. Improving POA * Secondary to gastritis/gastric ulcer re-bleed vs duodenal ulcer. * Hgb stable 8.1 ? 8.3 ? 8.1; occult blood positive. * Gastrointestinal hemorrhage, site unspecified. Campylobacter enteritis. due to Campylobacter jejuni * Confirmed by stool antigen. C. difficile negative. * Severe Anemia due to Acute Blood Loss (post-transfusion stabilization)POA * Hgb > 8 g/dL goal. Metabolic Acidosis (Mild, Non-Gap) due to Diarrheal Bicarbonate LossPOA * CO? 17, Cl 114, normal AG. Sick Sinus Syndrome s/p Leadless Pacemaker StablePOA * Regular rhythm; no arrhythmias. History of Infected Pacemaker Pocket on Wound-VacPOA * Site clean, no drainage. Continue wound care. Chronic Pain / Rheumatoid Arthritis ControlledPOA * On fentanyl patch, Percocet PRN, lidocaine patch. Hypertension / Hyperlipidemia Stable.POA Plan (System-Jeff) Gastrointestinal * Continue IV pantoprazole drip 8 mg/hr (PPI infusion). * Octreotide discontinued. * Maintain NPO after midnight for EGD tomorrow (03/12) with Dr. Boss. * Monitor stool output and color q4h. * Serial CBC q6h; maintain Hgb > 8 g/dL with transfusion if needed. * Cardiology clearance obtained acceptable kyaw-procedural risk. * Continue azithromycin IV daily for Campylobacter. * Electrolyte monitoring and replacement for diarrhea-related losses. Infectious Disease / Sepsis * Continue azithromycin IV daily (Day 1). * Stop metronidazole after 24 h overlap per ID protocol. * Monitor stool frequency, WBC trend, CRP. * Blood cultures pending review. Hematology * Monitor CBC q6h ? q12h once stable. * Transfuse PRBC if Hgb < 8 g/dL or symptomatic. * Consider IV iron after active bleeding resolves. Cardiovascular * Continue telemetry for arrhythmia/QT monitoring. * Maintain MAP > 65 mmHg; patient normotensive. * Hold antihypertensives until post-EGD if stable. * EF 50 % on RENU, no CHF/CAD low risk for procedure. Renal / Metabolic * Continue IV NS @ 100 mL/hr. * Monitor BUN/Cr, electrolytes q12h. * Correct CO? 17 (bicarb loss) with fluid and electrolyte replacement. * Avoid nephrotoxins (NSAIDs, contrast). Respiratory * O? via NC PRN to keep SpO? > 92 %. * Incentive spirometry q2h while awake. Pain / Neuro * Continue fentanyl patch Q3D, morphine 2 mg IV q4h PRN, Percocet 5-325 mg q6h PRN. * Lidocaine patch daily. * Avoid benzodiazepines / sedatives pre-EGD. Wound Care / Skin * Continue VAC therapy at chest pacemaker site. * Wound care team to follow daily. * Monitor for erythema, purulence. Endocrine / Nutrition * NPO after midnight for EGD. * Resume clear liquid diet post-procedure if stable. * Start multivitamin, folic acid, thiamine once diet resumed. Prophylaxis * DVT: SCDs only (hold pharmacologic due to GI bleed). * GI: PPI drip continued. * Falls: Precautions maintained. Case discussed in detail with the attending physician, including the clinical presentation, diagnostic workup, and comprehensive management plan. The patient was present for the discussion and demonstrated understanding of his condition and the proposed plan. Critical Care Time: >45 minutes spent in direct evaluation, review of imaging/labs, resuscitation management, and coordination with nursing, wound care, Plan discussed with: Patient My Orders My Orders Orders - NEDA VEGAS Procedure Category Date Status Time Azithromycin 500mg/ PHA 03/11/25 In Process 250ml (Zithromax 50 10:00 * Cardiology Consult CONS 03/11/25 Transmitted 09:33 Complete Blood Count LAB 03/12/25 Verified 04:00 Comprehensive LAB 03/12/25 Verified Metabolic Panel 04:00 Communication Order ORDERS 03/11/25 Transmitted 14:55 Hemoglobin & LAB 03/11/25 Transmitted Hematocrit 18:00 Hemoglobin & LAB 03/12/25 Verified Hematocrit 00:00 Hemoglobin & LAB 03/12/25 Verified Hematocrit 06:00 Hemoglobin & LAB 03/12/25 Verified Hematocrit 12:00 Hemoglobin & LAB 03/12/25 Verified Hematocrit 18:00 Hemoglobin & LAB 03/13/25 Verified Hematocrit 00:00 Sodium Chloride 0.9% PHA 03/11/25 Logged 15:00 Dietary Evaluation Review Comments: 1) Initiate Ethan @ 1 pk bid 2) Initiate MVI @ 1 tb qd 3) Initite vitamin C @ 500 mg bid and zinc sulfate @ 220 mg qd for 7 days 4) If patient remains NPO > 7 days, consider EN/TPN to meet at least 75% estimated daily needs 5) Advance to cardiac diet when medically feasible 6) Follow-up with gastroenterology and cardiology 7) Follow-up with psychiatry 8) Continue to monitor I&O, labs, and skin integrity Expected Outcomes/Goals: 1) patient to receive nutritional support within 7 days of NPO status 2) labs and GI symptoms to improve 3) wounds to improve 4) diet to advance 5) f/u in 3-5 days Date of Service: Mar 11, 2025 Billing Provider: NEDA VEGAS Common Visit Codes: [id number] INP/OBS CARE(HIGH) NEDA VEGAS Mar 11, 2025 15:05 JORDI GREENE MD Mar 11, 2025 18:30
[2025-03-11 18:38] LABS: Hemoglobin 8.1 g/dL (13.5-17.5)
[2025-03-11 18:40] LABS: Hematocrit 23.5 % (41.0-53.0)
--- NOTE | 2025-03-11 19:24 | DVHPN2 ---
Reviewed: Care Plan Changes from previous H/P or p: No Changes General: Per HPI Objective Vitals Vital Signs Date Time Temp Pulse Resp B/P (MAP) Pulse Ox O2 Delivery O2 Flow Rate FiO2 03/11/25 18:00 72 24 89/63 (72) 94 03/11/25 16:00 98.0 98.0 03/11/25 08:00 Room Air* 0 21 Intake/Output Intake and Output 03/11/25 07:00 Intake Total 5020 ml Output Total 2075 ml Balance 2945 ml Intake Oral 720 ml IV Total 3700 ml Blood Product 300 ml Other 300 ml Output Urine Total 2075 ml General Appearance: Alert, Oriented X3, Cooperative, No acute distress, mild distress, moderate distress, severe distress, Other Lungs: Clear to auscultation, Normal air movement, Other Cardiovascular: Regular rate, Normal S1, Normal S2, No murmurs, Gallops, Rubs, Other Abdomen: Normal bowel sounds, Soft, No tenderness, No hepatospenomegaly, No masses, Other Medications Current Medications Medications Dose Ordered Sig/Sherie Route Start Time Stop Time Status Last Admin Dose Admin Metronidazole 100 ml @ 100 mls/hr Q8HR IV 03/09/25 06:00 03/11/25 14:39 100 MLS/HR Lidocaine 1 patch DAILY@2100 TOP 03/09/25 21:00 03/10/25 21:06 1 PATCH Pantoprazole Sodium 50 ml @ 10 mls/hr Q5H IV 03/09/25 01:15 03/11/25 18:00 10 MLS/HR Morphine Sulfate 2 mg Q4HPRN PRN IV 03/09/25 08:30 Patient Own Medication 1 patch Q3D TOP 03/09/25 16:00 03/10/25 13:10 1 PATCH Oxycodone/ Acetaminophen 2 tab Q6HP PRN PO 03/10/25 15:30 Loratadine 10 mg DAILYPRN PRN PO 03/10/25 18:00 Hydromorphone HCl 0.25 mg Q4HPRN PRN IV 03/10/25 21:45 03/11/25 11:23 0.25 MG Diphenhydramine HCl 25 mg Q4HP PRN IV 03/10/25 21:45 03/11/25 14:40 25 MG Azithromycin 250 ml @ 125 mls/hr DAILY IV 03/11/25 10:00 03/11/25 11:18 125 MLS/HR Ondansetron HCl 4 mg Q6HPRN PRN IV 03/11/25 12:00 Sodium Chloride 1,000 ml @ 75 mls/hr [id number] IV 03/11/25 15:00 03/11/25 15:00 75 MLS/HR Laboratory Results Laboratory Tests 03/10/25 04:17 03/11/25 06:25 03/11/25 18:12 Urinalysis Test 03/08/25 21:49 Urine Color Light-yellow (Yellow) Urine Clarity Clear (Clear) Urine pH 5.5 (5.0-9.0) Urine Specific [place] 1.048 (1.001-1.035) Urine Protein Negative (Negative) Urine Ketones Negative (Negative) Urine Blood Negative /uL (Negative) Urine Nitrite Negative (Negative) Urine Bilirubin Negative (Negative) Urine Urobilinogen Normal mg/dL (Negative) Urine Leukocyte Esterase Negative /uL (Negative) Urine RBC 1 /hpf (0 - 3) Urine Microscopic WBC < 1 /HPF (0-3) Urine Squamous Epithelial Cells Few /hpf (<5) Urine Bacteria None seen /hpf (None Seen) Urine Glucose Normal mg/dL (Normal) Microbiology Microbiology Date/Time Source Procedure Growth Status 03/09/25 01:00 Nose MRSA Screen - Final Complete 03/08/25 22:56 Stool Stool Culture - Preliminary Resulted 03/08/25 22:56 Stool Shiga Toxin I & II - Final Resulted 03/08/25 18:50 Blood Blood Culture - Preliminary NO GROWTH AFTER 72 HOURS OF INCUBATION. Resulted 03/08/25 13:45 Voided Urine Urine Culture - Final Complete Labs and/or images reviewed: Labs reviewed by me, Image(s) reviewed by me Assessment/Plan Assessment/Plan 1. Severe Sepsis likely due to Infectious/Inflammatory Colitis * CT evidence of diffuse colonic wall thickening, lactic acidosis, leukocytosis. * Continue antibiotics (Ceftriaxone + Metronidazole). 2. Gastrointestinal hemorrhage, unspecified site./Active Upper GI Bleed with Melena (Rule Out Peptic Ulcer Re-bleed) * Evidence: Melena, Hgb drop 8.6 ? 6.4 g/dL, stool occult positive, BUN?, gastritis history. * Rule out: Peptic ulcer vs erosive gastritis vs MalloryWeiss tear vs colitis-related bleed. 3. Severe Anemia due to Acute Blood Loss on Chronic Disease * Post-transfusion Hgb > 7 g/dL goal. Sick Sinus Syndrome s/p Leadless Micra Pacemaker * Stable rhythm, no arrhythmia. Continue telemetry. 1. History of Infected Pacemaker Pocket on Wound-Vac * Continue wound-vac therapy, monitor for recurrence of infection. * Wound care following. 2. Rheumatoid Arthritis / Chronic Pain Syndrome * Resume methocarbamol, discontinue hydroxychloroquine (risk of GI upset). * Pain control with lidocaine patch, IV morphine PRN. 3. Electrolyte / Metabolic Abnormalities * Hypocalcemia (Ca 7.2 ?), mild metabolic acidosis, elevated ammonia. * Replete calcium IV if symptomatic, monitor ammonia; lactulose PRN for >60 mol/L. 4. Prolonged QT Interval Monitor on telemetry, maintain K > 4, Mg > 2; avoid QT-prolonging drugs. 5. Hypertension / Hyperlipidemia (Chronic) * Hold antihypertensives for now given GI bleed risk; resume when stable. s/p blood tranfusion. on protonix and octreotide drip pending possible EGD per GI Plan discussed with: Patient, Other (nursing staff) Date of Service: Mar 10, 2025 Billing Provider: JUAN OKEEFE DO Common Visit Codes: [id number] CARE 30-74 MIN JUAN OKEEFE DO Mar 11, 2025 19:24
[2025-03-12] VITALS (20 sets, daily range): BP systolic 71–112; BP diastolic 44–77; PULSE 62–84; RESP 18–30; TEMP 97.3–98.5; O2SAT 91–99
--- NOTE | 2025-03-12 00:05 | DVHPN2 ---
Reviewed: Care Plan Changes from previous H/P or p: No Changes General: Per HPI Objective Vitals Vital Signs Date Time Temp Pulse Resp B/P (MAP) Pulse Ox O2 Delivery O2 Flow Rate FiO2 03/12/25 00:00 65 19 81/44 (56) 94 03/11/25 21:00 98.0 98.0 03/11/25 20:00 Nasal Cannula* 2 28 Intake/Output Intake and Output 03/12/25 07:00 Intake Total 2065 ml Output Total 730 ml Balance 1335 ml Intake Oral 700 ml IV Total 1365 ml Output Urine Total 730 ml General Appearance: Alert, Oriented X3, Cooperative, No acute distress, mild distress, moderate distress, severe distress, Other Lungs: Clear to auscultation, Normal air movement, Other Cardiovascular: Regular rate, Normal S1, Normal S2, No murmurs, Gallops, Rubs, Other Abdomen: Normal bowel sounds, Soft, No tenderness, No hepatospenomegaly, No masses, Other Medications Current Medications Medications Dose Ordered Sig/Sherie Route Start Time Stop Time Status Last Admin Dose Admin Metronidazole 100 ml @ 100 mls/hr Q8HR IV 03/09/25 06:00 03/11/25 21:20 100 MLS/HR Lidocaine 1 patch DAILY@2100 TOP 03/09/25 21:00 03/11/25 20:49 1 PATCH Pantoprazole Sodium 50 ml @ 10 mls/hr Q5H IV 03/09/25 01:15 03/11/25 23:19 10 MLS/HR Morphine Sulfate 2 mg Q4HPRN PRN IV 03/09/25 08:30 Patient Own Medication 1 patch Q3D TOP 03/09/25 16:00 03/10/25 13:10 1 PATCH Oxycodone/ Acetaminophen 2 tab Q6HP PRN PO 03/10/25 15:30 Loratadine 10 mg DAILYPRN PRN PO 03/10/25 18:00 Hydromorphone HCl 0.25 mg Q4HPRN PRN IV 03/10/25 21:45 03/11/25 11:23 0.25 MG Diphenhydramine HCl 25 mg Q4HP PRN IV 03/10/25 21:45 03/11/25 20:49 25 MG Azithromycin 250 ml @ 125 mls/hr DAILY IV 03/11/25 10:00 03/11/25 11:18 125 MLS/HR Ondansetron HCl 4 mg Q6HPRN PRN IV 03/11/25 12:00 Sodium Chloride 1,000 ml @ 75 mls/hr [id number] IV 03/11/25 15:00 03/11/25 15:00 75 MLS/HR Laboratory Results Laboratory Tests 03/10/25 04:17 03/11/25 06:25 03/11/25 18:12 Urinalysis Test 03/08/25 21:49 Urine Color Light-yellow (Yellow) Urine Clarity Clear (Clear) Urine pH 5.5 (5.0-9.0) Urine Specific [place] 1.048 (1.001-1.035) Urine Protein Negative (Negative) Urine Ketones Negative (Negative) Urine Blood Negative /uL (Negative) Urine Nitrite Negative (Negative) Urine Bilirubin Negative (Negative) Urine Urobilinogen Normal mg/dL (Negative) Urine Leukocyte Esterase Negative /uL (Negative) Urine RBC 1 /hpf (0 - 3) Urine Microscopic WBC < 1 /HPF (0-3) Urine Squamous Epithelial Cells Few /hpf (<5) Urine Bacteria None seen /hpf (None Seen) Urine Glucose Normal mg/dL (Normal) Microbiology Microbiology Date/Time Source Procedure Growth Status 03/09/25 01:00 Nose MRSA Screen - Final Complete 03/08/25 22:56 Stool Stool Culture - Preliminary Resulted 03/08/25 22:56 Stool Shiga Toxin I & II - Final Resulted 03/08/25 18:50 Blood Blood Culture - Preliminary NO GROWTH AFTER 72 HOURS OF INCUBATION. Resulted 03/08/25 13:45 Voided Urine Urine Culture - Final Complete Assessment/Plan Assessment/Plan 1. Severe Sepsis likely due to Infectious/Inflammatory Colitis * CT evidence of diffuse colonic wall thickening, lactic acidosis, leukocytosis. * Continue antibiotics (Ceftriaxone + Metronidazole). 2. Gastrointestinal hemorrhage, unspecified site./Active Upper GI Bleed with Melena (Rule Out Peptic Ulcer Re-bleed) * Evidence: Melena, Hgb drop 8.6 ? 6.4 g/dL, stool occult positive, BUN?, gastritis history. * Rule out: Peptic ulcer vs erosive gastritis vs MalloryWeiss tear vs colitis-related bleed. 3. Severe Anemia due to Acute Blood Loss on Chronic Disease * Post-transfusion Hgb > 7 g/dL goal. Sick Sinus Syndrome s/p Leadless Micra Pacemaker * Stable rhythm, no arrhythmia. Continue telemetry. 1. History of Infected Pacemaker Pocket on Wound-Vac * Continue wound-vac therapy, monitor for recurrence of infection. * Wound care following. 2. Rheumatoid Arthritis / Chronic Pain Syndrome * Resume methocarbamol, discontinue hydroxychloroquine (risk of GI upset). * Pain control with lidocaine patch, IV morphine PRN. 3. Electrolyte / Metabolic Abnormalities * Hypocalcemia (Ca 7.2 ?), mild metabolic acidosis, elevated ammonia. * Replete calcium IV if symptomatic, monitor ammonia; lactulose PRN for >60 mol/L. 4. Prolonged QT Interval Monitor on telemetry, maintain K > 4, Mg > 2; avoid QT-prolonging drugs. 5. Hypertension / Hyperlipidemia (Chronic) * Hold antihypertensives for now given GI bleed risk; resume when stable. s/p blood tranfusion. on protonix and octreotide drip pending possible EGD per GI Plan discussed with: Patient Date of Service: Mar 11, 2025 Billing Provider: JUAN OKEEFE DO Common Visit Codes: [id number] INP/OBS CARE(HIGH) JUAN OKEEFE DO Mar 12, 2025 00:05
[2025-03-12 00:30] LABS: Hematocrit 24.3 % (41.0-53.0)
[2025-03-12 00:32] LABS: Hemoglobin 8.1 g/dL (13.5-17.5)
--- NOTE | 2025-03-12 04:05 | DVH ---
CHEST RADIOGRAPH Indication: protocol for pre surgery Technique: Single frontal view of the chest was obtained COMPARISON: XY CHEST PORTABLE on DOS: 03/09/25, CT CT CHEST/AB/PL W CON- IV ONLY on DOS: 03/08/25, CT C HEST WITH CONTRAST on DOS: 01/04/25, XY CHEST TWO VIEWS ROUTINE on DOS: 01/04/25, XY CHEST PORTABLE on DO S: 11/06/24 FINDINGS: Lines and Tubes: Right internal jugular central venous catheter unchanged in position. Lungs: Moderate increase in left pleural effusion with otherwise stable appearing left basilar pulmon rene airspace disease. No pneumothorax. Cardiomediastinal contours: Cardiomegaly. Bones: Unremarkable IMPRESSION: 1. Moderate increase in left pleural effusion with otherwise stable appearing left basilar pulmonary airspace disease. 2. Cardiomegaly. 3. Right IJ catheter.
[2025-03-12 05:45] LABS: Hematocrit 25.0 % (41.0-53.0); Hemoglobin 8.5 g/dL (13.5-17.5); Mean Corpuscular Hemoglobin 32.1 pg (28.0-32.0); Mean Corpuscular Volume 94.5 fL (80.0-100.0); Nucleated Red Blood Cells % 0.2 %
[2025-03-12 05:59] LABS: Alkaline Phosphatase 58 U/L (46-116); Anion Gap 10 (5-15); BUN/Creatinine Ratio 11.9 (10.0-20.0); Bilirubin, Total 0.4 mg/dL (0.2-1.0); Carbon Dioxide 21 mmol/L (20-31); Potassium 3.5 mmol/L (3.5-5.1); Sodium 142 mmol/L (136-145)
[2025-03-12 06:00] LABS: INR 1.38 (0.9-1.15); Partial Thromboplastin Time 31.9 SEC (24.5-34.5); Prothrombin Time 14.2 sec (9.3-11.8)
[2025-03-12 06:03] LABS: Alanine Aminotransferase < 9 U/L (7-40); Albumin 2.3 g/dL (3.2-4.8); Blood Urea Nitrogen 8 mg/dL (9-23); Calcium 7.5 mg/dL (8.7-10.4); Chloride 111 mmol/L (98-107); Glucose 117 mg/dL (74-106); Total Protein 4.6 g/dL (5.7-8.2)
[2025-03-12 12:10] LABS: Hematocrit 25.8 % (41.0-53.0); Hemoglobin 8.6 g/dL (13.5-17.5)
[2025-03-12] MEDS ORDERED: PROPOFOL 10 MG/ML 20 ML IV ONE (14:06)
--- NOTE | 2025-03-12 15:01 | DVHOP2 ---
Operative Report DATE OF OPERATION: 03/12/25 PROCEDURE: Upper Endoscopy with biopsy. PREOPERATIVE INDICATION: The patient is a 74 -year-old male undergoing endoscopy for coffee-ground emesis and melena POSTOPERATIVE DIAGNOSES: 1. Patient had a 2 cm sliding-type hiatal hernia with a widely patent Schatzki's ring but no significant erosive esophagitis 2. 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 Otherwise normal examination up to the 2nd and 3rd part of the duodenum with no active bleeding at this time and no active ulceration noted PROCEDURE PERFORMED BY: Ursula Boss GI NURSE: Christian SCOPE: Olympus videoendoscope. ASA CLASS: 3 PREOPERATIVE MEDICATIONS: Mac sedation, Demond Hopper PROCEDURE IN DETAIL: After obtaining an informed consent, the patient was placed on left lateral decubitus position. The patient was then sedated with the above medications. A bite block was placed between his teeth. The endoscope was then passed through the oropharynx, into the esophagus, and through the stomach and pylorus up to the second and third part of the duodenum. The endoscope was then withdrawn. Second and 3rd part of the duodenal were normal. The duodenal bulb and postbulbar area showed a duodenal stricture This appeared to be related to scarring from previous ulcer disease but no active ulceration was noted Initially it was difficult to pass the endoscope through this area however it was auto dilated with the endoscope Biopsies were obtained from this area and the from the duodenal bulb. The pre- pyloric area and antrum showed mild gastritis. On retroflexion the fundus and cardia were normal. There was no fresh or old blood in the upper GI tract. The endoscope was then withdrawn into distal esophagus where he had a 2 cm sliding-type hiatal hernia with a widely patent Schatzki's ring There was no significant erosive esophagitis. GE junction biopsies were obtained. The remaining distal and proximal esophagus and oropharynx were unremarkable The patient tolerated the procedure well without difficulty. COMPLICATIONS : None SPECIMENS: Duodenal Biopsies Gastric biopsies GE junction biopsies DISPOSITION: Transfer back to the floor Stable PLAN: 1. Await for biopsy result 2. Will place pt on Protonix 40 mg bid p.o. 3. Carafate 1 g p.o. twice a day 4. Resume full liquid diet advance to soft mechanical 5. Outpatient follow up with me in 4-6 weeks to review results and discuss further management 6. Continue antibiotics for suspected Campylobacter enterocolitis and review last colonoscopy report from gastro group which the patient reports as negative URSULA BOSS MD Mar 12, 2025 15:01
--- NOTE | 2025-03-12 15:43 | DVHPNRES ---
Progress Note Date Seen: Mar 12, 2025 Resident Creating Document: WILIAM FLORENTINO RESIDENT Has the PT tested + for MRSA If YES, has PT been informed?: No Medical Necessity Reason Pt with a Central, PICC or Fol: No Subjective Review of Systems This is a 74-year-old male with history of sick sinus syndrome (s/p leadless Micra pacemaker following prior pacemaker pocket infection), hypertension, hyperlipidemia, rheumatoid arthritis, gastritis with prior gastric ulcer, and a recent hospitalization (January 2025) for infected pacemaker pocket on wound-vac therapy. He was admitted for melena and diarrhea for 2 days, initially found to have infectious/inflammatory colitis and upper GI bleed.?Today, the patient reports mild improvement in abdominal cramping and no further vomiting or hematemesis. He continues to have dark stools, though frequency is reduced. No dizziness, syncope, or shortness of breath. Stool culture returned positive for Campylobacter antigen, and he was started on azithromycin IV daily. C. difficile test negative.?Octreotide drip discontinued; continues on PPI drip (pantoprazole). Cardiology cleared the patient for EGD scheduled for March [address] Boss.?Recent RENU showed EF 50 %; Revised Cardiac Risk Index = 0.5 % (low risk). No CHF or CAD, and the patient has good functional capacity. He remains hemodynamically stable, NPO, on room air with O? sat 95 %. Pain well controlled on fentanyl patch, morphine PRN, and Percocet. Hemoglobin stable at 8.1 g/dL (yesterday 8.3).?WBC 6.8 K/L, platelets 157 K.?Electrolytes: Cl 114 ?, CO? 17 ? (mild metabolic acidosis), BUN 27 ?, Cr 0.77 (GFR 95), BUN/Cr ratio 35.1.?Vital signs: BP 121/66, HR 81, RR 30 ?, Temp afebrile, SpO? 95 % RA. 03/12/2025: Patient was seen and examined by me at the bedside. No new active complaints. 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 We are advancing to full liquid diet today and going to observe how the patient tolerates it and then advanced to soft mechanical if patient is able to tolerate. Objective vital signs Vital Sign Date Time Temp Pulse Resp B/P (MAP) Pulse Ox O2 Delivery O2 Flow Rate FiO2 03/12/25 14:40 73 29 93 Nasal Cannula 2.0 03/12/25 14:40 95/64 (74) 03/12/25 14:40 93 03/12/25 14:27 98.6 98.6 Total Intake and Output 03/11/25 03/11/25 03/12/25 15:00 23:00 07:00 Intake Total 680 ml 1470 ml 870 ml Output Total 730 ml 600 ml Balance 680 ml 740 ml 270 ml medications Current Medications Medications Dose Ordered Sig/Sherie Route Start Time Stop Time Status Last Admin Dose Admin Metronidazole 100 ml @ 100 mls/hr Q8HR IV 03/09/25 06:00 03/12/25 13:11 100 MLS/HR Lidocaine 1 patch DAILY@2100 TOP 03/09/25 21:00 03/11/25 20:49 1 PATCH Pantoprazole Sodium 50 ml @ 10 mls/hr Q5H IV 03/09/25 01:15 Hold 03/12/25 13:11 10 MLS/HR Morphine Sulfate 2 mg Q4HPRN PRN IV 03/09/25 08:30 Patient Own Medication 1 patch Q3D TOP 03/09/25 16:00 03/10/25 13:10 1 PATCH Oxycodone/ Acetaminophen 2 tab Q6HP PRN PO 03/10/25 15:30 Loratadine 10 mg DAILYPRN PRN PO 03/10/25 18:00 Hydromorphone HCl 0.25 mg Q4HPRN PRN IV 03/10/25 21:45 03/11/25 11:23 0.25 MG Diphenhydramine HCl 25 mg Q4HP PRN IV 03/10/25 21:45 03/11/25 20:49 25 MG Azithromycin 250 ml @ 125 mls/hr DAILY IV 03/11/25 10:00 03/12/25 08:51 125 MLS/HR Ondansetron HCl 4 mg Q6HPRN PRN IV 03/11/25 12:00 Sodium Chloride 1,000 ml @ 75 mls/hr [id number] IV 03/11/25 15:00 03/11/25 15:00 75 MLS/HR Sucralfate 1 gm QID@0600,1130,1700,2200 PO 03/12/25 17:00 Pantoprazole Sodium 40 mg BID IV 03/12/25 22:00 Folic Acid 1 mg/ Multivitamins 10 ml/Magnesium Sulfate 8 meq/ Thiamine HCl 100 mg/Dextrose 1,013.2 ml @ 125.001 mls/hr DAILY@1800 INJ 03/12/25 18:00 Examination Examination General Awake, alert, oriented, no acute distress Vitals BP 121/66 mmHg HR 81 bpm RR 30 ? Temp afebrile SpO? 95 % RA HEENT Pale conjunctiva, no icterus Neck Supple, no JVD CV Regular rate/rhythm, no murmur; pacemaker site clean under wound-vac Lungs Clear to auscultation bilaterally Abdomen Mild distension, soft, non-tender, no guarding or rebound, normal bowel sounds Extremities No edema, good pulses Neuro AO3, no focal deficit Skin/Wound Left chest wound-vac intact, no erythema or discharge laboratory and microbiology Laboratory Tests 03/12/25 11:53 03/12/25 05:12 Test 03/12/25 05:12 Range/Units Serum Glucose 117 H 74-106 mg/dL Microbiology Date/Time Source Procedure Growth Status 03/09/25 01:00 Nose MRSA Screen - Final Complete 03/08/25 22:56 Stool Stool Culture - Final Complete 03/08/25 22:56 Stool Shiga Toxin I & II - Final Complete 03/08/25 18:50 Blood Blood Culture - Preliminary NO GROWTH AFTER 72 HOURS OF INCUBATION. Resulted 03/08/25 13:45 Voided Urine Urine Culture - Final Complete Labs and/or images reviewed: Labs reviewed by me, Image(s) reviewed by me Problem List/Assessment/Plan Problem List/Assessment/Plan Assessment Acute Upper GI Bleed (Melena) /Gastrointestinal hemorrhage, site unspecified. Improving POA * Secondary to gastritis/gastric ulcer re-bleed vs duodenal ulcer. * Hgb stable 8.1 ? 8.3 ? 8.1; occult blood positive. * Gastrointestinal hemorrhage, site unspecified. Campylobacter enteritis. due to Campylobacter jejuni * Confirmed by stool antigen. C. difficile negative. * Severe Anemia due to Acute Blood Loss (post-transfusion stabilization)POA * Hgb > 8 g/dL goal. Metabolic Acidosis (Mild, Non-Gap) due to Diarrheal Bicarbonate LossPOA * CO? 17, Cl 114, normal AG. Sick Sinus Syndrome s/p Leadless Pacemaker StablePOA * Regular rhythm; no arrhythmias. History of Infected Pacemaker Pocket on Wound-VacPOA * Site clean, no drainage. Continue wound care. Chronic Pain / Rheumatoid Arthritis ControlledPOA * On fentanyl patch, Percocet PRN, lidocaine patch. Hypertension / Hyperlipidemia Stable.POA Plan (System-Jeff) Gastrointestinal * Continue IV pantoprazole drip 8 mg/hr (PPI infusion). * Octreotide discontinued. * Maintain NPO after midnight for EGD tomorrow (03/12) with Dr. Boss. * Monitor stool output and color q4h. * Serial CBC q6h; maintain Hgb > 8 g/dL with transfusion if needed. * Cardiology clearance obtained acceptable kyaw-procedural risk. * Continue azithromycin IV daily for Campylobacter. * Electrolyte monitoring and replacement for diarrhea-related losses. 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 * Stop metronidazole after 24 h overlap per ID protocol. * Monitor stool frequency, WBC trend, CRP. * Blood cultures pending review. Hematology * Monitor CBC q6h ? q12h once stable. * Transfuse PRBC if Hgb < 8 g/dL or symptomatic. * Consider IV iron after active bleeding resolves. Cardiovascular * Continue telemetry for arrhythmia/QT monitoring. * Maintain MAP > 65 mmHg; patient normotensive. * Hold antihypertensives until post-EGD if stable. * EF 50 % on RENU, no CHF/CAD low risk for procedure. Renal / Metabolic * Continue IV NS @ 100 mL/hr. * Monitor BUN/Cr, electrolytes q12h. * Correct CO? 17 (bicarb loss) with fluid and electrolyte replacement. * Avoid nephrotoxins (NSAIDs, contrast). Respiratory * O? via NC PRN to keep SpO? > 92 %. * Incentive spirometry q2h while awake. Pain / Neuro * Continue fentanyl patch Q3D, morphine 2 mg IV q4h PRN, Percocet 5-325 mg q6h PRN. * Lidocaine patch daily. * Avoid benzodiazepines / sedatives pre-EGD. Wound Care / Skin * Continue VAC therapy at chest pacemaker site. * Wound care team to follow daily. * Monitor for erythema, purulence. Endocrine / Nutrition * NPO after midnight for EGD. * Resume clear liquid diet post-procedure if stable. * Start multivitamin, folic acid, thiamine once diet resumed. Prophylaxis * DVT: SCDs only (hold pharmacologic due to GI bleed). * GI: PPI drip continued. * Falls: Precautions maintained. Case discussed in detail with the attending physician, including the clinical presentation, diagnostic workup, and comprehensive management plan. The patient was present for the discussion and demonstrated understanding of his condition and the proposed plan. Critical Care Time: >45 minutes spent in direct evaluation, review of imaging/labs, resuscitation management, and coordination with nursing, wound care, Plan discussed with: Patient Dietary Evaluation Review Comments: 1) Initiate Ethan @ 1 pk bid 2) Initiate MVI @ 1 tb qd 3) Initite vitamin C @ 500 mg bid and zinc sulfate @ 220 mg qd for 7 days 4) If patient remains NPO > 7 days, consider EN/TPN to meet at least 75% estimated daily needs 5) Advance to cardiac diet when medically feasible 6) Follow-up with gastroenterology and cardiology 7) Follow-up with psychiatry 8) Continue to monitor I&O, labs, and skin integrity Expected Outcomes/Goals: 1) patient to receive nutritional support within 7 days of NPO status 2) labs and GI symptoms to improve 3) wounds to improve 4) diet to advance 5) f/u in 3-5 days Date of Service: Mar 12, 2025 Billing Provider: JORDI GREENE MD Common Visit Codes: [id number] CARE 30-74 MIN WILIAM FLORENTINO RESIDENT Mar 12, 2025 15:42 JORDI GREENE MD Mar 13, 2025 14:54
[2025-03-12] MEDS: SUCRALFATE 1 GM/10 ML ORAL SUSP PO SCH (17:28)
[2025-03-12 18:37] LABS: Hematocrit 25.6 % (41.0-53.0); Hemoglobin 8.6 g/dL (13.5-17.5)
[2025-03-12] MEDS: FOLIC ACID 1 MG, MULTIPLE VITAMIN 10 ML, MAGNESIUM SULF SDV 50% 8 MEQ, THIAMINE INJ 100... INJ SCH (18:45)
[2025-03-12] MEDS: PANTOPRAZOLE 40 MG/10 ML VIAL INJ IV SCH (22:03)
[2025-03-12] MEDS: fentaNYL 25MCG/HR 25 MCG/HR PAT TD SCH (22:14)
[2025-03-12] MEDS: diphenhdrAMINE-ZINC ACETATE 1 APPLIC APPL TOP PRN (22:15)
[2025-03-13] VITALS (22 sets, daily range): BP systolic 74–125; BP diastolic 43–90; PULSE 63–100; RESP 13–32; TEMP 97.7–98.4; O2SAT 90–99
[2025-03-13 00:36] LABS: Hematocrit 25.5 % (41.0-53.0); Hemoglobin 8.6 g/dL (13.5-17.5)
[2025-03-13 06:18] LABS: Hematocrit 24.3 % (41.0-53.0); Hemoglobin 8.4 g/dL (13.5-17.5); Mean Corpuscular Hemoglobin 32.2 pg (28.0-32.0); Mean Corpuscular Volume 93.7 fL (80.0-100.0); Nucleated Red Blood Cells % 0.1 %
[2025-03-13 06:33] LABS: Sodium 140 mmol/L (136-145)
[2025-03-13 06:34] LABS: Anion Gap 8 (5-15); Carbon Dioxide 22 mmol/L (20-31)
[2025-03-13 06:35] LABS: Calcium 7.6 mg/dL (8.7-10.4); Chloride 110 mmol/L (98-107); Potassium 3.4 mmol/L (3.5-5.1)
[2025-03-13 06:39] LABS: Glucose 99 mg/dL (74-106)
[2025-03-13 06:41] LABS: BUN/Creatinine Ratio 7.9 (10.0-20.0); Blood Urea Nitrogen < 5 mg/dL (9-23)
[2025-03-13] MEDS: POTASSIUM EFFERVESENT TAB 25 MEQ PO ONE (09:56)
--- NOTE | 2025-03-13 13:22 | DVHDSRES ---
Discharge Summary Date of Admission Resident Creating Document: WILIAM FLORENTINO RESIDENT Mar 08, 2025 at 22:25 Date of Discharge: Mar 13, 2025 Admitting Diagnosis Severe sepsis Labs/Diagnostic Data: Laboratory Results Test 03/13/25 05:27 03/12/25 05:12 03/09/25 00:45 03/08/25 23:09 White Blood Count 7.1 10^3/uL (4.4-10.8) Red Blood Count 2.59 10^6/uL (4.5-5.90) Hemoglobin 8.4 g/dL (13.5-17.5) Hematocrit 24.3 % (41.0-53.0) Mean Corpuscular Volume 93.7 fL (80.0-100.0) Mean Corpuscular Hemoglobin 32.2 pg (28.0-32.0) Mean Corpuscular Hemoglobin Concent 34.4 g/dL (32.0-36.0) Red Cell Distribution Width 16.8 % (11.8-14.3) Platelet Count 179 10^3/uL (140-450) Mean Platelet Volume 7.5 fL (6.9-10.8) Neutrophils (%) (Auto) 55.8 % (37.0-80.0) Lymphocytes (%) (Auto) 26.2 % (10.0-50.0) Monocytes (%) (Auto) 14.0 % (0.0-12.0) Eosinophils (%) (Auto) 3.4 % (0.0-7.0) Basophils (%) (Auto) 0.6 % (0.0-2.0) Neutrophils # (Auto) 4.0 10 ^3/uL (1.6-8.6) Lymphocytes # (Auto) 1.9 10 ^3/uL (0.4-5.4) Monocytes # (Auto) 1.0 10 ^3/uL (0-1.3) Eosinophils # (Auto) 0.2 10 ^3/uL (0-0.8) Basophils # (Auto) 0 10 ^3/uL (0-0.2) Nucleated Red Blood Cells 0.1 % Sodium Level 140 mmol/L (136-145) Potassium Level 3.4 mmol/L (3.5-5.1) Chloride Level 110 mmol/L (98-107) Carbon Dioxide Level 22 mmol/L (20-31) Anion Gap 8 (5-15) Blood Urea Nitrogen < 5 mg/dL (9-23) Creatinine 0.63 mg/dL (0.700-1.30) Glomerular Filtration Rate Calc 100 mL/min (>90) BUN/Creatinine Ratio 7.9 (10.0-20.0) Serum Glucose 99 mg/dL (74-106) Calcium Level 7.6 mg/dL (8.7-10.4) Prothrombin Time 14.2 sec (9.3-11.8) Prothrombin Time INR 1.38 (0.9-1.15) Activated Partial Thromboplast Time 31.9 SEC (24.5-34.5) Total Bilirubin 0.4 mg/dL (0.2-1.0) Aspartate Amino Transferase (AST) 23 U/L (13-40) Alanine Aminotransferase (ALT) < 9 U/L (7-40) Alkaline Phosphatase 58 U/L (46-116) Total Protein 4.6 g/dL (5.7-8.2) Albumin 2.3 g/dL (3.2-4.8) Fibrinogen 188 mg/dL (177-375) Plasma/Serum Blood Alcohol < 3.0 mg/dL (<10) Test 03/08/25 22:56 03/08/25 22:15 03/08/25 21:49 03/08/25 20:39 Stool Occult Blood Positive (Negative) Stool Occult Blood Sample #3 (Negative) Phosphorus Level 3.5 mg/dL (2.4-5.1) Magnesium Level 1.7 mg/dL (1.6-2.6) Iron Level 40 ug/dL (65-175) Total Iron Binding Capacity 196 ug/dL (250-425) Percent Iron Saturation 20.4 % (20-55) Ferritin 40.7 ng/mL (22-322) Direct Bilirubin 0.1 mg/dL (<0.3) Ammonia 46 umol/L (11-32) Lactate Dehydrogenase 107 U/L (120-246) C-Reactive Protein High Sensitivity 1.70 mg/dL (<1.0) Triglycerides Level 96 mg/dL (< 150) Cholesterol Level 87 mg/dL (< 200) LDL Cholesterol 47 mg/dL (< 100) HDL Cholesterol 24 mg/dL (40-59) Lipase 19 U/L (12-53) Vitamin B12 Level 333 pg/mL (211-911) Vitamin D 25-Hydroxy 66.0 ng/mL (30.0-100) Folic Acid 11.48 ng/mL (>5.38) Thyroid Stimulating Hormone (TSH) 2.22 uIU/mL (0.55-4.78) Urine Color Light-yellow (Yellow) Urine Clarity Clear (Clear) Urine pH 5.5 (5.0-9.0) Urine Specific [place] 1.048 (1.001-1.035) Urine Protein Negative (Negative) Urine Ketones Negative (Negative) Urine Blood Negative /uL (Negative) Urine Nitrite Negative (Negative) Urine Bilirubin Negative (Negative) Urine Urobilinogen Normal mg/dL (Negative) Urine Leukocyte Esterase Negative /uL (Negative) Urine RBC 1 /hpf (0 - 3) Urine Microscopic WBC < 1 /HPF (0-3) Urine Squamous Epithelial Cells Few /hpf (<5) Urine Bacteria None seen /hpf (None Seen) Urine Glucose Normal mg/dL (Normal) Urine Opiates Screen Neg (NEGATIVE) Urine Fentanyl Screen Pos (NEGATIVE) Urine Barbiturates Screen Neg (NEGATIVE) Urine Phencyclidine Screen Neg (NEGATIVE) Urine Amphetamines Screen Neg (NEGATIVE) Urine Benzodiazepines Screen Neg (NEGATIVE) Urine Cocaine Screen Neg (NEGATIVE) Urine Cannabinoids Screen Pos (NEGATIVE) Lactic Acid Level 2.2 mmol/L (0.4-2.0) Troponin I High Sensitivity 3 ng/L (</=54) Test 03/08/25 17:23 03/08/25 16:49 Reticulocyte Count (auto) 2.94 % (0.5-1.5) B-Type Natriuretic Peptide 34.23 pg/mL (0-100) POC Glucose 114 mg/dl (70-106) Other Laboratory Tests 03/13/25 05:27 Brief Hx & Hospital Course: Brief history of hospitalization: This is a 74-year-old male with history of sick sinus syndrome (s/p leadless Micra pacemaker following prior pacemaker pocket infection), hypertension, hyperlipidemia, rheumatoid arthritis, gastritis with prior gastric ulcer, and a recent hospitalization (January 2025) for infected pacemaker pocket on wound-vac therapy. He was admitted for melena and diarrhea for 2 days, initially found to have infectious/inflammatory colitis and upper GI bleed. Stool culture returned positive for Campylobacter antigen, and he was started on azithromycin IV daily. C. difficile test negative. Octreotide drip Was given in the beginning which was later discontinued, but during the entire hospitalization patient was continued on PPI drip (pantoprazole). Cardiology cleared the patient for EGD scheduled for March [address] Boss. Pain well controlled on fentanyl patch, morphine PRN, and Percocet. due to low hemoglobin levels 3 packed red blood cells were transfused. 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 He is now stable for discharge and can go home. Patient and his sister agreed to the discharge plan. Patient will be discharged with iron and laxative, Carafate and Protonix. We have asked him to follow up with Gastroenterology outpatient in 2 weeks and to follow up at discharge clinic next Tuesday for CBC. Pt is lying on bed General Appearance: Alert, Oriented X3, Cooperative, Not in acute distress HEENT: Atraumatic, Mucous membranes moist/pink Respiratory: Clear to auscultation, Normal air movement, No added sounds Cardiovascular: Regular rate, Normal S1, Normal S2, No murmurs Abdominal: Active bowel sounds, Soft, no distention, no tenderness Extremities: No edema, Normal pulses, No tenderness/swelling Skin: No Significant rash, except past surgical scars Neuro: Normal speech, sensorimotor deficits none Psych/Mental Status: Mental status NL, Mood NL Nurse was there as aviation program manager during examination Operations or Procedures CT CT CHEST/AB/PL W CON- IV ONLY 1. Concentric wall thickening throughout the colon is suggestive of infectious / inflammatory colitis. Radiation optimization: All CT scans at this facility use at least one of these dose optimization techniques: automated exposure control mA and/or kV adjustment per patient size (includes targeted exams where dose is matched to clinical indication) or iterative reconstruction. CHEST RADIOGRAPH Indication: central line placement verification IMPRESSION: 1. Adequately positioned right IJ catheter. 2. Left basilar atelectasis without evidence of infectious consolidation or pleural effusion. CHEST RADIOGRAPH Indication: protocol for pre surgery IMPRESSION: 1. Moderate increase in left pleural effusion with otherwise stable appearing left basilar pulmonary airspace disease. 2. Cardiomegaly. 3. Right IJ catheter. Electronically Signed by: Riley Graham Condition at Discharge: Stable Final Diagnosis/Problems List Acute Upper GI Bleed Secondary to duodenal ulcer. Campylobacter enteritis. due to Campylobacter jejuni Severe Anemia due to Acute Blood Loss (post-transfusion stabilization)POA Metabolic Acidosis (Mild, Non-Gap) due to Diarrheal Bicarbonate LossPOA Sick Sinus Syndrome s/p Leadless Pacemaker StablePOA History of Infected Pacemaker Pocket on Wound-VacPOA Chronic Pain / Rheumatoid Arthritis ControlledPOA Hypertension / Hyperlipidemia Stable.POA Discharge Disposition: Home Discharge Instruct/Medications Diet: Consistent carbohydrate, Cardiac 2g Na,low cholest Activity: No Restrictions, As Tolerated Follow Up/Referral: Gastroenterology in 2 weeks Follow up at discharge clinic on next Tuesday Medications: Ferrous sulfate 325mg 1 tablet daily for 30 days Lactulose 30 mL once a day for 30 days Carafate 1g 4 times a day daily for 30 days Protonix 40 mg per orally once daily for 30 days Scheduled Amoxicillin & Pot Clavulanate (Augmentin Tablet), 875 MG PO Q12HR, (Reported) Azithromycin (Azithromycin), 1 TAB PO DAILY Cephalexin Monohydrate (Cephalexin), 500 MG PO Q6HR, (Reported) Clonidine Hydrochloride (Clonidine Hcl), 1 TAB PO QPM, (Reported) Diphenhydramine Hcl (Diphenhydramine Hcl), 1 TAB PO QPM, (Reported) Diphenhydramine Hcl (Diphenhydramine Hcl), 25 MG PO PRN, (Reported) Esomeprazole Magnesium Trihydr (Nexium), 1 CAP PO DAILY, (Reported) Fentanyl (Fentanyl), 1 PATCH TOP Q3D, (Reported) Ferrous Sulfate (Ferrous Sulfate), 1 TAB PO DAILY Hydroxychloroquine Sulfate (Hydroxychloroquine Sulfat), 200 MG PO DAILY, (Reported) Magnesium Oxide (Magnesium Oxide), 1 TAB PO BID, (Reported) Methocarbamol (Methocarbamol), 500 MG PO Q8HR, (Reported) Oxycodone W/ Acetaminophen (Apap/Oxycodone), 1 TAB PO TID, (Reported) Oxycodone W/ Acetaminophen (Apap/Oxycodone), 1 TAB PO PRN, (Reported) Pantoprazole Sodium Sesquihydr (Protonix), 40 MG PO BID Sucralfate (Carafate Susp), 1 GM PO QID@0600,1130,1700,2200 Sulfamethoxazole W/Trimethopri (Bactrim Ds Tablet), 1 TAB PO BID Vericiguat (Verquvo), 2.5 MG PO BID, (Reported) Zolpidem Tartrate (Zolpidem Tartrate), 1 TAB PO QPM, (Reported) Scheduled PRN Clonidine Hydrochloride (Clonidine Hcl), 0.1 MG PO BIDPRN PRN for PER BLOOD PRESSURE PROTOCOL, (Reported) Miscellaneous Medications Ascorbic Acid (Vitamin C), 1,000 MG PO, (Reported) Discontinued Medications Meloxicam (Meloxicam), 1 TAB PO DAILY, (Reported) Discharge Statement: "Patient was advised to return to the ER or call 911 if any headaches, dizziness, shortness of breath, chest pain, abdominal pain, bleeding, fevers, or worsening of medical condition. Patient was counseled about treatment plan, medications, possible side effects, patientverbalized understanding. All questions were answered to the best of my ability. This discharge took greater then 30 minutes in planning, reviewing documentation, counseling the patient, and discussing with other team members." ASSESSMENT ASSESSMENT Assessment Acute Upper GI Bleed Secondary to duodenal ulcer. Date of Service: Mar 13, 2025 Billing Provider: JORDI GREENE MD Common Visit Codes: 89129-SEN/OBS DISCH DAY >30min WILIAM FLORENTINO Mar 13, 2025 13:22 JORDI GREENE MD Mar 13, 2025 17:42
[2025-03-13] MEDS ORDERED: SUCR1SUS26 PO (14:52)
[2025-03-13] MEDS ORDERED: PANT40TA2 PO (14:52)
[2025-03-13] MEDS ORDERED: AZIT500T66 PO (14:52)
[2025-03-13] MEDS ORDERED: FER325T PO (16:10)
--- NOTE | 2025-03-13 16:16 | ECG ---
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
--- NOTE | 2025-03-13 16:46 | DVH ---
CHEST RADIOGRAPH Indication: Hypoxia and sob Technique: XY CHEST XRAY 1 VIEW COMPARISON: None FINDINGS: Right IJ catheter tip projects over the SVC. The cardiac silhouette is enlarged. The lungs demonstrate bilateral patchy airspace opacities. The pu lmonary vasculature is prominent. Moderate left pleural effusion and tiny right pleural effusion. The re is no pneumothorax. Old posterior right rib fractures IMPRESSION: As above
[2025-03-13 16:52] LABS: Base Excess -9.0 mmol/L (-2.0-3.0)
[2025-03-13] MEDS ORDERED: AZITHROMYCIN 250 MG TAB PO ONE (17:15)
--- NOTE | 2025-03-13 17:26 | DVHPNRES ---
Progress Note Date Seen: Mar 13, 2025 Resident Creating Document: WILIAM FLORENTINO RESIDENT Has the PT tested + for MRSA If YES, has PT been informed?: No Medical Necessity Reason Pt with a Central, PICC or Fol: No Subjective Review of Systems This is a 74-year-old male with history of sick sinus syndrome (s/p leadless Micra pacemaker following prior pacemaker pocket infection), hypertension, hyperlipidemia, rheumatoid arthritis, gastritis with prior gastric ulcer, and a recent hospitalization (January 2025) for infected pacemaker pocket on wound-vac therapy. He was admitted for melena and diarrhea for 2 days, initially found to have infectious/inflammatory colitis and upper GI bleed.?Today, the patient reports mild improvement in abdominal cramping and no further vomiting or hematemesis. He continues to have dark stools, though frequency is reduced. No dizziness, syncope, or shortness of breath. Stool culture returned positive for Campylobacter antigen, and he was started on azithromycin IV daily. C. difficile test negative.?Octreotide drip discontinued; continues on PPI drip (pantoprazole). Cardiology cleared the patient for EGD scheduled for March [address] Boss.?Recent RENU showed EF 50 %; Revised Cardiac Risk Index = 0.5 % (low risk). No CHF or CAD, and the patient has good functional capacity. He remains hemodynamically stable, NPO, on room air with O? sat 95 %. Pain well controlled on fentanyl patch, morphine PRN, and Percocet. Hemoglobin stable at 8.1 g/dL (yesterday 8.3).?WBC 6.8 K/L, platelets 157 K.?Electrolytes: Cl 114 ?, CO? 17 ? (mild metabolic acidosis), BUN 27 ?, Cr 0.77 (GFR 95), BUN/Cr ratio 35.1.?Vital signs: BP 121/66, HR 81, RR 30 ?, Temp afebrile, SpO? 95 % RA. 03/12/2025: Patient was seen and examined by me at the bedside. No new active complaints. 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 We are advancing to full liquid diet today and going to observe how the patient tolerates it and then advanced to soft mechanical if patient is able to tolerate. 03/13/2025: Patient was seen and examined by me at the bedside. Patient was planned to be discharged but his saturation dropped to the 80s when he was walking to the bathroom. Chest x-ray shows increased pleural effusion. We will be tapping it tomorrow. we have started Augmentin 875 mg p.o. b.i.d. scheduled and azithromycin 500 mg p.o. once. ABG was done too. Objective vital signs Vital Sign Date Time Temp Pulse Resp B/P (MAP) Pulse Ox O2 Delivery O2 Flow Rate FiO2 03/13/25 14:00 74 30 101/71 (81) 95 03/13/25 12:00 98.4 98.4 03/13/25 08:00 Room Air* 0 21 Total Intake and Output 03/12/25 03/12/25 03/13/25 15:00 23:00 07:00 Intake Total 1045 ml 1475 ml 1800 ml Output Total 925 ml 1600 ml Balance 1045 ml 550 ml 200 ml medications Current Medications Medications Dose Ordered Sig/Sherie Route Start Time Stop Time Status Last Admin Dose Admin Lidocaine 1 patch DAILY@2100 TOP 03/09/25 21:00 03/11/25 20:49 1 PATCH Morphine Sulfate 2 mg Q4HPRN PRN IV 03/09/25 08:30 Oxycodone/ Acetaminophen 2 tab Q6HP PRN PO 03/10/25 15:30 Loratadine 10 mg DAILYPRN PRN PO 03/10/25 18:00 Hydromorphone HCl 0.25 mg Q4HPRN PRN IV 03/10/25 21:45 03/11/25 11:23 0.25 MG Diphenhydramine HCl 25 mg Q4HP PRN IV 03/10/25 21:45 03/11/25 20:49 25 MG Ondansetron HCl 4 mg Q6HPRN PRN IV 03/11/25 12:00 Sucralfate 1 gm QID@0600,1130,1700,2200 PO 03/12/25 17:00 03/12/25 22:00 1 GM Pantoprazole Sodium 40 mg BID IV 03/12/25 22:00 03/13/25 09:57 40 MG Fentanyl 25 mcg Q72H TD 03/12/25 20:45 03/12/25 22:14 25 MCG Zinc Acetate/ Diphenhydramine 1 applic Q6HP PRN TOP 03/12/25 20:45 03/12/25 22:15 1 APPLIC Azithromycin 500 mg DAILY PO 03/14/25 10:00 Amoxicillin/ Clavulanate Potassium 875 mg Q12HR PO 03/13/25 23:30 Examination Pt is lying on bed General Appearance: Alert, Oriented X3, Cooperative, Not in acute distress HEENT: Atraumatic, Mucous membranes moist/pink Respiratory: Clear to auscultation, Normal air movement, No added sounds Cardiovascular: Regular rate, Normal S1, Normal S2, No murmurs Abdominal: Active bowel sounds, Soft, no distention, no tenderness Extremities: No edema, Normal pulses, No tenderness/swelling Skin: No Significant rash, except past surgical scars Neuro: Normal speech, sensorimotor deficits none Psych/Mental Status: Mental status NL, Mood NL Nurse was there as hogshead hand during examination laboratory and microbiology Laboratory Tests 03/13/25 05:27 Test 03/13/25 05:27 Range/Units Serum Glucose 99 74-106 mg/dL Microbiology Date/Time Source Procedure Growth Status 03/09/25 01:00 Nose MRSA Screen - Final Complete 03/08/25 22:56 Stool Stool Culture - Final Complete 03/08/25 22:56 Stool Shiga Toxin I & II - Final Complete 03/08/25 18:50 Blood Blood Culture - Preliminary NO GROWTH AFTER 72 HOURS OF INCUBATION. Resulted 03/08/25 13:45 Voided Urine Urine Culture - Final Complete Labs and/or images reviewed: Labs reviewed by me, Image(s) reviewed by me Problem List/Assessment/Plan Problem List/Assessment/Plan Assessment Acute Upper GI Bleed (Melena) /Gastrointestinal hemorrhage, site unspecified. Improving POA * Secondary to gastritis/gastric ulcer re-bleed vs duodenal ulcer. * Hgb stable 8.1 ? 8.3 ? 8.1; occult blood positive. * Gastrointestinal hemorrhage, site unspecified. Campylobacter enteritis. due to Campylobacter jejuni * Confirmed by stool antigen. C. difficile negative. * Severe Anemia due to Acute Blood Loss (post-transfusion stabilization)POA * Hgb > 8 g/dL goal. Metabolic Acidosis (Mild, Non-Gap) due to Diarrheal Bicarbonate LossPOA * CO? 17, Cl 114, normal AG. Sick Sinus Syndrome s/p Leadless Pacemaker StablePOA * Regular rhythm; no arrhythmias. History of Infected Pacemaker Pocket on Wound-VacPOA * Site clean, no drainage. Continue wound care. Chronic Pain / Rheumatoid Arthritis ControlledPOA * On fentanyl patch, Percocet PRN, lidocaine patch. Hypertension / Hyperlipidemia Stable.POA Plan (System-Jeff) Gastrointestinal * Continue IV pantoprazole drip 8 mg/hr (PPI infusion). * Octreotide discontinued. * Maintain NPO after midnight for EGD tomorrow (03/12) with Dr. Boss. * Monitor stool output and color q4h. * Serial CBC q6h; maintain Hgb > 8 g/dL with transfusion if needed. * Cardiology clearance obtained acceptable kyaw-procedural risk. * Continue azithromycin IV daily for Campylobacter. * Electrolyte monitoring and replacement for diarrhea-related losses. 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 * Stop metronidazole after 24 h overlap per ID protocol. * Monitor stool frequency, WBC trend, CRP. * Blood cultures pending review. Hematology * Monitor CBC q6h ? q12h once stable. * Transfuse PRBC if Hgb < 8 g/dL or symptomatic. * Consider IV iron after active bleeding resolves. Cardiovascular * Continue telemetry for arrhythmia/QT monitoring. * Maintain MAP > 65 mmHg; patient normotensive. * Hold antihypertensives until post-EGD if stable. * EF 50 % on RENU, no CHF/CAD low risk for procedure. Renal / Metabolic * Continue IV NS @ 100 mL/hr. * Monitor BUN/Cr, electrolytes q12h. * Correct CO? 17 (bicarb loss) with fluid and electrolyte replacement. * Avoid nephrotoxins (NSAIDs, contrast). Respiratory * O? via NC PRN to keep SpO? > 92 %. * Incentive spirometry q2h while awake. * Augmentin 875 mg twice a day daily * azithromycin 500 mg daily Pain / Neuro * Continue fentanyl patch Q3D, morphine 2 mg IV q4h PRN, Percocet 5-325 mg q6h PRN. * Lidocaine patch daily. * Avoid benzodiazepines / sedatives pre-EGD. Wound Care / Skin * Continue VAC therapy at chest pacemaker site. * Wound care team to follow daily. * Monitor for erythema, purulence. Endocrine / Nutrition * NPO after midnight for EGD. * Resume clear liquid diet post-procedure if stable. * Start multivitamin, folic acid, thiamine once diet resumed. Prophylaxis * DVT: SCDs only (hold pharmacologic due to GI bleed). * GI: PPI drip continued. * Falls: Precautions maintained. Case discussed in detail with the attending physician, including the clinical presentation, diagnostic workup, and comprehensive management plan. The patient was present for the discussion and demonstrated understanding of his condition and the proposed plan. Critical Care Time: >45 minutes spent in direct evaluation, review of imaging/labs, resuscitation management, and coordination with nursing, wound care, Plan discussed with: Patient My Orders My Orders Orders - WILIAM FLORENTINO RESIDENT Procedure Category Date Status Time * Student Teacher CONS 03/13/25 Transmitted Consult Mrsa Screen POP 03/13/25 Logged 15:10 Schedule For Dc RICKY 03/13/25 In Process Clinic F/U 13:14 Dietary Evaluation Review Comments: 1) Initiate Ethan @ 1 pk bid 2) Initiate MVI @ 1 tb qd 3) Initite vitamin C @ 500 mg bid and zinc sulfate @ 220 mg qd for 7 days 4) If patient remains NPO > 7 days, consider EN/TPN to meet at least 75% estimated daily needs 5) Advance to cardiac diet when medically feasible 6) Follow-up with gastroenterology and cardiology 7) Follow-up with psychiatry 8) Continue to monitor I&O, labs, and skin integrity Expected Outcomes/Goals: 1) patient to receive nutritional support within 7 days of NPO status 2) labs and GI symptoms to improve 3) wounds to improve 4) diet to advance 5) f/u in 3-5 days Date of Service: Mar 13, 2025 Billing Provider: JORDI GREENE MD Common Visit Codes: 25520-[id number] INP/OBS CARE(HIGH) WILIAM FLORENTINO RESIDENT Mar 13, 2025 17:26 JORDI GREENE MD Mar 13, 2025 17:48
[2025-03-13] MEDS: AMOXICILLIN/CLAVUL 875 MG TAB PO ONE (18:29)
[2025-03-13] MEDS: FUROSEMIDE 20 MG/2 ML VIAL IV ONE (19:40)
--- NOTE | 2025-03-13 20:20 | DVHPN2 ---
Progress Note - Dictate Date Seen: Mar 13, 2025 Has the PT tested + for MRSA If YES, has PT been informed?: No Medical Necessity Reason Pt with a Central, PICC or Fol: No Subjective Patient seen at bedside resting comfortably No further GI bleeding EGD findings reviewed with patient Patient ambulated with mild shortness post exertional vital signs Vital Sign Date Time Temp Pulse Resp B/P (MAP) Pulse Ox O2 Delivery O2 Flow Rate FiO2 03/13/25 19:40 118/83 03/13/25 19:00 86 31 98 03/13/25 18:00 98.0 98.0 03/13/25 08:00 Room Air* 0 21 Total Intake and Output 03/12/25 03/12/25 03/13/25 15:00 23:00 07:00 Intake Total 1045 ml 1475 ml 1800 ml Output Total 925 ml 1600 ml Balance 1045 ml 550 ml 200 ml medications Current Medications Medications Dose Ordered Sig/Sherie Route Start Time Stop Time Status Last Admin Dose Admin Lidocaine 1 patch DAILY@2100 TOP 03/09/25 21:00 03/11/25 20:49 1 PATCH Morphine Sulfate 2 mg Q4HPRN PRN IV 03/09/25 08:30 Oxycodone/ Acetaminophen 2 tab Q6HP PRN PO 03/10/25 15:30 Loratadine 10 mg DAILYPRN PRN PO 03/10/25 18:00 Hydromorphone HCl 0.25 mg Q4HPRN PRN IV 03/10/25 21:45 03/11/25 11:23 0.25 MG Diphenhydramine HCl 25 mg Q4HP PRN IV 03/10/25 21:45 03/11/25 20:49 25 MG Ondansetron HCl 4 mg Q6HPRN PRN IV 03/11/25 12:00 Sucralfate 1 gm QID@0600,1130,1700,2200 PO 03/12/25 17:00 03/13/25 18:28 1 GM Pantoprazole Sodium 40 mg BID IV 03/12/25 22:00 03/13/25 09:57 40 MG Fentanyl 25 mcg Q72H TD 03/12/25 20:45 03/12/25 22:14 25 MCG Zinc Acetate/ Diphenhydramine 1 applic Q6HP PRN TOP 03/12/25 20:45 03/12/25 22:15 1 APPLIC Azithromycin 500 mg DAILY PO 03/14/25 10:00 Amoxicillin/ Clavulanate Potassium 875 mg Q12HR PO 03/13/25 23:30 objective General Appearance: Alert, Oriented X3, Cooperative, No acute distress Lungs: Clear to auscultation, Normal air movement, Other Cardiovascular: Regular rate, Normal S1, Normal S2, No murmurs, Gallops, Rubs, Other Abdomen: Normal bowel sounds, Soft, No tenderness, No hepatospenomegaly, No masses, Other Ext no c/c/e laboratory and microbiology Laboratory Tests 03/13/25 05:27 Test 03/13/25 05:27 Range/Units Serum Glucose 99 74-106 mg/dL Problems(with codes): (1) Anemia (2) Duodenal stricture (3) Melena (4) Campylobacter enteritis Prognosis Plan Advance diet as tolerated Protonix 40 mg p.o. twice a day Carafate 1 g p.o. twice a day Continue antibiotics for suspected Campylobacter enterocolitis and review last colonoscopy report from gastro group which the patient reports as negative Outpatient follow up with me in 4-6 weeks to review results and discuss further management Discharge planning is in progress Dietary Evaluation Review Comments: 1) Initiate Ethan @ 1 pk bid 2) Initiate MVI @ 1 tb qd 3) Initite vitamin C @ 500 mg bid and zinc sulfate @ 220 mg qd for 7 days 4) If patient remains NPO > 7 days, consider EN/TPN to meet at least 75% estimated daily needs 5) Advance to cardiac diet when medically feasible 6) Follow-up with gastroenterology and cardiology 7) Follow-up with psychiatry 8) Continue to monitor I&O, labs, and skin integrity Expected Outcomes/Goals: 1) patient to receive nutritional support within 7 days of NPO status 2) labs and GI symptoms to improve 3) wounds to improve 4) diet to advance 5) f/u in 3-5 days Plan discussed with: Patient, Other (Nurse) URSULA BARAKAT MD Mar 13, 2025 20:20
[2025-03-13] MEDS: AMOXICILLIN/CLAVUL 875 MG TAB PO SCH (22:33)
[2025-03-14] VITALS (8 sets, daily range): BP systolic 97–115; BP diastolic 66–76; PULSE 70–88; RESP 16–19; TEMP 97–99.3; O2SAT 90–98
--- NOTE | 2025-03-14 05:30 | DVH ---
CHEST RADIOGRAPH Indication: pleural effusion Technique: Single frontal view of the chest was obtained COMPARISON: XY CHEST XRAY 1 VIEW on DOS: 03/13/25, XY CHEST PORTABLE on DOS: 03/12/25, XY CHEST PORTABL E on DOS: 03/09/25, XY CHEST TWO VIEWS ROUTINE on DOS: 01/04/25, XY CHEST PORTABLE on DOS: 11/06/24 FINDINGS: Lines and Tubes: Right internal jugular central venous catheter unchanged. Lungs: Stable appearing left pleural effusion and basilar pulmonary airspace disease. No pneumothorax. Cardiomediastinal contours: Unremarkable Bones: Unremarkable IMPRESSION: 1. Stable left pleural effusion and basilar pulmonary airspace disease. 2. Right IJ catheter.
[2025-03-14 09:57] LABS: Hematocrit 27.9 % (41.0-53.0); Hemoglobin 9.4 g/dL (13.5-17.5); Mean Corpuscular Hemoglobin 31.8 pg (28.0-32.0); Mean Corpuscular Volume 94.3 fL (80.0-100.0); Nucleated Red Blood Cells % 0.1 %
[2025-03-14 10:00] LABS: Anion Gap 8 (5-15); Carbon Dioxide 23 mmol/L (20-31); Potassium 3.7 mmol/L (3.5-5.1); Sodium 138 mmol/L (136-145)
[2025-03-14] MEDS: FUROSEMIDE 20 MG/2 ML VIAL IV ONE (10:02)
[2025-03-14] MEDS: AZITHROMYCIN 250 MG TAB PO SCH (10:03)
[2025-03-14 10:06] LABS: BUN/Creatinine Ratio 10.1 (10.0-20.0); Blood Urea Nitrogen 7 mg/dL (9-23); Calcium 7.6 mg/dL (8.7-10.4); Chloride 107 mmol/L (98-107); Glucose 103 mg/dL (74-106)
[2025-03-14 10:07] LABS: Magnesium 1.6 mg/dL (1.6-2.6)
--- NOTE | 2025-03-14 12:36 | DVHPNRES ---
Progress Note Date Seen: Mar 14, 2025 Resident Creating Document: WILIAM FLORENTINO RESIDENT Has the PT tested + for MRSA If YES, has PT been informed?: No Medical Necessity Reason Pt with a Central, PICC or Fol: No Subjective Review of Systems This is a 74-year-old male with history of sick sinus syndrome (s/p leadless Micra pacemaker following prior pacemaker pocket infection), hypertension, hyperlipidemia, rheumatoid arthritis, gastritis with prior gastric ulcer, and a recent hospitalization (January 2025) for infected pacemaker pocket on wound-vac therapy. He was admitted for melena and diarrhea for 2 days, initially found to have infectious/inflammatory colitis and upper GI bleed.?Today, the patient reports mild improvement in abdominal cramping and no further vomiting or hematemesis. He continues to have dark stools, though frequency is reduced. No dizziness, syncope, or shortness of breath. Stool culture returned positive for Campylobacter antigen, and he was started on azithromycin IV daily. C. difficile test negative.?Octreotide drip discontinued; continues on PPI drip (pantoprazole). Cardiology cleared the patient for EGD scheduled for March [address] Boss.?Recent RENU showed EF 50 %; Revised Cardiac Risk Index = 0.5 % (low risk). No CHF or CAD, and the patient has good functional capacity. He remains hemodynamically stable, NPO, on room air with O? sat 95 %. Pain well controlled on fentanyl patch, morphine PRN, and Percocet. Hemoglobin stable at 8.1 g/dL (yesterday 8.3).?WBC 6.8 K/L, platelets 157 K.?Electrolytes: Cl 114 ?, CO? 17 ? (mild metabolic acidosis), BUN 27 ?, Cr 0.77 (GFR 95), BUN/Cr ratio 35.1.?Vital signs: BP 121/66, HR 81, RR 30 ?, Temp afebrile, SpO? 95 % RA. 03/12/2025: Patient was seen and examined by me at the bedside. No new active complaints. 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 We are advancing to full liquid diet today and going to observe how the patient tolerates it and then advanced to soft mechanical if patient is able to tolerate. 03/13/2025: Patient was seen and examined by me at the bedside. Patient was planned to be discharged but his saturation dropped to the 80s when he was walking to the bathroom. Chest x-ray shows increased pleural effusion. We will be tapping it tomorrow. we have started Augmentin 875 mg p.o. b.i.d. scheduled and azithromycin 500 mg p.o. once. ABG was done too. 03/14/2025: Patient was seen and examined by me at the bedside. Patient still has mild crackles on the left lower lung base. Furosemide 20 mg given again today. Patient reports that he has been urinating a lot. We counseled him regarding the need of urination for the congestion in his lungs and he communicated understanding. GI on board, suggested-patient to receive nutritional support within 7 days of NPO status; diet to advance; f/u in 3-5 days. We will continue to monitor the patient today. Central line was taken out. PT evaluation has been placed to check for ambulation patient is weak. Possible discharge tomorrow Objective vital signs Vital Sign Date Time Temp Pulse Resp B/P (MAP) Pulse Ox O2 Delivery O2 Flow Rate FiO2 03/14/25 10:02 102/66 03/14/25 09:00 97.6 77 18 96 97.6 03/14/25 08:20 Nasal Cannula* 2 28 Total Intake and Output 03/13/25 03/13/25 03/14/25 15:00 23:00 07:00 Intake Total 950 ml 805 ml Output Total 550 ml Balance 950 ml 255 ml medications Current Medications Medications Dose Ordered Sig/Sherie Route Start Time Stop Time Status Last Admin Dose Admin Lidocaine 1 patch DAILY@2100 TOP 03/09/25 21:00 03/11/25 20:49 1 PATCH Morphine Sulfate 2 mg Q4HPRN PRN IV 03/09/25 08:30 Oxycodone/ Acetaminophen 2 tab Q6HP PRN PO 03/10/25 15:30 03/14/25 10:18 2 TAB Loratadine 10 mg DAILYPRN PRN PO 03/10/25 18:00 Hydromorphone HCl 0.25 mg Q4HPRN PRN IV 03/10/25 21:45 03/11/25 11:23 0.25 MG Diphenhydramine HCl 25 mg Q4HP PRN IV 03/10/25 21:45 03/11/25 20:49 25 MG Ondansetron HCl 4 mg Q6HPRN PRN IV 03/11/25 12:00 Sucralfate 1 gm QID@0600,1130,1700,2200 PO 03/12/25 17:00 03/14/25 11:00 1 GM Pantoprazole Sodium 40 mg BID IV 03/12/25 22:00 03/14/25 10:02 40 MG Fentanyl 25 mcg Q72H TD 03/12/25 20:45 03/12/25 22:14 25 MCG Zinc Acetate/ Diphenhydramine 1 applic Q6HP PRN TOP 03/12/25 20:45 03/12/25 22:15 1 APPLIC Azithromycin 500 mg DAILY PO 03/14/25 10:00 03/14/25 10:03 500 MG Amoxicillin/ Clavulanate Potassium 875 mg Q12HR PO 03/13/25 23:30 03/14/25 10:02 875 MG Examination Pt is lying on bed General Appearance: Alert, Oriented X3, Cooperative, Not in acute distress HEENT: Atraumatic, Mucous membranes moist/pink, nasal cannula in place Respiratory: Clear to auscultation, Normal air movement, No added sounds Cardiovascular: Regular rate, Normal S1, Normal S2, No murmurs Abdominal: Active bowel sounds, Soft, no distention, no tenderness Extremities: No edema, Normal pulses, No tenderness/swelling Skin: No Significant rash, except past surgical scars Neuro: Normal speech, sensorimotor deficits none Psych/Mental Status: Mental status NL, Mood NL Nurse was there as senior hr business partner during examination laboratory and microbiology Laboratory Tests 03/14/25 09:34 Test 03/14/25 09:34 Range/Units Serum Glucose 103 74-106 mg/dL Microbiology Date/Time Source Procedure Growth Status 03/09/25 01:00 Nose MRSA Screen - Final Complete 03/08/25 22:56 Stool Stool Culture - Final Complete 03/08/25 22:56 Stool Shiga Toxin I & II - Final Complete 03/08/25 18:50 Blood Blood Culture - Final NO GROWTH AFTER 5 DAYS OF INCUBATION. Complete 03/08/25 13:45 Voided Urine Urine Culture - Final Complete Labs and/or images reviewed: Labs reviewed by me, Image(s) reviewed by me Problem List/Assessment/Plan Problem List/Assessment/Plan Assessment Acute Upper GI Bleed (Melena) /Gastrointestinal hemorrhage, site unspecified. Improving POA * Secondary to gastritis/gastric ulcer re-bleed vs duodenal ulcer. * Hgb stable 8.1 ? 8.3 ? 8.1; occult blood positive. * Gastrointestinal hemorrhage, site unspecified. Campylobacter enteritis. due to Campylobacter jejuni * Confirmed by stool antigen. C. difficile negative. * GI on board Severe Anemia due to Acute Blood Loss (post-transfusion stabilization)POA * Hgb > 8 g/dL goal. Metabolic Acidosis (Mild, Non-Gap) due to Diarrheal Bicarbonate LossPOA * CO? 17, Cl 114, normal AG. Sick Sinus Syndrome s/p Leadless Pacemaker StablePOA * Regular rhythm; no arrhythmias. History of Infected Pacemaker Pocket on Wound-VacPOA * Site clean, no drainage. Continue wound care. Chronic Pain / Rheumatoid Arthritis ControlledPOA * On fentanyl patch, Percocet PRN, lidocaine patch. Hypertension / Hyperlipidemia Stable.POA Plan (System-Jeff) Gastrointestinal * Continue IV pantoprazole drip 8 mg/hr (PPI infusion). * Octreotide discontinued. * Maintain NPO after midnight for EGD tomorrow (03/12) with Dr. Boss. * Monitor stool output and color q4h. * Serial CBC q6h; maintain Hgb > 8 g/dL with transfusion if needed. * Cardiology clearance obtained acceptable kyaw-procedural risk. * Continue azithromycin IV daily for Campylobacter. * Electrolyte monitoring and replacement for diarrhea-related losses. 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 Infectious Disease / Sepsis * Continue azithromycin IV daily (Day 1). * Stop metronidazole after 24 h overlap per ID protocol. * Monitor stool frequency, WBC trend, CRP. * Blood cultures pending review. Hematology * Monitor CBC q6h ? q12h once stable. * Transfuse PRBC if Hgb < 8 g/dL or symptomatic. * Consider IV iron after active bleeding resolves. Cardiovascular * Continue telemetry for arrhythmia/QT monitoring. * Maintain MAP > 65 mmHg; patient normotensive. * Hold antihypertensives until post-EGD if stable. * EF 50 % on RENU, no CHF/CAD low risk for procedure. Renal / Metabolic * Continue IV NS @ 100 mL/hr. * Monitor BUN/Cr, electrolytes q12h. * Correct CO? 17 (bicarb loss) with fluid and electrolyte replacement. * Avoid nephrotoxins (NSAIDs, contrast). Respiratory * O? via NC PRN to keep SpO? > 92 %. * Incentive spirometry q2h while awake. * Augmentin 875 mg twice a day daily * azithromycin 500 mg daily * furosemide 20 mg IV given today for pleural effusion seen on chest x-ray Pain / Neuro * Continue fentanyl patch Q3D, morphine 2 mg IV q4h PRN, Percocet 5-325 mg q6h PRN. * Lidocaine patch daily. * Avoid benzodiazepines / sedatives pre-EGD. Wound Care / Skin * Continue VAC therapy at chest pacemaker site. * Wound care team to follow daily. * Monitor for erythema, purulence. Endocrine / Nutrition * NPO after midnight for EGD. * Resume clear liquid diet post-procedure if stable. * Start multivitamin, folic acid, thiamine once diet resumed. Prophylaxis * DVT: SCDs only (hold pharmacologic due to GI bleed). * GI: PPI drip continued. * Falls: Precautions maintained. Case discussed in detail with the attending physician, including the clinical presentation, diagnostic workup, and comprehensive management plan. The patient was present for the discussion and demonstrated understanding of his condition and the proposed plan. Critical Care Time: >45 minutes spent in direct evaluation, review of imaging/labs, resuscitation management, and coordination with nursing, wound care, Plan discussed with: Patient My Orders My Orders Orders - WILIAM FLORENTINO Procedure Category Date Status Time Mrsa Screen POP 03/13/25 In Process 15:10 Schedule For Dc RICKY 03/13/25 In Process Clinic F/U 13:14 Chest Xray 1 View XY 03/14/25 Resulted 04:00 Complete Blood Count LAB 03/15/25 Verified 04:00 Basic Metabolic Panel LAB 03/15/25 Verified 04:00 Pt Request For Service PT 03/14/25 Logged 12:12 Dietary Evaluation Review Comments: 1) Initiate Ethan @ 1 pk bid 2) Initiate MVI @ 1 tb qd 3) Initite vitamin C @ 500 mg bid and zinc sulfate @ 220 mg qd for 7 days 4) If patient remains NPO > 7 days, consider EN/TPN to meet at least 75% estimated daily needs 5) Advance to cardiac diet when medically feasible 6) Follow-up with gastroenterology and cardiology 7) Follow-up with psychiatry 8) Continue to monitor I&O, labs, and skin integrity Expected Outcomes/Goals: 1) patient to receive nutritional support within 7 days of NPO status 2) labs and GI symptoms to improve 3) wounds to improve 4) diet to advance 5) f/u in 3-5 days Date of Service: Mar 14, 2025 Billing Provider: JORDI GREENE MD Date of Service: Mar 14, 2025 Billing Provider: JORDI GREENE MD Common Visit Codes: [id number] INP/OBS CARE(HIGH) WILIAM FLORENTINO Mar 14, 2025 12:36 JORDI GREENE MD Mar 14, 2025 20:02
--- NOTE | 2025-03-14 22:41 | DVHPN2 ---
Progress Note - Dictate Date Seen: Mar 18, 2025 Has the PT tested + for MRSA If YES, has PT been informed?: No Medical Necessity Reason Pt with a Central, PICC or Fol: No Subjective Patient seen at bedside resting comfortably No further GI bleeding EGD findings reviewed with patient Patient ambulated with mild shortness post exertional vital signs Vital Sign Date Time Temp Pulse Resp B/P (MAP) Pulse Ox O2 Delivery O2 Flow Rate FiO2 03/14/25 21:00 97.0 82 18 98/72 (81) 96 97.0 03/14/25 20:00 Nasal Cannula* 2 28 Total Intake and Output 03/13/25 03/13/25 03/14/25 15:00 23:00 07:00 Intake Total 950 ml 805 ml Output Total 550 ml Balance 950 ml 255 ml medications Current Medications Medications Dose Ordered Sig/Sherie Route Start Time Stop Time Status Last Admin Dose Admin Lidocaine 1 patch DAILY@2100 TOP 03/09/25 21:00 03/11/25 20:49 1 PATCH Morphine Sulfate 2 mg Q4HPRN PRN IV 03/09/25 08:30 Oxycodone/ Acetaminophen 2 tab Q6HP PRN PO 03/10/25 15:30 03/14/25 19:52 2 TAB Loratadine 10 mg DAILYPRN PRN PO 03/10/25 18:00 Hydromorphone HCl 0.25 mg Q4HPRN PRN IV 03/10/25 21:45 03/11/25 11:23 0.25 MG Diphenhydramine HCl 25 mg Q4HP PRN IV 03/10/25 21:45 03/11/25 20:49 25 MG Ondansetron HCl 4 mg Q6HPRN PRN IV 03/11/25 12:00 Sucralfate 1 gm QID@0600,1130,1700,2200 PO 03/12/25 17:00 03/14/25 21:13 1 GM Pantoprazole Sodium 40 mg BID IV 03/12/25 22:00 03/14/25 21:13 40 MG Fentanyl 25 mcg Q72H TD 03/12/25 20:45 03/12/25 22:14 25 MCG Zinc Acetate/ Diphenhydramine 1 applic Q6HP PRN TOP 03/12/25 20:45 03/12/25 22:15 1 APPLIC Azithromycin 500 mg DAILY PO 03/14/25 10:00 03/14/25 10:03 500 MG Amoxicillin/ Clavulanate Potassium 875 mg Q12HR PO 03/13/25 23:30 03/14/25 21:13 875 MG objective General Appearance: Alert, Oriented X3, Cooperative, No acute distress Lungs: Clear to auscultation, Normal air movement, Other Cardiovascular: Regular rate, Normal S1, Normal S2, No murmurs, Gallops, Rubs, Other Abdomen: Normal bowel sounds, Soft, No tenderness, No hepatospenomegaly, No masses, Other Ext no c/c/e laboratory and microbiology Laboratory Tests 03/14/25 09:34 Test 03/14/25 09:34 Range/Units Serum Glucose 103 74-106 mg/dL Prognosis Plan Advance diet as tolerated Protonix 40 mg p.o. twice a day Carafate 1 g p.o. twice a day Continue antibiotics for suspected Campylobacter enterocolitis and review last colonoscopy report from gastro group which the patient reports as negative Outpatient follow up with me in 4-6 weeks to review results and discuss further management Discharge planning is in progress Dietary Evaluation Review Comments: 1) Initiate Ethan @ 1 pk bid 2) Initiate MVI @ 1 tb qd 3) Initite vitamin C @ 500 mg bid and zinc sulfate @ 220 mg qd for 7 days 4) If patient remains NPO > 7 days, consider EN/TPN to meet at least 75% estimated daily needs 5) Advance to cardiac diet when medically feasible 6) Follow-up with gastroenterology and cardiology 7) Follow-up with psychiatry 8) Continue to monitor I&O, labs, and skin integrity Expected Outcomes/Goals: 1) patient to receive nutritional support within 7 days of NPO status 2) labs and GI symptoms to improve 3) wounds to improve 4) diet to advance 5) f/u in 3-5 days Plan discussed with: Patient URSULA BARAKAT MD Mar 14, 2025 22:41
[2025-03-15 01:00] VITALS: BP 93/59; PULSE 18; TEMP 98.3; O2SAT 91
[2025-03-15 05:00] VITALS: BP 115/80; PULSE 88; RESP 16; TEMP 97.2; O2SAT 96
[2025-03-15 06:27] LABS: Hematocrit 24.9 % (41.0-53.0); Hemoglobin 8.6 g/dL (13.5-17.5); Mean Corpuscular Hemoglobin 32.4 pg (28.0-32.0); Mean Corpuscular Volume 94.1 fL (80.0-100.0); Nucleated Red Blood Cells % 0.0 %
[2025-03-15 06:38] LABS: Anion Gap 8 (5-15); Carbon Dioxide 25 mmol/L (20-31); Chloride 105 mmol/L (98-107); Sodium 138 mmol/L (136-145)
[2025-03-15 06:45] LABS: BUN/Creatinine Ratio 11.8 (10.0-20.0); Blood Urea Nitrogen 8 mg/dL (9-23); Calcium 7.6 mg/dL (8.7-10.4); Glucose 97 mg/dL (74-106); Potassium 3.4 mmol/L (3.5-5.1)
[2025-03-15 08:20] VITALS: PULSE 81; PULSE 86; O2SAT 92
[2025-03-15 09:00] VITALS: BP 96/68; PULSE 86; RESP 18; TEMP 98.6; O2SAT 96
[2025-03-15] MEDS: POTASSIUM CHL 20 Meq TABLET PO ONE (10:00)
[2025-03-15 13:00] VITALS: BP 91/68; PULSE 81; RESP 18; TEMP 98.4; O2SAT 90
[2025-03-15] MEDS ORDERED: FURO1TAB33 PO ×2 (16:20→16:23)
--- NOTE | 2025-03-15 16:20 | DVHPNRES ---
Progress Note Date Seen: Mar 15, 2025 Resident Creating Document: WILIAM FLORENTINO RESIDENT Has the PT tested + for MRSA If YES, has PT been informed?: No Medical Necessity Reason Pt with a Central, PICC or Fol: No Subjective Review of Systems This is a 74-year-old male with history of sick sinus syndrome (s/p leadless Micra pacemaker following prior pacemaker pocket infection), hypertension, hyperlipidemia, rheumatoid arthritis, gastritis with prior gastric ulcer, and a recent hospitalization (January 2025) for infected pacemaker pocket on wound-vac therapy. He was admitted for melena and diarrhea for 2 days, initially found to have infectious/inflammatory colitis and upper GI bleed.?Today, the patient reports mild improvement in abdominal cramping and no further vomiting or hematemesis. He continues to have dark stools, though frequency is reduced. No dizziness, syncope, or shortness of breath. Stool culture returned positive for Campylobacter antigen, and he was started on azithromycin IV daily. C. difficile test negative.?Octreotide drip discontinued; continues on PPI drip (pantoprazole). Cardiology cleared the patient for EGD scheduled for March [address] Boss.?Recent RENU showed EF 50 %; Revised Cardiac Risk Index = 0.5 % (low risk). No CHF or CAD, and the patient has good functional capacity. He remains hemodynamically stable, NPO, on room air with O? sat 95 %. Pain well controlled on fentanyl patch, morphine PRN, and Percocet. Hemoglobin stable at 8.1 g/dL (yesterday 8.3).?WBC 6.8 K/L, platelets 157 K.?Electrolytes: Cl 114 ?, CO? 17 ? (mild metabolic acidosis), BUN 27 ?, Cr 0.77 (GFR 95), BUN/Cr ratio 35.1.?Vital signs: BP 121/66, HR 81, RR 30 ?, Temp afebrile, SpO? 95 % RA. 03/12/2025: Patient was seen and examined by me at the bedside. No new active complaints. 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 We are advancing to full liquid diet today and going to observe how the patient tolerates it and then advanced to soft mechanical if patient is able to tolerate. 03/13/2025: Patient was seen and examined by me at the bedside. Patient was planned to be discharged but his saturation dropped to the 80s when he was walking to the bathroom. Chest x-ray shows increased pleural effusion. We will be tapping it tomorrow. we have started Augmentin 875 mg p.o. b.i.d. scheduled and azithromycin 500 mg p.o. once. ABG was done too. 03/14/2025: Patient was seen and examined by me at the bedside. Patient still has mild crackles on the left lower lung base. Furosemide 20 mg given again today. Patient reports that he has been urinating a lot. We counseled him regarding the need of urination for the congestion in his lungs and he communicated understanding. GI on board, suggested-patient to receive nutritional support within 7 days of NPO status; diet to advance; f/u in 3-5 days. We will continue to monitor the patient today. Central line was taken out. PT evaluation has been placed to check for ambulation patient is weak. Possible discharge tomorrow 03/15/2025: Patient is clinically better. He was seen and examined by me at the bedside. Crackles have decreased. We are discharging him today when furosemide 20 mg for 5 more days. PT evaluation suggested front wheel walker which is being arranged by social worker masters. Objective vital signs Vital Sign Date Time Temp Pulse Resp B/P (MAP) Pulse Ox O2 Delivery O2 Flow Rate FiO2 03/15/25 13:00 98.4 81 18 91/68 (76) 90 98.4 03/15/25 08:20 Room Air* 0 21 Total Intake and Output 03/14/25 03/14/25 03/15/25 15:00 23:00 07:00 Intake Total 500 ml 450 ml Output Total 700 ml 100 ml Balance -200 ml 350 ml medications Current Medications Medications Dose Ordered Sig/Sherie Route Start Time Stop Time Status Last Admin Dose Admin Lidocaine 1 patch DAILY@2100 TOP 03/09/25 21:00 03/11/25 20:49 1 PATCH Morphine Sulfate 2 mg Q4HPRN PRN IV 03/09/25 08:30 Oxycodone/ Acetaminophen 2 tab Q6HP PRN PO 03/10/25 15:30 03/15/25 05:35 2 TAB Loratadine 10 mg DAILYPRN PRN PO 03/10/25 18:00 Hydromorphone HCl 0.25 mg Q4HPRN PRN IV 03/10/25 21:45 03/11/25 11:23 0.25 MG Diphenhydramine HCl 25 mg Q4HP PRN IV 03/10/25 21:45 03/11/25 20:49 25 MG Ondansetron HCl 4 mg Q6HPRN PRN IV 03/11/25 12:00 Sucralfate 1 gm QID@0600,1130,1700,2200 PO 03/12/25 17:00 03/15/25 12:07 1 GM Pantoprazole Sodium 40 mg BID IV 03/12/25 22:00 03/14/25 21:13 40 MG Fentanyl 25 mcg Q72H TD 03/12/25 20:45 03/12/25 22:14 25 MCG Zinc Acetate/ Diphenhydramine 1 applic Q6HP PRN TOP 03/12/25 20:45 03/12/25 22:15 1 APPLIC Azithromycin 500 mg DAILY PO 03/14/25 10:00 03/15/25 10:00 500 MG Amoxicillin/ Clavulanate Potassium 875 mg Q12HR PO 03/13/25 23:30 03/15/25 09:59 875 MG Examination Pt is lying on bed General Appearance: Alert, Oriented X3, Cooperative, Not in acute distress HEENT: Atraumatic, Mucous membranes moist/pink, nasal cannula in place Respiratory: Clear to auscultation, Normal air movement, No added sounds Cardiovascular: Regular rate, Normal S1, Normal S2, No murmurs Abdominal: Active bowel sounds, Soft, no distention, no tenderness Extremities: No edema, Normal pulses, No tenderness/swelling Skin: No Significant rash, except past surgical scars Neuro: Normal speech, sensorimotor deficits none Psych/Mental Status: Mental status NL, Mood NL Nurse was there as histologic aide during examination laboratory and microbiology Laboratory Tests 03/15/25 05:27 03/15/25 05:22 Test 03/15/25 05:22 Range/Units Serum Glucose 97 74-106 mg/dL Microbiology Date/Time Source Procedure Growth Status 03/13/25 15:10 Nose MRSA Screen - Final Complete 03/08/25 22:56 Stool Stool Culture - Final Complete 03/08/25 22:56 Stool Shiga Toxin I & II - Final Complete 03/08/25 18:50 Blood Blood Culture - Final NO GROWTH AFTER 5 DAYS OF INCUBATION. Complete 03/08/25 13:45 Voided Urine Urine Culture - Final Complete Labs and/or images reviewed: Labs reviewed by me, Image(s) reviewed by me Problem List/Assessment/Plan Problem List/Assessment/Plan Assessment Acute Upper GI Bleed (Melena) /Gastrointestinal hemorrhage, site unspecified. Improving POA * Secondary to gastritis/gastric ulcer re-bleed vs duodenal ulcer. * Hgb stable 8.1 ? 8.3 ? 8.1; occult blood positive. * Gastrointestinal hemorrhage, site unspecified. Campylobacter enteritis. due to Campylobacter jejuni * Confirmed by stool antigen. C. difficile negative. * GI on board Severe Anemia due to Acute Blood Loss (post-transfusion stabilization)POA * Hgb > 8 g/dL goal. Metabolic Acidosis (Mild, Non-Gap) due to Diarrheal Bicarbonate LossPOA * CO? 17, Cl 114, normal AG. Sick Sinus Syndrome s/p Leadless Pacemaker StablePOA * Regular rhythm; no arrhythmias. History of Infected Pacemaker Pocket on Wound-VacPOA * Site clean, no drainage. Continue wound care. Chronic Pain / Rheumatoid Arthritis ControlledPOA * On fentanyl patch, Percocet PRN, lidocaine patch. Hypertension / Hyperlipidemia Stable.POA Plan (System-Jeff) Gastrointestinal * Continue IV pantoprazole drip 8 mg/hr (PPI infusion). * Octreotide discontinued. * Maintain NPO after midnight for EGD tomorrow (03/12) with Dr. Boss. * Monitor stool output and color q4h. * Serial CBC q6h; maintain Hgb > 8 g/dL with transfusion if needed. * Cardiology clearance obtained acceptable kyaw-procedural risk. * Continue azithromycin IV daily for Campylobacter. * Electrolyte monitoring and replacement for diarrhea-related losses. 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 Infectious Disease / Sepsis * Continue azithromycin IV daily (Day 1). * Stop metronidazole after 24 h overlap per ID protocol. * Monitor stool frequency, WBC trend, CRP. * Blood cultures pending review. Hematology * Monitor CBC q6h ? q12h once stable. * Transfuse PRBC if Hgb < 8 g/dL or symptomatic. * Consider IV iron after active bleeding resolves. Cardiovascular * Continue telemetry for arrhythmia/QT monitoring. * Maintain MAP > 65 mmHg; patient normotensive. * Hold antihypertensives until post-EGD if stable. * EF 50 % on RENU, no CHF/CAD low risk for procedure. Renal / Metabolic * Continue IV NS @ 100 mL/hr. * Monitor BUN/Cr, electrolytes q12h. * Correct CO? 17 (bicarb loss) with fluid and electrolyte replacement. * Avoid nephrotoxins (NSAIDs, contrast). Respiratory * O? via NC PRN to keep SpO? > 92 %. * Incentive spirometry q2h while awake. * Augmentin 875 mg twice a day daily * azithromycin 500 mg daily * furosemide 20 mg IV given yesterday for pleural effusion seen on chest x-ray * furosemide 20 mg IV given today(03/15/25) Pain / Neuro * Continue fentanyl patch Q3D, morphine 2 mg IV q4h PRN, Percocet 5-325 mg q6h PRN. * Lidocaine patch daily. * Avoid benzodiazepines / sedatives pre-EGD. Wound Care / Skin * Continue VAC therapy at chest pacemaker site. * Wound care team to follow daily. * Monitor for erythema, purulence. Endocrine / Nutrition * NPO after midnight for EGD. * Resume clear liquid diet post-procedure if stable. * Start multivitamin, folic acid, thiamine once diet resumed. Prophylaxis * DVT: SCDs only (hold pharmacologic due to GI bleed). * GI: PPI drip continued. * Falls: Precautions maintained. Case discussed in detail with the attending physician, including the clinical presentation, diagnostic workup, and comprehensive management plan. The patient was present for the discussion and demonstrated understanding of his condition and the proposed plan. Critical Care Time: >45 minutes spent in direct evaluation, review of imaging/labs, resuscitation management, and coordination with nursing, wound care, Plan discussed with: Patient My Orders My Orders Orders - WILIAM FLORENTINO Procedure Category Date Status Time Discharge DISCHARGE 03/15/25 Transmitted 15:36 Dietary Evaluation Review Comments: 1) Initiate Ethan @ 1 pk bid 2) Initiate MVI @ 1 tb qd 3) Initite vitamin C @ 500 mg bid and zinc sulfate @ 220 mg qd for 7 days 4) If patient remains NPO > 7 days, consider EN/TPN to meet at least 75% estimated daily needs 5) Advance to cardiac diet when medically feasible 6) Follow-up with gastroenterology and cardiology 7) Follow-up with psychiatry 8) Continue to monitor I&O, labs, and skin integrity Expected Outcomes/Goals: 1) patient to receive nutritional support within 7 days of NPO status 2) labs and GI symptoms to improve 3) wounds to improve 4) diet to advance 5) f/u in 3-5 days Date of Service: Mar 15, 2025 Billing Provider: JORDI GREENE MD Common Visit Codes: 00627-[id number] INP/OBS CARE(HIGH) WILIAM FLORENTINO Mar 15, 2025 16:20 JORDI GREENE MD Mar 15, 2025 19:13
--- NOTE | 2025-03-15 21:50 | DVHPN2 ---
Progress Note - Dictate Date Seen: Mar 15, 2025 (Late entry Patient seen at 4:00 p.m.) Has the PT tested + for MRSA If YES, has PT been informed?: No Medical Necessity Reason Pt with a Central, PICC or Fol: No Subjective Patient seen at bedside resting comfortably No further GI bleeding EGD findings reviewed with patient Tolerating diet vital signs Vital Sign Date Time Temp Pulse Resp B/P (MAP) Pulse Ox O2 Delivery O2 Flow Rate FiO2 03/15/25 13:00 98.4 81 18 91/68 (76) 90 98.4 03/15/25 08:20 Room Air* 0 21 Total Intake and Output 03/14/25 03/14/25 03/15/25 15:00 23:00 07:00 Intake Total 500 ml 450 ml Output Total 700 ml 100 ml Balance -200 ml 350 ml objective General Appearance: Alert, Oriented X3, Cooperative, No acute distress Lungs: Clear to auscultation, Normal air movement, Other Cardiovascular: Regular rate, Normal S1, Normal S2, No murmurs, Gallops, Rubs, Other Abdomen: Normal bowel sounds, Soft, No tenderness, No hepatospenomegaly, No masses, Other Ext no c/c/e laboratory and microbiology Laboratory Tests 03/15/25 05:27 03/15/25 05:22 Test 03/15/25 05:22 Range/Units Serum Glucose 97 74-106 mg/dL Problems(with codes): (1) Duodenal stricture (2) Melena (3) Campylobacter enteritis (4) Chronic renal failure, stage 3 (moderate) (5) Hyponatremia (6) Vomiting in adult patient Prognosis Plan Discharge planning is in progress Maintained on Protonix 40 mg p.o. twice a day Carafate 1 g p.o. twice a day DC aspirin NSAIDs smoking alcohol Patient has completed antibiotic treatment Outpatient follow up with GI Services for further management Dietary Evaluation Review Comments: 1) Initiate Ethan @ 1 pk bid 2) Initiate MVI @ 1 tb qd 3) Initite vitamin C @ 500 mg bid and zinc sulfate @ 220 mg qd for 7 days 4) If patient remains NPO > 7 days, consider EN/TPN to meet at least 75% estimated daily needs 5) Advance to cardiac diet when medically feasible 6) Follow-up with gastroenterology and cardiology 7) Follow-up with psychiatry 8) Continue to monitor I&O, labs, and skin integrity Expected Outcomes/Goals: 1) patient to receive nutritional support within 7 days of NPO status 2) labs and GI symptoms to improve 3) wounds to improve 4) diet to advance 5) f/u in 3-5 days Plan discussed with: Patient URSULA BARAKAT MD Mar 15, 2025 21:50
--- NOTE | 2025-03-16 12:34 | ECG ---
[facility] Test Date: 2025-03-13 Test Time: 16:13:18 Pat Name: POWER GUERRERO Department: Respiratoy Room: 0247T A Gender: M Assemblyman Or Woman: FIGUEROA : 1950 Requested By: WILIAM FLORENTINO Order Number: [id number] Reading MD: Hardik Joel Measurements Intervals [place] Rate: 86 P: 2 AK: 157 QRS: -20 QRSD: 106 T: 137 QT: 382 QTc: 457 Interpretive Statements Sinus rhythm Borderline left axis deviation Low voltage, precordial leads Abnormal R-wave progression, early transition Nonspecific T abnrm, anterolateral leads Minimal ST elevation, inferior leads Electronically Signed On 03-16-2025 19:45:36 PDT by Hardik Joel Please click the below link to view image of tracing.
== END 2025-03-15 16:54 | disposition home health service (06) | DRG 871 ==
LOC: ER 16:13 → EDBD 16:13 → EDUNIT# 16:13 → OVERFLOW 22:25 → ICU CENTRL 03-09 01:12 → DOU 03-11 20:10 → TELE-EAST 03-13 21:45
PROVIDERS: ADMIT Student in an Organized Health Care Education/Training Program; ATTEND Student in an Organized Health Care Education/Training Program
PROC: 30233N1 Transfusion of Nonautologous Red Blood Cells into Peripheral Vein, Percutaneous Approach (ICD-10-PCS; principal; 2025-03-09)
PROC: 02HV33Z Insertion of Infusion Device into Superior Vena Cava, Percutaneous Approach (ICD-10-PCS; 2025-03-09)
PROC: B548ZZA Ultrasonography of Superior Vena Cava, Guidance (ICD-10-PCS; 2025-03-09)
PROC: 0DB98ZX Excision of Duodenum, Via Natural or Artificial Opening Endoscopic, Diagnostic (ICD-10-PCS; 2025-03-12)
PROC: 0DB68ZX Excision of Stomach, Via Natural or Artificial Opening Endoscopic, Diagnostic (ICD-10-PCS; 2025-03-12)
PROC: 0DB48ZX Excision of Esophagogastric Junction, Via Natural or Artificial Opening Endoscopic, Diagnostic (ICD-10-PCS; 2025-03-12)
DX: A41.9 Sepsis, unspecified organism (principal); K26.4 Chronic or unspecified duodenal ulcer with hemorrhage; R57.1 Hypovolemic shock; R65.21 Severe sepsis with septic shock; A09 Infectious gastroenteritis and colitis, unspecified; E87.20 Acidosis, unspecified; D62 Acute posthemorrhagic anemia; A04.5 Campylobacter enteritis; K31.5 Obstruction of duodenum; E44.0 Moderate protein-calorie malnutrition; D50.9 Iron deficiency anemia, unspecified; M06.9 Rheumatoid arthritis, unspecified; E83.51 Hypocalcemia; G89.4 Chronic pain syndrome; K29.70 Gastritis, unspecified, without bleeding; K44.9 Diaphragmatic hernia without obstruction or gangrene; K22.2 Esophageal obstruction; E78.5 Hyperlipidemia, unspecified; I10 Essential (primary) hypertension; F17.200 Nicotine dependence, unspecified, uncomplicated; Z79.2 Long term (current) use of antibiotics; Z87.11 Personal history of peptic ulcer disease; Z95.0 Presence of cardiac pacemaker; Z82.49 Family history of ischemic heart disease and other diseases of the circulatory system; Z79.899 Other long term (current) drug therapy
CPT/HCPCS: 36415; 36430; 36556; 36600; 71045; 71260; 74177; 80048; 80053; 80061; 80076; 80307; 80320; 81001; 82140; 82270; 82306; 82607; 82728; 82746; 82805; 82962; 83540; 83550; 83605; 83615; 83690; 83735; 83880; 84100; 84132; 84443; 84484; 85014; 85018; 85025; 85045; 85384; 85610; 85730; 86141; 86850; 86900; 86901; 86920; 87040; 87045; 87081; 87086; 87427; 87493; 93005; 96365; 96366; 96368; 96375; 97110; 97116; 97163; 97530; G0378; J2405; J2470; J2704; J3490